=== PATIENT | male | born 1950 | race Caucasian/White ===

== ENCOUNTER 2020-04-17 14:35 | Inpatient (IN) | payer MEDICARE, BC, SELFPAY ==
--- NOTE | ~2020-04-17 | XR_ITS ---
EXAMINATION: XR CHEST CLINICAL INFORMATION: Elevated BNP. Hypoxia. COMPARISON: Chest radiograph dated 04/21/2020. TECHNIQUE: Frontal view of the chest was obtained. FINDINGS: Decreased lung volumes. No consolidation. Mild distention of the central vascular pedicle and increased interstitial lung markings. No pneumothorax or pleural effusion. Cardiomediastinal silhouette is mildly increased in size. No acute osseous abnormality. XR/XR chest 1V IMPRESSION: Hypoexpanded lungs. Mild central vascular congestion and interstitial edema.
--- NOTE | ~2020-04-17 | US_ITS ---
EXAMINATION: US EXTRACRANIAL CAROTID DUPLEX, BILATERAL CLINICAL INFORMATION: CVA COMPARISON: None TECHNIQUE: Real-time ultrasound and Doppler techniques (integrating B-mode 2-D vascular images, Doppler spectral analysis and color-flow Doppler imaging) were utilized to interrogate the extracranial carotid arteries, the vertebral arteries and proximal subclavian arteries bilaterally. The degree of stenosis is determined by criteria similar to NASCET. FINDINGS: Right Side: 1. There is echogenic atherosclerotic plaque seen in the bifurcation/proximal ICA region. 2. The common carotid artery PSV proximally is 87.8 cm/s and distally 61.9 cm/s. 3. The proximal internal carotid artery velocities are 63.2 cm/s systolic and 15.8 cm/s diastolic. 4. The proximal external carotid artery PSV is 61.9 cm/s. 5. The vertebral artery shows antegrade flow. Left Side: 1. There is echogenic atherosclerotic plaque seen in the bifurcation/proximal ICA region. 2. The common carotid artery PSV proximally is 69.3 cm/s and distally 63.4 cm/s. 3. The proximal internal carotid artery velocities are 69.0 cm/s systolic and 19.3 cm/s diastolic. 4. The proximal external carotid artery PSV is 75.7 cm/s. 5. The vertebral artery shows antegrade flow. US/US carotid duplex BI IMPRESSION: 1. RIGHT: Minimal, non-hemodynamically significant stenosis of the proximal right internal carotid artery corresponding to a 0-49% stenosis by velocity criteria. 2. LEFT: Minimal, non-hemodynamically significant stenosis of the proximal left internal carotid artery corresponding to a 0-49% stenosis by velocity criteria.
--- NOTE | ~2020-04-17 | XR_ITS ---
EXAMINATION: XR CHEST CLINICAL INFORMATION: Evaluate for CHF COMPARISON: None TECHNIQUE: Frontal view of the chest was obtained. FINDINGS: Normal cardiomediastinal silhouette. Median sternotomy wires and vascular clips are in place. There is hypoinflation of the lungs with mild prominence of the pulmonary vasculature and interstitium. Streaky atelectasis at the right lung base. No acute osseous abnormality. XR/XR chest 1V IMPRESSION: Low lung volumes. Mild prominence of the pulmonary vasculature and interstitium, which may represent mild edema versus atelectasis. Streaky atelectasis at the right lung base.
--- NOTE | ~2020-04-17 | US_ITS ---
EXAMINATION: US ABDOMEN COMPLETE ULTRASOUND DUPLEX ARTERIAL VENOUS COMPLETE CLINICAL INFORMATION: worsening liver failure/fever, rule out portal vein thrombosis. COMPARISON: CT dated 04/19/2020 TECHNIQUE: Real-time imaging of the abdominal viscera. Additional color and spectral Doppler assessment of the arterial, portal venous, and systemic venous systems in the mid abdomen was performed. Examination is somewhat limited due to irregular, labored breathing and significant bowel gas. Patient is unable to hold breath. Constant movement. FINDINGS: PANCREAS: Largely obscured by bowel gas, not well assessed. Imaged portion of the body is unremarkable. ABDOMINAL AORTA: The proximal, mid, and distal segments are normal in caliber. Foci of calcific plaque are suspected. INFERIOR VENA CAVA: Visualized portions are normal. LIVER: Subtle nodularity to the hepatic contour is better seen on prior CT. Echogenicity appears normal on these images. Liver is normal in size, measuring 13.6 cm craniocaudal. A 0.7 cm anechoic cyst is present within the left hepatic lobe. No biliary ductal dilatation is identified. Trace perihepatic ascites. GALLBLADDER: Multiple shadowing gallstones are evident within the gallbladder, measuring up to 2.2 cm in diameter . Gallbladder wall demonstrates normal thickness. No significant pericholecystic fluid. No sonographic Perdomo's sign. COMMON BILE DUCT: Normal in caliber measuring 0.5 cm in diameter. RIGHT KIDNEY: Normal. No hydronephrosis. No renal calculi or focal parenchymal lesions. The kidney measures 13.3 cm in maximum dimension. LEFT KIDNEY: Normal. No hydronephrosis. No renal calculi or focal parenchymal lesions. The kidney measures 13.1 cm in maximum dimension. SPLEEN: Enlarged, measuring up to 17.3 cm in diameter. FREE FLUID: Trace ascites is noted in perisplenic and perihepatic positions. Portal veins: Extra hepatic portal vein : Hepatopedal flow, patent Main portal vein: Hepatopedal flow, patent Right portal vein : Hepatopedal flow, patent Left portable vein: Not seen on this study Hepatic arteries: Mean hepatic artery: Patent with normal peak systolic velocity 125 cm/s. Left and right hepatic arteries: Not identified sonographically. IVC waveform: None obtained Splenic vein: Patent with hepatopedal flow. US/US duplex arterial venous comp IMPRESSION: 1. A subtle hepatic nodularity is better seen on the prior CT, suggestive of cirrhosis. Liver is normal in size and echogenicity on these images. 2. Marked splenomegaly. 3. Patent portal vasculature with hepatopedal flow. No evidence of thrombosis. 4. Trace ascites. 5. Cholelithiasis without evidence of acute cholecystitis.
--- NOTE | ~2020-04-17 | XR_ITS ---
EXAMINATION: XR CHEST CLINICAL INFORMATION: Shortness of breath COMPARISON: Chest radiograph 04/17/[address] abdomen pelvis 04/19/2020 TECHNIQUE: Frontal view of the chest was obtained. FINDINGS: Heart size is normal. No evidence of gross CHF. At the time of the prior CT scan 3 days ago, bilateral pleural effusions and lower lobe atelectasis was present. I suspect there are persistent small bilateral pleural effusions. There is new increased density at the left lung base consistent with worsening infiltrate/atelectasis. XR/XR chest 1V IMPRESSION: Persistent small effusions. Worsening infiltrate left lung base.
--- NOTE | ~2020-04-17 | MR_ITS ---
EXAMINATION: MR BRAIN WITHOUT CONTRAST CLINICAL INFORMATION: Left facial droop COMPARISON: CT head performed earlier same date TECHNIQUE: MRI of the brain was obtained using routine sequences without contrast. FINDINGS: No areas of abnormally restricted diffusion within the brain parenchyma to suggest acute or subacute ischemia. There are a few scattered foci of subcortical white matter T2 prolongation statistically related to microangiopathic gliosis. No transcortical infarcts. No pathological magnetic susceptibility artifact is demonstrated. There is no intracranial mass, mass effect, or shift of midline structures. No abnormal extra axial fluid collection. Ventricular system normal in size proportionate to the subarachnoid spaces, without evidence of hydrocephalus. Mild generalized brain parenchymal volume loss. Posterior fossa structures are normal. The craniocervical junction is normal. Midline structures including the posterior pituitary bright spot are normal. The intracranial vascular flow voids including the major dural venous sinuses are preserved. Mastoid air cells are clear. The visualized paranasal sinuses are well-aerated. Globes and orbits unremarkable. MR/MR head/brain wo con IMPRESSION: No acute or subacute intracranial pathology. Minimal chronic white matter small vessel ischemic changes.
--- NOTE | ~2020-04-17 | CT_ITS ---
EXAMINATION: CT CHEST WITHOUT CONTRAST CLINICAL INFORMATION: Pneumonia COMPARISON: Previous chest x-ray April 17 and 04/22/2020 TECHNIQUE: Multidetector volumetric CT imaging of the chest was done. Axial MIP volume rendering provided. Sagittal and coronal reformatted images were obtained. This CT examination was performed using dose optimization techniques as appropriate, variously including the following: *Automated exposure control *Adjustment of mA and/or kV according to patient size (this includes techniques or standardized protocols for targeted exams where dose is matched to indication/reason for exam; i.e. extremities or head) *Use of iterative reconstruction technique DLP: 258 mGy-cm FINDINGS: LUNGS: Exam is limited due to artifact from respiratory motion. There is pulmonary venous redistribution. There are increased interstitial markings seen and scattered areas of increased attenuation. This most likely represents mild pulmonary edema. There is bilateral lower lobe compressive atelectasis or small infiltrates at the lung bases, right greater than left. MEDIASTINUM: The heart is enlarged. There are post-CABG changes. There is a prosthetic aortic valve. There is a small mediastinal lymph nodes. No enlarged lymph nodes are seen. There is no pericardial effusion. PLEURA: There are small to moderate bilateral pleural effusions. AXILLA: No lymphadenopathy. UPPER ABDOMEN: Unremarkable. OSSEOUS STRUCTURES: There is a united median sternotomy. There are degenerative changes of the spine. CT/CT chest wo con IMPRESSION: Limited exam due to artifact from respiratory motion. Mild CHF with enlarged heart, pulmonary venous redistribution, interstitial and alveolar pulmonary disease probably representing pulmonary edema and moderate bilateral pleural effusions. There is compressive atelectasis or small infiltrates in both lower lobes adjacent to the pleural effusions..
--- NOTE | ~2020-04-17 | CT_ITS ---
EXAMINATION: CT HEAD WITHOUT CONTRAST (STROKE PROTOCOL) CLINICAL INFORMATION: Left facial droop. Stroke COMPARISON: None TECHNIQUE: Contiguous axial imaging was performed from the skull base to vertex without intravenous administration of contrast. This CT examination was performed using dose optimization techniques as appropriate, variously including the following: *Automated exposure control *Adjustment of mA and/or kV according to patient size (this includes techniques or standardized protocols for targeted exams where dose is matched to indication/reason for exam; i.e. extremities or head) *Use of iterative reconstruction technique DLP: 693 mGy-cm FINDINGS: There is no intracranial hemorrhage, hematoma, or extra-axial fluid collection. Ventricles, sulci, and cisterns are age-appropriate and prominent. The zavala-white matter differentiation appears symmetric. There is no acute infarct or mass lesion. There is some mild periventricular white matter low density present as well as some diminished density seen about the insula bilaterally likely related to The calvarium appears intact. There is no pneumocephalus or orbital emphysema. The visualized sinuses and middle ears and mastoid air cells show no significant mucosal thickening. There are no air-fluid levels. CT/CT head for stroke IMPRESSION: No acute intracranial abnormality appreciated. Signs of mild microangiopathy. This critical result was discussed with Dr. Lopez at 2:20 PM hours on April 24, 2020. It was ascertained that the content and urgency of the report was understood at the time of direct communication.
--- NOTE | ~2020-04-17 | US_ITS ---
EXAMINATION: US ABDOMEN COMPLETE, PORTABLE CLINICAL INFORMATION: Hypoalbuminemia, transaminitis.. COMPARISON: None TECHNIQUE: Real-time imaging of the abdominal viscera. FINDINGS: PANCREAS: Normal. ABDOMINAL AORTA: There is mild atherosclerosis with calcified abdominal aorta but normal caliber throughout. INFERIOR VENA CAVA: Visualized portions are normal. LIVER: The left lobe is mildly reduced 15.6 cm and right lobe measures 18.3 cm, enlarged. There is anechoic cyst in the left lobe measuring 0.6 x 0.5 x 0.6 cm. The liver contour is normal. Parenchymal echogenicity is normal. There is no intrahepatic ductal dilatation. There is mild prominence of middle portal vein measuring 1.6 cm in AP. There is hepatopedal flow seen in the main portal vein on Doppler exam. GALLBLADDER: The gallbladder is physiologically distended with echogenic stones. Gallbladder wall thickness is 0.18 cm. There is trace fluid surrounding gallbladder. COMMON BILE DUCT: Normal in caliber measuring 0.38 cm in diameter. RIGHT KIDNEY: There is trace pelvic caliectasis. No renal calculi or focal parenchymal lesions. The kidney measures 13.6 cm in maximum dimension. LEFT KIDNEY: The kidney is lobulated contour with trace free fluid around the lower pole. There are no echogenic calculi or hydronephrosis. There is a small anechoic cyst in lower pole measuring 2.2 x 1.8 x 2.0 cm. The kidney measures 13.4 cm in maximum dimension. SPLEEN: The spleen is enlarged. The spleen measures 17.9 cm in maximum dimension. FREE FLUID: None. US/US abdomen complete IMPRESSION: Enlarged gallbladder with cholelithiasis with trace pericholecystic fluid collection. Mild hepatomegaly with the left hepatic lobe cyst. Mildly dilated middle portal vein. Small cyst left kidney with a lobulated left kidney contour. Trace free fluid in lower pole left kidney.
--- NOTE | ~2020-04-17 | CT_ITS ---
EXAMINATION: CT ABDOMEN AND PELVIS WITH CONTRAST CLINICAL INFORMATION: Chronic liver disease. Gallbladder distention. COMPARISON: Ultrasound of abdomen 04/18/2020 TECHNIQUE: Multidetector volumetric images were obtained from the superior aspect of the liver through the pubic symphysis following administration 85 mL of Omnipaque 350 intravenous contrast. Sagittal and coronal reformatted images were obtained on the technologist's workstation. Oral contrast: No This CT examination was performed using dose optimization techniques as appropriate, variously including the following: *Automated exposure control *Adjustment of mA and/or kV according to patient size (this includes techniques or standardized protocols for targeted exams where dose is matched to indication/reason for exam; i.e. extremities or head) *Use of iterative reconstruction technique DLP: 506 mGy-cm FINDINGS: LUNG BASES: There are small dependent bilateral pleural effusions. Dependent atelectasis at both lung bases. The heart size enlarged. Status post aortic valve repair. Status post median sternotomy. Vascular calcification of coronary arteries. LIVER, GALLBLADDER, AND BILIARY TREE: There is slight nodularity of the liver surface raising question of underlying cirrhosis. Right lobe of liver measures 17.6 cm superior inferior. No focal liver lesion or intrahepatic bile duct dilatation. The gallbladder is mildly distended to a length of about 12 cm. There are multiple partially calcified gallstones within the gallbladder. There is a small volume of fluid around the fundus of the gallbladder and extending into the right paracolic gutter. No edema of the wall the gallbladder however. No dilatation of the extrahepatic ducts. CBD measures about 4 mm. PANCREAS: Unremarkable. SPLEEN: Spleen is enlarged. Spleen measures 18 cm AP. No focal splenic lesion. ADRENAL GLANDS: Unremarkable. KIDNEYS AND URETERS: There is a nonobstructive 2 mm stone in the midpole left kidney. No stone in the right kidney. There is no hydronephrosis or ureteral calculus. There is a cortical cyst in the lower pole of the left kidney measuring 1.8 cm. BLADDER: Unremarkable. GASTROINTESTINAL TRACT: No acute change of the colon. There is no bowel wall thickening /edema. There is a moderate to large volume of stool in the colon. The appendix is normal . There is mild gaseous distention of proximal small bowel loops. The distal small bowel loops are less distended. No sharp transition point however. No bowel wall thickening or edema of the small bowel. The stomach is underdistended. There is no hiatal hernia. MESENTERY: Small volume of free fluid in the cul-de-sac. Small volume of fluid tracks along the right and left paracolic gutters. There is no inflammation. No free air. ABDOMINAL WALL: No significant hernia is appreciated. LYMPH NODES: Normal. VASCULAR: There are extensive vascular calcifications through the abdomen and pelvis. There is no aneurysm of aorta. PELVIC VISCERA: Unremarkable. OSSEOUS STRUCTURES: Multilevel degenerative spondylosis of the spine. CT/CT abdomen pelvis w con IMPRESSION: 1. Splenomegaly and abdominal ascites. There is subtle micronodularity of the liver surface suggesting cirrhosis of liver. 2. Cholelithiasis. The gallbladder is mildly distended but no edema of the wall and no bile duct dilatation. 3. Bilateral pleural effusions. Bibasilar dependent atelectasis. 4. 2 mm nonobstructive stone left kidney.
--- NOTE | ~2020-04-17 | US_ITS ---
EXAMINATION: US PELVIS LIMITED (BLADDER) CLINICAL INFORMATION: Hematuria. COMPARISON: Previous CT of the abdomen and pelvis 04/19/2020 TECHNIQUE: Real-time imaging of the bladder. FINDINGS: BLADDER: Well distended and normal. No stone or mass is seen. Bilateral ureteral jets are demonstrated. Prevoid bladder volume is 197 mL. Postvoid bladder volume is 32 mL. The prostate gland is upper normal in size, volume 22 mL. There is a small amount of ascites. US/US bladder IMPRESSION: Small 32 mL post void bladder residual. Small amount of ascites. Upper normal-size prostate gland..
[2020-04-17 16:03] VITALS: BP 107/51; PULSE 92; RESP 16; TEMP 37.1; O2SAT 99
[2020-04-17 16:17] VITALS: BP 115/68; PULSE 74; RESP 18; TEMP 36.9; O2SAT 100; BMI 22.8
--- NOTE | 2020-04-17 16:38 | ECG_ITS ---
Test Reason : GENERAL MEDICAL Blood Pressure : / mmHG Vent. Rate : 071 BPM Atrial Rate : 071 BPM P-R Int : 156 ms QRS Dur : 098 ms QT Int : 422 ms P-R-T Axes : 051 -09 014 degrees QTc Int : 458 ms Sinus rhythm with Premature atrial complexes Minimal voltage criteria for LVH, may be normal variant T wave abnormality, consider anterior ischemia Abnormal ECG No previous ECGs available Referred By: Donald Charlton Electronically Signed By:Manuel Steinberg
--- NOTE | 2020-04-17 16:38 | ED_ITS ---
HPI - General Adult General Chief complaint: General Medical Stated complaint: Multiple complaints Time Seen by Provider: 04/17/20 16:25 Source: patient and family Mode of arrival: ambulatory Limitations: no limitations History of Present Illness HPI narrative: Patient's history of significant coronary artery disease status post 4 vessel CABG 7 years ago for abnormal EKG no chest pain at that time was doing okay until he got the COVID vaccine on 03/18patient had few days of cold symptoms but after that patient been complaining of increased leg swelling and shortness of breath which is getting worse patient feel weak no fever no chest pain no abdominal pain no back pain or leg pain patient had a 2nd shot of COVID vaccine on 04/08. Patient had similar cold symptoms been feeling very weak he fell last week with increased weakness and shortness of breath on exertion. PE patient was seen at [facility] on 04/09 they did chest x-ray which was negative Doppler of the legs negative for DVT patient's sodium was 135 creatinine was 0.9 and pro BNP was 2042 patient's hemoglobin was 9.7 with platelet counts of 111,000 Onset (ago): week(s) Related Data Home Medications Medication Instructions Recorded Confirmed aspirin 81 mg PO DAILY 04/17/20 04/17/20 atorvastatin 1 tab PO DAILY 04/17/20 04/17/20 metoprolol tartrate 1 tab PO BID 04/17/20 04/17/20 Allergies Allergy/AdvReac Type Severity Reaction Status Date / Time No Known Allergies Allergy Verified 04/17/20 16:51 Review of Systems Review of Systems: Constitutional : No Weight loss, No Fever, No Chills ENT/Mouth : No sore throat, No Rhinorrhea Eyes: No Eye Pain, No Swelling Cardiovascular : No Chest Pain, no palpitations Respiratory : No Cough, No Sputum, ++ shortness of breath Gastrointestinal : no Nausea, No Vomiting, No Diarrhea, No abdominal Pain, no black stools Genitourinary : No Dysuria, No Urinary Frequency Musculoskeletal : No joint pain, ++Myalgias, No Joint Swelling Skin : No Skin Lesions, No rash Neuro : No Weakness, No Numbness, No Dizziness, No Headache Psych : No Anxiety/Panic, No Depression Heme/Lymph: No Bruising, No Lymphadenopathy Endocrine : No Polyuria, No Polydipsia All other systems reviewed and are negative FOR[facility]LY [facility] Past Medical History Medical History (Updated 04/17/20 @ 20:43 by Donald Charlton MD) CAD (coronary artery disease) HTN (hypertension) Hyperlipemia Surgical History (Updated 04/17/20 @ 20:43 by Donald Charlton MD) Hx of CABG Social History Social History Alcohol intake: never Smoking Status: Never smoker Use of substances other than those prescribed or required for medical reasons: No Advance Directives: No Advance Directives Information Provided: No Physical Exam Vital Signs: Vital Signs: Last Vital Signs Temp 98.5 F 04/17/20 20:00 Pulse 100 04/17/20 20:00 Resp 22 H 04/17/20 20:00 BP 157/70 H 04/17/20 20:00 Pulse Ox 98 04/17/20 20:00 Body Mass Index 22.8 Appearance: Alert. Oriented X3. No acute distress. Looks pale Eyes: Pupils equal, round and reactive to light. ENT: Pharynx normal. Neck: Normal inspection. Neck supple. CVS: Normal heart rate and rhythm. Pulses normal. Respiratory: No respiratory distress. Breath sounds normal. Abdomen: Soft and nontender. Bowel sounds are present, no mass palpable, no CVA tenderness rectal: Empty rectum guaiac negative brown stool Skin: Skin warm and dry. Normal skin color. Normal skin turgor. Pallor+ Extremities: 2+ bilateral lower extremity edema. Neuro: Oriented X 3. No motor deficit. No sensory deficit. Medical Decision Making MDM Narrative Medical decision making narrative: Patient with significant coronary artery disease came with weakness exertional shortness of breath lab workup and chest x-ray showed congestive heart failure with significant anemia guaiac is negative old records reviewed from [facility] which also showed increased BNP at that time sodium was 135 today's 129 likely delusional also patient has slightly elevated LFTs with low albumin levels that could be contributing to the edema. Will admit patient for CHF and further cardiac evaluation Lab Data Lab results reviewed: Yes I reviewed the patient's lab results. Result diagrams: 04/17/20 16:49 04/17/20 16:49 Labs: Lab Results 04/17/20 04/17/20 04/17/20 Range/Units 16:49 16:49 16:49 WBC 11.3 H (4.8-10.8) X10*3/uL RBC 3.46 L (4.60-5.80) X10*6/uL Hgb 9.4 L (14.0-18.0) g/dl Hct 30.0 L (42-52) % MCV 86.7 (80-98) fL MCH 27.2 (27.0-33.0) pg MCHC 31.3 (31.0-36.0) g/dl RDW 15.0 (11.0-16.0) % Plt Count 125 L (160-400) X10*3/uL MPV 9.7 (9.4-12.4) fL Immature Gran % (Auto) 0.8 H (0.0-0.4) % Neut % (Auto) 83.5 H (45-73) % Lymph % (Auto) 9.0 L (20-40) % [place] % (Auto) 6.5 (2-11) % Eos % (Auto) 0.1 (0-4) % Baso % (Auto) 0.1 (0-2) % Lymph # (Auto) 1.0 L (1.2-4.9) X10*3/uL [place] # (Auto) 0.7 (0.1-1.2) X10*3/uL Eos # (Auto) 0.0 (0.0-0.4) X10*3/uL Baso # (Auto) 0.0 (0.0-0.2) X10*3/uL Abs Immat Gran (auto) 0.09 H (0.00-0.03) X10*3/uL Absolute Neuts (auto) 9.5 H (2.0-8.3) X10*3/uL Absolute Nucleated RBC 0.000 (0.0-0.012) X10*3/uL Nucleated RBC % (auto) 0.0 (0.0-0.2) /100WBC PT 16.8 H (10.8-13.0) SEC INR 1.4 H (0.9-1.1) Sodium 129 L (135-145) mmol/L Potassium 4.2 (3.3-5.1) mmol/L Chloride 98 (96-108) mmol/L Carbon Dioxide 22 (22-29) mmol/L Anion Gap 13 (12-20) BUN 26 H (9-16) mg/dL Creatinine 0.99 (0.5-1.4) mg/dL Estim Creat Clear Calc 69.0 Estimated GFR > 60 Random Glucose 171 H (60-115) mg/dL Calcium 7.4 L (8.4-10.2) mg/dL Total Bilirubin 1.1 H (0.0-1.0) mg/dL Direct Bilirubin 0.6 H (0.0-0.5) mg/dL AST 59 H (5-37) U/L ALT 79 H (0-40) U/L Alkaline Phosphatase 93 (39-117) U/L Troponin I High Sens (<3.5-35.0) ng/L B-Natriuretic Peptide (<100) pg/mL Total Protein 5.7 L (6.5-8.0) g/dL Albumin 2.6 L (3.5-5.0) g/dL Stool Occult Blood (NEG) COVID-19 ([facility]) (Negative) COVID-19 Clin Com 04/17/20 04/17/20 04/17/20 Range/Units 16:49 18:32 20:15 WBC (4.8-10.8) X10*3/uL RBC (4.60-5.80) X10*6/uL Hgb (14.0-18.0) g/dl Hct (42-52) % MCV (80-98) fL MCH (27.0-33.0) pg MCHC (31.0-36.0) g/dl RDW (11.0-16.0) % Plt Count (160-400) X10*3/uL MPV (9.4-12.4) fL Immature Gran % (Auto) (0.0-0.4) % Neut % (Auto) (45-73) % Lymph % (Auto) (20-40) % [place] % (Auto) (2-11) % Eos % (Auto) (0-4) % Baso % (Auto) (0-2) % Lymph # (Auto) (1.2-4.9) X10*3/uL [place] # (Auto) (0.1-1.2) X10*3/uL Eos # (Auto) (0.0-0.4) X10*3/uL Baso # (Auto) (0.0-0.2) X10*3/uL Abs Immat Gran (auto) (0.00-0.03) X10*3/uL Absolute Neuts (auto) (2.0-8.3) X10*3/uL Absolute Nucleated RBC (0.0-0.012) X10*3/uL Nucleated RBC % (auto) (0.0-0.2) /100WBC PT (10.8-13.0) SEC INR (0.9-1.1) Sodium (135-145) mmol/L Potassium (3.3-5.1) mmol/L Chloride (96-108) mmol/L Carbon Dioxide (22-29) mmol/L Anion Gap (12-20) BUN (9-16) mg/dL Creatinine (0.5-1.4) mg/dL Estim Creat Clear Calc Estimated GFR Random Glucose (60-115) mg/dL Calcium (8.4-10.2) mg/dL Total Bilirubin (0.0-1.0) mg/dL Direct Bilirubin (0.0-0.5) mg/dL AST (5-37) U/L ALT (0-40) U/L Alkaline Phosphatase (39-117) U/L Troponin I High Sens 227.8 H (<3.5-35.0) ng/L B-Natriuretic Peptide 457 H (<100) pg/mL Total Protein (6.5-8.0) g/dL Albumin (3.5-5.0) g/dL Stool Occult Blood NEG (NEG) COVID-19 ([facility]) Negative (Negative) COVID-19 Clin Com See Note 04/17/20 Range/Units 21:02 WBC (4.8-10.8) X10*3/uL RBC (4.60-5.80) X10*6/uL Hgb (14.0-18.0) g/dl Hct (42-52) % MCV (80-98) fL MCH (27.0-33.0) pg MCHC (31.0-36.0) g/dl RDW (11.0-16.0) % Plt Count (160-400) X10*3/uL MPV (9.4-12.4) fL Immature Gran % (Auto) (0.0-0.4) % Neut % (Auto) (45-73) % Lymph % (Auto) (20-40) % [place] % (Auto) (2-11) % Eos % (Auto) (0-4) % Baso % (Auto) (0-2) % Lymph # (Auto) (1.2-4.9) X10*3/uL [place] # (Auto) (0.1-1.2) X10*3/uL Eos # (Auto) (0.0-0.4) X10*3/uL Baso # (Auto) (0.0-0.2) X10*3/uL Abs Immat Gran (auto) (0.00-0.03) X10*3/uL Absolute Neuts (auto) (2.0-8.3) X10*3/uL Absolute Nucleated RBC (0.0-0.012) X10*3/uL Nucleated RBC % (auto) (0.0-0.2) /100WBC PT (10.8-13.0) SEC INR (0.9-1.1) Sodium (135-145) mmol/L Potassium (3.3-5.1) mmol/L Chloride (96-108) mmol/L Carbon Dioxide (22-29) mmol/L Anion Gap (12-20) BUN (9-16) mg/dL Creatinine (0.5-1.4) mg/dL Estim Creat Clear Calc Estimated GFR Random Glucose (60-115) mg/dL Calcium (8.4-10.2) mg/dL Total Bilirubin (0.0-1.0) mg/dL Direct Bilirubin (0.0-0.5) mg/dL AST (5-37) U/L ALT (0-40) U/L Alkaline Phosphatase (39-117) U/L Troponin I High Sens 220.7 H (<3.5-35.0) ng/L B-Natriuretic Peptide (<100) pg/mL Total Protein (6.5-8.0) g/dL Albumin (3.5-5.0) g/dL Stool Occult Blood (NEG) COVID-19 ([facility]) (Negative) COVID-19 Clin Com ECG Data Attestation: I personally reviewed and interpreted this ECG as follows: Interpretation: Normal sinus rhythm heart rate 71 beats per minute normal axis LVH nonspecific ST T wave changes no acute ischemia Discharge Plan Discharge Clinical Impression: Acute hyponatremia CHF (congestive heart failure) Qualifiers: Heart failure type: systolic Heart failure chronicity: acute Qualified Code(s): I50.21 - Acute systolic (congestive) heart failure Anemia Qualifiers: Anemia type: other cause Other causes of anemia: other cause, not classified Qualified Code(s): D64.89 - Other specified anemias Patient Disposition: Admitted As Inpatient
[2020-04-17 17:16] LABS: MANUAL DIFF FLAG NO
[2020-04-17 17:20] LABS: Basophils Percent Auto 0.1 % (0-2); Eosinophils Percent Auto 0.1 % (0-4); Hemoglobin 9.4 g/dl (14.0-18.0); Imm Gran Abs Auto 0.09 X10*3/uL (0.00-0.03); Imm Gran Pct Auto 0.8 % (0.0-0.4); Mean Corpuscular HGB Conc 31.3 g/dl (31.0-36.0); Mean Corpuscular Hemoglobin 27.2 pg (27.0-33.0); Mean Corpuscular Volume 86.7 fL (80-98); Mean Platelet Volume 9.7 fL (9.4-12.4); Monocytes Absolute Auto 0.7 X10*3/uL (0.1-1.2); Monocytes Percent Auto 6.5 % (2-11); Neutrophils Absolute Auto 9.5 X10*3/uL (2.0-8.3); Neutrophils Percent Auto 83.5 % (45-73); Platelet Count 125 X10*3/uL (160-400); Red Blood Count 3.46 X10*6/uL (4.60-5.80); White Blood Count 11.3 X10*3/uL (4.8-10.8)
[2020-04-17 17:35] LABS: INTERNATIONAL NORM RATIO 1.4 (0.9-1.1); Prothrombin Time 16.8 SEC (10.8-13.0)
[2020-04-17 17:39] LABS: Alanine Aminotransferase 79 U/L (0-40); Albumin Level 2.6 g/dL (3.5-5.0); Alkaline Phosphatase 93 U/L (39-117); Anion Gap 13 (12-20); Aspartate Amino Transferase 59 U/L (5-37); Bilirubin Direct 0.6 mg/dL (0.0-0.5); Bilirubin Total 1.1 mg/dL (0.0-1.0); Blood Urea Nitrogen 26 mg/dL (9-16); Calcium 7.4 mg/dL (8.4-10.2); Carbon Dioxide 22 mmol/L (22-29); Chloride 98 mmol/L (96-108); Estimated Glomerular Filt Rate > 60; Glucose Random 171 mg/dL (60-115); Potassium 4.2 mmol/L (3.3-5.1); Sodium 129 mmol/L (135-145); Total Protein 5.7 g/dL (6.5-8.0)
[2020-04-17 17:52] LABS: B Type Natriuretic Peptide 457 pg/mL (<100); Troponin-I High Sensitivity 227.8 ng/L (<3.5-35.0)
[2020-04-17 18:19] VITALS: BP 122/64; PULSE 89; RESP 18; O2SAT 98
--- NOTE | 2020-04-17 18:22 | PC.NURSE ---
Elevated troponin. Pt to be admitted to hospital. Pt and family made aware of the plan by the physician.
[2020-04-17 18:43] LABS: OBS Int Ctl Valid YES; OBS1 NEG (NEG)
[2020-04-17] MEDS: Aspirin Enteric Coated 81 MG TABLET.DR 162 MG PO (18:43)
[2020-04-17] MEDS: Furosemide 20 MG/2 ML VIAL IVPUSH (18:44)
[2020-04-17 20:00] VITALS: BP 157/70; PULSE 100; RESP 22; TEMP 36.9; O2SAT 98
[2020-04-17 20:33] LABS: COVID-19 Test Negative (Negative)
--- NOTE | 2020-04-17 20:55 | PC.NURSE ---
CHECKED ON PATIENT 2-3 TIMES, FOR COMFORT AND HYDRATION NEEDS. PT REQUESTED WATER, ABLE TO TOLERATE. PT HAS NO APPETITE.
--- NOTE | 2020-04-17 21:00 | PC.NURSE ---
PT DENIES VOMITING, ABDOMINAL OR CHEST DISCOMFORT. AWAKE AND ALERT, ANSWERING ALL QUESTION IMMEDIATELY AND APPROPRIATELY.
[2020-04-17 21:39] LABS: Troponin-I High Sensitivity 220.7 ng/L (<3.5-35.0)
--- NOTE | 2020-04-17 21:50 | PC.NURSE ---
PT SCHEDULED FOR ABDOMINAL ULTRASOUND, ORDERED BY HOSPITALIST. REIMBURSEMENT COORDINATOR CALLED TO LET ME KNOW THAT HIS ULTRASOUND WILL BE TOMORROW MORNING, PERMISSION OF HOSPITALIST. PT TO BE NPO AFTER MIDNIGHT. PT HAS TAKEN IN 16 OUNCES OF WATER SINCE 19:00. PT GIVEN AN ADDITIONAL 80Z WATER, TOLD THAT THIS WAS IT FOR FLUIDS FOR THE NIGHT. PT HAS URINAL, NO RECENT OUTPUT OR URGE TO VOID.
--- NOTE | 2020-04-17 23:52 | PC.NURSE ---
REPORT GIVEN TO RN ON FLOOR.
[2020-04-18] VITALS (9 sets, daily range): BP systolic 90–120; BP diastolic 43–63; PULSE 75–98; RESP 16–25; TEMP 36.3–38.1; O2SAT 94–100; BMI 24.3
[2020-04-18 01:39] LABS: MANUAL DIFF FLAG NO
[2020-04-18 01:43] LABS: Basophils Percent Auto 0.1 % (0-2); Hematocrit 24.1 % (42-52); Hemoglobin 7.9 g/dl (14.0-18.0); Imm Gran Abs Auto 0.08 X10*3/uL (0.00-0.03); Imm Gran Pct Auto 0.8 % (0.0-0.4); Lymphocytes Absolute Auto 0.9 X10*3/uL (1.2-4.9); Lymphocytes Percent Auto 8.8 % (20-40); Mean Corpuscular HGB Conc 32.8 g/dl (31.0-36.0); Mean Corpuscular Hemoglobin 27.6 pg (27.0-33.0); Mean Corpuscular Volume 84.3 fL (80-98); Mean Platelet Volume 9.2 fL (9.4-12.4); Monocytes Absolute Auto 0.7 X10*3/uL (0.1-1.2); Neutrophils Absolute Auto 8.6 X10*3/uL (2.0-8.3); Neutrophils Percent Auto 83.3 % (45-73); Red Blood Count 2.86 X10*6/uL (4.60-5.80); Red Cell Distribution Width 14.9 % (11.0-16.0); White Blood Count 10.3 X10*3/uL (4.8-10.8)
[2020-04-18 01:53] LABS: Platelet Count 97 X10*3/uL (160-400)
[2020-04-18 03:11] LABS: Anion Gap 10 (12-20); Blood Urea Nitrogen 26 mg/dL (9-16); Calcium 7.1 mg/dL (8.4-10.2); Carbon Dioxide 24 mmol/L (22-29); Chloride 100 mmol/L (96-108); Creatinine Clr Calc Pharmacy 74.2; Estimated Glomerular Filt Rate > 60; Glucose Random 162 mg/dL (60-115); Potassium 4.4 mmol/L (3.3-5.1); Sodium 130 mmol/L (135-145)
[2020-04-18] MEDS: 0.9 % Sodium Chloride Flush 3 ML SYRINGE IVFLUSH ×5 (03:28→23:16)
[2020-04-18 04:24] LABS: Ferritin 254 ng/mL (20-250)
--- NOTE | 2020-04-18 05:29 | PM.IMHP ---
History of Present Illness Date of Service: 04/17/20 Chief Complaint: Weakness, falls This is a 69-year-old male with past medical history of CAD status post CABG, HTN, HLD who presents to the hospital with multiple complaints including generalized weakness, episode of fall, low appetite, and cough. Patient reports that he started having a cough about 3 weeks ago and wound with dyspnea on exertion and lower extremity edema. He had 1 episode of fall last Sunday, he does not remember the events surrounding the fall, he just remembers being on the floor, does not remember if he had any dizziness, palpitations or chest pain at that time. Currently denies any chest pain, no headache, no change in vision, no abdominal pain nausea or vomiting, no diarrhea constipation, and no urinary symptoms. he reports low appetite for solids for the past 1 week but has been drinking about 4 to 5 cups of water and Gatorade daily. Patient had 1st dose of COVID vaccine in the beginning of April and did present herself to [facility] and he was told that these are side effects from the COVID vaccine and was sent home. Patient denies any melena, no bright red blood per rectum, no hematemesis, hematochezia, hemoptysis. On arrival to the ED patient is hemodynamically stable with blood pressure of 107/51 otherwise satting 99% on room air. Afebrile Labs are significant for WBC count of 10.3, hemoglobin of 9.4( 9.7 on 3/5 at [place]) , PT of 16.8, INR 1.4, sodium of 128 (135 3/5), BUN of 26, creatinine 0.9, total bili of 1.1, AST of 59, ALT of 79, high sensitivity troponin of 227, on repeat to 20, BNP of 457, albumin of 2.6. Stool occult blood negative. COVID-19 negative, EKG reviewed shows sinus rhythm with PACs, some nonspecific ST T wave changes Chest x-ray revealed mild prominence of the pulmonary vasculature and interstitium which may represent edema versus atelectasis Patient will be admitted for further management Past medical history as below and confirmed with patient Review of Systems Review of Systems: Yes all other systems are reviewed and are negative [facility] Medical History CAD (coronary artery disease) HTN (hypertension) Hyperlipemia Family history: reviewed and not pertinent Surgical History (Updated 04/17/20 @ 20:43 by Donald Charlton MD) Hx of CABG Social History Household Members: Other Household Members Other:: Mother Housing: House Do you presently have visiting nurse or other home services: No Alcohol intake: never Smoking Status: Never smoker Use of substances other than those prescribed or required for medical reasons: No Have you been hit, kicked, punched, or otherwise hurt by someone within the past year? If so, by whom?: No Do you feel safe in your current relationship?: No Current Relationship Is there a partner from a previous relationship who is making you feel unsafe now?: No Are you made to feel afraid or neglected: No Advance Directives: No Advance Directives Information Provided: No Do you have thoughts of harming others: None Do you have a plan to hurt others: No Plan Recently lost weight without trying: No Meds Allergies Allergy/AdvReac Type Severity Reaction Status Date / Time No Known Allergies Allergy Verified 04/17/20 16:51 Active Medications: Current Medications Generic Name Dose Route Start Last Admin Trade Name Freq PRN Reason Stop Dose Admin Acetaminophen 650 mg 04/18/20 01:17 Acetaminophen 325 Mg Tablet PO Q6H PRN Pain, Mild (Pain Scale 1-3) Aspirin 81 mg 04/18/20 09:00 Aspirin 81 Mg Tab.Chew PO DAILY [facility] Atorvastatin Calcium 40 mg 04/18/20 09:00 Atorvastatin Calcium 40 Mg Tablet PO DAILY [facility] Docusate Sodium 100 mg 04/18/20 01:17 Docusate Sodium 100 Mg Capsule PO DAILY PRN Constipation Furosemide 40 mg 04/18/20 06:00 Furosemide 40 Mg/4 Ml Vial IVPUSH Q12H [facility] Protocol Heparin Sodium (Porcine) 5,000 unit 04/18/20 03:00 04/18/20 03:06 Heparin Sodium,Porcine 5,000 Unit/Ml Vial SUBCUT Not Given Q12H [place] Metoprolol Tartrate 50 mg 04/18/20 01:17 04/18/20 01:51 Metoprolol Tartrate 50 Mg Tablet PO Not Given BID [facility] Protocol Ondansetron HCl 4 mg 04/18/20 01:17 Ondansetron Hcl 4 Mg/2 Ml Vial IVPUSH Q8H PRN Nausea and Vomiting Sodium Chloride 3 ml 04/18/20 01:17 04/18/20 03:28 0.9 % Sodium Chloride Flush 3 Ml Syringe IVFLUSH 3 ml QSHIFT [place] Administration Sodium Chloride 3 ml 04/18/20 01:17 04/18/20 03:28 0.9 % Sodium Chloride Flush 3 Ml Syringe IVFLUSH 3 ml QSHIFT [place] Administration Home Medications Medication Instructions Recorded Confirmed Last Taken Type aspirin 81 mg PO DAILY 04/17/20 04/17/20 04/17/20 History atorvastatin 1 tab PO DAILY 04/17/20 04/17/20 04/16/20 History metoprolol tartrate 1 tab PO BID 04/17/20 04/17/20 04/17/20 History Physical Exam Vital Signs and Narrative: Vital Signs: Last Vital Signs Temp 97.4 F 04/18/20 03:54 Pulse 78 04/18/20 03:54 Resp 18 04/18/20 03:54 BP 96/57 L 04/18/20 03:54 Pulse Ox 95 04/18/20 03:54 Body Mass Index 22.8 Const: General: cooperative, no acute distress, ill appearing, poor hygiene and tired appearing Orientation/consciousness: patient oriented x3 Eyes: General: appearance normal, both eyes and all related structures Pupils: Equal, round and reactive pupils present Resp: Effort & Inspection: normal respiratory effort and able to speak in complete sentences Auscultation: clear to auscultation bilaterally Cardio: Rate: regular rate Rhythm: regular rhythm GI: Palpation (GI): Soft to palpation Auscultation: normal bowel sounds Skin: General skin exam: no rashes or lesions noted Neuro: General: patient oriented x3 Cranial nerves: Yes Equal, round and reactive pupils present Cognition (Neuro): normal cognition Extrem: Other: 2+ pitting edema bilaterally General: Yes normal to inspection Results Labs CBC and Chem 7: 04/18/20 01:35 04/18/20 01:35 Labs: Laboratory Results - last 24 hr 04/17/20 04/17/20 04/17/20 16:49 16:49 16:49 MCV 86.7 MCH 27.2 MCHC 31.3 RDW 15.0 Plt Count 125 L MPV 9.7 Immature Gran % (Auto) 0.8 H Neut % (Auto) 83.5 H Lymph % (Auto) 9.0 L [place] % (Auto) 6.5 Eos % (Auto) 0.1 Baso % (Auto) 0.1 Lymph # (Auto) 1.0 L [place] # (Auto) 0.7 Eos # (Auto) 0.0 Baso # (Auto) 0.0 Abs Immat Gran (auto) 0.09 H Absolute Neuts (auto) 9.5 H Absolute Nucleated RBC 0.000 Nucleated RBC % (auto) 0.0 PT 16.8 H INR 1.4 H Anion Gap 13 Estim Creat Clear Calc 69.0 Estimated GFR > 60 Random Glucose 171 H Calcium 7.4 L Ferritin Total Bilirubin 1.1 H Direct Bilirubin 0.6 H AST 59 H ALT 79 H Alkaline Phosphatase 93 Troponin I High Sens B-Natriuretic Peptide Total Protein 5.7 L Albumin 2.6 L Stool Occult Blood COVID-19 ([facility]) COVID-[employer] 04/17/20 04/17/20 04/17/20 16:49 18:32 20:15 MCV MCH MCHC RDW Plt Count MPV Immature Gran % (Auto) Neut % (Auto) Lymph % (Auto) [place] % (Auto) Eos % (Auto) Baso % (Auto) Lymph # (Auto) [place] # (Auto) Eos # (Auto) Baso # (Auto) Abs Immat Gran (auto) Absolute Neuts (auto) Absolute Nucleated RBC Nucleated RBC % (auto) PT INR Anion Gap Estim Creat Clear Calc Estimated GFR Random Glucose Calcium Ferritin Total Bilirubin Direct Bilirubin AST ALT Alkaline Phosphatase Troponin I High Sens 227.8 H B-Natriuretic Peptide 457 H Total Protein Albumin Stool Occult Blood NEG COVID-19 ([facility]) Negative COVID-19 Clin Com See Note 04/17/20 04/18/20 04/18/20 21:02 01:35 01:35 MCV 84.3 MCH 27.6 MCHC 32.8 RDW 14.9 Plt Count 97 L MPV 9.2 L Immature Gran % (Auto) 0.8 H Neut % (Auto) 83.3 H Lymph % (Auto) 8.8 L [place] % (Auto) 7.0 Eos % (Auto) 0.0 Baso % (Auto) 0.1 Lymph # (Auto) 0.9 L [place] # (Auto) 0.7 Eos # (Auto) 0.0 Baso # (Auto) 0.0 Abs Immat Gran (auto) 0.08 H Absolute Neuts (auto) 8.6 H Absolute Nucleated RBC 0.000 Nucleated RBC % (auto) 0.0 PT INR Anion Gap Estim Creat Clear Calc Estimated GFR Random Glucose Calcium Ferritin 254 H Total Bilirubin Direct Bilirubin AST ALT Alkaline Phosphatase Troponin I High Sens 220.7 H B-Natriuretic Peptide Total Protein Albumin Stool Occult Blood COVID-19 ([facility]) COVID-19 [employer] Com 04/18/20 01:35 MCV MCH MCHC RDW Plt Count MPV Immature Gran % (Auto) Neut % (Auto) Lymph % (Auto) [place] % (Auto) Eos % (Auto) Baso % (Auto) Lymph # (Auto) [place] # (Auto) Eos # (Auto) Baso # (Auto) Abs Immat Gran (auto) Absolute Neuts (auto) Absolute Nucleated RBC Nucleated RBC % (auto) PT INR Anion Gap 10 L Estim Creat Clear Calc 74.2 Estimated GFR > 60 Random Glucose 162 H Calcium 7.1 L Ferritin Total Bilirubin Direct Bilirubin AST ALT Alkaline Phosphatase Troponin I High Sens B-Natriuretic Peptide Total Protein Albumin Stool Occult Blood COVID-19 ([facility]) COVID-19 Clin Com Imaging Radiologist's Impressions: Impressions Chest X-Ray 04/17/20 16:39 IMPRESSION: Low lung volumes. Mild prominence of the pulmonary vasculature and interstitium, which may represent mild edema versus atelectasis. Streaky atelectasis at the right lung base. Assessment and Plan (1) CHF exacerbation: Status: Acute (2) Normocytic anemia: Status: Acute (3) Generalized weakness: Status: Acute (4) Acute hyponatremia: Status: Acute (5) Transaminitis: Status: Acute (6) Hypoalbuminemia: Status: Acute (7) Elevated troponin: Status: Acute This is a 69-year-old young male with past medical history of CAD status post CABG who presents to the hospital with multitude of symptoms including generalized weakness, cough, lower extremity edema, and low oral intake. # CHF exacerbation - [place], lower extremity edema, cough is dry - elevated BNP, chest x-ray revealing pulmonary congestion - denies having any history of heart failure although has a extensive history of coronary artery disease status post CABG Plan: - will start him on Lasix 40 IV b.i.d. - low-sodium diet, strict I&O, daily weight - echocardiogram - cardiology consult # normocytic anemia - patient has a hemoglobin of 9.4 - denies any melena, no bright red blood per rectum, hematemesis, hematochezia or hemoptysis - occult stool negative for blood - will obtain ferritin, B12, folic acid - follow CBC, with transfusions stressed hold of hemoglobin less than 8 given his history of CAD # hyponatremia - patient's sodium on 04/[address] [facility] was 135, it is 129 today - patient reports poor oral solid intake but has been drinking more than 4-5 cups of liquid daily which may be contributing to his sodium as well as CHF exacerbation - denies any alcohol use, denies any history of liver disease Plan: - will obtain urine studies , urine osmolarity, serum osmolarity -will restrict fluid at this time and follow BMP Q 6 hours - nephrology consult # generalized weakness - most likely secondary to acute disease including CHF, anemia, hyponatremia - will treat the above reasons - PT OT # transaminitis/hypoalbuminemia - unclear etiology, patient denies history of alcohol use - possibly secondary to poor oral intake - given his elevated INR will obtain right upper quadrant abdominal ultrasound to rule out any liver disease - he denies any abdominal pain at this time - follow LFTs # elevated troponin - denies any chest pain, no acute EKG changes - will consult Cardiology given his history of CAD and CABG DVT prophylaxis: Heparin subQ
[2020-04-18] MEDS: Furosemide 40 MG/4 ML VIAL IVPUSH (06:23)
[2020-04-18 07:03] LABS: Osmolality, Serum 278 mosm/kg (281-305)
--- NOTE | 2020-04-18 09:37 | HO.PM.IMPN ---
Subjective Subjective Date of Service: 06/05/20 Interval History: Seen in f/u for chf, hyponatremia, and anemia. Has persitent leg edema, no sob, H/H has decreased Review of Systems Gen: no fever Resp: no sob, no cough CV: no chest, [place], no leg [place] GI: No n/v, no abd pain Neuro: No confusion Physical Exam Vital Signs: Vital Signs: Last Vital Signs Temp 97.5 F 04/18/20 07:35 Pulse 75 04/18/20 07:35 Resp 16 04/18/20 07:35 BP 109/56 L 04/18/20 07:35 Pulse Ox 97 04/18/20 07:35 Body Mass Index 24.3 Const: General: cooperative, no acute distress, ill appearing, poor hygiene and tired appearing Orientation/consciousness: patient oriented x3 Eyes: General: appearance normal, both eyes and all related structures Pupils: Equal, round and reactive pupils present Resp: Effort & Inspection: normal respiratory effort and able to speak in complete sentences Auscultation: clear to auscultation bilaterally Cardio: Rate: regular rate Rhythm: regular rhythm GI: Palpation (GI): Soft to palpation Auscultation: normal bowel sounds Skin: General skin exam: no rashes or lesions noted Neuro: General: patient oriented x3 Cranial nerves: Yes Equal, round and reactive pupils present Cognition (Neuro): normal cognition Extrem: Other: 2+ pitting edema bilaterally General: Yes normal to inspection Objective Data Current Medications Generic Name Dose Route Start Last Admin Trade Name Freq PRN Reason Stop Dose Admin Acetaminophen 650 mg 04/18/20 01:17 Acetaminophen 325 Mg Tablet PO Q6H PRN Pain, Mild (Pain Scale 1-3) Aspirin 81 mg 04/18/20 09:00 Aspirin 81 Mg Tab.Chew PO DAILY [facility] Atorvastatin Calcium 40 mg 04/18/20 09:00 Atorvastatin Calcium 40 Mg Tablet PO DAILY [facility] Docusate Sodium 100 mg 04/18/20 01:17 Docusate Sodium 100 Mg Capsule PO DAILY PRN Constipation Furosemide 40 mg 04/18/20 06:00 04/18/20 06:23 Furosemide 40 Mg/4 Ml Vial IVPUSH 40 mg Q12H [facility] Administration Protocol Heparin Sodium (Porcine) 5,000 unit 04/18/20 03:00 04/18/20 03:06 Heparin Sodium,Porcine 5,000 Unit/Ml Vial SUBCUT Not Given Q12H [facility] Metoprolol Tartrate 50 mg 04/18/20 01:17 04/18/20 01:51 Metoprolol Tartrate 50 Mg Tablet PO Not Given BID [facility] Protocol Ondansetron HCl 4 mg 04/18/20 01:17 Ondansetron Hcl 4 Mg/2 Ml Vial IVPUSH Q8H PRN Nausea and Vomiting Sodium Chloride 3 ml 04/18/20 01:17 04/18/20 03:28 0.9 % Sodium Chloride Flush 3 Ml Syringe IVFLUSH 3 ml QSHIFT [facility] Administration Labs CBC & Chem 7: 04/27/20 05:21 04/27/20 05:21 Assessment and Plan (1) CHF exacerbation: (2) Normocytic anemia: (3) Generalized weakness: Status: Acute (4) Acute hyponatremia: Status: Resolved (5) Transaminitis: Status: Resolved (6) Hypoalbuminemia: (7) Elevated troponin: Status: Resolved Assessment and Plan: 69-year-old young male with past medical history of CAD status post CABG who presents to the hospital with multitude of symptoms including generalized weakness, cough, lower extremity edema, and low oral intake. # CHF exacerbation, new onset - [place], lower extremity edema, cough is dry - elevated BNP, chest x-ray revealing pulmonary congestion Plan: - Lasix 40 IV b.i.d. Monitor electrolytes - low-sodium diet, strict I&O, daily weight - echocardiogram tomorrow - cardiology following # normocytic anemia--with drop in H/H today, denies blood in stool, has had remote colonoscopy that was unremarkable per is report -Occult blood is negative - ferritim high, B12, folic acid pending # hyponatremia--Etiology is unknown, i suspect this is chronic, assymptomatic, unchanged. -renal following, fluid restricion. # generalized weakness - most likely secondary to acute disease including CHF, anemia, hyponatremia - will treat the above reasons - PT OT tomorrow # transaminitis/hypoalbuminemia - unclear etiology, patient denies history of alcohol use - possibly secondary to poor oral intake - given his elevated INR will obtain right upper quadrant abdominal ultrasound to rule out any liver disease - he denies any abdominal pain at this time - follow LFTs # elevated troponin - denies any chest pain, no acute EKG changes - Cardiology given his history of CAD and CABG -cardiology recommend echo, no ischemic w/u at this time. DVT prophylaxis: Hold heparin, compression device
[2020-04-18] MEDS: Aspirin 81 MG TAB.CHEW PO (09:52)
[2020-04-18] MEDS: Atorvastatin Calcium 40 MG TABLET PO (09:52)
[2020-04-18] MEDS: Metoprolol Tartrate 50 MG TABLET PO (09:52)
--- NOTE | 2020-04-18 10:29 | P.CONNP_ITS ---
History of Present Illness Reason for Consult Consult date: 04/18/20 Reason for consult: hypona Chief Complaint Chief complaint: CHF History of Present Illness Narrative: Ask to see PT re Hiram. Adm c/o SOB,MSK aches,chills, shalonda of legs and feeling unwell. Says he is not on any diuretics routinely and denies taking NSAIDs. Denies any h/o of low Na in blood. Sees a PCP in [facility] routinely. past medical history of CAD status post CABG Review of Systems Review of Systems Constitutional : No Weight loss, No Fever, No Chills ENT/Mouth : No sore throat, No Rhinorrhea Eyes: No Eye Pain, No Swelling Cardiovascular : No Chest Pain, no palpitations Respiratory : No Cough, No Sputum, ++ shortness of breath Gastrointestinal : no Nausea, No Vomiting, No Diarrhea, No abdominal Pain, no black stools Genitourinary : No Dysuria, No Urinary Frequency Musculoskeletal : No joint pain, ++Myalgias, No Joint Swelling Skin : No Skin Lesions, No rash Neuro : No Weakness, No Numbness, No Dizziness, No Headache Psych : No Anxiety/Panic, No Depression Heme/Lymph: No Bruising, No Lymphadenopathy Endocrine : No Polyuria, No Polydipsia All other systems reviewed and are negative Yes all other systems are reviewed and are negative [facility] Past Medical History Medical History CAD (coronary artery disease) HTN (hypertension) Hyperlipemia Family History Family history: reviewed and not pertinent Surgical History Surgical History (Updated 04/17/20 @ 20:43 by Donald Charlton MD) Hx of CABG Social History Social History Household Members: Other Household Members Other:: Mother Housing: House Do you presently have visiting nurse or other home services: No Alcohol intake: never Smoking Status: Never smoker Use of substances other than those prescribed or required for medical reasons: No Have you been hit, kicked, punched, or otherwise hurt by someone within the past year? If so, by whom?: No Do you feel safe in your current relationship?: No Current Relationship Is there a partner from a previous relationship who is making you feel unsafe now?: No Are you made to feel afraid or neglected: No Advance Directives: No Advance Directives Information Provided: No Do you have thoughts of harming others: None Do you have a plan to hurt others: No Plan Recently lost weight without trying: No Meds Allergies Allergy/AdvReac Type Severity Reaction Status Date / Time No Known Allergies Allergy Verified 04/17/20 16:51 Active Medications: Current Medications Generic Name Dose Route Start Last Admin Trade Name Freq PRN Reason Stop Dose Admin Acetaminophen 650 mg 04/18/20 01:17 Acetaminophen 325 Mg Tablet PO Q6H PRN Pain, Mild (Pain Scale 1-3) Aspirin 81 mg 04/18/20 09:00 04/18/20 09:52 Aspirin 81 Mg Tab.Chew PO 81 mg DAILY [facility] Administration Atorvastatin Calcium 40 mg 04/18/20 09:00 04/18/20 09:52 Atorvastatin Calcium 40 Mg Tablet PO 40 mg DAILY [facility] Administration Docusate Sodium 100 mg 04/18/20 01:17 Docusate Sodium 100 Mg Capsule PO DAILY PRN Constipation Furosemide 40 mg 04/18/20 06:00 04/18/20 06:23 Furosemide 40 Mg/4 Ml Vial IVPUSH 40 mg Q12H [facility] Administration Protocol Heparin Sodium (Porcine) 5,000 unit 04/18/20 03:00 04/18/20 03:06 Heparin Sodium,Porcine 5,000 Unit/Ml Vial SUBCUT Not Given Q12H [facility] Metoprolol Tartrate 50 mg 04/18/20 01:17 04/18/20 09:52 Metoprolol Tartrate 50 Mg Tablet PO 50 mg BID [facility] Administration Protocol Ondansetron HCl 4 mg 04/18/20 01:17 Ondansetron Hcl 4 Mg/2 Ml Vial IVPUSH Q8H PRN Nausea and Vomiting Sodium Chloride 3 ml 04/18/20 01:17 04/18/20 09:53 0.9 % Sodium Chloride Flush 3 Ml Syringe IVFLUSH 3 ml QSHIFT [facility] Administration Home Medications Medication Instructions Recorded Confirmed Last Taken Type aspirin 81 mg PO DAILY 04/17/20 04/17/20 04/17/20 History atorvastatin 1 tab PO DAILY 04/17/20 04/17/20 04/16/20 History metoprolol tartrate 1 tab PO BID 04/17/20 04/17/20 04/17/20 History Physical Exam Vital Signs: Last Vital Signs Temp 97.5 F 04/18/20 07:35 Pulse 75 04/18/20 07:35 Resp 16 04/18/20 07:35 BP 109/56 L 04/18/20 07:35 Pulse Ox 97 04/18/20 07:35 Body Mass Index 24.3 Const General: cooperative, no acute distress, ill appearing, poor hygiene and tired appearing Orientation/consciousness: patient oriented x3 Eyes General: appearance normal, both eyes and all related structures Pupils: Equal, round and reactive pupils present Resp Effort & Inspection: normal respiratory effort and able to speak in complete sentences Auscultation: clear to auscultation bilaterally Cardio Rate: regular rate Rhythm: regular rhythm GI Palpation (GI): Soft to palpation Auscultation: normal bowel sounds Skin General skin exam: no rashes or lesions noted Neuro General: patient oriented x3 Cranial nerves: Yes Equal, round and reactive pupils present Cognition (Neuro): normal cognition Extrem Other: 2+ pitting edema bilaterally General: Yes normal to inspection Results Lab Results Result Diagrams: 04/18/20 01:35 04/18/20 01:35 Lab results: Chemistry 04/17/20 04/18/20 16:49 01:35 Sodium 129 L 130 L Potassium 4.2 4.4 Carbon Dioxide 22 24 BUN 26 H 26 H Creatinine 0.99 0.92 Calcium 7.4 L 7.1 L Hematology 04/17/20 04/18/20 16:49 01:35 WBC 11.3 H 10.3 Hgb 9.4 L 7.9 L Plt Count 125 L 97 L Assessment and Plan (1) CHF exacerbation: Status: Acute (2) Normocytic anemia: Status: Acute (3) Generalized weakness: Status: Acute (4) Acute hyponatremia: Status: Acute (5) Transaminitis: Status: Acute (6) Hypoalbuminemia: Status: Acute (7) Elevated troponin: Status: Acute 1. Hypervol HypoNa: ques related to dCHF vs other..need to r/o liver Dz as well; adrenal isuff and hypthy need to be r/o as well 2. Edema: w/u in progress; ques d/t low albumin 3. Anemia and low PLTs: all new per PT and warrants additional w/u 4. Abnl LFTs and low albumin also concerning and will need furhter eval of liver..denies ETOH REC: check urine studies; TSH and am cortisol level; PO fluid restirction 1500; ok to give lasix as it oftencan help incr SNa; will follow with team
[2020-04-18 12:08] LABS: TSH reflex Free T4 0.94 uIU/mL (0.32-4.0)
--- NOTE | 2020-04-18 13:07 | P.CONCA_ITS ---
History of Present Illness History of Present Illness Date of Service: 04/18/20 Requesting physician: Yordy Vaughan Consult reason: congestive heart failure Chief complaint: CHF Narrative: 69-year-old gentleman with background history of coronary bypass surgery 7 years ago while he was in [place]. He was being followed at [place] by Cardiology. He said he had 3 vessel bypass surgery as well as aortic valve replacement. He moved to [place] 4 years ago to take care of his mother and has been going to [place] for cardiovascular care. He is presenting because in March he had 1st short of COVID-19 vaccine and develop ed weakness and lower extremity edema which was progressive. He said in got the 2nd does and felt worse. He presented to [facility] with lower extremity edema, weakness, hyponatremia, anemia and transaminitis. He is denying any chest discomfort shortness of breath right now. He said before bypass surgery he had indigestion like feeling which she has not felt recently. His EKG showing anterior biphasic looking T-waves. There is no comparison available otherwise. He is denying any symptoms right now other than tiredness. Review of Systems Review of Systems: Fatigued Yes all other systems are reviewed and are negative [facility] Past Medical History Medical History (Updated 04/18/20 @ 13:12 by Manuel Steinberg MD) CAD (coronary artery disease) HTN (hypertension) Hyperlipemia Family History Family history: reviewed and not pertinent Surgical History Surgical History (Updated 04/17/20 @ 20:43 by Donald Charlton MD) Hx of CABG Social History Social History Household Members: Other Household Members Other:: Mother Housing: House Do you presently have visiting nurse or other home services: No Alcohol intake: never Smoking Status: Never smoker Use of substances other than those prescribed or required for medical reasons: No Currently Displaying Signs/Symptoms of Drug Intoxication Withdrawal: No Have you been hit, kicked, punched, or otherwise hurt by someone within the past year? If so, by whom?: No Do you feel safe in your current relationship?: No Current Relationship Is there a partner from a previous relationship who is making you feel unsafe now?: No Are you made to feel afraid or neglected: No Advance Directives: No Advance Directives Information Provided: No Do you have thoughts of harming others: None Do you have a plan to hurt others: No Plan Recently lost weight without trying: No Meds Allergies Allergy/AdvReac Type Severity Reaction Status Date / Time No Known Allergies Allergy Verified 04/17/20 16:51 Active Medications: Current Medications Generic Name Dose Route Start Last Admin Trade Name Freq PRN Reason Stop Dose Admin Acetaminophen 650 mg 04/18/20 01:17 Acetaminophen 325 Mg Tablet PO Q6H PRN Pain, Mild (Pain Scale 1-3) Aspirin 81 mg 04/18/20 09:00 04/18/20 09:52 Aspirin 81 Mg Tab.Chew PO 81 mg DAILY [facility] Administration Atorvastatin Calcium 40 mg 04/18/20 09:00 04/18/20 09:52 Atorvastatin Calcium 40 Mg Tablet PO 40 mg DAILY [facility] Administration Docusate Sodium 100 mg 04/18/20 01:17 Docusate Sodium 100 Mg Capsule PO DAILY PRN Constipation Furosemide 40 mg 04/18/20 06:00 04/18/20 06:23 Furosemide 40 Mg/4 Ml Vial IVPUSH 40 mg Q12H [facility] Administration Protocol Heparin Sodium (Porcine) 5,000 unit 04/18/20 03:00 04/18/20 03:06 Heparin Sodium,Porcine 5,000 Unit/Ml Vial SUBCUT Not Given Q12H [facility] Metoprolol Tartrate 50 mg 04/18/20 01:17 04/18/20 09:52 Metoprolol Tartrate 50 Mg Tablet PO 50 mg BID [facility] Administration Protocol Ondansetron HCl 4 mg 04/18/20 01:17 Ondansetron Hcl 4 Mg/2 Ml Vial IVPUSH Q8H PRN Nausea and Vomiting Sodium Chloride 3 ml 04/18/20 01:17 04/18/20 09:53 0.9 % Sodium Chloride Flush 3 Ml Syringe IVFLUSH 3 ml QSHIFT [facility] Administration Home Medications Medication Instructions Recorded Confirmed Last Taken Type aspirin 81 mg PO DAILY 04/17/20 04/17/20 04/17/20 History atorvastatin 1 tab PO DAILY 04/17/20 04/17/20 04/16/20 History metoprolol tartrate 1 tab PO BID 04/17/20 04/17/20 04/17/20 History Physical Exam Vital Signs: Vital Signs: Last Vital Signs Temp 98.1 F 04/18/20 11:55 Pulse 77 04/18/20 11:55 Resp 18 04/18/20 11:55 BP 97/52 L 04/18/20 11:55 Pulse Ox 97 04/18/20 11:55 Body Mass Index 24.3 GENERAL APPEARANCE: in no acute distress, well developed, well nourished. HEENT: unremarkable. HEAD: normocephalic, atraumatic. NECK/THYROID: no carotid bruit, + jugular venous distention. SKIN: no suspicious lesions, warm and dry. HEART: Mid systolic murmur in the aortic area. There is a holosystolic murmur at the cardiac apex, regular rate and rhytm. LUNGS: clear to auscultation bilaterally. ABDOMEN: normal, bowel sounds present, soft, nontender, nondistended. EXTREMITIES: no clubbing, cyanosis. 1+ edema. PERIPHERAL PULSES: equal. NEUROLOGIC: nonfocal, alert and oriented. PSYCH: mood/affect full range. Results Labs and Meds Result diagrams: 04/18/20 01:35 04/18/20 01:35 Lab results: Laboratory Results - last 24 hr 04/17/20 04/17/20 04/17/20 16:49 16:49 16:49 WBC 11.3 H RBC 3.46 L Hgb 9.4 L Hct 30.0 L MCV 86.7 MCH 27.2 MCHC 31.3 RDW 15.0 Plt Count 125 L MPV 9.7 Immature Gran % (Auto) 0.8 H Neut % (Auto) 83.5 H Lymph % (Auto) 9.0 L [place] % (Auto) 6.5 Eos % (Auto) 0.1 Baso % (Auto) 0.1 Lymph # (Auto) 1.0 L [place] # (Auto) 0.7 Eos # (Auto) 0.0 Baso # (Auto) 0.0 Abs Immat Gran (auto) 0.09 H Absolute Neuts (auto) 9.5 H Absolute Nucleated RBC 0.000 Nucleated RBC % (auto) 0.0 PT 16.8 H INR 1.4 H Sodium 129 L Potassium 4.2 Chloride 98 Carbon Dioxide 22 Anion Gap 13 BUN 26 H Creatinine 0.99 Estim Creat Clear Calc 69.0 Estimated GFR > 60 Random Glucose 171 H Osmolality Calcium 7.4 L Ferritin Total Bilirubin 1.1 H Direct Bilirubin 0.6 H AST 59 H ALT 79 H Alkaline Phosphatase 93 Troponin I High Sens B-Natriuretic Peptide Total Protein 5.7 L Albumin 2.6 L TSH Stool Occult Blood COVID-19 ([facility]) COVID-19 [facility] 04/17/20 04/17/20 04/17/20 16:49 18:32 20:15 WBC RBC Hgb Hct MCV MCH MCHC RDW Plt Count MPV Immature Gran % (Auto) Neut % (Auto) Lymph % (Auto) [place] % (Auto) Eos % (Auto) Baso % (Auto) Lymph # (Auto) [place] # (Auto) Eos # (Auto) Baso # (Auto) Abs Immat Gran (auto) Absolute Neuts (auto) Absolute Nucleated RBC Nucleated RBC % (auto) PT INR Sodium Potassium Chloride Carbon Dioxide Anion Gap BUN Creatinine Estim Creat Clear Calc Estimated GFR Random Glucose Osmolality Calcium Ferritin Total Bilirubin Direct Bilirubin AST ALT Alkaline Phosphatase Troponin I High Sens 227.8 H B-Natriuretic Peptide 457 H Total Protein Albumin TSH Stool Occult Blood NEG COVID-19 ([facility]) Negative COVID-19 [facility] See Note 04/17/20 04/18/20 04/18/20 21:02 01:35 01:35 WBC 10.3 RBC 2.86 L Hgb 7.9 L Hct 24.1 L MCV 84.3 MCH 27.6 MCHC 32.8 RDW 14.9 Plt Count 97 L MPV 9.2 L Immature Gran % (Auto) 0.8 H Neut % (Auto) 83.3 H Lymph % (Auto) 8.8 L [place] % (Auto) 7.0 Eos % (Auto) 0.0 Baso % (Auto) 0.1 Lymph # (Auto) 0.9 L [place] # (Auto) 0.7 Eos # (Auto) 0.0 Baso # (Auto) 0.0 Abs Immat Gran (auto) 0.08 H Absolute Neuts (auto) 8.6 H Absolute Nucleated RBC 0.000 Nucleated RBC % (auto) 0.0 PT INR Sodium Potassium Chloride Carbon Dioxide Anion Gap BUN Creatinine Estim Creat Clear Calc Estimated GFR Random Glucose Osmolality Calcium Ferritin 254 H Total Bilirubin Direct Bilirubin AST ALT Alkaline Phosphatase Troponin I High Sens 220.7 H B-Natriuretic Peptide Total Protein Albumin TSH Stool Occult Blood COVID-19 ([facility]) COVID-19 [facility] 04/18/20 04/18/20 04/18/20 01:35 05:52 11:09 WBC RBC Hgb Hct MCV MCH MCHC RDW Plt Count MPV Immature Gran % (Auto) Neut % (Auto) Lymph % (Auto) [place] % (Auto) Eos % (Auto) Baso % (Auto) Lymph # (Auto) [place] # (Auto) Eos # (Auto) Baso # (Auto) Abs Immat Gran (auto) Absolute Neuts (auto) Absolute Nucleated RBC Nucleated RBC % (auto) PT INR Sodium 130 L Potassium 4.4 Chloride 100 Carbon Dioxide 24 Anion Gap 10 L BUN 26 H Creatinine 0.92 Estim Creat Clear Calc 74.2 Estimated GFR > 60 Random Glucose 162 H Osmolality 278 L Calcium 7.1 L Ferritin Total Bilirubin Direct Bilirubin AST ALT Alkaline Phosphatase Troponin I High Sens B-Natriuretic Peptide Total Protein Albumin TSH 0.94 Stool Occult Blood COVID-19 ([facility]) COVID-19 [facility] Radiologist's impression: Impressions Chest X-Ray 04/17/20 16:39 IMPRESSION: Low lung volumes. Mild prominence of the pulmonary vasculature and interstitium, which may represent mild edema versus atelectasis. Streaky atelectasis at the right lung base. Abdomen Ultrasound 04/18/20 08:07 IMPRESSION: Enlarged gallbladder with cholelithiasis with trace pericholecystic fluid collection. Mild hepatomegaly with the left hepatic lobe cyst. Mildly dilated middle portal vein. Small cyst left kidney with a lobulated left kidney contour. Trace free fluid in lower pole left kidney. Assessment and Plan (1) CHF (congestive heart failure): Qualifiers: Heart failure chronicity: acute Heart failure type: systolic Qualified Code(s): I50.21 - Acute systolic (congestive) heart failure Status: Acute (2) Mitral regurgitation: Status: Acute (3) CAD (coronary artery disease): Status: Inactive Pleasant 69-year-old gentleman who is presenting with multiple complaints after getting COVID-19 vaccine. He has background of coronary artery bypass surgery x3 and aortic valve replacement 7 years ago while he was in [place]. We do not have any records right now. We need to get records to understand his coronary anatomy. He also has mitral regurgitation murmur on examination. He is saying that he has a leaky valve and was undergoing some workup for that. I think we need to ECHO him tomorrow to understand his LVEF as well as mitral valve regurgitation. Hyponatremia and other features can happen with congestive heart failure due to neurohormonal changes. I would decrease the Lasix to 40 mg once a day for now. Also cut the metoprolol to half the dose because he is hypotensive. He is undergoing further workup with Nephrology which will be helpful if he has any adrenal insufficiency or other possible causes for hyponatremia. He has biphasic T-waves anteriorly. Currently he is anemic and he does not have any ischemic symptoms so I would hold off on anticoagulation. Baby aspirin should be continued unless there is worsening of anemia. He will need workup for anemia to understand why he is anemic. AST and ALT are mildly abnormal and I think we can continue atorvastatin but if there is any changes this can be held too. Thank you for allowing me to participate in the care of your patient. Please feel free to contact me if you have any questions.
--- NOTE | 2020-04-18 14:26 | P.CNGI_ITS ---
History of Present Illness Data of Consult Service Date: 04/18/20 Requesting physician: Yordy [facility] Primary Care Provider: Nonstaff Physician in [place], [place]. Review of Systems Constitutional: Constitutional: Reports frequent falls (one fall recent.), Reports lethargy, Reports poor appetite and Reports weakness Cardiovascular: Cardiovascular: Denies chest pain, Reports pedal edema, Denies claudication, Denies palpitations and Reports dyspnea Comments: CAD with CABGx3 and Aortic Valve replacement @ same time-[facility]-7 years ago. Respiratory: Respiratory: Reports dyspnea Comments: Never a smoker Gastrointestinal: Gastrointestinal: Denies abdominal pain, Denies melena and Denies hematochezia Comments: Recalls colo years ago--remembers it as negative Neurologic: Reports frequent falls (one fall recent.) and Reports weakness Endocrine: Endocrine: Denies palpitations PMFSH Past Medical History Medical History (Updated 04/18/20 @ 13:12 by Manuel Steinberg MD) CAD (coronary artery disease) HTN (hypertension) Hyperlipemia Family History Family history: reviewed and not pertinent (No hx of GI malignancy that he knows of.) Surgical History Surgical History (Updated 04/18/20 @ 19:20 by Lizzie John MD) Hx of aortic valve repair Hx of CABG Social History Social History Household Members: Other Household Members Other:: Mother Housing: House Do you presently have visiting nurse or other home services: No Alcohol intake: never Smoking Status: Never smoker Use of substances other than those prescribed or required for medical reasons: No Currently Displaying Signs/Symptoms of Drug Intoxication Withdrawal: No Have you been hit, kicked, punched, or otherwise hurt by someone within the past year? If so, by whom?: No Do you feel safe in your current relationship?: No Current Relationship Is there a partner from a previous relationship who is making you feel unsafe now?: No Are you made to feel afraid or neglected: No Advance Directives: No Advance Directives Information Provided: No Do you have thoughts of harming others: None Do you have a plan to hurt others: No Plan Recently lost weight without trying: No service: No Current occupational status: previously employed and retired Meds Allergies Allergy/AdvReac Type Severity Reaction Status Date / Time No Known Allergies Allergy Verified 04/17/20 16:51 Active Medications: Current Medications Generic Name Dose Route Start Last Admin Trade Name Freq PRN Reason Stop Dose Admin Acetaminophen 650 mg 04/18/20 01:17 Acetaminophen 325 Mg Tablet PO Q6H PRN Pain, Mild (Pain Scale 1-3) Aspirin 81 mg 04/18/20 09:00 04/18/20 09:52 Aspirin 81 Mg Tab.Chew PO 81 mg DAILY [facility] Administration Atorvastatin Calcium 40 mg 04/18/20 09:00 04/18/20 09:52 Atorvastatin Calcium 40 Mg Tablet PO 40 mg DAILY [facility] Administration Docusate Sodium 100 mg 04/18/20 01:17 Docusate Sodium 100 Mg Capsule PO DAILY PRN Constipation Furosemide 40 mg 04/19/20 09:00 Furosemide 40 Mg/4 Ml Vial IVPUSH DAILY [facility] Protocol Heparin Sodium (Porcine) 5,000 unit 04/18/20 03:00 04/18/20 03:06 Heparin Sodium,Porcine 5,000 Unit/Ml Vial SUBCUT Not Given Q12H [facility] Metoprolol Tartrate 25 mg 04/18/20 21:00 Metoprolol Tartrate 25 Mg Tablet PO BID [facility] Protocol Ondansetron HCl 4 mg 04/18/20 01:17 Ondansetron Hcl 4 Mg/2 Ml Vial IVPUSH Q8H PRN Nausea and Vomiting Sodium Chloride 3 ml 04/18/20 01:17 04/18/20 09:53 0.9 % Sodium Chloride Flush 3 Ml Syringe IVFLUSH 3 ml QSHIFT [facility] Administration Home Medications Medication Instructions Recorded Confirmed Last Taken Type aspirin 81 mg PO DAILY 04/17/20 04/17/20 04/17/20 History atorvastatin 1 tab PO DAILY 04/17/20 04/17/20 04/16/20 History metoprolol tartrate 1 tab PO BID 04/17/20 04/17/20 04/17/20 History Physical Exam Vital Signs: Vital Signs: Last Vital Signs Temp 98.1 F 04/18/20 11:55 Pulse 77 04/18/20 11:55 Resp 18 04/18/20 11:55 BP 97/52 L 04/18/20 11:55 Pulse Ox 97 04/18/20 11:55 Body Mass Index 24.3 Const: General: cooperative, alert, ill appearing and tired appearing Nutritional Appearance: average body habitus Orientation/consciousness: patient oriented x3 Resp: Effort & Inspection: normal respiratory effort and able to speak in complete sentences Auscultation: diminished lung sounds Cardio: Rate: regular rate Rhythm: regular rhythm GI: Palpation (GI): Soft to palpation, nontender and no masses Skin: General skin exam: no rashes or lesions noted Neuro: General: patient oriented x3 Extrem: General: Yes edema (2-3+ bilat) Results Labs CBC & Chem 7: 04/18/20 18:52 04/18/20 01:35 Labs: Short CBC 04/17/20 04/18/20 Range/Units 16:49 01:35 WBC 11.3 H 10.3 (4.8-10.8) X10*3/uL Hgb 9.4 L 7.9 L (14.0-18.0) g/dl Hct 30.0 L 24.1 L (42-52) % Plt Count 125 L 97 L (160-400) X10*3/uL BMP 04/17/20 04/18/20 16:49 01:35 Sodium 129 L 130 L Potassium 4.2 4.4 Chloride 98 100 Carbon Dioxide 22 24 BUN 26 H 26 H Creatinine 0.99 0.92 Calcium 7.4 L 7.1 L Liver Function 04/17/20 Range/Units 16:49 Total Bilirubin 1.1 H (0.0-1.0) mg/dL Direct Bilirubin 0.6 H (0.0-0.5) mg/dL AST 59 H (5-37) U/L ALT 79 H (0-40) U/L Alkaline Phosphatase 93 (39-117) U/L Albumin 2.6 L (3.5-5.0) g/dL 04/17-Stool Heme neg UA pending Assessment and Plan (1) Hypoalbuminemia: Status: Acute Patient does admit that his appetite has been marginal. 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 He denies any hx of either UGI or lower GI problems. He has not noticed any bleeding. UA pending ? renal? (2) Transaminitis: Status: Acute Patient is not aware of any liver problems. His transaminases are only slightly elevated--troponins are elevated with this you can see this, or he could have a component of hepatic steatosis. With this level of his enzymes there is no problem continuing his statin therapy. Admission U/S: SPLEEN: The spleen is enlarged. The spleen measures 17.9 cm in maximum dimension. FREE FLUID: None. US/US abdomen complete IMPRESSION: Enlarged gallbladder with cholelithiasis with trace pericholecystic fluid collection. Mild hepatomegaly with the left hepatic lobe cyst. Mildly dilated middle portal vein. Small cyst left kidney with a lobulated left kidney contour. Trace free fluid in lower pole left kidney. With this picture will be anxious to see results of Echo to be done 04/19--? can see some changes in setting of CHF, especially if there is a component of Fatty liver. May need Abdominal pelvic CT later in admission. (3) Anemia: Qualifiers: Anemia type: other cause Other causes of anemia: other cause, not classified Qualified Code(s): D64.89 - Other specified anemias Status: Acute Patient is not aware of any anemia. Might be helpful to get copy of last testing done by his PCP in [place] to see how much of a change this is for him. Original Hemoccult was neg-04/17. Will follow. Case reviewed with Hospitalist.
--- NOTE | 2020-04-18 14:28 | MHC.CM.PN ---
CM MET WITH PTS SISTER/HCP WHO REPORTS THE PT LIVES WITH THEIR MOTHER WHO HAS ALZHEIMER. SHE REPORTS THE PT CARES FOR HIS MOTHER DURING THE WEEK AND SHE COMES DOWN FOR 3 DAYS A WEEK TO ASSIST. SHE REPORTS THE PT DOES NOT HAVE ANY SERVICES OR DME ALTHOUGH SHE FEELS HE MAY NEED AN ASSISTIVE DEVICE GOING FORWARD. SHE REPORTS THE PT WAS SEEING A PCP IN [facility], DR BARROW, BUT HE WOULD LIEK TO CHANGE TO [facility] [place]. THE NUMBER WAS PROVIDED. CM WILL ATTEMPT TO HAVE AN APPT MADE FOR THE PT HOWEVER HCP IS AWARE THEY MAY NEED TO LIST THE NEW MD WITH THE INSURANCE FIRST. CM WILL CONFIRM WITH HER ON SUNDAY. IMM WAS EXPLAINED AND HCP REPORTED UNDERSTANDING CURRENT DC PLAN IS HOME WITH NO SERVICES PTS SISTER WILL TRANSPORT
[2020-04-18 14:46] LABS: Osmolality Urine 465 mosm/kg (373-1093)
[2020-04-18 14:47] LABS: Creatinine Urine 68.42 mg/dL
[2020-04-18 14:51] LABS: Uric Acid Urine Random 31.5 mg/dL
[2020-04-18] MEDS: Heparin Sodium,Porcine 5,000 UNIT/ML VIAL 5000 UNIT SUBCUT (16:13)
[2020-04-18 18:58] LABS: Hematocrit 26.6 % (42-52); Hemoglobin 8.4 g/dl (14.0-18.0); Mean Corpuscular HGB Conc 31.6 g/dl (31.0-36.0); Mean Corpuscular Volume 85.5 fL (80-98); Platelet Count 100 X10*3/uL (160-400); Red Blood Count 3.11 X10*6/uL (4.60-5.80); Red Cell Distribution Width 14.9 % (11.0-16.0); White Blood Count 7.9 X10*3/uL (4.8-10.8)
[2020-04-18 19:47] LABS: Anion Gap 12 (12-20); Blood Urea Nitrogen 28 mg/dL (9-16); Calcium 7.2 mg/dL (8.4-10.2); Carbon Dioxide 24 mmol/L (22-29); Chloride 98 mmol/L (96-108); Creatinine Clr Calc Pharmacy 59.7; Estimated Glomerular Filt Rate > 60; Glucose Random 243 mg/dL (60-115); Potassium 4.9 mmol/L (3.3-5.1); Sodium 129 mmol/L (135-145)
[2020-04-18] MEDS: Metoprolol Tartrate 25 MG TABLET PO (19:53)
[2020-04-18 22:50] LABS: Anion Gap 12 (12-20); Carbon Dioxide 23 mmol/L (22-29); Chloride 97 mmol/L (96-108); Potassium 4.5 mmol/L (3.3-5.1); Sodium 127 mmol/L (135-145)
[2020-04-19] VITALS (8 sets, daily range): BP systolic 105–154; BP diastolic 52–79; PULSE 80–106; RESP 18–20; TEMP 36.8–37.7; O2SAT 95–98; BMI 24.5
--- NOTE | 2020-04-19 01:17 | CA_ITS ---
Transthoracic Echocardiogram Patient (Last, First, Middle): Chandrakant Morales Paul Gender: Male Date of : 1950 Age: 69 Procedure Date: 04/19/2020 Procedure Type: Transthoracic Echocardiogram Location: [facility] [place] Height: 175.26 cm Weight: 69.85 kg BSA: 1.85 m2 Heart Rate: bpm BP: 131 / 64 mmHg Bottom Hoop Driver: Referring MD: David Deal MD Pediatrician Active Practice: Mehdi Weston MD Symptoms: Heart failure Study Quality: Fair ECG Rhythm: Atrial Fibrillation Conclusions: - 1. Normal LV systolic function with pseudonormal filling pattern 2. Moderately dilated left atrium 3. Bioprosthetic aortic valve with mean gradient of 19 mm Hg which is slightly increased with the effective orifice area of 1.46 centimeter sq next 4. At least moderate eccentric mitral regurgitation, can be underestimated 5. Normal RV systolic pressure 6. No pericardial effusion Findings Left Ventricle Normal left ventricular size, thickness, and systolic function. The visually estimated ejection fraction is between 60-65%. There is paradoxical septal motion consistent with post-operative status. Spectral Doppler is indicative of a pseudonormal filling pattern. E/E prime ratio is between 8 and 15 consistent with indeterminate filling pressures. Right Ventricle Normal right ventricular cavity size and systolic function. Atria The left atrium is moderately dilated. The right atrium was not well visualized. Aortic Valve A bioprosthetic aortic valve is present. There is no aortic valve regurgitation. Stented bioprosthetic valve is noted in aortic position, valve is well seated without abnormal rocking motion. The leaflets are not well visualized. Mean gradient across the valve is 19 mm of mercury which is elevated for a bioprosthetic valve. Calculated effective orifice area of 1.46 centimeters sq which is slightly in the low range. Will need to obtain baseline echocardiogram for comparison. Mitral Valve There is mild anterior and posterior mitral leaflet thickening. There is mild mitral annular calcification. There is moderate mitral valve regurgitation. The regurgitation jet appears to be extremely eccentric and hugging the leaflets, could be easily underestimated. Quantitative analysis was not performed Pulmonic Valve The pulmonic valve was not well visualized. Tricuspid Valve There is mild tricuspid valve regurgitation. The right ventricular systolic pressure is normal. The right ventricular systolic pressure is 24 mmHg. There is no evidence of pulmonary hypertension. Great Vessels All visible segments of the aorta are normal in size. The pulmonary artery was not well visualized. Venous The inferior vena cava is normal in size and collapses greater than 50% with inspiration. Pericardium/Pleural There is no evidence of pericardial effusion. Prior Study Comparison No prior study available for comparison. Recommendations, Care & Conclusions Consider a WAGNER if clinically appropriate. Measurements 2D Linear Measurements IVSd: 1.13 0.6-0.9/0.6-1.0 cm LVIDd: 5.36 3.9-5.3/4.2-5.9 cm LVIDd Index: 2.90 2.4-3.2/2.2-3.1 cm/m2 LVIDs: 3.66 2.0-3.6 cm LVPWd: 1.15 0.7-1.1 cm Ao Root: 3.10 2.1-3.5 cm LA Diam: 4.50 2.7-3.8/3.0-4.0 cm LAIDs Index: 2.43 1.5-2.3 cm/m2 LV Mass: 303.63 67-162/88-224 g LV Mass Index: 164.12 43-95/49-115 g/m2 LVOT Diam: 2.20 3.0+(-)1.3 cm 2D Systolic Function EF 4C: 60.70 >55% EF 2C: 61.40 >55% EF BiP: 61.60 >55% Mitral Valve MV Pk E: 0.93 MV PK A: 0.74 MV Decel Time: 180.00 E/A: 1.20 E'Lateral: 11.30 E'Medial: 8.22 E/E' Med: 11.30 E/E' Lat: 8.20 PHT: 53.00 MVA PHT: 4.15 Decel [place]: 5.16 Aortic Valve AoV Pk [place]: 2.91 AoV Mn [place]: 2.02 AoV VTI: 0.63 AoV Pk Grad: 34.00 Aov Mn Grad: 19.00 DAMIÁN Cont.VTI: 1.46 LVOT LVOT Pk [place]: 1.03 LVOT Mn [place]: 0.73 LVOT VTI: 0.24 LVOT Pk Grad: 4.00 LVOT Mn Grad: 2.00 LVOT Diam: 2.20 LVOT Area: 3.80 Diastolic Function MV Pk E: 0.93 MV Pk A: 0.74 E/A: 1.20 E'Medial: 8.22 E/E' Med: 11.30 E' Laterial: 11.30 E/E' Lat: 8.20 Tricuspid Valve TR Pk [place]: 2.28 TR Pk Grad: 21.00 RA Press: 3.00 RVSP: 24.00 Great Vessels Aorta Ao Root-2D: 3.10 2.0-3.7 cm Pulmonary Valve PV Pk [place]: 1.02 Peak PV Grad: 4.00 Updated in Other Vendor System with Status of Final Mehdi Weston MD electronically signed on 04/19/2020 12:27:11 PM with status of Final
[2020-04-19 08:20] LABS: Folate 5.5 ng/mL (> or = 4.0); Vitamin B12 499 pg/mL (200-900)
[2020-04-19] MEDS: Furosemide 40 MG/4 ML VIAL IVPUSH (09:05)
[2020-04-19] MEDS: Metoprolol Tartrate 25 MG TABLET PO ×2 (09:08→21:56)
[2020-04-19] MEDS: Atorvastatin Calcium 40 MG TABLET PO (09:08)
[2020-04-19] MEDS: 0.9 % Sodium Chloride Flush 3 ML SYRINGE IVFLUSH ×2 (09:09→17:53)
[2020-04-19] MEDS: Aspirin 81 MG TAB.CHEW PO (09:09)
--- NOTE | 2020-04-19 09:38 | MHC.CM.PN ---
per recommendation of PT , pt was amendable to having ref. made to [facility] for nsg and home PT. pt will also need an rx for front wheeled walker. cm to cont. to follow.
[2020-04-19] MEDS: Heparin Sodium,Porcine 5,000 UNIT/ML VIAL 5000 UNIT SUBCUT (11:57)
--- NOTE | 2020-04-19 12:00 | PC.NURSE ---
Patient OOB today with PT and used walker well. Steady gait. Currently sitiign up in chair with no complaints
--- NOTE | 2020-04-19 12:01 | PC.NURSE ---
Pt oob and amb with walker in senior today with PT. steady gait. Now sitting in bedside chair with no complaints. ECHO done today at bedside at 0940. Patient aware and agrees with plan of care. Continue to monitor.
--- NOTE | 2020-04-19 12:30 | MHC.CM.PN ---
MIGUEL contacted pts sister/HCP Vicki ([phone]) to follow up on her request for a new PCP/appt for the pt. CM informed her that she or the pt would need to call Dr Pizano office directly to make the appointment per his insurance policy. Vicki also reported he would need to speak to CM when she arrives for her visit. She was informed a new CM had been assigned today and that a message would be informed pf her request to speak with them. CM covering unit today was informed and will follow up with HCP.
--- NOTE | 2020-04-19 12:49 | PM.PNCARD ---
Subjective Subjective Date of Service: 04/19/20 Principal diagnosis: Elevated BNP, CAD Interval history: Patient denies any chest discomfort or shortness of breath. Feels tired. Diuresed with a negative humid if balance of recorded 128 mL, not sure if this is accurately charted. His BNP is elevated in the upper for 100s. Troponins elevated but flat. Echocardiogram shows normal LV systolic function with moderate left atrial enlargement with possibly at least moderate eccentric mitral regurgitation could be worse. Bioprosthetic aortic valve appears to be functioning adequately. No significant pulmonary hypertension Review of Systems Constitutional: Reports fatigue and Reports malaise Cardiovascular: Reports no additional cardiovascular complaints Respiratory: Reports no additional respiratory complaints Gastrointestinal: Reports no additional gastrointestinal complaints Genitourinary: Reports no additional male genitourinary complaints Musculoskeletal: Reports no additional musculoskeletal complaints Reports system reviewed and no additional complaints, except as documented Psychiatric: Reports no additional psychiatric complaints Endocrine: Reports fatigue Hematologic/Lymphatic: Reports no additional hematologic/lymphatic complaints Physical Exam Vital Signs: Last Vital Signs Temp 98.8 F 04/19/20 12:00 Pulse 99 04/19/20 12:00 Resp 18 04/19/20 12:00 BP 105/52 L 04/19/20 12:00 Pulse Ox 95 04/19/20 12:00 Body Mass Index 24.5 Const General: cooperative, comfortable, no acute distress and tired appearing Nutritional Appearance: average body habitus Orientation/consciousness: patient oriented x3 Limitations: no limitations Neck Neck: Yes trachea midline, Yes supple and Yes no JVD Resp Effort & Inspection: normal respiratory effort Auscultation: clear to auscultation bilaterally Cardio Jugular venous distension: no JVD Palpation: normal PMI Rate: regular rate Rhythm: regular rhythm Heart sounds: S1 normal heart sound present, S2 normal heart sound present and Murmur heart sound present systolic holo and at the apex GI Auscultation: normal bowel sounds Skin General skin exam: no rashes or lesions noted Neuro General: patient oriented x3 and no focal motor deficits Extrem General: Yes no clubbing, cyanosis or edema Psych Appearance: grossly normal Affect: Depressed mood present Results Labs and Meds Result diagrams: 04/18/20 18:52 04/18/20 22:23 Lab results: Laboratory Results - last 24 hr 04/18/20 04/18/20 04/18/20 01:35 14:15 14:15 WBC RBC Hgb Hct MCV MCH MCHC RDW Plt Count MPV Absolute Nucleated RBC Nucleated RBC % (auto) Sodium Potassium Chloride Carbon Dioxide Anion Gap BUN Creatinine Estim Creat Clear Calc Estimated GFR Random Glucose Calcium Vitamin B12 499 Folate 5.5 Urine Osmolality Ur Random Sodium 84.0 Ur Random Uric Acid 31.5 Urine Creatinine 68.42 04/18/20 04/18/20 04/18/20 14:15 18:52 18:52 WBC 7.9 RBC 3.11 L Hgb 8.4 L Hct 26.6 L MCV 85.5 MCH 27.0 MCHC 31.6 RDW 14.9 Plt Count 100 L MPV 10.0 Absolute Nucleated RBC 0.000 Nucleated RBC % (auto) 0.0 Sodium 129 L Potassium 4.9 Chloride 98 Carbon Dioxide 24 Anion Gap 12 BUN 28 H Creatinine 1.15 Estim Creat Clear Calc 59.7 Estimated GFR > 60 Random Glucose 243 H D Calcium 7.2 L Vitamin B12 Folate Urine Osmolality 465 Ur Random Sodium Ur Random Uric Acid Urine Creatinine 04/18/20 22:23 WBC RBC Hgb Hct MCV MCH MCHC RDW Plt Count MPV Absolute Nucleated RBC Nucleated RBC % (auto) Sodium 127 L Potassium 4.5 Chloride 97 Carbon Dioxide 23 Anion Gap 12 BUN Creatinine Estim Creat Clear Calc Estimated GFR Random Glucose Calcium Vitamin B12 Folate Urine Osmolality Ur Random Sodium Ur Random Uric Acid Urine Creatinine Progress Note: A&P Assessment and plan (1) Mitral regurgitation: Status: Acute Assessment and Plan: Mitral regurgitation which appears to be a chronic issue rather than acute issue at this point time. Transthoracic echocardiogram appears to be eccentric mitral regurgitation of at least moderate severity. Will require transesophageal echocardiogram to further assess the mitral valve, can be done as an outpatient. Will pursue this if patient wants to follow locally as outpatient. Possibly also reason for his elevated BNP. See below. (2) Elevated troponin: Status: Acute Assessment and Plan: Elevated troponin which is flat, not suggestive of acute coronary syndrome. Most likely due to underlying cardiology conditions as well as systemic syndrome related to vaccination causing some myocardial injury. This is not suggestive of myocarditis, however cannot be ruled out completely. There is no clear rise and fall in his troponin. Could be related to subendocardial ischemia/injury due to systemic cause. (3) Elevated brain natriuretic peptide (BNP) level: Status: Acute Assessment and Plan: Elevated BNP without overt heart failure at this time. Switch to p.o. Lasix 20 mg daily. Not in florid congestive heart failure at this point time. Most likely related to diastolic dysfunction and mitral regurgitation. This will need to be pursued aggressively as outpatient. His bioprosthetic valve gradient is slightly elevated, will obtain old echocardiography report from is audible a mail processing associate to compare. Continue aggressive medical management of his CAD. Continue statin therapy and low-dose aspirin therapy. Will sign of the case. Fall Risk Details Current Medications: Current Medications Generic Name Dose Route Start Last Admin Trade Name Freq PRN Reason Stop Dose Admin Acetaminophen 650 mg 04/18/20 01:17 Acetaminophen 325 Mg Tablet PO Q6H PRN Pain, Mild (Pain Scale 1-3) Aspirin 81 mg 04/18/20 09:00 04/19/20 09:09 Aspirin 81 Mg Tab.Chew PO 81 mg DAILY TALON Administration Atorvastatin Calcium 40 mg 04/18/20 09:00 04/19/20 09:08 Atorvastatin Calcium 40 Mg Tablet PO 40 mg DAILY TALON Administration Docusate Sodium 100 mg 04/18/20 01:17 Docusate Sodium 100 Mg Capsule PO DAILY PRN Constipation Furosemide 40 mg 04/19/20 09:00 04/19/20 09:05 Furosemide 40 Mg/4 Ml Vial IVPUSH 40 mg DAILY TALON Administration Protocol Heparin Sodium (Porcine) 5,000 unit 04/19/20 10:00 04/19/20 11:57 Heparin Sodium,Porcine 5,000 Unit/Ml Vial SUBCUT 5,000 unit Q12H TALON Administration Metoprolol Tartrate 25 mg 04/18/20 21:00 04/19/20 09:08 Metoprolol Tartrate 25 Mg Tablet PO 25 mg BID TALON Administration Protocol Ondansetron HCl 4 mg 04/18/20 01:17 Ondansetron Hcl 4 Mg/2 Ml Vial IVPUSH Q8H PRN Nausea and Vomiting Sodium Chloride 3 ml 04/18/20 01:17 04/19/20 09:09 0.9 % Sodium Chloride Flush 3 Ml Syringe IVFLUSH 3 ml QSHIFT TALON Administration Time Spent With Patient Time: Total time spent is greater than 50% in coordination of care (as documented) at patient's floor/unit and/or counseling patient: Time with patient: 25 - 35 minutes
--- NOTE | 2020-04-19 14:47 | MHC.CM.PN ---
spoke c pt, pt's sister at bedside. the dc plan is for patient to return home. he will have to get and have appt. c new pcp before getting vna in the home. the pcp's office will have to initiate the vna svcs once he has been seen by them. pt's sister said that the brother's neighbors can check on him when he returns home. the sister is planning on taking her mother back to [facility] her while her brother convaleses at home. the sister will provide transport home for the brother. cm to cont. to follow.
--- NOTE | 2020-04-19 16:29 | P.PNNP_ITS ---
Subjective Subjective Date of Service: 04/19/20 Principal diagnosis: Elevated BNP, CAD Interval history: Seen and examined. Events noted Physical Exam Vital Signs: Vital Signs: Last Vital Signs Temp 100 F 04/19/20 15:52 Pulse 97 04/19/20 15:52 Resp 18 04/19/20 15:52 BP 148/79 H 04/19/20 15:52 Pulse Ox 97 04/19/20 15:52 Body Mass Index 24.5 Const: General: cooperative, no acute distress, ill appearing, poor hygiene and tired appearing Orientation/consciousness: patient oriented x3 Eyes: General: appearance normal, both eyes and all related structures Pupils: Equal, round and reactive pupils present Resp: Effort & Inspection: normal respiratory effort and able to speak in com plete sentences Auscultation: clear to auscultation bilaterally Cardio: Rate: regular rate Rhythm: regular rhythm GI: Palpation (GI): Soft to palpation Auscultation: normal bowel sounds Skin: General skin exam: no rashes or lesions noted Neuro: General: patient oriented x3 Cranial nerves: Yes Equal, round and reactive pupils present Cognition (Neuro): normal cognition Extrem: Other: 2+ pitting edema bilaterally General: Yes normal to inspection Objective Data Labs CBC & Chem 7: 04/18/20 18:52 04/18/20 22:23 Labs: Laboratory Results - last 24 hr 04/18/20 04/18/20 04/18/20 01:35 18:52 18:52 WBC 7.9 RBC 3.11 L Hgb 8.4 L Hct 26.6 L MCV 85.5 MCH 27.0 MCHC 31.6 RDW 14.9 Plt Count 100 L MPV 10.0 Absolute Nucleated RBC 0.000 Nucleated RBC % (auto) 0.0 Sodium 129 L Potassium 4.9 Chloride 98 Carbon Dioxide 24 Anion Gap 12 BUN 28 H Creatinine 1.15 Estim Creat Clear Calc 59.7 Estimated GFR > 60 Random Glucose 243 H D Calcium 7.2 L Vitamin B12 499 Folate 5.5 04/18/20 22:23 WBC RBC Hgb Hct MCV MCH MCHC RDW Plt Count MPV Absolute Nucleated RBC Nucleated RBC % (auto) Sodium 127 L Potassium 4.5 Chloride 97 Carbon Dioxide 23 Anion Gap 12 BUN Creatinine Estim Creat Clear Calc Estimated GFR Random Glucose Calcium Vitamin B12 Folate Assessment & Plan Assessment and plan (1) CHF exacerbation: Status: Acute (2) Normocytic anemia: Status: Acute (3) Generalized weakness: Status: Acute (4) Acute hyponatremia: Status: Acute (5) Transaminitis: Status: Acute (6) Hypoalbuminemia: Status: Acute (7) Elevated troponin: Status: Acute Assessment and Plan: 1. Hypervol HypoNa: SNa decr 127 despite on lasix; w/u still not clear gien edema makes SIADH less likely and focus on Caridac vs Liver as culprit Urine studies reveal Urine Na not low ( but on lasix) as usu Blas is low in c ardia and Liver assoc Hypovol HypoNa LFTs abnl and enlarged spleen and incr INR all raises some ques about liver dysfunc adrenal isuff and hypthyo being r/o 2. Edema: w/u in progress; ques d/t low albumin 3. Anemia and low PLTs: all new per PT and warrants additional w/u 4. Abnl LFTs and low albumin also concerning and will need furhter eval of liver..denies ETOH REC: cont PO fluid restriciton; recheck urine studies; TSH and am cortisol level; PO fluid restirction 1500; ok to give lasix as it often can help incr SNa; if SNA decr furhter can try Urea but if liver dysfunc then would avid Urea given risk of incr ammonia will follow with team Time Spent With Patient Time: Total time spent is greater than 50% in coordination of care (as documented) at patient's floor/unit and/or counseling patient:
--- NOTE | 2020-04-19 17:11 | HO.PM.IMPN ---
Subjective Subjective Date of Service: 04/19/20 Interval History: Dyspnea and leg swelling resolved Denies chest pain No abd pain, nausea, or vomiting Physical Exam Vital Signs: Vital Signs: Last Vital Signs Temp 100 F 04/19/20 15:52 Pulse 97 04/19/20 15:52 Resp 18 04/19/20 15:52 BP 148/79 H 04/19/20 15:52 Pulse Ox 97 04/19/20 15:52 Body Mass Index 24.5 Gen: in no acute distress HEENT: sclera anicteric, moist mucus membranes Neck: supple Lungs: clear to auscultation bilaterally Heart: regular rate and rhythm, 3/6 holosystolic apical murmur Abd: soft, non-tender, non-distended Ext: no edema Skin: warm/well-perfused Neuro: alert and oriented x3, no focal findings Psych: appropriate affect Objective Data Current Medications Generic Name Dose Route Start Last Admin Trade Name Freq PRN Reason Stop Dose Admin Acetaminophen 650 mg 04/18/20 01:17 Acetaminophen 325 Mg Tablet PO Q6H PRN Pain, Mild (Pain Scale 1-3) Aspirin 81 mg 04/18/20 09:00 04/19/20 09:09 Aspirin 81 Mg Tab.Chew PO 81 mg DAILY TALON Administration Atorvastatin Calcium 40 mg 04/18/20 09:00 04/19/20 09:08 Atorvastatin Calcium 40 Mg Tablet PO 40 mg DAILY TALON Administration Docusate Sodium 100 mg 04/18/20 01:17 Docusate Sodium 100 Mg Capsule PO DAILY PRN Constipation Furosemide 40 mg 04/19/20 09:00 04/19/20 09:05 Furosemide 40 Mg/4 Ml Vial IVPUSH 40 mg DAILY TALON Administration Protocol Heparin Sodium (Porcine) 5,000 unit 04/19/20 10:00 04/19/20 11:57 Heparin Sodium,Porcine 5,000 Unit/Ml Vial SUBCUT 5,000 unit Q12H TALON Administration Metoprolol Tartrate 25 mg 04/18/20 21:00 04/19/20 09:08 Metoprolol Tartrate 25 Mg Tablet PO 25 mg BID TALON Administration Protocol Ondansetron HCl 4 mg 04/18/20 01:17 Ondansetron Hcl 4 Mg/2 Ml Vial IVPUSH Q8H PRN Nausea and Vomiting Sodium Chloride 3 ml 04/18/20 01:17 04/19/20 09:09 0.9 % Sodium Chloride Flush 3 Ml Syringe IVFLUSH 3 ml QSHIFT TALON Administration Labs CBC & Chem 7: 04/18/20 18:52 04/18/20 22:23 Labs: Laboratory Results - last 24 hr 04/18/20 04/18/20 04/18/20 01:35 18:52 18:52 WBC 7.9 RBC 3.11 L Hgb 8.4 L Hct 26.6 L MCV 85.5 MCH 27.0 MCHC 31.6 RDW 14.9 Plt Count 100 L MPV 10.0 Absolute Nucleated RBC 0.000 Nucleated RBC % (auto) 0.0 Sodium 129 L Potassium 4.9 Chloride 98 Carbon Dioxide 24 Anion Gap 12 BUN 28 H Creatinine 1.15 Estim Creat Clear Calc 59.7 Estimated GFR > 60 Random Glucose 243 H D Calcium 7.2 L Vitamin B12 499 Folate 5.5 04/18/20 22:23 WBC RBC Hgb Hct MCV MCH MCHC RDW Plt Count MPV Absolute Nucleated RBC Nucleated RBC % (auto) Sodium 127 L Potassium 4.5 Chloride 97 Carbon Dioxide 23 Anion Gap 12 BUN Creatinine Estim Creat Clear Calc Estimated GFR Random Glucose Calcium Vitamin B12 Folate TTE 04/19/20 1. Normal LV systolic function with pseudonormal filling pattern 2. Moderately dilated left atrium 3. Bioprosthetic aortic valve with mean gradient of 19 mm Hg which is slightly increased with the effective orifice area of 1.46 centimeter sq next 4. At least moderate eccentric mitral regurgitation, can be underestimated 5. Normal RV systolic pressure 6. No pericardial effusion Assessment and Plan (1) CHF exacerbation: Status: Acute (2) Normocytic anemia: Status: Acute (3) Generalized weakness: Status: Acute (4) Acute hyponatremia: Status: Acute (5) Transaminitis: Status: Acute (6) Hypoalbuminemia: Status: Acute (7) Elevated troponin: Status: Acute Assessment and Plan: hospital d#3 69yo M with CAD s/p CABG + AoV replacement admitted with concern of CHF exacerbation with edema and dyspnea in setting of recent malaise and weakness after COVID-19 vaccination # HFpEF - appears euvolemic, change to PO furosemide # chronic MR, eccentric, moderate - TTE done. appreciate Cardiology recommendation- to consider outpt WAGNER. pt to decide whether to continue to f/u with cardiology in [place] vs. transferring care here # troponin elevation - flat, per Cardiology not ACS, likely related to underlying HF/MR # CAD - continue ASA, metoprolol, statin # normocytic anemia - FOBT negative - SIEP + iron studies pending - unknown baseline Hb # thrombocytopenia - avoid heparin. due to liver disease? - SIEP pending. will consult Heme/Onc # hyponatremia - ?chronic. unknown baseline - TSH normal. cortisol pending. # liver disease - hypoalbuminemia, transaminasemia, coagulopathy, anemia, thrombocytopenia, splenomegaly - GI consult, hepatitis serologies - CT A/P- see US GB findings # dispo - PT eval: home with VNA
[2020-04-19 17:41] LABS: IgA 290 mg/dL (70-320); IgG 1239 mg/dL (600-1540); IgM 167 mg/dL (50-300)
[2020-04-19 17:44] LABS: Uric Acid 6.3 mg/dL (3.4-7.0)
[2020-04-19 18:27] LABS: Kappa Light Chain, Free Serum 87.5 mg/L (3.3-19.4); Kappa/Lambda Lt Ch Free Ratio 1.13 (0.26-1.65); Lambda Light Chain, Free Serum 77.6 mg/L (5.7-26.3)
--- NOTE | 2020-04-19 20:31 | PM.EVENT ---
Event Note Date of Service: 04/19/20 Event Note: Gross hematuria: Around 8:30 p.m., RN notified me that patient started to develop gross hematuria with clots. Will repeat CBC Notified Urology consult Dr. adler Started CBI Monitor for any signs of fluid overload Vitals stable
[2020-04-19 20:58] LABS: Hematocrit 25.1 % (42-52); Imm Gran Abs Auto 0.07 X10*3/uL (0.00-0.03); Imm Gran Pct Auto 0.7 % (0.0-0.4); Lymphocytes Absolute Auto 0.6 X10*3/uL (1.2-4.9); Lymphocytes Percent Auto 5.8 % (20-40); MANUAL DIFF FLAG SCAN; Mean Corpuscular HGB Conc 31.9 g/dl (31.0-36.0); Mean Corpuscular Hemoglobin 26.9 pg (27.0-33.0); Mean Corpuscular Volume 84.5 fL (80-98); Mean Platelet Volume 9.7 fL (9.4-12.4); Monocytes Absolute Auto 0.7 X10*3/uL (0.1-1.2); Monocytes Percent Auto 6.6 % (2-11); Neutrophils Absolute Auto 8.7 X10*3/uL (2.0-8.3); Neutrophils Percent Auto 86.9 % (45-73); Platelet Count 113 X10*3/uL (160-400); Red Blood Count 2.97 X10*6/uL (4.60-5.80); Red Cell Distribution Width 15.1 % (11.0-16.0); SCAN SMEAR FLAG 1
[2020-04-19 21:07] LABS: INTERNATIONAL NORM RATIO 1.5 (0.9-1.1); Prothrombin Time 17.7 SEC (10.8-13.0)
[2020-04-19 21:18] LABS: SLIDE REVIEW VERIFIED
--- NOTE | 2020-04-19 23:09 | PC.NURSE ---
Went to pt room pt had used urinal- long clot ~4in was in urinal - pt states this was new. blood stain noted at end of penis with small clot at tip - washed up. Pt was also incont large amount of urine ~2000. notified as pt had no blood in urine previous. Hospitalist ordered labs, imaging, urology conslt, CBO. Talked to urology - Dr Sorto stated as long as pt voiding, hold CBI at this time. Bladder scanned pt - 377ml - pt stated had no pain and couldnt try to pee as nothing would happen, doesnt have urge to pee now Dr Sorto notified - instructed to check next post void residual. Instructed pt to let us know if he voids, and will check pt for any incont episodes. Will report onto oncoming RN.
[2020-04-20] VITALS (10 sets, daily range): BP systolic 92–114; BP diastolic 49–60; PULSE 72–106; RESP 18–20; TEMP 36.2–37.3; O2SAT 91–97; BMI 23.6
[2020-04-20] MEDS: 0.9 % Sodium Chloride Flush 3 ML SYRINGE IVFLUSH ×3 (02:00→16:33)
--- NOTE | 2020-04-20 06:43 | PC.NURSE ---
Update from 0300: Pt previously had difficulty with a large clot on evenings, pt then incontinent and no urine output 11p-6a. Pt stood at the edge of the bed to void, 400ml tea colored urine, very small thin strand/ clot noted ~0.5in long. Pt complains of no pain. No CBI started, will address with Urology this am. Post void residual 178ml.
[2020-04-20 07:06] LABS: MANUAL DIFF FLAG NO
[2020-04-20 07:10] LABS: Eosinophils Percent Auto 0.1 % (0-4); Hematocrit 23.4 % (42-52); Hemoglobin 7.5 g/dl (14.0-18.0); Imm Gran Abs Auto 0.05 X10*3/uL (0.00-0.03); Imm Gran Pct Auto 0.7 % (0.0-0.4); Lymphocytes Absolute Auto 0.8 X10*3/uL (1.2-4.9); Lymphocytes Percent Auto 11.7 % (20-40); Mean Corpuscular HGB Conc 32.1 g/dl (31.0-36.0); Mean Corpuscular Hemoglobin 27.2 pg (27.0-33.0); Mean Corpuscular Volume 84.8 fL (80-98); Monocytes Absolute Auto 0.8 X10*3/uL (0.1-1.2); Monocytes Percent Auto 11.9 % (2-11); Neutrophils Absolute Auto 5.2 X10*3/uL (2.0-8.3); Neutrophils Percent Auto 75.6 % (45-73); Red Blood Count 2.76 X10*6/uL (4.60-5.80); White Blood Count 6.8 X10*3/uL (4.8-10.8)
[2020-04-20 07:25] LABS: Ammonia 22 umol/L (13-55)
[2020-04-20 07:36] LABS: Anion Gap 11 (12-20); Blood Urea Nitrogen 31 mg/dL (9-16); Calcium 7.3 mg/dL (8.4-10.2); Carbon Dioxide 27 mmol/L (22-29); Chloride 100 mmol/L (96-108); Creatinine Clr Calc Pharmacy 56.8; Estimated Glomerular Filt Rate 59; Glucose Random 189 mg/dL (60-115); Iron 11 mcg/dL (45-160); Magnesium 2.2 mg/dL (1.6-2.6); Percent Iron Saturation 7 % (15-50); Potassium 4.5 mmol/L (3.3-5.1); Sodium 133 mmol/L (135-145); Total Iron Binding Capacity 166 mcg/dL (228-428); Unsaturated Iron Binding 155 ug/dL
[2020-04-20 07:39] LABS: B Type Natriuretic Peptide 457 pg/mL (<100)
[2020-04-20 08:01] LABS: Mean Platelet Volume 9.7 fL (9.4-12.4); Platelet Count 82 X10*3/uL (160-400)
[2020-04-20 08:03] LABS: Estimated Average Glucose 157 mg/dL; Hemoglobin A1c % 7.1 %
[2020-04-20] MEDS: Metoprolol Tartrate 25 MG TABLET PO ×2 (09:08→22:13)
[2020-04-20] MEDS: Atorvastatin Calcium 40 MG TABLET PO (09:09)
[2020-04-20 09:49] LABS: Immature Retic Fraction 8.6 % (2.3-13.4); Retic HGB Equivalent 25.2 pg (30.0-35.0); Reticulocyte Percent 0.5 % (0.5-1.8); Reticulocytes Absolute 0.015 X10*6/uL (0.026-0.095)
--- NOTE | 2020-04-20 10:14 | PM.HEMONCCN ---
Subjective - Subjective Chief complaint: Consult for Anemia. Patient: new to practice Consult date: 04/20/20 Requesting Physician: Jessica Primary Care Provider: Nonstaff Physician Medical Summary: DIAGNOSIS: ANEMIA. HPI - Consult Narrative Reason for consult: Consult for Anemia. Narrative: Chandrakant Morales is a pleasant 69 year old gentleman with past medical history of CAD status post CABG, HTN, HLD. He presented to the hospital with multiple complaints, including generalized weakness, episode of fall, low appetite, and cough. He reported that he started having a cough about 3 weeks ago and wound with dyspnea on exertion and lower extremity edema. He had 1 episode of fall last Sunday, he does not remember the events surrounding the fall, he just remembers being on the floor. He does not remember if he had any dizziness, palpitations or chest pain at that time. Currently denies any chest pain, no headache, no change in vision, no abdominal pain nausea or vomiting, no diarrhea constipation, and no urinary symptoms. He reports low appetite for solids for the past 1 week but has been drinking about 4 to 5 cups of water and Gatorade daily. Patient had 1st dose of COVID vaccine in the beginning of April and did present to [facility] and he was told that these are side effects from the COVID vaccine and was sent home. Patient denies any melena, no bright red blood per rectum, no hematemesis, hematochezia, hemoptysis. Here patient was hemodynamically stable with blood pressure of 107/51, O2 sat 99% on room air. Afebrile Labs: Significant for WBC count of 10.3, hemoglobin of 9.4( 9.7 on 3/5 at [place]) , platelets of 80,000. PT of 16.8, INR 1.4. Sodium of 128 (135 3/5), BUN of 26, creatinine 0.9, total bili of 1.1, AST of 59, ALT of 79. High sensitivity troponin of 227, on repeat to 20, BNP of 457, albumin of 2.6. Stool occult blood negative. COVID-19 negative, EKG reviewed shows sinus rhythm with PACs, some nonspecific ST T wave changes Chest x-ray revealed mild prominence of the pulmonary vasculature and interstitium which may represent edema versus atelectasis. Review of Systems - Constitutional Reports system reviewed and no additional complaints, except as documented, Reports lack of energy, Reports weakness, Reports weight loss - Eyes Reports system reviewed and no additional complaints, except as documented, Denies blurry vision - ENT Reports system reviewed and no additional complaints, except as documented - Cardiovascular Reports system reviewed and no additional complaints, except as documented, Denies chest pain at rest - Respiratory Reports no additional respiratory complaints, Denies chest congestion - Gastrointestinal Reports system reviewed and no additional complaints, except as documented, Denies abdominal pain, Denies black, tarry stools - Genitourinary Genitourinary: Reports no additional male genitourinary complaints, Denies blood in urine - Musculoskeletal Reports system reviewed and no additional complaints, except as documented - Integumentary/Breasts Skin/Breast: Reports no additional skin complaints, Denies bleeding lesions - Neurologic Reports system reviewed and no additional complaints, except as documented, Reports frequent falls (one fall recent.), Reports weakness - Psychiatric Reports system reviewed and no additional complaints, except as documented, Reports anxiety - Endocrine Reports no additional endocrine complaints, Denies excessive sweating - Hematologic/Lymphatic Reports system reviewed and no additional complaints, except as documented, Denies easy bruising - Allergic/Immunologic Reports system reviewed and no additional complaints, except as documented, Denies GI upset with certain foods PMFSH Medical History: Medical History (Last Updated 04/26/20 @ 10:39 by Arturo Moreira MD) Anemia Atherosclerotic cardiovascular disease Atrial fibrillation CAD (coronary artery disease) CHF (congestive heart failure) CHF exacerbation Cirrhosis Heme + stool HTN (hypertension) Hyperlipemia Hypoalbuminemia Mitral regurgitation Normocytic anemia PAF (paroxysmal atrial fibrillation) Pneumonia Functional capacity: independent ambulation Patient : No Family history: reviewed and not pertinent (No hx of GI malignancy that he knows of.) Surgical History: Surgical History (Last Updated 04/26/20 @ 10:39 by Arturo Moreira MD) Hx of aortic valve repair Hx of CABG Status post aortic valve replacement with bioprosthetic valve Status post coronary artery bypass graft Social History: Social History (Last Reviewed 04/23/20 @ 16:27 by Karol Izaguirre MD) Living Situation History: Household Members: Other Housing: House Alcohol History: Alcohol intake: never Occupation Assessmet: service: No Current occupational status: previously employed Current occupational status: retired Smoking status: Never smoker Home Medications and Allergies Current Medications: Current Medications Generic Name Dose Route Start Last Admin Trade Name Freq PRN Reason Stop Dose Admin Acetaminophen 650 mg 04/18/20 01:17 Acetaminophen 325 Mg Tablet PO Q6H PRN Pain, Mild (Pain Scale 1-3) Aspirin 81 mg 04/18/20 09:00 04/19/20 09:09 Aspirin 81 Mg Tab.Chew PO 81 mg DAILY [facility] Administration Atorvastatin Calcium 40 mg 04/18/20 09:00 04/20/20 09:09 Atorvastatin Calcium 40 Mg Tablet PO 40 mg DAILY [facility] Administration Docusate Sodium 100 mg 04/18/20 01:17 Docusate Sodium 100 Mg Capsule PO DAILY PRN Constipation Furosemide 20 mg 04/20/20 09:00 Furosemide 20 Mg Tablet PO DAILY [facility] Protocol Insulin Human Lispro 0 unit 04/20/20 11:30 Insulin Lispro 100 Unit/Ml 3 Ml Vial SUBCUT QIDACHS [facility] Protocol Metoprolol Tartrate 25 mg 04/18/20 21:00 04/20/20 09:08 Metoprolol Tartrate 25 Mg Tablet PO 25 mg BID [facility] Administration Protocol Ondansetron HCl 4 mg 04/18/20 01:17 Ondansetron Hcl 4 Mg/2 Ml Vial IVPUSH Q8H PRN Nausea and Vomiting Sodium Chloride 3 ml 04/18/20 01:17 04/20/20 09:09 0.9 % Sodium Chloride Flush 3 Ml Syringe IVFLUSH 3 ml QSHIFT [facility] Administration Home Medications Medication Instructions Recorded Confirmed Type aspirin 81 mg PO DAILY 04/17/20 04/17/20 History atorvastatin 1 tab PO DAILY 04/17/20 04/17/20 History metoprolol tartrate 1 tab PO BID 04/17/20 04/17/20 History Allergies Allergy/AdvReac Type Severity Reaction Status Date / Time No Known Allergies Allergy Verified 04/17/20 16:51 Physical Exam Vital signs: Vital Signs Temp 97.2 F 04/20/20 08:00 Pulse 76 04/20/20 09:08 Resp 18 04/20/20 08:00 BP 101/52 L 04/20/20 09:08 Pulse Ox 97 04/20/20 08:00 Intake & Output 04/19/20 04/20/20 04/20/20 18:59 06:59 18:59 Intake Total 360 / 600 240 / 600 Output Total 878 / 878 Balance 360 / -278 -638 / -278 Urine Output (Average ml/kg/hr) 0.81 Intake: Intake, Oral Amount 360 / 600 240 / 600 Output: Output, Urine Amount 700 / 700 Output, Post Void Residual 178 / 178 Amount Other: Meal Refused No NPO No Breakfast % Eaten 100% Lunch % Eaten 100% Dinner % Eaten 50% Number of Incontinent Voids 1 1 Number of Unmeasured Voids 1 Urine Urinal Urine Color Yellow Bloody Last Bowel Movement 04/19/20 Weight 72.4 kg Weight in Grams [id number] Weight 72.4 kg - Constitutional Present: mild distress - Routine HEENT Exam Head: Present: normal inspection ENT: Present: mucous membranes moist - Routine Neck Exam Present: supple - Routine Respiratory Exam Present: CTAB - Routine Cardiovascular Exam Cardiovascular: Present: RRR, S1, S2 - Routine Abdominal Exam Present: diminished bowel sounds, nontender - Routine Skin Exam Present: intact - Routine Neurological Exam Present: alert, oriented X3 - Detailed Neurological Exam: Coma Scale Eye Opening: Spontaneous (4) - Routine Psychiatric Exam Present: anxious Hem/Onc Consult Result - Labs CBC & Chem 7: 04/27/20 05:21 04/27/20 05:21 Labs: Short CBC 04/19/20 04/20/20 Range/Units 20:50 06:57 WBC 10.0 6.8 (4.8-10.8) X10*3/uL Hgb 8.0 L 7.5 L (14.0-18.0) g/dl Hct 25.1 L 23.4 L (42-52) % Plt Count 113 L 82 L D (160-400) X10*3/uL BMP 04/20/20 06:57 Sodium 133 L Potassium 4.5 Chloride 100 Carbon Dioxide 27 BUN 31 H Creatinine 1.21 Calcium 7.3 L Assessment and Plan (1) Anemia Status: Resolved Qualifiers: Anemia type: other cause Other causes of anemia: other cause, not classified Qualified Code(s): D64.89 - Other specified anemias (2) Anemia Status: Inactive This is a pleasant 69-year-old gentleman with history of generalized weakness status post fall. He has been noted to be anemic. Patient also has thrombocytopenia. It is not clear if these are new developments. His PMD is from [place]. DIFFERENTIAL DIAGNOSIS: 1. IRON DEFICIENCY ANEMIA: 2. B12 FOLATE DEFICIENCY: Is a possibilty. 3. HEMOLYTIC ANEMIA: Can accompany liver disease, due to membrane abnormalities. 4. HYPERSPLENISM in association with liver disease: Is most likely, he does have underlying Hep C. It appears his counts have been chronically low. 5. UNDERLYING MYELO INFILTRATIVE DISORDER: 6. RELATED TO INFECTION: PLAN: I will proceed with further workup. Will check iron studies and ferritin. Check B12 and folate levels. Check a hemolytic screen: retic 0,5, Hapto 167, LDH 215. Ultrasound of the abdomen: 1. A subtle hepatic nodularity is better seen on the prior CT, suggestive of cirrhosis. Liver is normal in size and echogenicity on these images. 2. Marked splenomegaly. 3. Patent portal vasculature with hepatopedal flow. No evidence of thrombosis. 4. Trace ascites. 5. Cholelithiasis without evidence of acute cholecystitis.. LDH:215 and SIEP: No monoclonal spike. 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 This does appear to be chronic in nature, as indicated by previous labs from his PMD from [place]. Meanwhile hemoglobin is rather low, can transfuse a couple of units to help improve oxygen carrying capacity. Thank you, CC: Dr. Lopez.
[2020-04-20 11:07] LABS: Alanine Aminotransferase 106 U/L (0-40); Albumin Level 2.1 g/dL (3.5-5.0); Alkaline Phosphatase 89 U/L (39-117); Aspartate Amino Transferase 77 U/L (5-37); Bilirubin Direct 0.6 mg/dL (0.0-0.5); Bilirubin Total 1.2 mg/dL (0.0-1.0); Lactate Dehydrogenase 189 U/L (118-273); Total Protein 4.9 g/dL (6.5-8.0)
[2020-04-20 11:25] LABS: Ferritin 322 ng/mL (20-250)
[2020-04-20 12:14] LABS: Folate 5.5 ng/mL (> or = 4.0); Vitamin B12 625 pg/mL (200-900)
--- NOTE | 2020-04-20 14:04 | P.PNIM_ITS ---
Subjective Subjective Date of Service: 04/20/20 Interval History: no dyspnea no chest pain feels tired denies EtOH intake Physical Exam Vital Signs: Vital Signs: Last Vital Signs Temp 97.2 F 04/20/20 10:46 Pulse 72 04/20/20 10:46 Resp 20 04/20/20 10:46 BP 108/59 L 04/20/20 10:46 Pulse Ox 97 04/20/20 08:00 Body Mass Index 23.6 Gen: in no acute distress HEENT: sclera anicteric, moist mucus membranes Neck: supple Lungs: clear to auscultation bilaterally Heart: regular rate and rhythm, 3/6 holosystolic apical murmur Abd: soft, non-tender, non-distended Ext: no edema Skin: warm/well-perfused Neuro: alert and oriented x3, no focal findings Psych: appropriate affect Objective Data Current Medications Generic Name Dose Route Start Last Admin Trade Name Freq PRN Reason Stop Dose Admin Acetaminophen 650 mg 04/18/20 01:17 Acetaminophen 325 Mg Tablet PO Q6H PRN Pain, Mild (Pain Scale 1-3) Aspirin 81 mg 04/18/20 09:00 04/19/20 09:09 Aspirin 81 Mg Tab.Chew PO 81 mg DAILY [facility] Administration Atorvastatin Calcium 40 mg 04/18/20 09:00 04/20/20 09:09 Atorvastatin Calcium 40 Mg Tablet PO 40 mg DAILY [facility] Administration Docusate Sodium 100 mg 04/18/20 01:17 Docusate Sodium 100 Mg Capsule PO DAILY PRN Constipation Furosemide 20 mg 04/20/20 09:00 04/20/20 12:45 Furosemide 20 Mg Tablet PO Not Given DAILY [facility] Protocol Insulin Human Lispro 0 unit 04/20/20 11:30 04/20/20 12:45 Insulin Lispro 100 Unit/Ml 3 Ml Vial SUBCUT Not Given QIDACHS [facility] Protocol Metoprolol Tartrate 25 mg 04/18/20 21:00 04/20/20 09:08 Metoprolol Tartrate 25 Mg Tablet PO 25 mg BID [facility] Administration Protocol Ondansetron HCl 4 mg 04/18/20 01:17 Ondansetron Hcl 4 Mg/2 Ml Vial IVPUSH Q8H PRN Nausea and Vomiting Sodium Chloride 3 ml 04/18/20 01:17 04/20/20 09:09 0.9 % Sodium Chloride Flush 3 Ml Syringe IVFLUSH 3 ml QSHIFT [facility] Administration Labs CBC & Chem 7: 04/20/20 06:57 04/20/20 06:57 Labs: Laboratory Results - last 24 hr 04/18/20 04/18/20 04/18/20 11:09 11:09 11:09 WBC RBC Hgb Hct MCV MCH MCHC RDW Plt Count MPV Immature Gran % (Auto) Neut % (Auto) Lymph % (Auto) [place] % (Auto) Eos % (Auto) Baso % (Auto) Lymph # (Auto) [place] # (Auto) Eos # (Auto) Baso # (Auto) Abs Immat Gran (auto) Absolute Neuts (auto) Absolute Nucleated RBC Nucleated RBC % (auto) Smear Tech's Comments Absolute Retic Percent Retic Immature Retic Fraction Retic Hgb Equivalent PT INR Sodium Potassium Chloride Carbon Dioxide Anion Gap BUN Creatinine Estim Creat Clear Calc Estimated GFR Random Glucose Estimat Average Glucose Hemoglobin A1c % Uric Acid 6.3 Calcium Magnesium Iron TIBC % Saturation Unsat Iron Binding Ferritin Total Bilirubin Direct Bilirubin AST ALT Alkaline Phosphatase Ammonia Lactate Dehydrogenase B-Natriuretic Peptide Total Protein Albumin Vitamin B12 Folate Cortisol IgG Total 1239 IgA Total 290 IgM 167 SIRIA Interpretation SEE NOTE Free [place] LC, Quant 87.5 H Free Lambda LC, Quant 77.6 H Free [place]/Lambda Ratio 1.13 Blood Type Antibody Screen 04/19/20 04/19/20 04/19/20 08:41 20:50 20:50 WBC 10.0 RBC 2.97 L Hgb 8.0 L Hct 25.1 L MCV 84.5 MCH 26.9 L MCHC 31.9 RDW 15.1 Plt Count 113 L MPV 9.7 Immature Gran % (Auto) 0.7 H Neut % (Auto) 86.9 H Lymph % (Auto) 5.8 L [place] % (Auto) 6.6 Eos % (Auto) 0.0 Baso % (Auto) 0.0 Lymph # (Auto) 0.6 L [place] # (Auto) 0.7 Eos # (Auto) 0.0 Baso # (Auto) 0.0 Abs Immat Gran (auto) 0.07 H Absolute Neuts (auto) 8.7 H Absolute Nucleated RBC 0.000 Nucleated RBC % (auto) 0.0 Smear Tech's Comments VERIFIED Absolute Retic Percent Retic Immature Retic Fraction Retic Hgb Equivalent PT 17.7 H INR 1.5 H Sodium Potassium Chloride Carbon Dioxide Anion Gap BUN Creatinine Estim Creat Clear Calc Estimated GFR Random Glucose Estimat Average Glucose Hemoglobin A1c % Uric Acid Calcium Magnesium Iron TIBC % Saturation Unsat Iron Binding Ferritin Total Bilirubin Direct Bilirubin AST ALT Alkaline Phosphatase Ammonia Lactate Dehydrogenase B-Natriuretic Peptide Total Protein Albumin Vitamin B12 Folate Cortisol 24.3 H IgG Total IgA Total IgM SIRIA Interpretation Free [place] LC, Quant Free Lambda LC, Quant Free [place]/Lambda Ratio Blood Type Antibody Screen 04/20/20 04/20/20 04/20/20 06:57 06:57 06:57 WBC 6.8 RBC 2.76 L Hgb 7.5 L Hct 23.4 L MCV 84.8 MCH 27.2 MCHC 32.1 RDW 15.0 Plt Count 82 L D MPV 9.7 Immature Gran % (Auto) 0.7 H Neut % (Auto) 75.6 H Lymph % (Auto) 11.7 L [place] % (Auto) 11.9 H Eos % (Auto) 0.1 Baso % (Auto) 0.0 Lymph # (Auto) 0.8 L [place] # (Auto) 0.8 Eos # (Auto) 0.0 Baso # (Auto) 0.0 Abs Immat Gran (auto) 0.05 H Absolute Neuts (auto) 5.2 Absolute Nucleated RBC 0.000 Nucleated RBC % (auto) 0.0 Smear Tech's Comments Absolute Retic Percent Retic Immature Retic Fraction Retic Hgb Equivalent PT INR Sodium 133 L Potassium 4.5 Chloride 100 Carbon Dioxide 27 Anion Gap 11 L BUN 31 H Creatinine 1.21 Estim Creat Clear Calc 56.8 Estimated GFR 59 Random Glucose 189 H Estimat Average Glucose Hemoglobin A1c % Uric Acid Calcium 7.3 L Magnesium 2.2 Iron 11 L TIBC 166 L % Saturation 7 L Unsat Iron Binding 155 Ferritin 322 H Total Bilirubin 1.2 H Direct Bilirubin 0.6 H AST 77 H ALT 106 H Alkaline Phosphatase 89 Ammonia Lactate Dehydrogenase 189 B-Natriuretic Peptide 457 H Total Protein 4.9 L Albumin 2.1 L Vitamin B12 Folate Cortisol IgG Total IgA Total IgM SIRIA Interpretation Free [place] LC, Quant Free Lambda LC, Quant Free [place]/Lambda Ratio Blood Type Antibody Screen 04/20/20 04/20/20 04/20/20 06:57 06:57 06:57 WBC RBC Hgb Hct MCV MCH MCHC RDW Plt Count MPV Immature Gran % (Auto) Neut % (Auto) Lymph % (Auto) [place] % (Auto) Eos % (Auto) Baso % (Auto) Lymph # (Auto) [place] # (Auto) Eos # (Auto) Baso # (Auto) Abs Immat Gran (auto) Absolute Neuts (auto) Absolute Nucleated RBC Nucleated RBC % (auto) Smear Tech's Comments Absolute Retic Percent Retic Immature Retic Fraction Retic Hgb Equivalent PT INR Sodium Potassium Chloride Carbon Dioxide Anion Gap BUN Creatinine Estim Creat Clear Calc Estimated GFR Random Glucose Estimat Average Glucose 157 Hemoglobin A1c % 7.1 Uric Acid Calcium Magnesium Iron TIBC % Saturation Unsat Iron Binding Ferritin Total Bilirubin Direct Bilirubin AST ALT Alkaline Phosphatase Ammonia 22 Lactate Dehydrogenase B-Natriuretic Peptide Total Protein Albumin Vitamin B12 625 Folate 5.5 Cortisol IgG Total IgA Total IgM SIRIA Interpretation Free [place] LC, Quant Free Lambda LC, Quant Free [place]/Lambda Ratio Blood Type Antibody Screen 04/20/20 04/20/20 08:07 08:07 WBC RBC Hgb Hct MCV MCH MCHC RDW Plt Count MPV Immature Gran % (Auto) Neut % (Auto) Lymph % (Auto) [place] % (Auto) Eos % (Auto) Baso % (Auto) Lymph # (Auto) [place] # (Auto) Eos # (Auto) Baso # (Auto) Abs Immat Gran (auto) Absolute Neuts (auto) Absolute Nucleated RBC Nucleated RBC % (auto) Smear Tech's Comments Absolute Retic 0.015 L Percent Retic 0.5 Immature Retic Fraction 8.6 Retic Hgb Equivalent 25.2 L PT INR Sodium Potassium Chloride Carbon Dioxide Anion Gap BUN Creatinine Estim Creat Clear Calc Estimated GFR Random Glucose Estimat Average Glucose Hemoglobin A1c % Uric Acid Calcium Magnesium Iron TIBC % Saturation Unsat Iron Binding Ferritin Total Bilirubin Direct Bilirubin AST ALT Alkaline Phosphatase Ammonia Lactate Dehydrogenase B-Natriuretic Peptide Total Protein Albumin Vitamin B12 Folate Cortisol IgG Total IgA Total IgM SIRIA Interpretation Free [place] LC, Quant Free Lambda LC, Quant Free [place]/Lambda Ratio Blood Type B Positive Antibody Screen NEGATIVE Bladder Ultrasound 04/20/20 10:25 IMPRESSION: Small 32 mL post void bladder residual. Small amount of ascites. Upper normal-size prostate gland.. Assessment and Plan (1) CHF exacerbation: Status: Acute (2) Normocytic anemia: Status: Acute (3) Generalized weakness: Status: Acute (4) Acute hyponatremia: Status: Acute (5) Transaminitis: Status: Acute (6) Hypoalbuminemia: Status: Acute (7) Elevated troponin: Status: Acute Assessment and Plan: hospital d#4 69yo M with CAD s/p CABG + AoV replacement admitted with concern of CHF exacerbation with edema and dyspnea in setting of recent malaise and weakness after COVID-19 vaccination new diagnoses of cirrhosis + DM2 # cirrhosis, new diagnosis, with hypoalbuminemia, transaminasemia, coagulopathy, anemia, thrombocytopenia, splenomegaly - GI consult, hepatitis viral + autoimmune workup pending # normocytic hypoproliferative anemia - FOBT negative - SIEP pending - unknown baseline Hb- records requested. ultimately likely due to cirrhosis. appreciate Heme/Onc consult # thrombocytopenia - avoid heparin. due to liver disease? # hyponatremia - ?chronic. improved. unknown baseline- records reuqested. likely due to cirrhosis. - TSH normal. cortisol pending. # HFpEF - appears euvolemic, continue maintenance furosemide # chronic MR, eccentric, moderate - TTE done. appreciate Cardiology recommendation- to consider outpt [facility]; pt will transfer care from [place], [place] to [place] # troponin elevation - flat, per Cardiology not ACS, likely related to underlying HF/MR # CAD - continue ASA, metoprolol, statin # DM2, A1c 7.1 - correction dose lispro, home on MTF # dispo - PT eval: home with [facility]
--- NOTE | 2020-04-20 15:14 | PC.NURSE ---
PAtient with no difficulty voiding [id number]. Pt stood at the edge of the bed x 2 to void. Concentrated/Tea colored urine noted. Awaiting urology consult, no need for CBI at this time per hospitalist, who is aware of overnight events. No further clots noted, no hematuria noted. PT offers no complaints, last PVR 32ml abdomen soft, non-tender.
--- NOTE | 2020-04-20 15:27 | P.EN_ITS ---
Event Note Date of Service: 04/20/20 Event Note: Patient's initial presentation with mild elevation of transaminases, thrombocytopenia and U/S documenting splenomegaly did suggest possible underlying significant liver disease. As you know most of his records are out of state. CT confirms likelihood of cirrhosis. Etiology in this age range can be hard to define. Agree with labs ordered. He does have HGBA1C of 7.1--these patients can have Hepatic steatosis. (intermission coordinator diabetics have a 20% chance of TORRES and a percentage of those will go on to cirrhosis.) Do not know what his triglyceride level is. Treatment @ this time is generally the same due to cirrhosis and a degree of Portal Hypertension. We can follow here or he can chose to continue to be seen in [place]. He definitely needs to be monitored. (I can not explain the degree of hypoalbminemia, unless he is really not eating well or bleeding.) I had reordered stool hemoccults--they have not been collected yet.
[2020-04-20 16:17] LABS: Glucose, Whole Blood 222 mg/dL (60-115)
[2020-04-20] MEDS: Insulin Lispro 100 UNIT/ML 3 ML VIAL SUBCUT ×2 (16:32→22:13)
--- NOTE | 2020-04-20 18:57 | MHC.CARE ---
CARE team consulted requested by hospitalist for concerns of depression and alcohol use. This web content writer met briefly with pt, who denied feeling depressed or symptoms of depression. Pt also denied any alcohol use. This web content writer offered to leave resources for pt to look over, which he declined. [facility] nurse updated re: consultation.
[2020-04-20 21:05] LABS: Glucose, Whole Blood 183 mg/dL (60-115)
[2020-04-21] VITALS (13 sets, daily range): BP systolic 81–147; BP diastolic 46–69; PULSE 72–112; RESP 18–20; TEMP 36.3–38.8; O2SAT 93–100; BMI 23.4
[2020-04-21] MEDS: 0.9 % Sodium Chloride Flush 3 ML SYRINGE IVFLUSH ×3 (01:44→18:21)
[2020-04-21 06:51] LABS: MANUAL DIFF FLAG NO
[2020-04-21 06:57] LABS: Basophils Percent Auto 0.1 % (0-2); Eosinophils Percent Auto 0.1 % (0-4); Hematocrit 22.2 % (42-52); Imm Gran Abs Auto 0.05 X10*3/uL (0.00-0.03); Imm Gran Pct Auto 0.7 % (0.0-0.4); Lymphocytes Absolute Auto 0.8 X10*3/uL (1.2-4.9); Lymphocytes Percent Auto 10.7 % (20-40); Mean Corpuscular HGB Conc 31.5 g/dl (31.0-36.0); Mean Corpuscular Hemoglobin 26.7 pg (27.0-33.0); Mean Corpuscular Volume 84.7 fL (80-98); Monocytes Absolute Auto 0.7 X10*3/uL (0.1-1.2); Monocytes Percent Auto 8.9 % (2-11); Neutrophils Percent Auto 79.5 % (45-73); Red Blood Count 2.62 X10*6/uL (4.60-5.80); Red Cell Distribution Width 15.3 % (11.0-16.0); White Blood Count 7.5 X10*3/uL (4.8-10.8)
[2020-04-21 07:17] LABS: INTERNATIONAL NORM RATIO 1.5 (0.9-1.1); Prothrombin Time 17.5 SEC (10.8-13.0)
[2020-04-21 07:38] LABS: Alanine Aminotransferase 122 U/L (0-40); Alkaline Phosphatase 95 U/L (39-117); Anion Gap 10 (12-20); Aspartate Amino Transferase 92 U/L (5-37); Bilirubin Total 1.2 mg/dL (0.0-1.0); Blood Urea Nitrogen 38 mg/dL (9-16); Calcium 7.1 mg/dL (8.4-10.2); Carbon Dioxide 27 mmol/L (22-29); Chloride 100 mmol/L (96-108); Creatinine Clr Calc Pharmacy 46.4; Estimated Glomerular Filt Rate 47; Glucose Random 188 mg/dL (60-115); Potassium 4.4 mmol/L (3.3-5.1); Sodium 133 mmol/L (135-145); Total Protein 4.6 g/dL (6.5-8.0)
[2020-04-21 07:44] LABS: Platelet Count 80 X10*3/uL (160-400)
[2020-04-21 08:20] LABS: HBS Num1 2.79 mIU/mL (0-7.99); HBc Num1 0.19 S/CO (0.00-0.79); HIV AB/AG Nonreactive (Nonreactive); HIV Num 1 0.06 S/CO (0.00-0.99); Hepatitis B Core Antibody Nonreactive (Nonreactive); ~Hepatitis B Surface Antibody NONREACTIVE (Nonreactive)
[2020-04-21 08:37] LABS: HBsAGNum1 0.16 S/CO (0.00-0.99); Hepatitis B Surface Antigen Negative (Negative); ~HepC Num1 1.35 S/CO (0.00-0.79); ~Hepatitis C Antibody Reactive (Nonreactive)
[2020-04-21] MEDS: Metoprolol Tartrate 25 MG TABLET PO ×2 (10:02→20:13)
[2020-04-21] MEDS: Atorvastatin Calcium 40 MG TABLET PO (10:02)
[2020-04-21] MEDS: Furosemide 20 MG TABLET PO (10:02)
--- NOTE | 2020-04-21 11:07 | MHC.CM.PN ---
CM gave patient contact info for Dr Gibson in [place] and instructed patient to call and make an appointment for next week. Instructed he cannot have home care until he see's his new PCP. Patient verbalized understanding and will call today. CM will continue to follow patient for discharge needs.
[2020-04-21] MEDS: Insulin Lispro 100 UNIT/ML 3 ML VIAL SUBCUT ×3 (11:37→20:19)
[2020-04-21 11:38] LABS: Glucose, Whole Blood 282 mg/dL (60-115)
[2020-04-21 14:12] LABS: Haptoglobin 167 mg/dL (43-212)
--- NOTE | 2020-04-21 14:25 | P.PNIM_ITS ---
Subjective Subjective Date of Service: 04/21/20 Interval History: tired but no complaints no GI bleeding no abd pain Hb drifted down to 7, consents for transfusion Physical Exam Vital Signs: Vital Signs: Last Vital Signs Temp 99.1 F 04/21/20 11:18 Pulse 72 04/21/20 11:18 Resp 18 04/21/20 11:18 BP 96/50 L 04/21/20 11:18 Pulse Ox 98 04/21/20 08:00 Body Mass Index 23.4 Gen: in no acute distress HEENT: sclera anicteric, pale mucus membranes Neck: supple Lungs: clear to auscultation bilaterally Heart: regular rate and rhythm, 3/6 holosystolic apical murmur Abd: soft, non-tender, non-distended Ext: no edema Skin: warm/well-perfused Neuro: alert and oriented x3, no focal findings Psych: restricted affect Objective Data Current Medications Generic Name Dose Route Start Last Admin Trade Name Freq PRN Reason Stop Dose Admin Acetaminophen 650 mg 04/18/20 01:17 Acetaminophen 325 Mg Tablet PO Q6H PRN Pain, Mild (Pain Scale 1-3) Aspirin 81 mg 04/18/20 09:00 04/19/20 09:09 Aspirin 81 Mg Tab.Chew PO 81 mg DAILY [facility] Administration Atorvastatin Calcium 40 mg 04/18/20 09:00 04/21/20 10:02 Atorvastatin Calcium 40 Mg Tablet PO 40 mg DAILY [facility]ALON Administration Docusate Sodium 100 mg 04/18/20 01:17 Docusate Sodium 100 Mg Capsule PO DAILY PRN Constipation Furosemide 20 mg 04/20/20 09:00 04/21/20 10:02 Furosemide 20 Mg Tablet PO 20 mg DAILY [facility] Administration Protocol Insulin Human Lispro 0 unit 04/20/20 11:30 04/21/20 11:37 Insulin Lispro 100 Unit/Ml 3 Ml Vial SUBCUT 6 unit QIDACHS [facility] Administration Protocol Metoprolol Tartrate 25 mg 04/18/20 21:00 04/21/20 10:02 Metoprolol Tartrate 25 Mg Tablet PO 25 mg BID [facility]ALON Administration Protocol Ondansetron HCl 4 mg 04/18/20 01:17 Ondansetron Hcl 4 Mg/2 Ml Vial IVPUSH Q8H PRN Nausea and Vomiting Sodium Chloride 3 ml 04/18/20 01:17 04/21/20 11:05 0.9 % Sodium Chloride Flush 3 Ml Syringe IVFLUSH 3 ml QSHIFT [facility]ALON Administration Labs CBC & Chem 7: 04/21/20 06:03 04/21/20 06:03 Labs: Laboratory Results - last 24 hr 04/20/20 04/20/20 04/20/20 06:57 06:57 08:07 WBC RBC Hgb Hct MCV MCH MCHC RDW Plt Count MPV Immature Gran % (Auto) Neut % (Auto) Lymph % (Auto) [place] % (Auto) Eos % (Auto) Baso % (Auto) Lymph # (Auto) [place] # (Auto) Eos # (Auto) Baso # (Auto) Abs Immat Gran (auto) Absolute Neuts (auto) Absolute Nucleated RBC Nucleated RBC % (auto) Smear Path Review Haptoglobin 167 PT INR Sodium Potassium Chloride Carbon Dioxide Anion Gap BUN Creatinine Estim Creat Clear Calc Estimated GFR POC Glucose Random Glucose Calcium Total Bilirubin AST ALT Alkaline Phosphatase Total Protein Albumin Hep Bs Antigen Negative Hep Bs Antibody NONREACTIVE Hep B Core Total Ab Nonreactive Hepatitis C Ab (EIA) Reactive H HIV 1&2 Ab/P24 Ag 4thGn Nonreactive Blood Type B Positive Antibody Screen NEGATIVE Crossmatch See Detail 04/20/20 04/20/20 04/21/20 16:13 21:01 06:03 WBC 7.5 RBC 2.62 L Hgb 7.0 L* Hct 22.2 L MCV 84.7 MCH 26.7 L MCHC 31.5 RDW 15.3 Plt Count 80 L MPV 10.0 Immature Gran % (Auto) 0.7 H Neut % (Auto) 79.5 H Lymph % (Auto) 10.7 L [place] % (Auto) 8.9 Eos % (Auto) 0.1 Baso % (Auto) 0.1 Lymph # (Auto) 0.8 L [place] # (Auto) 0.7 Eos # (Auto) 0.0 Baso # (Auto) 0.0 Abs Immat Gran (auto) 0.05 H Absolute Neuts (auto) 6.0 Absolute Nucleated RBC 0.000 Nucleated RBC % (auto) 0.0 Smear Path Review SEE NOTE Haptoglobin PT INR Sodium Potassium Chloride Carbon Dioxide Anion Gap BUN Creatinine Estim Creat Clear Calc Estimated GFR POC Glucose 222 H 183 H Random Glucose Calcium Total Bilirubin AST ALT Alkaline Phosphatase Total Protein Albumin Hep Bs Antigen Hep Bs Antibody Hep B Core Total Ab Hepatitis C Ab (EIA) HIV 1&2 Ab/P24 Ag 4thGn Blood Type Antibody Screen Crossmatch 04/21/20 04/21/20 04/21/20 06:03 06:03 11:33 WBC RBC Hgb Hct MCV MCH MCHC RDW Plt Count MPV Immature Gran % (Auto) Neut % (Auto) Lymph % (Auto) [place] % (Auto) Eos % (Auto) Baso % (Auto) Lymph # (Auto) [place] # (Auto) Eos # (Auto) Baso # (Auto) Abs Immat Gran (auto) Absolute Neuts (auto) Absolute Nucleated RBC Nucleated RBC % (auto) Smear Path Review Haptoglobin PT 17.5 H INR 1.5 H Sodium 133 L Potassium 4.4 Chloride 100 Carbon Dioxide 27 Anion Gap 10 L BUN 38 H Creatinine 1.48 H Estim Creat Clear Calc 46.4 Estimated GFR 47 POC Glucose 282 H Random Glucose 188 H Calcium 7.1 L Total Bilirubin 1.2 H AST 92 H ALT 122 H Alkaline Phosphatase 95 Total Protein 4.6 L Albumin 2.0 L Hep Bs Antigen Hep Bs Antibody Hep B Core Total Ab Hepatitis C Ab (EIA) HIV 1&2 Ab/P24 Ag 4thGn Blood Type Antibody Screen Crossmatch Assessment and Plan (1) CHF exacerbation: Status: Acute (2) Normocytic anemia: Status: Acute (3) Generalized weakness: Status: Acute (4) Acute hyponatremia: Status: Acute (5) Transaminitis: Status: Acute (6) Hypoalbuminemia: Status: Acute (7) Elevated troponin: Status: Acute Assessment and Plan: hospital d#5 69yo M with CAD s/p CABG + AoV replacement admitted with concern of CHF exacerbation with edema and dyspnea in setting of recent malaise and weakness after COVID-19 vaccination new diagnoses of cirrhosis + DM2 # cirrhosis, new diagnosis, with hypoalbuminemia, transaminasemia, coagulopathy, anemia, thrombocytopenia, splenomegaly - updated Dr John [GI], autoimmune workup pending but 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 ultimately likely due to cirrhosis. appreciate Heme/Onc consult # thrombocytopenia - avoid heparin. 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 improved. unknown baseline- records requested. likely due to cirrhosis. - TSH normal, TSH normal. # HFpEF - appears euvolemic, continue maintenance furosemide # chronic MR, eccentric, moderate - TTE done. appreciate Cardiology recommendation- to consider outpt [facility]; pt will transfer care from [place], [place] to [place] # troponin elevation - flat, per Cardiology not ACS, likely related to underlying HF/MR # CAD - continue ASA, metoprolol, statin # DM2, A1c 7.1 - correction dose lispro, home on MTF # dispo - PT eval: home with [facility]
[2020-04-21 18:06] LABS: Glucose, Whole Blood 173 mg/dL (60-115)
--- NOTE | 2020-04-21 18:39 | PC.NURSE ---
P-Fever patient needs 2-nd unitof blood ,temp 101.8 I-Dr. Lopez notified E-awaiting new orders
--- NOTE | 2020-04-21 19:04 | PC.NURSE ---
no need for fluid restriction per Dr. Gonsales
[2020-04-21] MEDS: Acetaminophen 325 MG TABLET 650 MG PO (19:08)
[2020-04-21 19:43] LABS: Glucose, Whole Blood 200 mg/dL (60-115)
--- NOTE | 2020-04-21 19:45 | PM.PNNEP ---
Subjective Subjective Date of Service: 04/21/20 Principal diagnosis: Elevated BNP, CAD Interval history: Seen and examiend. Events noted Physical Exam Vital Signs: Vital Signs: Last Vital Signs Temp 99.8 F 04/21/20 19:27 Pulse 110 H 04/21/20 19:27 Resp 19 04/21/20 19:27 BP 116/55 L 04/21/20 19:27 Pulse Ox 96 04/21/20 19:27 Body Mass Index 23.4 Const: General: cooperative, no acute distress, ill appearing, poor hygiene and tired appearing Orientation/consciousness: patient oriented x3 Eyes: General: appearance normal, both eyes and all related structures Pupils: Equal, round and reactive pupils present Resp: Effort & Inspection: normal respiratory effort and able to speak in complete sentences Auscultation: clear to auscultation bilaterally Cardio: Rate: regular rate Rhythm: regular rhythm GI: Palpation (GI): Soft to palpation Auscultation: normal bowel sounds Skin: General skin exam: no rashes or lesions noted Neuro: General: patient oriented x3 Cranial nerves: Yes Equal, round and reactive pupils present Cognition (Neuro): normal cognition Extrem: Other: 2+ pitting edema bilaterally General: Yes normal to inspection Objective Data Labs CBC & Chem 7: 04/21/20 06:03 04/21/20 06:03 Labs: Laboratory Results - last 24 hr 04/20/20 04/20/20 04/20/20 06:57 06:57 08:07 WBC RBC Hgb Hct MCV MCH MCHC RDW Plt Count MPV Immature Gran % (Auto) Neut % (Auto) Lymph % (Auto) [place] % (Auto) Eos % (Auto) Baso % (Auto) Lymph # (Auto) [place] # (Auto) Eos # (Auto) Baso # (Auto) Abs Immat Gran (auto) Absolute Neuts (auto) Absolute Nucleated RBC Nucleated RBC % (auto) Smear Path Review Haptoglobin 167 PT INR Sodium Potassium Chloride Carbon Dioxide Anion Gap BUN Creatinine Estim Creat Clear Calc Estimated GFR POC Glucose Random Glucose Calcium Total Bilirubin AST ALT Alkaline Phosphatase Total Protein Albumin Hep Bs Antigen Negative Hep Bs Antibody NONREACTIVE Hep B Core Total Ab Nonreactive Hepatitis C Ab (EIA) Reactive H HIV 1&2 Ab/P24 Ag 4thGn Nonreactive Blood Type B Positive Antibody Screen NEGATIVE Crossmatch See Detail 04/20/20 04/21/2021 21:01 06:03 06:03 WBC 7.5 RBC 2.62 L Hgb 7.0 L* Hct 22.2 L MCV 84.7 MCH 26.7 L MCHC 31.5 RDW 15.3 Plt Count 80 L MPV 10.0 Immature Gran % (Auto) 0.7 H Neut % (Auto) 79.5 H Lymph % (Auto) 10.7 L [place] % (Auto) 8.9 Eos % (Auto) 0.1 Baso % (Auto) 0.1 Lymph # (Auto) 0.8 L [place] # (Auto) 0.7 Eos # (Auto) 0.0 Baso # (Auto) 0.0 Abs Immat Gran (auto) 0.05 H Absolute Neuts (auto) 6.0 Absolute Nucleated RBC 0.000 Nucleated RBC % (auto) 0.0 Smear Path Review SEE NOTE Haptoglobin PT INR Sodium 133 L Potassium 4.4 Chloride 100 Carbon Dioxide 27 Anion Gap 10 L BUN 38 H Creatinine 1.48 H Estim Creat Clear Calc 46.4 Estimated GFR 47 POC Glucose 183 H Random Glucose 188 H Calcium 7.1 L Total Bilirubin 1.2 H AST 92 H ALT 122 H Alkaline Phosphatase 95 Total Protein 4.6 L Albumin 2.0 L Hep Bs Antigen Hep Bs Antibody Hep B Core Total Ab Hepatitis C Ab (EIA) HIV 1&2 Ab/P24 Ag 4thGn Blood Type Antibody Screen Crossmatch 04/21/20 04/21/20 04/21/20 06:03 11:33 18:02 WBC RBC Hgb Hct MCV MCH MCHC RDW Plt Count MPV Immature Gran % (Auto) Neut % (Auto) Lymph % (Auto) [place] % (Auto) Eos % (Auto) Baso % (Auto) Lymph # (Auto) [place] # (Auto) Eos # (Auto) Baso # (Auto) Abs Immat Gran (auto) Absolute Neuts (auto) Absolute Nucleated RBC Nucleated RBC % (auto) Smear Path Review Haptoglobin PT 17.5 H INR 1.5 H Sodium Potassium Chloride Carbon Dioxide Anion Gap BUN Creatinine Estim Creat Clear Calc Estimated GFR POC Glucose 282 H 173 H Random Glucose Calcium Total Bilirubin AST ALT Alkaline Phosphatase Total Protein Albumin Hep Bs Antigen Hep Bs Antibody Hep B Core Total Ab Hepatitis C Ab (EIA) HIV 1&2 Ab/P24 Ag 4thGn Blood Type Antibody Screen Crossmatch 04/21/20 19:39 WBC RBC Hgb Hct MCV MCH MCHC RDW Plt Count MPV Immature Gran % (Auto) Neut % (Auto) Lymph % (Auto) [place] % (Auto) Eos % (Auto) Baso % (Auto) Lymph # (Auto) [place] # (Auto) Eos # (Auto) Baso # (Auto) Abs Immat Gran (auto) Absolute Neuts (auto) Absolute Nucleated RBC Nucleated RBC % (auto) Smear Path Review Haptoglobin PT INR Sodium Potassium Chloride Carbon Dioxide Anion Gap BUN Creatinine Estim Creat Clear Calc Estimated GFR POC Glucose 200 H Random Glucose Calcium Total Bilirubin AST ALT Alkaline Phosphatase Total Protein Albumin Hep Bs Antigen Hep Bs Antibody Hep B Core Total Ab Hepatitis C Ab (EIA) HIV 1&2 Ab/P24 Ag 4thGn Blood Type Antibody Screen Crossmatch Assessment & Plan Assessment and plan (1) CHF exacerbation: Status: Acute (2) Normocytic anemia: Status: Acute (3) Generalized weakness: Status: Acute (4) Acute hyponatremia: Status: Acute (5) Transaminitis: Status: Acute (6) Hypoalbuminemia: Status: Acute (7) Elevated troponin: Status: Acute Assessment and Plan: 1. Hypervol HypoNa: SNa now 133 LFTs abnl and enlarged spleen and incr INR all raises some ques about liver dysfunc adrenal isuff and hypthyo being r/o 2. Edema: decreased; w/u in progress; ques d/t low albumin 3. Anemia and low PLTs: all new per PT and warrants additional w/u 4. Abnl LFTs and low albumin also concerning and will need furhter eval of liver..denies ETOH 5. incr Scr is concerning REC: d/c PO fluid restriciton; hold lasix; track uop/renal func will follow with team Time Spent With Patient Time: Total time spent is greater than 50% in coordination of care (as documented) at patient's floor/unit and/or counseling patient:
[2020-04-21 20:19] LABS: Glucose, Whole Blood 208 mg/dL (60-115)
--- NOTE | 2020-04-21 21:14 | PC.NURSE ---
P- RN notified by [facility] from [facility] that blood transfusion reaction labs are negative,patient temp at present is 100.1 I-Dr. Packer notified of the above E-CBC ordered ,pending
[2020-04-21 21:21] LABS: MANUAL DIFF FLAG NO
[2020-04-21 21:22] LABS: Basophils Percent Auto 0.1 % (0-2); Hematocrit 23.8 % (42-52); Hemoglobin 7.8 g/dl (14.0-18.0); Imm Gran Abs Auto 0.16 X10*3/uL (0.00-0.03); Imm Gran Pct Auto 1.1 % (0.0-0.4); Lymphocytes Absolute Auto 0.8 X10*3/uL (1.2-4.9); Lymphocytes Percent Auto 5.1 % (20-40); Mean Corpuscular HGB Conc 32.8 g/dl (31.0-36.0); Mean Corpuscular Hemoglobin 27.1 pg (27.0-33.0); Mean Corpuscular Volume 82.6 fL (80-98); Mean Platelet Volume 9.7 fL (9.4-12.4); Monocytes Absolute Auto 1.3 X10*3/uL (0.1-1.2); Monocytes Percent Auto 8.4 % (2-11); Neutrophils Absolute Auto 12.7 X10*3/uL (2.0-8.3); Neutrophils Percent Auto 85.3 % (45-73); Red Blood Count 2.88 X10*6/uL (4.60-5.80); Red Cell Distribution Width 14.9 % (11.0-16.0); White Blood Count 14.9 X10*3/uL (4.8-10.8)
[2020-04-21 21:23] LABS: Platelet Count 84 X10*3/uL (160-400)
--- NOTE | 2020-04-21 22:01 | PC.NURSE ---
P-HH 7.8 23.8 I- notified E-ok to transfuse second unit
[2020-04-21] MEDS: 0.9 % Sodium Chloride 500 ML 250 ML IV (22:47)
--- NOTE | 2020-04-21 22:51 | PC.NURSE ---
P-Bp Low 81/46 pulse 72 I-Dr. Packer notified E-Blood returned to blood bank,labs pending,cxr ordered,IV fluid infusing as ordered,patient has no complaints
[2020-04-21 22:55] LABS: MANUAL DIFF FLAG NO
[2020-04-21 22:57] LABS: Basophils Percent Auto 0.1 % (0-2); Hematocrit 23.9 % (42-52); Hemoglobin 7.7 g/dl (14.0-18.0); Imm Gran Abs Auto 0.12 X10*3/uL (0.00-0.03); Imm Gran Pct Auto 0.8 % (0.0-0.4); Lymphocytes Absolute Auto 1.2 X10*3/uL (1.2-4.9); Mean Corpuscular HGB Conc 32.2 g/dl (31.0-36.0); Mean Corpuscular Hemoglobin 26.6 pg (27.0-33.0); Mean Corpuscular Volume 82.7 fL (80-98); Mean Platelet Volume 9.3 fL (9.4-12.4); Monocytes Absolute Auto 1.2 X10*3/uL (0.1-1.2); Monocytes Percent Auto 8.5 % (2-11); Neutrophils Percent Auto 82.6 % (45-73); Red Blood Count 2.89 X10*6/uL (4.60-5.80); Red Cell Distribution Width 14.9 % (11.0-16.0); White Blood Count 14.5 X10*3/uL (4.8-10.8)
[2020-04-21 22:58] LABS: Platelet Count 79 X10*3/uL (160-400)
[2020-04-22] VITALS (15 sets, daily range): BP systolic 82–148; BP diastolic 50–72; PULSE 66–121; RESP 17–22; TEMP 36–37.9; O2SAT 94–97; BMI 23.7
[2020-04-22] MEDS: 0.9 % Sodium Chloride Flush 3 ML SYRINGE IVFLUSH ×3 (01:13→17:50)
--- NOTE | 2020-04-22 05:13 | PC.NURSE ---
PATIENT IS A 69 YEAR OLD MALE WITH DX CHF, PREVIOUS SHIFT PATIENT NOTED WITH LOW BLOOD PRESSURE (81/46 RANGE) AND SECOND UNIT OF BLOOD THAT WAS PREVIOUSLY ORDERED WAS ON HOLD HEARD IN RN REPORT. PT RECEIVING AN IVF BOLUS OF 500ML OVER 2 HOURS, HOWEVER, IV SITE POSITIONAL AND NOT INFUSING WELL. NEW IV SITE ESTABLISHED, IVF COMPLETED, PT WITH NO S/SX ACUTE RESP DISTRESS, SIN WARM AND DRY, REPOSITIONING SELF, NO CP OR PRESSURE, NO HEADACHE OR DIZZINESS.HOSPITALIST ON DUTY UPDATED OF BP REMAINING LOW 82/58-68-20-97.7 AND 95-96% ROOMAIR. NO NEW ORDERS AND MD ASKED TO MONITOR CLOSELY, NO FURTHER IVF AT THIS TIME D/T CHF AND POSSIBLE BLOOD TRANSFUSION REACTION FROM PREVIOUS SHIFT(SEE DOCUMENTATION FROM -). BP MANUALLY REPEAT 89/50, 88/58, AND PATIENT REMAINED WITH NO OTHER SYMPTOMS. NURSING POSTMASTER RELIEF UPDATED AND SHE WOULD PREFER MD TO GIVE SOME PARAMETERS FOR BP DUE TO <90 POLICY. MD ALERTED AND AGAIN FULL REPORT GIVEN, TELE MONITOR IN USE AND BEING WATCHED BY [facility] STAFF(SR). CONTINUE TO HOLD OFF ON SECOND UNIT OF BLOOD, AND CALL MD IF BP BELOW 85/55, HOSPITALIST DID COME TO FLOOR AND EVAL PATIENT 0245, AND NO NEW ORDERS, PATIENT STILL RESTING AND WELL. VITALS AT 0345 92/60-68-20-96.8, 97% ROOM AIR AND AGAIN PATIENT OFFERED NO COMPLAINTS. WILL CONTINUE TO MONITOR CLOSELY. CHEST XRAY PREVIOUSLY ORDERED ALSO WAS ALERTED TO MD THAT REPORT WAS POSTED. LUNG FIELD CLEAR TO UPPER LOBES AND DIM TO BASES, FLUID RESTRICTION MAINTAINED, AGAIN WILL CONT TO MONITOR CLOSELY.
[2020-04-22 06:17] LABS: MANUAL DIFF FLAG NO
--- NOTE | 2020-04-22 06:29 | PC.NURSE ---
0625 PATIENT WITH A BLOOD PRESSURE OF 98/56-66 AT THIS TIME, NO PAIN, HEADACHE, DIZZINESS, CP/DC. NO CHANGES TO PREVIOUS, REPOSITIONED SELF, TELE-MONITOR BEING WATCHED BY [facility] STAFF, WILL REPORT AND CONTINUE TO MONITOR. NOTE SENT TO UPDATE HOSPITALIST.
[2020-04-22 06:38] LABS: INTERNATIONAL NORM RATIO 1.4 (0.9-1.1); Prothrombin Time 17.2 SEC (10.8-13.0)
[2020-04-22 06:48] LABS: Eosinophils Percent Auto 0.1 % (0-4); Hematocrit 24.7 % (42-52); Hemoglobin 7.8 g/dl (14.0-18.0); Imm Gran Abs Auto 0.03 X10*3/uL (0.00-0.03); Imm Gran Pct Auto 0.4 % (0.0-0.4); Lymphocytes Absolute Auto 1.1 X10*3/uL (1.2-4.9); Lymphocytes Percent Auto 14.1 % (20-40); Mean Corpuscular HGB Conc 31.6 g/dl (31.0-36.0); Mean Corpuscular Hemoglobin 26.6 pg (27.0-33.0); Mean Corpuscular Volume 84.3 fL (80-98); Mean Platelet Volume 10.2 fL (9.4-12.4); Monocytes Absolute Auto 0.7 X10*3/uL (0.1-1.2); Neutrophils Absolute Auto 6.1 X10*3/uL (2.0-8.3); Neutrophils Percent Auto 76.4 % (45-73); Red Blood Count 2.93 X10*6/uL (4.60-5.80); Red Cell Distribution Width 15.1 % (11.0-16.0)
[2020-04-22 06:55] LABS: Platelet Count 83 X10*3/uL (160-400)
[2020-04-22 07:05] LABS: Alanine Aminotransferase 134 U/L (0-40); Albumin Level 1.9 g/dL (3.5-5.0); Alkaline Phosphatase 104 U/L (39-117); Anion Gap 12 (12-20); Aspartate Amino Transferase 95 U/L (5-37); Bilirubin Total 1.2 mg/dL (0.0-1.0); Blood Urea Nitrogen 49 mg/dL (9-16); Calcium 6.9 mg/dL (8.4-10.2); Carbon Dioxide 25 mmol/L (22-29); Chloride 101 mmol/L (96-108); Creatinine Clr Calc Pharmacy 41.6; Estimated Glomerular Filt Rate 41; Glucose Random 167 mg/dL (60-115); Magnesium 2.5 mg/dL (1.6-2.6); Potassium 4.3 mmol/L (3.3-5.1); Sodium 134 mmol/L (135-145); Total Protein 4.7 g/dL (6.5-8.0)
[2020-04-22 08:00] LABS: Glucose, Whole Blood 143 mg/dL (60-115)
[2020-04-22] MEDS: Albumin Human 25 % 50 ML 100 ML IV (08:56)
[2020-04-22 09:33] LABS: Lactate Dehydrogenase 215 U/L (118-273)
[2020-04-22 09:52] LABS: Procalcitonin 2.93 ng/mL
[2020-04-22] MEDS: Atorvastatin Calcium 40 MG TABLET PO (11:25)
[2020-04-22 12:19] LABS: Glucose, Whole Blood 217 mg/dL (60-115)
[2020-04-22] MEDS: Insulin Lispro 100 UNIT/ML 3 ML VIAL SUBCUT ×3 (12:33→21:24)
[2020-04-22] MEDS: Albumin Human 25 % 100 ML IV ×2 (12:34→17:44)
[2020-04-22] MEDS: cefTRIAXone sodium 1 GM in 0.9 % Sodium Chloride 50 ML IV (12:34)
[2020-04-22] MEDS: Midodrine HCl 5 MG TABLET PO (14:18)
[2020-04-22 14:52] LABS: Glucose Urine UA NEG (NEG); Leukocyte Esterase Urine TRACE (NEG); Nitrite Urine NEG (NEG); Specific Gravity - Urine 1.025 (1.005-1.025); Urine Blood 3+ (NEG); Urine Ketones NEG (NEG); Urine Protein 1+ MG/DL (NEG-TRACE)
[2020-04-22 14:53] LABS: Appearance Urine CLOUDY; Color Urine YELLOW
--- NOTE | 2020-04-22 15:02 | P.PNIM_ITS ---
Subjective Subjective Date of Service: 04/22/20 Interval History: had fever of 100.8 approx 6 hr after transfusion of 1st unit of pRBCs yesterday no rigors/chills hypotensive overnight now endorses cough Physical Exam Vital Signs: Vital Signs: Last Vital Signs Temp 97.2 F 04/22/20 07:13 Pulse 72 04/22/20 07:13 Resp 17 04/22/20 07:13 BP 90/50 L 04/22/20 11:27 Pulse Ox 95 04/22/20 07:13 Body Mass Index 23.7 Gen: in no acute distress HEENT: sclera anicteric, pale mucus membranes Neck: supple Lungs: clear to auscultation bilaterally Heart: regular rate and rhythm, 3/6 holosystolic apical murmur Abd: soft, non-tender, non-distended Ext: no edema Skin: warm/well-perfused Neuro: alert and oriented x3, no focal findings Psych: restricted affect Objective Data Current Medications Generic Name Dose Route Start Last Admin Trade Name Freq PRN Reason Stop Dose Admin Acetaminophen 650 mg 04/18/20 01:17 04/21/20 19:08 Acetaminophen 325 Mg Tablet PO 650 mg Q6H PRN Administration Pain, Mild (Pain Scale 1-3) Aspirin 81 mg 04/18/20 09:00 04/19/20 09:09 Aspirin 81 Mg Tab.Chew PO 81 mg DAILY TALON Administration Atorvastatin Calcium 40 mg 04/18/20 09:00 04/22/20 11:25 Atorvastatin Calcium 40 Mg Tablet PO 40 mg DAILY TALON Administration Docusate Sodium 100 mg 04/18/20 01:17 Docusate Sodium 100 Mg Capsule PO DAILY PRN Constipation Doxycycline Hyclate 100 mg 04/22/20 12:00 04/22/20 12:36 Doxycycline Hyclate 100 Mg Tablet PO 100 mg Q12H TALON Administration Furosemide 20 mg 04/20/20 09:00 04/22/20 10:47 Furosemide 20 Mg Tablet PO Not Given DAILY TALON Protocol Guaifenesin/Dextromethorphan 5 ml 04/22/20 14:51 Guaifenesin Dm 100/10/5 Ml 5 Ml Syrup PO Q4H PRN cough Ceftriaxone Sodium 1 gm/ 50 mls @ 100 mls/hr 04/22/20 12:00 04/22/20 13:56 Sodium Chloride IV Infused Q24H TALON Infusion Albumin Human 100 mls @ 100 mls/hr 04/22/20 12:00 04/22/20 13:55 Kedbumin 25 % IV 04/22/20 18:59 Infused Q6H [facility] Infusion Insulin Human Lispro 0 unit 04/20/20 11:30 04/22/20 12:33 Insulin Lispro 100 Unit/Ml 3 Ml Vial SUBCUT 4 unit QIDACHS [facility] Administration Protocol Metoprolol Tartrate 25 mg 04/18/20 21:00 04/22/20 10:47 Metoprolol Tartrate 25 Mg Tablet PO Not Given BID [facility] Protocol Midodrine 5 mg 04/22/20 15:00 04/22/20 14:18 Midodrine Hcl 5 Mg Tablet PO 5 mg TID [facility] Administration Ondansetron HCl 4 mg 04/18/20 01:17 Ondansetron Hcl 4 Mg/2 Ml Vial IVPUSH Q8H PRN Nausea and Vomiting Sodium Chloride 3 ml 04/18/20 01:17 04/22/20 09:08 0.9 % Sodium Chloride Flush 3 Ml Syringe IVFLUSH 3 ml QSHIFT [facility] Administration Labs CBC & Chem 7: 04/22/20 05:27 04/22/20 05:27 Labs: Laboratory Results - last 24 hr 04/20/20 04/21/20 04/21/20 08:07 18:02 19:39 WBC RBC Hgb Hct MCV MCH MCHC RDW Plt Count MPV Immature Gran % (Auto) Neut % (Auto) Lymph % (Auto) [place] % (Auto) Eos % (Auto) Baso % (Auto) Lymph # (Auto) [place] # (Auto) Eos # (Auto) Baso # (Auto) Abs Immat Gran (auto) Absolute Neuts (auto) Absolute Nucleated RBC Nucleated RBC % (auto) PT INR Sodium Potassium Chloride Carbon Dioxide Anion Gap BUN Creatinine Estim Creat Clear Calc Estimated GFR POC Glucose 173 H 200 H Random Glucose Calcium Magnesium Total Bilirubin AST ALT Alkaline Phosphatase Lactate Dehydrogenase Total Protein Albumin Procalcitonin Urine Color Urine Appearance Urine pH Ur Specific [place] Urine Protein Urine Glucose (UA) Urine Ketones Urine Blood Urine Nitrite Ur Leukocyte Esterase Blood Type B Positive Antibody Screen NEGATIVE Crossmatch See Detail Clerical Work Check Hemolysis Bld Bag Check Icterus Blood Bag Check Post-Trans Blood Type Post-Trans MARY IgG Post-Trans MARY Poly 04/21/20 04/21/20 04/21/20 19:41 20:12 21:18 WBC 14.9 H RBC 2.88 L Hgb 7.8 L Hct 23.8 L MCV 82.6 MCH 27.1 MCHC 32.8 RDW 14.9 Plt Count 84 L MPV 9.7 Immature Gran % (Auto) 1.1 H Neut % (Auto) 85.3 H Lymph % (Auto) 5.1 L [place] % (Auto) 8.4 Eos % (Auto) 0.0 Baso % (Auto) 0.1 Lymph # (Auto) 0.8 L [place] # (Auto) 1.3 H Eos # (Auto) 0.0 Baso # (Auto) 0.0 Abs Immat Gran (auto) 0.16 H Absolute Neuts (auto) 12.7 H Absolute Nucleated RBC 0.000 Nucleated RBC % (auto) 0.0 PT INR Sodium Potassium Chloride Carbon Dioxide Anion Gap BUN Creatinine Estim Creat Clear Calc Estimated GFR POC Glucose 208 H Random Glucose Calcium Magnesium Total Bilirubin AST ALT Alkaline Phosphatase Lactate Dehydrogenase Total Protein Albumin Procalcitonin Urine Color Urine Appearance Urine pH Ur Specific [place] Urine Protein Urine Glucose (UA) Urine Ketones Urine Blood Urine Nitrite Ur Leukocyte Esterase Blood Type Antibody Screen Crossmatch Clerical Work Check No Error Found Hemolysis Bld Bag Check None in Pre and Post Icterus Blood Bag Check None in Pre and Post Post-Trans Blood Type B Positive Post-Trans MARY IgG TNP Post-Trans MARY Poly NEGATIVE 04/21/20 04/22/20 04/22/20 22:49 05:27 05:27 WBC 14.5 H 8.0 RBC 2.89 L 2.93 L Hgb 7.7 L 7.8 L Hct 23.9 L 24.7 L MCV 82.7 84.3 MCH 26.6 L 26.6 L MCHC 32.2 31.6 RDW 14.9 15.1 Plt Count 79 L 83 L MPV 9.3 L 10.2 Immature Gran % (Auto) 0.8 H 0.4 Neut % (Auto) 82.6 H 76.4 H Lymph % (Auto) 8.0 L 14.1 L [place] % (Auto) 8.5 9.0 Eos % (Auto) 0.0 0.1 Baso % (Auto) 0.1 0.0 Lymph # (Auto) 1.2 1.1 L [place] # (Auto) 1.2 0.7 Eos # (Auto) 0.0 0.0 Baso # (Auto) 0.0 0.0 Abs Immat Gran (auto) 0.12 H 0.03 Absolute Neuts (auto) 12.0 H 6.1 Absolute Nucleated RBC 0.000 0.000 Nucleated RBC % (auto) 0.0 0.0 PT 17.2 H INR 1.4 H Sodium Potassium Chloride Carbon Dioxide Anion Gap BUN Creatinine Estim Creat Clear Calc Estimated GFR POC Glucose Random Glucose Calcium Magnesium Total Bilirubin AST ALT Alkaline Phosphatase Lactate Dehydrogenase Total Protein Albumin Procalcitonin Urine Color Urine Appearance Urine pH Ur Specific [place] Urine Protein Urine Glucose (UA) Urine Ketones Urine Blood Urine Nitrite Ur Leukocyte Esterase Blood Type Antibody Screen Crossmatch Clerical Work Check Hemolysis Bld Bag Check Icterus Blood Bag Check Post-Trans Blood Type Post-Trans MARY IgG Post-Trans MARY Poly 04/22/20 04/22/20 04/22/20 05:27 05:27 07:57 WBC RBC Hgb Hct MCV MCH MCHC RDW Plt Count MPV Immature Gran % (Auto) Neut % (Auto) Lymph % (Auto) [place] % (Auto) Eos % (Auto) Baso % (Auto) Lymph # (Auto) [place] # (Auto) Eos # (Auto) Baso # (Auto) Abs Immat Gran (auto) Absolute Neuts (auto) Absolute Nucleated RBC Nucleated RBC % (auto) PT INR Sodium 134 L Potassium 4.3 Chloride 101 Carbon Dioxide 25 Anion Gap 12 BUN 49 H Creatinine 1.65 H Estim Creat Clear Calc 41.6 Estimated GFR 41 POC Glucose 143 H Random Glucose 167 H Calcium 6.9 L Magnesium 2.5 Total Bilirubin 1.2 H AST 95 H ALT 134 H Alkaline Phosphatase 104 Lactate Dehydrogenase 215 Total Protein 4.7 L Albumin 1.9 L Procalcitonin 2.93 Urine Color Urine Appearance Urine pH Ur Specific [place] Urine Protein Urine Glucose (UA) Urine Ketones Urine Blood Urine Nitrite Ur Leukocyte Esterase Blood Type Antibody Screen Crossmatch Clerical Work Check Hemolysis Bld Bag Check Icterus Blood Bag Check Post-Trans Blood Type Post-Trans MARY IgG Post-Trans MAYR Poly 04/22/20 04/22/20 12:14 14:17 WBC RBC Hgb Hct MCV MCH MCHC RDW Plt Count MPV Immature Gran % (Auto) Neut % (Auto) Lymph % (Auto) [place] % (Auto) Eos % (Auto) Baso % (Auto) Lymph # (Auto) [place] # (Auto) Eos # (Auto) Baso # (Auto) Abs Immat Gran (auto) Absolute Neuts (auto) Absolute Nucleated RBC Nucleated RBC % (auto) PT INR Sodium Potassium Chloride Carbon Dioxide Anion Gap BUN Creatinine Estim Creat Clear Calc Estimated GFR POC Glucose 217 H Random Glucose Calcium Magnesium Total Bilirubin AST ALT Alkaline Phosphatase Lactate Dehydrogenase Total Protein Albumin Procalcitonin Urine Color YELLOW Urine Appearance CLOUDY Urine pH 5.0 Ur Specific [place] 1.025 Urine Protein 1+ H Urine Glucose (UA) NEG Urine Ketones NEG Urine Blood 3+ H Urine Nitrite NEG Ur Leukocyte Esterase TRACE H Blood Type Antibody Screen Crossmatch Clerical Work Check Hemolysis Bld Bag Check Icterus Blood Bag Check Post-Trans Blood Type Post-Trans MARY IgG Post-Trans MARY Poly Chest X-Ray 04/21/20 00:15 IMPRESSION: Persistent small effusions. Worsening infiltrate left lung base. Assessment and Plan (1) CHF exacerbation: Status: Acute (2) Normocytic anemia: Status: Acute (3) Generalized weakness: Status: Acute (4) Acute hyponatremia: Status: Acute (5) Transaminitis: Status: Acute (6) Hypoalbuminemia: Status: Acute (7) Elevated troponin: Status: Acute Assessment and Plan: hospital d#6 69yo M with CAD s/p CABG + AoV replacement admitted with concern of CHF exacerbation with edema and dyspnea in setting of recent malaise and weakness after COVID-19 vaccination new diagnoses of cirrhosis + DM2 # pneumonia - start ceftriaxone + doxycycline. BCx sent, also send urinary antigens. trend PCT # SCOTT - prerenal? hepatorenal? send urine studies, give albumin + midodrine # cirrhosis, new diagnosis, with hypoalbuminemia, transaminasemia, coagulopathy, anemia, thrombocytopenia, splenomegaly - updated Dr John [GI], autoimmune workup pending but noted to be HCV Ab positive; will send viral load; pt denies any potential exposure other than bl ood transfusion during CABG 7yr ago # normocytic hypoproliferative anemia - improved after 1u pRBCs. pt appears to have had a febrile nonhemolytic transfusion reaction - FOBT negative but will repeat - SIEP pending - unknown baseline Hb- records requested. ultimately likely due to cirrhosis. appreciate Heme/Onc consult # thrombocytopenia - avoid heparin. 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 improved. unknown baseline- records requested. likely due to ci rrhosis. - TSH normal, TSH normal. # HFpEF - appears euvolemic, continue maintenance furosemide # chronic MR, eccentric, moderate - TTE done. appreciate Cardiology recommendation- to consider outpt [facility]; pt will transfer care from [place], [place] to [place] # troponin elevation - flat, per Cardiology not ACS, likely related to underlying HF/MR # CAD - continue ASA, metoprolol, statin # DM2, A1c 7.1 - correction dose lispro, home on MTF # dispo - PT eval: home with VNA
[2020-04-22 15:06] LABS: Bacteria Urine 2+ /LPF; RBC Urine TNTC /HPF (0); Renal Epithelial Cells Urine TRACE /LPF; Squamous Epithelial Cell Urine TRACE /LPF
--- NOTE | 2020-04-22 15:26 | PM.PNNEP ---
Subjective Subjective Date of Service: 04/22/20 Principal diagnosis: Elevated BNP, CAD Interval history: Seen and examined. Events noted. gen weak fever spike and xray infiltrate c/w pneumiia now incr scr noted on am labs Physical Exam Vital Signs: Vital Signs: Last Vital Signs Temp 97.2 F 04/22/20 07:13 Pulse 72 04/22/20 07:13 Resp 17 04/22/20 07:13 BP 90/50 L 04/22/20 11:27 Pulse Ox 95 04/22/20 07:13 Body Mass Index 23.7 Const: General: cooperative, no acute distress, ill appearing, poor hygiene and tired appearing Orientation/consciousness: patient oriented x3 Eyes: General: appearance normal, both eyes and all related structures Pupils: Equal, round and reactive pupils present Resp: Effort & Inspection: normal respiratory effort and able to speak in complete sentences Auscultation: clear to auscultation bilaterally Cardio: Rate: regular rate Rhythm: regular rhythm GI: Palpation (GI): Soft to palpation Auscultation: normal bowel sounds Skin: General skin exam: no rashes or lesions noted Neuro: General: patient oriented x3 Cranial nerves: Yes Equal, round and reactive pupils present Cognition (Neuro): normal cognition Extrem: Other: 2+ pitting edema bilaterally General: Yes normal to inspection Objective Data Labs CBC & Chem 7: 04/22/20 05:27 04/22/20 05:27 Labs: Laboratory Results - last 24 hr 04/20/20 04/21/20 04/21/20 08:07 18:02 19:39 WBC RBC Hgb Hct MCV MCH MCHC RDW Plt Count MPV Immature Gran % (Auto) Neut % (Auto) Lymph % (Auto) [place] % (Auto) Eos % (Auto) Baso % (Auto) Lymph # (Auto) [place] # (Auto) Eos # (Auto) Baso # (Auto) Abs Immat Gran (auto) Absolute Neuts (auto) Absolute Nucleated RBC Nucleated RBC % (auto) PT INR Sodium Potassium Chloride Carbon Dioxide Anion Gap BUN Creatinine Estim Creat Clear Calc Estimated GFR POC Glucose 173 H 200 H Random Glucose Calcium Magnesium Total Bilirubin AST ALT Alkaline Phosphatase Lactate Dehydrogenase Total Protein Albumin Procalcitonin Urine Color Urine Appearance Urine pH Ur Specific [place] Urine Protein Urine Glucose (UA) Urine Ketones Urine Blood Urine Nitrite Ur Leukocyte Esterase Urine RBC Urine WBC Ur Squamous Epith Cells Ur Renal Epithelial Cell Urine Bacteria Granular Casts Other Casts Blood Type B Positive Antibody Screen NEGATIVE Crossmatch See Detail Clerical Work Check Hemolysis Bld Bag Check Icterus Blood Bag Check Post-Trans Blood Type Post-Trans MARY IgG Post-Trans MARY Poly 04/21/20 04/21/20 04/21/20 19:41 20:12 21:18 WBC 14.9 H RBC 2.88 L Hgb 7.8 L Hct 23.8 L MCV 82.6 MCH 27.1 MCHC 32.8 RDW 14.9 Plt Count 84 L MPV 9.7 Immature Gran % (Auto) 1.1 H Neut % (Auto) 85.3 H Lymph % (Auto) 5.1 L [place] % (Auto) 8.4 Eos % (Auto) 0.0 Baso % (Auto) 0.1 Lymph # (Auto) 0.8 L [place] # (Auto) 1.3 H Eos # (Auto) 0.0 Baso # (Auto) 0.0 Abs Immat Gran (auto) 0.16 H Absolute Neuts (auto) 12.7 H Absolute Nucleated RBC 0.000 Nucleated RBC % (auto) 0.0 PT INR Sodium Potassium Chloride Carbon Dioxide Anion Gap BUN Creatinine Estim Creat Clear Calc Estimated GFR POC Glucose 208 H Random Glucose Calcium Magnesium Total Bilirubin AST ALT Alkaline Phosphatase Lactate Dehydrogenase Total Protein Albumin Procalcitonin Urine Color Urine Appearance Urine pH Ur Specific [place] Urine Protein Urine Glucose (UA) Urine Ketones Urine Blood Urine Nitrite Ur Leukocyte Esterase Urine RBC Urine WBC Ur Squamous Epith Cells Ur Renal Epithelial Cell Urine Bacteria Granular Casts Other Casts Blood Type Antibody Screen Crossmatch Clerical Work Check No Error Found Hemolysis Bld Bag Check None in Pre and Post Icterus Blood Bag Check None in Pre and Post Post-Trans Blood Type B Positive Post-Trans MARY IgG TNP Post-Trans MARY Poly NEGATIVE 04/21/20 04/22/20 04/22/20 22:49 05:27 05:27 WBC 14.5 H 8.0 RBC 2.89 L 2.93 L Hgb 7.7 L 7.8 L Hct 23.9 L 24.7 L MCV 82.7 84.3 MCH 26.6 L 26.6 L MCHC 32.2 31.6 RDW 14.9 15.1 Plt Count 79 L 83 L MPV 9.3 L 10.2 Immature Gran % (Auto) 0.8 H 0.4 Neut % (Auto) 82.6 H 76.4 H Lymph % (Auto) 8.0 L 14.1 L [place] % (Auto) 8.5 9.0 Eos % (Auto) 0.0 0.1 Baso % (Auto) 0.1 0.0 Lymph # (Auto) 1.2 1.1 L [place] # (Auto) 1.2 0.7 Eos # (Auto) 0.0 0.0 Baso # (Auto) 0.0 0.0 Abs Immat Gran (auto) 0.12 H 0.03 Absolute Neuts (auto) 12.0 H 6.1 Absolute Nucleated RBC 0.000 0.000 Nucleated RBC % (auto) 0.0 0.0 PT 17.2 H INR 1.4 H Sodium Potassium Chloride Carbon Dioxide Anion Gap BUN Creatinine Estim Creat Clear Calc Estimated GFR POC Glucose Random Glucose Calcium Magnesium Total Bilirubin AST ALT Alkaline Phosphatase Lactate Dehydrogenase Total Protein Albumin Procalcitonin Urine Color Urine Appearance Urine pH Ur Specific [place] Urine Protein Urine Glucose (UA) Urine Ketones Urine Blood Urine Nitrite Ur Leukocyte Esterase Urine RBC Urine WBC Ur Squamous Epith Cells Ur Renal Epithelial Cell Urine Bacteria Granular Casts Other Casts Blood Type Antibody Screen Crossmatch Clerical Work Check Hemolysis Bld Bag Check Icterus Blood Bag Check Post-Trans Blood Type Post-Trans MARY IgG Post-Trans MARY Poly 04/22/20 04/22/20 04/22/20 05:27 05:27 07:57 WBC RBC Hgb Hct MCV MCH MCHC RDW Plt Count MPV Immature Gran % (Auto) Neut % (Auto) Lymph % (Auto) [place] % (Auto) Eos % (Auto) Baso % (Auto) Lymph # (Auto) [place] # (Auto) Eos # (Auto) Baso # (Auto) Abs Immat Gran (auto) Absolute Neuts (auto) Absolute Nucleated RBC Nucleated RBC % (auto) PT INR Sodium 134 L Potassium 4.3 Chloride 101 Carbon Dioxide 25 Anion Gap 12 BUN 49 H Creatinine 1.65 H Estim Creat Clear Calc 41.6 Estimated GFR 41 POC Glucose 143 H Random Glucose 167 H Calcium 6.9 L Magnesium 2.5 Total Bilirubin 1.2 H AST 95 H ALT 134 H Alkaline Phosphatase 104 Lactate Dehydrogenase 215 Total Protein 4.7 L Albumin 1.9 L Procalcitonin 2.93 Urine Color Urine Appearance Urine pH Ur Specific [place] Urine Protein Urine Glucose (UA) Urine Ketones Urine Blood Urine Nitrite Ur Leukocyte Esterase Urine RBC Urine WBC Ur Squamous Epith Cells Ur Renal Epithelial Cell Urine Bacteria Granular Casts Other Casts Blood Type Antibody Screen Crossmatch Clerical Work Check Hemolysis Bld Bag Check Icterus Blood Bag Check Post-Trans Blood Type Post-Trans MARY IgG Post-Trans MARY Poly 04/22/20 04/22/20 12:14 14:17 WBC RBC Hgb Hct MCV MCH MCHC RDW Plt Count MPV Immature Gran % (Auto) Neut % (Auto) Lymph % (Auto) [place] % (Auto) Eos % (Auto) Baso % (Auto) Lymph # (Auto) [place] # (Auto) Eos # (Auto) Baso # (Auto) Abs Immat Gran (auto) Absolute Neuts (auto) Absolute Nucleated RBC Nucleated RBC % (auto) PT INR Sodium Potassium Chloride Carbon Dioxide Anion Gap BUN Creatinine Estim Creat Clear Calc Estimated GFR POC Glucose 217 H Random Glucose Calcium Magnesium Total Bilirubin AST ALT Alkaline Phosphatase Lactate Dehydrogenase Total Protein Albumin Procalcitonin Urine Color YELLOW Urine Appearance CLOUDY Urine pH 5.0 Ur Specific [place] 1.025 Urine Protein 1+ H Urine Glucose (UA) NEG Urine Ketones NEG Urine Blood 3+ H Urine Nitrite NEG Ur Leukocyte Esterase TRACE H Urine RBC TNTC H Urine WBC 5-9 H Ur Squamous Epith Cells TRACE Ur Renal Epithelial Cell TRACE Urine Bacteria 2+ Granular Casts 1-4 Other Casts 1-4 Blood Type Antibody Screen Crossmatch Clerical Work Check Hemolysis Bld Bag Check Icterus Blood Bag Check Post-Trans Blood Type Post-Trans MARY IgG Post-Trans MARY Poly Assessment & Plan Assessment and plan (1) CHF exacerbation: Status: Acute (2) Normocytic anemia: Status: Acute (3) Generalized weakness: Status: Acute (4) Acute hyponatremia: Status: Acute (5) Transaminitis: Status: Acute (6) Hypoalbuminemia: Status: Acute (7) Elevated troponin: Status: Acute Assessment and Plan: 1. Hypervol HypoNa: SNa now 134...resolving 2. SCOTT: very cocnerning and suspect renal hypoperfsuion given low BPs, low alb and may be at risk for HRS 3. Anemia and low PLTs: all new per PT and warrants additional w/u 4. Abnl LFTs and low albumin also concerning and will need furhter eval of liver..denies ETOH REC: iv albumin and po midrdine and if scr incr further will need to consider adding octreotide for full tx of possible hRS; d/c PO fluid restriciton; hold lasix; track uop/renal func will follow with team Time Spent With Patient Time: Total time spent is greater than 50% in coordination of care (as documented) at patient's floor/unit and/or counseling patient:
[2020-04-22 15:32] LABS: Creatinine Urine 130.51 mg/dL; Sodium Urine Random < 20.0 mmol/L
--- NOTE | 2020-04-22 15:53 | PC.NURSE ---
P-HR elevated 125 I-Dr. Lopez notified and came to assess patient E-will monitor
[2020-04-22] MEDS: Acetaminophen 325 MG TABLET 650 MG PO (16:14)
[2020-04-22] MEDS: guaiFENesin DM 100/10/5 ML 5 ML SYRUP PO (16:19)
--- NOTE | 2020-04-22 16:25 | PM.EVENT ---
Event Note Date of Service: 04/22/20 Event Note: Asked to review patient due to ongoing slow deterioration. He is behaving as a patient with cirrhosis (previously undiagnosed.) He now has pneumonia, worsening renal function and severe hypoalbuminemia. Clinically with asterixis. Any patient with underlying liver disease, when they get critically ill, the liver disease can decompensate. This is especially, true if their protein calorie nutrition tanks. Focus is to treat the other more acute illnesses. Liver Profile INR is 1.4-stable. Creatinine 04/18-was 0.92 and now is 1.65. Bili stable--1.2, AST/ALT: 95/134, Albumin: 04/17 2.6 now 1.9. There is always a concern with these patients to transfer to a Tertiary Center. (If he wants to go to [place] it should be [facility]--it has a great Transplant service, but so does [place]. There is not much to work up for the liver disease. Regardless of cause it is present. Check: Ammonia, CPK, LDh, prealbumin. Good that you ordered the Hep C viral load.
[2020-04-22 17:46] LABS: Glucose, Whole Blood 253 mg/dL (60-115)
[2020-04-22] MEDS: 0.9 % Sodium Chloride 1,000 ML 75 ML IVCONT (19:00)
[2020-04-22] MEDS: Octreotide Acetate 500 MCG in 0.9 % Sodium Chloride 500 ML 50.1 MCG IVCONT (19:08)
[2020-04-22 20:38] LABS: Glucose, Whole Blood 184 mg/dL (60-115)
[2020-04-22] MEDS: Lactulose 20 GM/30 ML SOLUTION 30 GM PO (21:25)
[2020-04-22] MEDS: Midodrine HCl 5 MG TABLET 10 MG PO (21:25)
[2020-04-22] MEDS: rifAXIMin 550 MG TABLET PO (21:26)
--- NOTE | 2020-04-22 23:42 | PC.NURSE ---
p-patient was unable to urinate,bladder scanned for 378 ml,sat 87% on RA I-repositioned patient,oxygen placed on,Dr. Packer notified E-Co[place]ola placed in,draining freely,sat 95% on RA
[2020-04-23] VITALS (10 sets, daily range): BP systolic 100–113; BP diastolic 58–66; PULSE 65–87; RESP 18–20; TEMP 36.1–36.9; O2SAT 90–98; BMI 23.6
[2020-04-23] MEDS: Albumin Human 25 % 100 ML IV ×4 (00:02→18:31)
[2020-04-23] MEDS: 0.9 % Sodium Chloride Flush 3 ML SYRINGE IVFLUSH (00:02)
[2020-04-23 05:14] LABS: Adenovirus PCR Not Detected (Not Detect.); Bordetella parapertussis PCR Not Detected (Not Detect.); Bordetella pertussis PCR Not Detected (Not Detect.); Chlamydia pneumoniae PCR Not Detected (Not Detect.); Coronavirus 229E PCR Not Detected (Not Detect.); Coronavirus HKU1 PCR Not Detected (Not Detect.); Coronavirus NL63 PCR Not Detected (Not Detect.); Coronavirus OC43 PCR Not Detected (Not Detect.); Human metapneumovirus PCR Not Detected (Not Detect.); Influenza A PCR Not Detected (Not Detect.); Influenza B PCR Not Detected (Not Detect.); Mycoplasma pneumoniae PCR Not Detected (Not Detect.); Parainfluenza 1 PCR Not Detected (Not Detect.); Parainfluenza 2 PCR Not Detected (Not Detect.); Parainfluenza 3 PCR Not Detected (Not Detect.); Parainfluenza 4 PCR Not Detected (Not Detect.); RSV PCR Not Detected (Not Detect.); Rhino/Enterovirus PCR Not Detected (Not Detect.); SARS-CoV-2 PCR Not Detected (Not Detect.)
[2020-04-23] MEDS: Octreotide Acetate 500 MCG in 0.9 % Sodium Chloride 500 ML 50.1 MCG IVCONT ×2 (05:20→16:49)
[2020-04-23 06:08] LABS: MANUAL DIFF FLAG NO
[2020-04-23 06:20] LABS: Basophils Percent Auto 0.2 % (0-2); Hematocrit 24.5 % (42-52); Hemoglobin 7.7 g/dl (14.0-18.0); Imm Gran Abs Auto 0.09 X10*3/uL (0.00-0.03); Imm Gran Pct Auto 0.8 % (0.0-0.4); Lymphocytes Absolute Auto 1.2 X10*3/uL (1.2-4.9); Lymphocytes Percent Auto 10.2 % (20-40); Mean Corpuscular HGB Conc 31.4 g/dl (31.0-36.0); Mean Corpuscular Hemoglobin 26.3 pg (27.0-33.0); Mean Corpuscular Volume 83.6 fL (80-98); Mean Platelet Volume 11.1 fL (9.4-12.4); Monocytes Percent Auto 8.5 % (2-11); Neutrophils Absolute Auto 9.3 X10*3/uL (2.0-8.3); Neutrophils Percent Auto 80.3 % (45-73); Red Blood Count 2.93 X10*6/uL (4.60-5.80); Red Cell Distribution Width 15.3 % (11.0-16.0); White Blood Count 11.6 X10*3/uL (4.8-10.8)
[2020-04-23 06:21] LABS: Fibrinogen 398 MG/DL (259-690); INTERNATIONAL NORM RATIO 1.5 (0.9-1.1); Prothrombin Time 17.5 SEC (10.8-13.0)
[2020-04-23 06:24] LABS: Partial Thromboplastin Time 36.4 SEC (24.1-38.0)
[2020-04-23 06:32] LABS: Ammonia 40 umol/L (13-55)
[2020-04-23 06:33] LABS: Platelet Count 70 X10*3/uL (160-400)
[2020-04-23 06:59] LABS: Gamma Glutamyl Transpeptidase 31 U/L (11-51)
[2020-04-23 07:08] LABS: Alanine Aminotransferase 88 U/L (0-40); Alkaline Phosphatase 89 U/L (39-117); Aspartate Amino Transferase 77 U/L (5-37); Bilirubin Total 1.3 mg/dL (0.0-1.0); Blood Urea Nitrogen 58 mg/dL (9-16); Creatinine Clr Calc Pharmacy 35.8; Estimated Glomerular Filt Rate 35; Glucose Random 249 mg/dL (60-115); Magnesium 2.2 mg/dL (1.6-2.6)
[2020-04-23 07:14] LABS: Lactate Dehydrogenase 291 U/L (118-273)
[2020-04-23 07:32] LABS: IgA 296 mg/dL (70-320); IgG 1269 mg/dL (600-1540); IgM 187 mg/dL (50-300)
[2020-04-23 07:46] LABS: Glucose, Whole Blood 247 mg/dL (60-115)
[2020-04-23 07:46] LABS: Albumin Level 2.6 g/dL (3.5-5.0); Anion Gap 15 (12-20); Calcium 7.1 mg/dL (8.4-10.2); Carbon Dioxide 21 mmol/L (22-29); Chloride 99 mmol/L (96-108); Potassium 4.9 mmol/L (3.3-5.1); Sodium 130 mmol/L (135-145)
[2020-04-23] MEDS: Insulin Lispro 100 UNIT/ML 3 ML VIAL SUBCUT ×4 (07:53→20:37)
[2020-04-23 08:17] LABS: Hepatitis A Antibody IgG REACTIVE (Nonreactive); ~Hepatitis A Antibody IgG 1.15 S/CO (0.00-0.99)
[2020-04-23] MEDS: Lactulose 20 GM/30 ML SOLUTION 30 GM PO (09:47)
[2020-04-23] MEDS: rifAXIMin 550 MG TABLET PO ×2 (09:47→20:37)
[2020-04-23] MEDS: Midodrine HCl 5 MG TABLET 10 MG PO ×3 (09:47→20:37)
[2020-04-23] MEDS: 0.9 % Sodium Chloride 1,000 ML 100 ML IVCONT (10:11)
[2020-04-23 11:29] LABS: Glucose, Whole Blood 246 mg/dL (60-115)
[2020-04-23] MEDS: cefTRIAXone sodium 1 GM in 0.9 % Sodium Chloride 50 ML IV (11:31)
--- NOTE | 2020-04-23 13:08 | P.PNIM_ITS ---
Subjective Subjective Date of Service: 04/23/20 Interval History: Cough improved Was on O2 overnight but now SaO2 96 on RA Confusion improved, no longer has asterixis Denies SOB Denies abd pain BP improved Physical Exam Vital Signs: Vital Signs: Last Vital Signs Temp 97.0 F 04/23/20 12:00 Pulse 71 04/23/20 12:00 Resp 20 04/23/20 12:00 BP 107/66 04/23/20 12:00 Pulse Ox 96 04/23/20 12:00 Body Mass Index 23.6 Gen: in no acute distress HEENT: sclera anicteric, pale mucus membranes Neck: supple Lungs: clear to auscultation bilaterally Heart: regular rate and rhythm, 3/6 holosystolic apical murmur Abd: soft, non-tender, non-distended Ext: no edema Skin: warm/well-perfused Neuro: alert and oriented x3, no focal findings Psych: restricted affect Objective Data Current Medications Generic Name Dose Route Start Last Admin Trade Name Freq PRN Reason Stop Dose Admin Acetaminophen 650 mg 04/22/20 17:29 Acetaminophen 325 Mg Tablet PO Q6H PRN fever Docusate Sodium 100 mg 04/18/20 01:17 Docusate Sodium 100 Mg Capsule PO DAILY PRN Constipation Doxycycline Hyclate 100 mg 04/22/20 12:00 04/23/20 12:50 Doxycycline Hyclate 100 Mg Tablet PO 100 mg Q12H [facility] Administration Guaifenesin/Dextromethorphan 5 ml 04/22/20 14:51 04/22/20 16:19 Guaifenesin Dm 100/10/5 Ml 5 Ml Syrup PO 5 ml Q4H PRN Administration cough Ceftriaxone Sodium 1 gm/ 50 mls @ 100 mls/hr 04/22/20 12:00 04/23/20 12:32 Sodium Chloride IV Infused Q24H [facility] Infusion Albumin Human 100 mls @ 100 mls/hr 04/22/20 12:00 04/23/20 12:41 Kedbumin 25 % IV 04/23/20 18:59 100 mls/hr Q6H [facility] Administration Sodium Chloride 1,000 mls @ 100 mls/hr 04/22/20 17:45 04/23/20 10:11 Ns IVCONT 100 mls/hr .Q10H [facility] Administration Octreotide Acetate 500 mcg/ 501 mls @ 50.1 mls/hr 04/22/20 17:45 04/23/20 05:20 Sodium Chloride IVCONT 50 mcg/hr .Q10H [facility] 50.1 mls/hr Administration 50 MCG/HR Insulin Human Lispro 0 unit 04/20/20 11:30 04/23/20 11:45 Insulin Lispro 100 Unit/Ml 3 Ml Vial SUBCUT 4 unit QIDACHS [facility] Administration Protocol Lactulose 30 gm 04/22/20 21:00 04/23/20 09:47 Lactulose 20 Gm/30 Ml Solution PO 30 gm TID [facility] Administration Midodrine 10 mg 04/22/20 21:00 04/23/20 09:47 Midodrine Hcl 5 Mg Tablet PO 10 mg TID [facility] Administration Ondansetron HCl 4 mg 04/18/20 01:17 Ondansetron Hcl 4 Mg/2 Ml Vial IVPUSH Q8H PRN Nausea and Vomiting Rifaximin 550 mg 04/22/20 21:00 04/23/20 09:47 Rifaximin 550 Mg Tablet PO 550 mg BID [facility] Administration Sodium Chloride 3 ml 04/18/20 01:17 04/23/20 09:46 0.9 % Sodium Chloride Flush 3 Ml Syringe IVFLUSH Not Given QSHIFT [facility] Labs CBC & Chem 7: 04/23/20 05:43 04/23/20 05:43 Labs: Laboratory Results - last 24 hr 04/20/20 04/20/20 04/22/20 06:57 08:07 05:45 WBC RBC Hgb Hct MCV MCH MCHC RDW Plt Count MPV Immature Gran % (Auto) Neut % (Auto) Lymph % (Auto) [place] % (Auto) Eos % (Auto) Baso % (Auto) Lymph # (Auto) [place] # (Auto) Eos # (Auto) Baso # (Auto) Abs Immat Gran (auto) Absolute Neuts (auto) Absolute Nucleated RBC Nucleated RBC % (auto) PT INR APTT Fibrinogen Sodium Potassium Chloride Carbon Dioxide Anion Gap BUN Creatinine Estim Creat Clear Calc Estimated GFR POC Glucose Random Glucose Calcium Magnesium Total Bilirubin GGT AST ALT Alkaline Phosphatase Ammonia Lactate Dehydrogenase Total Creatine Kinase Total Protein Albumin Prealbumin Urine Color Urine Appearance Urine pH Ur Specific [place] Urine Protein Urine Glucose (UA) Urine Ketones Urine Blood Urine Nitrite Ur Leukocyte Esterase Urine RBC Urine WBC Ur Squamous Epith Cells Ur Renal Epithelial Cell Urine Bacteria Granular Casts Other Casts Ur Random Sodium Urine Creatinine IgG Total 1269 IgA Total 296 IgM 187 SIRIA Interpretation SEE NOTE Respiratory Panel [place] Adenovirus (Rapid PCR) B.pert (TEM-PCR) B.parapertussis DNA PCR C. pneumoniae DNA (PCR) Coronavirus OC43 (PCR) Coronavirus HKU1 (PCR) Coronavirus 229E (PCR) Coronavirus NL63 (PCR) Hepatitis A IgG Ab REACTIVE Human Metapneumovir PCR Influenza A (RT-PCR) Influenza B (RT-PCR) M. pneumoniae (PCR) Parainfluenza 1 (PCR) Parainfluenza 2 (PCR) Parainfluenza 3 (PCR) Parainfluenza 4 (PCR) RSV (PCR) Entero/Rhino (PCR) SARS-CoV-2 RNA (RT-PCR) Crossmatch See Detail 04/22/20 04/22/20 04/22/20 14:17 14:17 17:01 WBC RBC Hgb Hct MCV MCH MCHC RDW Plt Count MPV Immature Gran % (Auto) Neut % (Auto) Lymph % (Auto) [place] % (Auto) Eos % (Auto) Baso % (Auto) Lymph # (Auto) [place] # (Auto) Eos # (Auto) Baso # (Auto) Abs Immat Gran (auto) Absolute Neuts (auto) Absolute Nucleated RBC Nucleated RBC % (auto) PT INR APTT Fibrinogen Sodium Potassium Chloride Carbon Dioxide Anion Gap BUN Creatinine Estim Creat Clear Calc Estimated GFR POC Glucose 253 H Random Glucose Calcium Magnesium Total Bilirubin GGT AST ALT Alkaline Phosphatase Ammonia Lactate Dehydrogenase Total Creatine Kinase Total Protein Albumin Prealbumin Urine Color YELLOW Urine Appearance CLOUDY Urine pH 5.0 Ur Specific [place] 1.025 Urine Protein 1+ H Urine Glucose (UA) NEG Urine Ketones NEG Urine Blood 3+ H Urine Nitrite NEG Ur Leukocyte Esterase TRACE H Urine RBC TNTC H Urine WBC 5-9 H Ur Squamous Epith Cells TRACE Ur Renal Epithelial Cell TRACE Urine Bacteria 2+ Granular Casts 1-4 Other Casts 1-4 Ur Random Sodium < 20.0 Urine Creatinine 130.51 IgG Total IgA Total IgM SIRIA Interpretation Respiratory Panel [place] Adenovirus (Rapid PCR) B.pert (TEM-PCR) B.parapertussis DNA PCR C. pneumoniae DNA (PCR) Coronavirus OC43 (PCR) Coronavirus HKU1 (PCR) Coronavirus 229E (PCR) Coronavirus NL63 (PCR) Hepatitis A IgG Ab Human Metapneumovir PCR Influenza A (RT-PCR) Influenza B (RT-PCR) M. pneumoniae (PCR) Parainfluenza 1 (PCR) Parainfluenza 2 (PCR) Parainfluenza 3 (PCR) Parainfluenza 4 (PCR) RSV (PCR) Entero/Rhino (PCR) SARS-CoV-2 RNA (RT-PCR) Crossmatch 04/22/20 04/23/20 04/23/20 20:28 05:10 05:43 WBC 11.6 H RBC 2.93 L Hgb 7.7 L Hct 24.5 L MCV 83.6 MCH 26.3 L MCHC 31.4 RDW 15.3 Plt Count 70 L MPV 11.1 Immature Gran % (Auto) 0.8 H Neut % (Auto) 80.3 H Lymph % (Auto) 10.2 L [place] % (Auto) 8.5 Eos % (Auto) 0.0 Baso % (Auto) 0.2 Lymph # (Auto) 1.2 [place] # (Auto) 1.0 Eos # (Auto) 0.0 Baso # (Auto) 0.0 Abs Immat Gran (auto) 0.09 H Absolute Neuts (auto) 9.3 H Absolute Nucleated RBC 0.000 Nucleated RBC % (auto) 0.0 PT INR APTT Fibrinogen Sodium Potassium Chloride Carbon Dioxide Anion Gap BUN Creatinine Estim Creat Clear Calc Estimated GFR POC Glucose 184 H Random Glucose Calcium Magnesium Total Bilirubin GGT AST ALT Alkaline Phosphatase Ammonia Lactate Dehydrogenase Total Creatine Kinase Total Protein Albumin Prealbumin Urine Color Urine Appearance Urine pH Ur Specific [place] Urine Protein Urine Glucose (UA) Urine Ketones Urine Blood Urine Nitrite Ur Leukocyte Esterase Urine RBC Urine WBC Ur Squamous Epith Cells Ur Renal Epithelial Cell Urine Bacteria Granular Casts Other Casts Ur Random Sodium Urine Creatinine IgG Total IgA Total IgM SIRIA Interpretation Respiratory Panel [place] See Note Adenovirus (Rapid PCR) Not Detected B.pert (TEM-PCR) Not Detected B.parapertussis DNA PCR Not Detected C. pneumoniae DNA (PCR) Not Detected Coronavirus OC43 (PCR) Not Detected Coronavirus HKU1 (PCR) Not Detected Coronavirus 229E (PCR) Not Detected Coronavirus NL63 (PCR) Not Detected Hepatitis A IgG Ab Human Metapneumovir PCR Not Detected Influenza A (RT-PCR) Not Detected Influenza B (RT-PCR) Not Detected M. pneumoniae (PCR) Not Detected Parainfluenza 1 (PCR) Not Detected Parainfluenza 2 (PCR) Not Detected Parainfluenza 3 (PCR) Not Detected Parainfluenza 4 (PCR) Not Detected RSV (PCR) Not Detected Entero/Rhino (PCR) Not Detected SARS-CoV-2 RNA (RT-PCR) Not Detected Crossmatch 04/23/20 04/23/20 04/23/20 05:43 05:43 05:43 WBC RBC Hgb Hct MCV MCH MCHC RDW Plt Count MPV Immature Gran % (Auto) Neut % (Auto) Lymph % (Auto) [place] % (Auto) Eos % (Auto) Baso % (Auto) Lymph # (Auto) [place] # (Auto) Eos # (Auto) Baso # (Auto) Abs Immat Gran (auto) Absolute Neuts (auto) Absolute Nucleated RBC Nucleated RBC % (auto) PT 17.5 H INR 1.5 H APTT 36.4 Fibrinogen 398 Sodium 130 L Potassium 4.9 Chloride 99 Carbon Dioxide 21 L Anion Gap 15 BUN 58 H Creatinine 1.92 H Estim Creat Clear Calc 35.8 Estimated GFR 35 POC Glucose Random Glucose 249 H D Calcium 7.1 L Magnesium 2.2 Total Bilirubin 1.3 H GGT AST 77 H ALT 88 H Alkaline Phosphatase 89 Ammonia 40 Lactate Dehydrogenase Total Creatine Kinase Total Protein 5.0 L Albumin 2.6 L D Prealbumin Urine Color Urine Appearance Urine pH Ur Specific [place] Urine Protein Urine Glucose (UA) Urine Ketones Urine Blood Urine Nitrite Ur Leukocyte Esterase Urine RBC Urine WBC Ur Squamous Epith Cells Ur Renal Epithelial Cell Urine Bacteria Granular Casts Other Casts Ur Random Sodium Urine Creatinine IgG Total IgA Total IgM SIRIA Interpretation Respiratory Panel [place] Adenovirus (Rapid PCR) B.pert (TEM-PCR) B.parapertussis DNA PCR C. pneumoniae DNA (PCR) Coronavirus OC43 (PCR) Coronavirus HKU1 (PCR) Coronavirus 229E (PCR) Coronavirus NL63 (PCR) Hepatitis A IgG Ab Human Metapneumovir PCR Influenza A (RT-PCR) Influenza B (RT-PCR) M. pneumoniae (PCR) Parainfluenza 1 (PCR) Parainfluenza 2 (PCR) Parainfluenza 3 (PCR) Parainfluenza 4 (PCR) RSV (PCR) Entero/Rhino (PCR) SARS-CoV-2 RNA (RT-PCR) Crossmatch 04/23/20 04/23/20 04/23/20 05:43 05:43 05:43 WBC RBC Hgb Hct MCV MCH MCHC RDW Plt Count MPV Immature Gran % (Auto) Neut % (Auto) Lymph % (Auto) [place] % (Auto) Eos % (Auto) Baso % (Auto) Lymph # (Auto) [place] # (Auto) Eos # (Auto) Baso # (Auto) Abs Immat Gran (auto) Absolute Neuts (auto) Absolute Nucleated RBC Nucleated RBC % (auto) PT INR APTT Fibrinogen Sodium Potassium Chloride Carbon Dioxide Anion Gap BUN Creatinine Estim Creat Clear Calc Estimated GFR POC Glucose Random Glucose Calcium Magnesium Total Bilirubin GGT 31 AST ALT Alkaline Phosphatase Ammonia Lactate Dehydrogenase 291 H Total Creatine Kinase 385 H Total Protein Albumin Prealbumin 4.0 L Urine Color Urine Appearance Urine pH Ur Specific [place] Urine Protein Urine Glucose (UA) Urine Ketones Urine Blood Urine Nitrite Ur Leukocyte Esterase Urine RBC Urine WBC Ur Squamous Epith Cells Ur Renal Epithelial Cell Urine Bacteria Granular Casts Other Casts Ur Random Sodium Urine Creatinine IgG Total IgA Total IgM SIRIA Interpretation Respiratory Panel [place] Adenovirus (Rapid PCR) B.pert (TEM-PCR) B.parapertussis DNA PCR C. pneumoniae DNA (PCR) Coronavirus OC43 (PCR) Coronavirus HKU1 (PCR) Coronavirus 229E (PCR) Coronavirus NL63 (PCR) Hepatitis A IgG Ab Human Metapneumovir PCR Influenza A (RT-PCR) Influenza B (RT-PCR) M. pneumoniae (PCR) Parainfluenza 1 (PCR) Parainfluenza 2 (PCR) Parainfluenza 3 (PCR) Parainfluenza 4 (PCR) RSV (PCR) Entero/Rhino (PCR) SARS-CoV-2 RNA (RT-PCR) Crossmatch 04/23/20 04/23/20 07:38 11:25 WBC RBC Hgb Hct MCV MCH MCHC RDW Plt Count MPV Immature Gran % (Auto) Neut % (Auto) Lymph % (Auto) [place] % (Auto) Eos % (Auto) Baso % (Auto) Lymph # (Auto) [place] # (Auto) Eos # (Auto) Baso # (Auto) Abs Immat Gran (auto) Absolute Neuts (auto) Absolute Nucleated RBC Nucleated RBC % (auto) PT INR APTT Fibrinogen Sodium Potassium Chloride Carbon Dioxide Anion Gap BUN Creatinine Estim Creat Clear Calc Estimated GFR POC Glucose 247 H 246 H Random Glucose Calcium Magnesium Total Bilirubin GGT AST ALT Alkaline Phosphatase Ammonia Lactate Dehydrogenase Total Creatine Kinase Total Protein Albumin Prealbumin Urine Color Urine Appearance Urine pH Ur Specific [place] Urine Protein Urine Glucose (UA) Urine Ketones Urine Blood Urine Nitrite Ur Leukocyte Esterase Urine RBC Urine WBC Ur Squamous Epith Cells Ur Renal Epithelial Cell Urine Bacteria Granular Casts Other Casts Ur Random Sodium Urine Creatinine IgG Total IgA Total IgM SIRIA Interpretation Respiratory Panel [place] Adenovirus (Rapid PCR) B.pert (TEM-PCR) B.parapertussis DNA PCR C. pneumoniae DNA (PCR) Coronavirus OC43 (PCR) Coronavirus HKU1 (PCR) Coronavirus 229E (PCR) Coronavirus NL63 (PCR) Hepatitis A IgG Ab Human Metapneumovir PCR Influenza A (RT-PCR) Influenza B (RT-PCR) M. pneumoniae (PCR) Parainfluenza 1 (PCR) Parainfluenza 2 (PCR) Parainfluenza 3 (PCR) Parainfluenza 4 (PCR) RSV (PCR) Entero/Rhino (PCR) SARS-CoV-2 RNA (RT-PCR) Crossmatch Impressions Abdomen Ultrasound 04/22/20 20:00 IMPRESSION: 1. A subtle hepatic nodularity is better seen on the prior CT, suggestive of cirrhosis. Liver is normal in size and echogenicity on these images. 2. Marked splenomegaly. 3. Patent portal vasculature with hepatopedal flow. No evidence of thrombosis. 4. Trace ascites. 5. Cholelithiasis without evidence of acute cholecystitis. Doppler Study Ultrasound 04/22/20 20:00 IMPRESSION: 1. A subtle hepatic nodularity is better seen on the prior CT, suggestive of cirrhosis. Liver is normal in size and echogenicity on these images. 2. Marked splenomegaly. 3. Patent portal vasculature with hepatopedal flow. No evidence of thrombosis. 4. Trace ascites. 5. Cholelithiasis without evidence of acute cholecystitis. Chest CT 04/23/20 09:10 IMPRESSION: Limited exam due to artifact from respiratory motion. Mild CHF with enlarged heart, pulmonary venous redistribution, interstitial and alveolar pulmonary disease probably representing pulmonary edema and moderate bilateral pleural effusions. There is compressive atelectasis or small infiltrates in both lower lobes adjacent to the pleural effusions.. Assessment and Plan (1) CHF exacerbation: Status: Acute (2) Normocytic anemia: Status: Acute (3) Generalized weakness: Status: Acute (4) Acute hyponatremia: Status: Acute (5) Transaminitis: Status: Acute (6) Hypoalbuminemia: Status: Acute (7) Elevated troponin: Status: Acute Assessment and Plan: hospital d#6 69yo M with CAD s/p CABG + AoV replacement admitted with concern of CHF exacerbation with edema and dyspnea in setting of recent malaise and weakness after COVID-19 vaccination new diagnoses of cirrhosis + DM2 # pneumonia - ceftriaxone + doxycycline d#2. BCx sent, also sent urinary antigens. 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 possible febrile nonhemolytic transfusion reaction - FOBT negative but will repeat - SIEP pending - unknown baseline Hb- records requested. ultimately likely due to cirrhosis. appreciate Heme/Onc consult # thrombocytopenia - avoid heparin. likely due to hypersplenism from cirrhosis # hyponatremia - improved. unknown baseline- records requested. likely due to cirrhosis. - TSH normal, cortisol normal. # HFpEF - watch for fluid overload # chronic MR, eccentric, moderate - TTE done. appreciate Cardiology recommendation- to consider outpt [facility]; pt will transfer care from [place], [place] to [place] # troponin elevation - flat, per Cardiology not ACS, likely related to underlying HF/MR # CAD - continue ASA; metoprolol held due to low BP # DM2, A1c 7.1 - correction dose lispro, home on MTF # dispo - PT eval: home with [facility]
--- NOTE | 2020-04-23 13:33 | MHC.CM.PN ---
Patient's discharge plan is home with new PCP appt with Dr Gibson on 05/03/2020 at 2pm. New PCP will need to refer patient for home PT. Discharge plan is home, sister will provide transportation. CM will continue to follow for discharge needs.
[2020-04-23 13:57] LABS: Anti Nuclear Antibody Screen NEGATIVE (NEGATIVE)
[2020-04-23 14:47] LABS: Alpha 1 Anti-trypsin 249 mg/dL (83-199); Ceruloplasmin 32 mg/dL (18-36)
[2020-04-23 16:17] LABS: Glucose, Whole Blood 193 mg/dL (60-115)
--- NOTE | 2020-04-23 16:24 | P.CNID_ITS ---
History of Present Illness Data of Consult Service Date: 04/23/20 Requesting physician: Kemi Lopez Primary Care Provider: Nonstaff Physician [facility] Reason for consult: possible infection He presents with shortness of breath for a week as well as fatigue He has no nausea or vomiting He has no productive sputum He has no COVID and no one else is ill He has basilar atelectasis/infiltrate Review of Systems Review of Systems: Yes all other systems are reviewed and are negative [facility] Past Medical History Medical History (Updated 04/23/20 @ 16:31 by Karol Izaguirre MD) CAD (coronary artery disease) HTN (hypertension) Hyperlipemia Pneumonia Functional capacity: independent ambulation Family History Family history: reviewed and not pertinent (No hx of GI malignancy that he knows of.) Surgical History Surgical History Hx of aortic valve repair Hx of CABG Social History Social History Household Members: Other Housing: House Alcohol intake: never Smoking Status: Never smoker service: No Current occupational status: previously employed and retired Meds Allergies Allergy/AdvReac Type Severity Reaction Status Date / Time No Known Allergies Allergy Verified 04/17/20 16:51 Active Medications: Current Medications Generic Name Dose Route Start Last Admin Trade Name Freq PRN Reason Stop Dose Admin Acetaminophen 650 mg 04/22/20 17:29 Acetaminophen 325 Mg Tablet PO Q6H PRN fever Docusate Sodium 100 mg 04/18/20 01:17 Docusate Sodium 100 Mg Capsule PO DAILY PRN Constipation Doxycycline Hyclate 100 mg 04/22/20 12:00 04/23/20 12:50 Doxycycline Hyclate 100 Mg Tablet PO 100 mg Q12H [facility] Administration Guaifenesin/Dextromethorphan 5 ml 04/22/20 14:51 04/22/20 16:19 Guaifenesin Dm 100/10/5 Ml 5 Ml Syrup PO 5 ml Q4H PRN Administration cough Ceftriaxone Sodium 1 gm/ 50 mls @ 100 mls/hr 04/22/20 12:00 04/23/20 12:32 Sodium Chloride IV Infused Q24H [facility] Infusion Albumin Human 100 mls @ 100 mls/hr 04/22/20 12:00 04/23/20 15:03 Kedbumin 25 % IV 04/23/20 18:59 Infused Q6H [facility] Infusion Sodium Chloride 1,000 mls @ 100 mls/hr 04/22/20 17:45 04/23/20 10:11 Ns IVCONT 100 mls/hr .Q10H [facility] Administration Octreotide Acetate 500 mcg/ 501 mls @ 50.1 mls/hr 04/22/20 17:45 04/23/20 05:20 Sodium Chloride IVCONT 50 mcg/hr .Q10H [facility] 50.1 mls/hr Administration 50 MCG/HR Insulin Human Lispro 0 unit 04/20/20 11:30 04/23/20 11:45 Insulin Lispro 100 Unit/Ml 3 Ml Vial SUBCUT 4 unit QIDACHS [facility] Administration Protocol Lactulose 30 gm 04/22/20 21:00 04/23/20 15:44 Lactulose 20 Gm/30 Ml Solution PO Not Given TID [facility] Midodrine 10 mg 04/22/20 21:00 04/23/20 15:36 Midodrine Hcl 5 Mg Tablet PO 10 mg TID [facility] Administration Ondansetron HCl 4 mg 04/18/20 01:17 Ondansetron Hcl 4 Mg/2 Ml Vial IVPUSH Q8H PRN Nausea and Vomiting Rifaximin 550 mg 04/22/20 21:00 04/23/20 09:47 Rifaximin 550 Mg Tablet PO 550 mg BID [facility] Administration Sodium Chloride 3 ml 04/18/20 01:17 04/23/20 09:46 0.9 % Sodium Chloride Flush 3 Ml Syringe [facility]USH [id number] Medications Medication Instructions Recorded Confirmed Last Taken Type aspirin 81 mg PO DAILY 04/17/20 04/17/20 04/17/20 History atorvastatin 1 tab PO DAILY 04/17/20 04/17/20 04/16/20 History metoprolol tartrate 1 tab PO BID 04/17/20 04/17/20 04/17/20 History Physical Exam Vital Signs: Vital Signs: Last Vital Signs Temp 97.6 F 04/23/20 15:41 Pulse 87 04/23/20 15:41 Resp 19 04/23/20 15:41 BP 113/63 04/23/20 15:41 Pulse Ox 90 L 04/23/20 15:41 Body Mass Index 23.6 Const: General: cooperative HENMT: Head: Yes normal to inspection Mouth: Normal oral and palatal mucosa present Resp: Effort & Inspection: normal respiratory effort Cardio: Rate: regular rate Rhythm: regular rhythm GI: Palpation (GI): Soft to palpation and nontender : General: No CVA tenderness Back/Spine/Pelvis: Back: No CVA tenderness Extrem: General: Yes normal to inspection Results Labs CBC & Chem 7: 04/23/20 05:43 04/23/20 05:43 Labs: Short CBC 04/23/20 Range/Units 05:43 WBC 11.6 H (4.8-10.8) X10*3/uL Hgb 7.7 L (14.0-18.0) g/dl Hct 24.5 L (42-52) % Plt Count 70 L (160-400) X10*3/uL BMP 04/23/20 05:43 Sodium 130 L Potassium 4.9 Chloride 99 Carbon Dioxide 21 L BUN 58 H Creatinine 1.92 H Calcium 7.1 L Cardiac Enzymes 04/23/20 Range/Units 05:43 Total Creatine Kinase 385 H (38-174) U/L Liver Function 04/23/20 04/23/20 Range/Units 05:43 05:43 Total Bilirubin 1.3 H (0.0-1.0) mg/dL GGT 31 (11-51) U/L AST 77 H (5-37) U/L ALT 88 H (0-40) U/L Alkaline Phosphatase 89 (39-117) U/L Albumin 2.6 L D (3.5-5.0) g/dL Assessment and Plan (1) Pneumonia: Problem details: Weakness with basilar infiltrates and no fever He has right basilar more than left basilar infiltrate Spneumonia,Hflu possibilities No COVID Status: Acute Would continue Ceftriaxone and Doxycycline for 3-5 days Would check hepatitis C viral load
[2020-04-23 19:49] LABS: Glucose, Whole Blood 239 mg/dL (60-115)
--- NOTE | 2020-04-23 20:08 | P.PNNP_ITS ---
Subjective Subjective Date of Service: 04/23/20 Principal diagnosis: Elevated BNP, CAD Interval history: Seen and examined.Events noted Sister at bedside Physical Exam Vital Signs: Vital Signs: Last Vital Signs Temp 98.2 F 04/23/20 19:27 Pulse 84 04/23/20 19:27 Resp 19 04/23/20 19:27 BP 106/65 04/23/20 19:27 Pulse Ox 92 04/23/20 19:27 Body Mass Index 23.6 Const: General: cooperative, no acute distress, ill appearing, poor hygiene and tired appearing Orientation/consciousness: patient oriented x3 Eyes: General: appearance normal, both eyes and all related structures Pupils: Equal, round and reactive pupils present Resp: Effort & Inspection: normal respiratory effort and able to speak in complete sentences Auscultation: clear to auscultation bilaterally Cardio: Rate: regular rate Rhythm: regular rhythm GI: Palpation (GI): Soft to palpation Auscultation: normal bowel sounds Skin: General skin exam: no rashes or lesions noted Neuro: General: patient oriented x3 Cranial nerves: Yes Equal, round and reactive pupils present Cognition (Neuro): normal cognition Extrem: Other: 2+ pitting edema bilaterally General: Yes normal to inspection Objective Data Labs CBC & Chem 7: 04/23/20 05:43 04/23/20 05:43 Labs: Laboratory Results - last 24 hr 04/20/20 04/20/20 04/21/20 06:57 08:07 06:03 WBC RBC Hgb Hct MCV MCH MCHC RDW Plt Count MPV Immature Gran % (Auto) Neut % (Auto) Lymph % (Auto) [place] % (Auto) Eos % (Auto) Baso % (Auto) Lymph # (Auto) [place] # (Auto) Eos # (Auto) Baso # (Auto) Abs Immat Gran (auto) Absolute Neuts (auto) Absolute Nucleated RBC Nucleated RBC % (auto) PT INR APTT Fibrinogen Sodium Potassium Chloride Carbon Dioxide Anion Gap BUN Creatinine Estim Creat Clear Calc Estimated GFR POC Glucose Random Glucose Calcium Magnesium Total Bilirubin GGT AST ALT Alkaline Phosphatase Ammonia Lactate Dehydrogenase Total Creatine Kinase Total Protein Albumin Prealbumin Oslgf-8-Mdouvkvapsy 249 H Ceruloplasmin 32 IgG Total 1269 IgA Total 296 IgM 187 SIRIA Interpretation SEE NOTE GABBY Screen GABBY Titer GABBY Titer 2 GABBY Titer 3 GABBY Pattern GABBY Pattern 2 GABBY Pattern 3 Respiratory Panel [place] Adenovirus (Rapid PCR) B.pert (TEM-PCR) B.parapertussis DNA PCR C. pneumoniae DNA (PCR) Coronavirus OC43 (PCR) Coronavirus HKU1 (PCR) Coronavirus 229E (PCR) Coronavirus NL63 (PCR) Hepatitis A IgG Ab Human Metapneumovir PCR Influenza A (RT-PCR) Influenza B (RT-PCR) M. pneumoniae (PCR) Parainfluenza 1 (PCR) Parainfluenza 2 (PCR) Parainfluenza 3 (PCR) Parainfluenza 4 (PCR) RSV (PCR) Entero/Rhino (PCR) SARS-CoV-2 RNA (RT-PCR) Crossmatch See Detail 04/21/20 04/22/20 04/22/20 06:03 05:45 20:28 WBC RBC Hgb Hct MCV MCH MCHC RDW Plt Count MPV Immature Gran % (Auto) Neut % (Auto) Lymph % (Auto) [place] % (Auto) Eos % (Auto) Baso % (Auto) Lymph # (Auto) [place] # (Auto) Eos # (Auto) Baso # (Auto) Abs Immat Gran (auto) Absolute Neuts (auto) Absolute Nucleated RBC Nucleated RBC % (auto) PT INR APTT Fibrinogen Sodium Potassium Chloride Carbon Dioxide Anion Gap BUN Creatinine Estim Creat Clear Calc Estimated GFR POC Glucose 184 H Random Glucose Calcium Magnesium Total Bilirubin GGT AST ALT Alkaline Phosphatase Ammonia Lactate Dehydrogenase Total Creatine Kinase Total Protein Albumin Prealbumin Gyxzz-6-Fqjbnhmmsef Ceruloplasmin IgG Total IgA Total IgM SIRIA Interpretation GABBY Screen NEGATIVE GABBY Titer TNP GABBY Titer 2 TNP GABBY Titer 3 TNP GABBY Pattern TNP GABBY Pattern 2 TNP GABBY Pattern 3 TNP Respiratory Panel [place] Adenovirus (Rapid PCR) B.pert (TEM-PCR) B.parapertussis DNA PCR C. pneumoniae DNA (PCR) Coronavirus OC43 (PCR) Coronavirus HKU1 (PCR) Coronavirus 229E (PCR) Coronavirus NL63 (PCR) Hepatitis A IgG Ab REACTIVE Human Metapneumovir PCR Influenza A (RT-PCR) Influenza B (RT-PCR) M. pneumoniae (PCR) Parainfluenza 1 (PCR) Parainfluenza 2 (PCR) Parainfluenza 3 (PCR) Parainfluenza 4 (PCR) RSV (PCR) Entero/Rhino (PCR) SARS-CoV-2 RNA (RT-PCR) Crossmatch 04/23/20 04/23/20 04/23/20 05:10 05:43 05:43 WBC 11.6 H RBC 2.93 L Hgb 7.7 L Hct 24.5 L MCV 83.6 MCH 26.3 L MCHC 31.4 RDW 15.3 Plt Count 70 L MPV 11.1 Immature Gran % (Auto) 0.8 H Neut % (Auto) 80.3 H Lymph % (Auto) 10.2 L [place] % (Auto) 8.5 Eos % (Auto) 0.0 Baso % (Auto) 0.2 Lymph # (Auto) 1.2 [place] # (Auto) 1.0 Eos # (Auto) 0.0 Baso # (Auto) 0.0 Abs Immat Gran (auto) 0.09 H Absolute Neuts (auto) 9.3 H Absolute Nucleated RBC 0.000 Nucleated RBC % (auto) 0.0 PT INR APTT Fibrinogen Sodium 130 L Potassium 4.9 Chloride 99 Carbon Dioxide 21 L Anion Gap 15 BUN 58 H Creatinine 1.92 H Estim Creat Clear Calc 35.8 Estimated GFR 35 POC Glucose Random Glucose 249 H D Calcium 7.1 L Magnesium 2.2 Total Bilirubin 1.3 H GGT AST 77 H ALT 88 H Alkaline Phosphatase 89 Ammonia Lactate Dehydrogenase Total Creatine Kinase Total Protein 5.0 L Albumin 2.6 L D Prealbumin Hpeli-1-Ygjvvlbqwbg Ceruloplasmin IgG Total IgA Total IgM SIRIA Interpretation GABBY Screen GABBY Titer GABBY Titer 2 GABBY Titer 3 GABBY Pattern GABBY Pattern 2 GABBY Pattern 3 Respiratory Panel [place] See Note Adenovirus (Rapid PCR) Not Detected B.pert (TEM-PCR) Not Detected B.parapertussis DNA PCR Not Detected C. pneumoniae DNA (PCR) Not Detected Coronavirus OC43 (PCR) Not Detected Coronavirus HKU1 (PCR) Not Detected Coronavirus 229E (PCR) Not Detected Coronavirus NL63 (PCR) Not Detected Hepatitis A IgG Ab Human Metapneumovir PCR Not Detected Influenza A (RT-PCR) Not Detected Influenza B (RT-PCR) Not Detected M. pneumoniae (PCR) Not Detected Parainfluenza 1 (PCR) Not Detected Parainfluenza 2 (PCR) Not Detected Parainfluenza 3 (PCR) Not Detected Parainfluenza 4 (PCR) Not Detected RSV (PCR) Not Detected Entero/Rhino (PCR) Not Detected SARS-CoV-2 RNA (RT-PCR) Not Detected Crossmatch 04/23/20 04/23/20 04/23/20 05:43 05:43 05:43 WBC RBC Hgb Hct MCV MCH MCHC RDW Plt Count MPV Immature Gran % (Auto) Neut % (Auto) Lymph % (Auto) [place] % (Auto) Eos % (Auto) Baso % (Auto) Lymph # (Auto) [place] # (Auto) Eos # (Auto) Baso # (Auto) Abs Immat Gran (auto) Absolute Neuts (auto) Absolute Nucleated RBC Nucleated RBC % (auto) PT 17.5 H INR 1.5 H APTT 36.4 Fibrinogen 398 Sodium Potassium Chloride Carbon Dioxide Anion Gap BUN Creatinine Estim Creat Clear Calc Estimated GFR POC Glucose Random Glucose Calcium Magnesium Total Bilirubin GGT 31 AST ALT Alkaline Phosphatase Ammonia 40 Lactate Dehydrogenase Total Creatine Kinase Total Protein Albumin Prealbumin Thqfp-8-Rpvnqarhfhi Ceruloplasmin IgG Total IgA Total IgM SIRIA Interpretation GABBY Screen GABBY Titer GABBY Titer 2 GABBY Titer 3 GABBY Pattern GABBY Pattern 2 GABBY Pattern 3 Respiratory Panel [place] Adenovirus (Rapid PCR) B.pert (TEM-PCR) B.parapertussis DNA PCR C. pneumoniae DNA (PCR) Coronavirus OC43 (PCR) Coronavirus HKU1 (PCR) Coronavirus 229E (PCR) Coronavirus NL63 (PCR) Hepatitis A IgG Ab Human Metapneumovir PCR Influenza A (RT-PCR) Influenza B (RT-PCR) M. pneumoniae (PCR) Parainfluenza 1 (PCR) Parainfluenza 2 (PCR) Parainfluenza 3 (PCR) Parainfluenza 4 (PCR) RSV (PCR) Entero/Rhino (PCR) SARS-CoV-2 RNA (RT-PCR) Crossmatch 04/23/20 04/23/20 04/23/20 05:43 05:43 07:38 WBC RBC Hgb Hct MCV MCH MCHC RDW Plt Count MPV Immature Gran % (Auto) Neut % (Auto) Lymph % (Auto) [place] % (Auto) Eos % (Auto) Baso % (Auto) Lymph # (Auto) [place] # (Auto) Eos # (Auto) Baso # (Auto) Abs Immat Gran (auto) Absolute Neuts (auto) Absolute Nucleated RBC Nucleated RBC % (auto) PT INR APTT Fibrinogen Sodium Potassium Chloride Carbon Dioxide Anion Gap BUN Creatinine Estim Creat Clear Calc Estimated GFR POC Glucose 247 H Random Glucose Calcium Magnesium Total Bilirubin GGT AST ALT Alkaline Phosphatase Ammonia Lactate Dehydrogenase 291 H Total Creatine Kinase 385 H Total Protein Albumin Prealbumin 4.0 L Zakbc-8-Xohekpmpovb Ceruloplasmin IgG Total IgA Total IgM SIRIA Interpretation GABBY Screen GABBY Titer GABBY Titer 2 GABBY Titer 3 GABBY Pattern GABBY Pattern 2 GABBY Pattern 3 Respiratory Panel [place] Adenovirus (Rapid PCR) B.pert (TEM-PCR) B.parapertussis DNA PCR C. pneumoniae DNA (PCR) Coronavirus OC43 (PCR) Coronavirus HKU1 (PCR) Coronavirus 229E (PCR) Coronavirus NL63 (PCR) Hepatitis A IgG Ab Human Metapneumovir PCR Influenza A (RT-PCR) Influenza B (RT-PCR) M. pneumoniae (PCR) Parainfluenza 1 (PCR) Parainfluenza 2 (PCR) Parainfluenza 3 (PCR) Parainfluenza 4 (PCR) RSV (PCR) Entero/Rhino (PCR) SARS-CoV-2 RNA (RT-PCR) Crossmatch 04/23/20 04/23/20 04/23/20 11:25 16:14 19:42 WBC RBC Hgb Hct MCV MCH MCHC RDW Plt Count MPV Immature Gran % (Auto) Neut % (Auto) Lymph % (Auto) [place] % (Auto) Eos % (Auto) Baso % (Auto) Lymph # (Auto) [place] # (Auto) Eos # (Auto) Baso # (Auto) Abs Immat Gran (auto) Absolute Neuts (auto) Absolute Nucleated RBC Nucleated RBC % (auto) PT INR APTT Fibrinogen Sodium Potassium Chloride Carbon Dioxide Anion Gap BUN Creatinine Estim Creat Clear Calc Estimated GFR POC Glucose 246 H 193 H 239 H Random Glucose Calcium Magnesium Total Bilirubin GGT AST ALT Alkaline Phosphatase Ammonia Lactate Dehydrogenase Total Creatine Kinase Total Protein Albumin Prealbumin Okgxy-6-Iejgnaarlyu Ceruloplasmin IgG Total IgA Total IgM SIRIA Interpretation GABBY Screen GABBY Titer GABBY Titer 2 GABBY Titer 3 GABBY Pattern GABBY Pattern 2 GABBY Pattern 3 Respiratory Panel [place] Adenovirus (Rapid PCR) B.pert (TEM-PCR) B.parapertussis DNA PCR C. pneumoniae DNA (PCR) Coronavirus OC43 (PCR) Coronavirus HKU1 (PCR) Coronavirus 229E (PCR) Coronavirus NL63 (PCR) Hepatitis A IgG Ab Human Metapneumovir PCR Influenza A (RT-PCR) Influenza B (RT-PCR) M. pneumoniae (PCR) Parainfluenza 1 (PCR) Parainfluenza 2 (PCR) Parainfluenza 3 (PCR) Parainfluenza 4 (PCR) RSV (PCR) Entero/Rhino (PCR) SARS-CoV-2 RNA (RT-PCR) Crossmatch Assessment & Plan Assessment and plan (1) CHF exacerbation: Status: Acute (2) Normocytic anemia: Status: Acute (3) Generalized weakness: Status: Acute (4) Acute hyponatremia: Status: Acute (5) Transaminitis: Status: Acute (6) Hypoalbuminemia: Status: Acute (7) Elevated troponin: Status: Acute Assessment and Plan: 1. Hypervol HypoNa: SNa 134 to130; c/w cirrhosis and non-osm ADH 2. SCOTT: very cocnerning and suspect renal hypoperfsuion given low BPs, low alb and now appears c/w HRS physiology gievn hep c need to r/o poss of MPGN/cryo assoc with hep C surprising that he has overall steadliy deteriorate overall since adm perhaps the orig treatment with lasix and/diureeisis precip HRS 3. Anemia and low PLTs: all new per PT and warrants additional w/u; doubt TMA given no shistocyes on periph smear and LDH elev d/t liver dz 4. Abnl LFTs and low albumin c/w liver cirrhosis and ques etiol given no etoh; hep c noted REC: cont iv albumin, octreotide and po midrdine; check cryo titer and RHfactor; check haptoglobin; hold lasix; track uop/renal func; GI eval of liver dz; if cont WRf may need to consider xfer to liver xplant program will follow with team Time Spent With Patient Time: Total time spent is greater than 50% in coordination of care (as documented) at patient's floor/unit and/or counseling patient:
[2020-04-24] VITALS (15 sets, daily range): BP systolic 101–135; BP diastolic 62–80; PULSE 81–126; RESP 18–20; TEMP 36.1–37.2; O2SAT 88–97
--- NOTE | 2020-04-24 | ECG_ITS ---
Test Reason : RTHYUM CHANGE Blood Pressure : / mmHG Vent. Rate : 127 BPM Atrial Rate : 115 BPM P-R Int : 000 ms QRS Dur : 102 ms QT Int : 354 ms P-R-T Axes : 000 -31 163 degrees QTc Int : 514 ms [place] variation Atrial fibrillation with rapid ventricular response Left axis deviation Anteroseptal infarct , possibly acute ACUTE NV / STEMI Abnormal ECG When compared with ECG of 17-APR-2020 17:00, Please repeat the EKG Referred By: Kemi Lopez Electronically Signed By:SALMA QUINONES MD
[2020-04-24] MEDS: 0.9 % Sodium Chloride Flush 3 ML SYRINGE IVFLUSH ×4 (00:59→23:18)
[2020-04-24] MEDS: Octreotide Acetate 500 MCG in 0.9 % Sodium Chloride 500 ML 50.1 MCG IVCONT ×2 (02:41→13:02)
[2020-04-24] MEDS: 0.9 % Sodium Chloride 1,000 ML 100 ML IVCONT (03:18)
[2020-04-24] MEDS: guaiFENesin DM 100/10/5 ML 5 ML SYRUP PO (03:18)
[2020-04-24 06:43] LABS: MANUAL DIFF FLAG NO
[2020-04-24 06:56] LABS: Basophils Percent Auto 0.1 % (0-2); Eosinophils Percent Auto 0.1 % (0-4); Hematocrit 27.1 % (42-52); Hemoglobin 8.6 g/dl (14.0-18.0); Imm Gran Pct Auto 0.7 % (0.0-0.4); Lymphocytes Absolute Auto 1.5 X10*3/uL (1.2-4.9); Mean Corpuscular HGB Conc 31.7 g/dl (31.0-36.0); Mean Corpuscular Hemoglobin 26.7 pg (27.0-33.0); Mean Corpuscular Volume 84.2 fL (80-98); Mean Platelet Volume 10.7 fL (9.4-12.4); Monocytes Absolute Auto 1.1 X10*3/uL (0.1-1.2); Monocytes Percent Auto 6.9 % (2-11); Neutrophils Absolute Auto 12.7 X10*3/uL (2.0-8.3); Neutrophils Percent Auto 82.2 % (45-73); Platelet Count 117 X10*3/uL (160-400); Red Blood Count 3.22 X10*6/uL (4.60-5.80); Red Cell Distribution Width 15.2 % (11.0-16.0); White Blood Count 15.4 X10*3/uL (4.8-10.8)
[2020-04-24 06:58] LABS: INTERNATIONAL NORM RATIO 1.4 (0.9-1.1); Prothrombin Time 16.4 SEC (10.8-13.0)
[2020-04-24 07:03] LABS: Ammonia 31 umol/L (13-55)
[2020-04-24 07:19] LABS: Rheumatoid Factor 18.4 IU/mL (<15.0)
[2020-04-24 07:28] LABS: B Type Natriuretic Peptide 2905 pg/mL (<100)
[2020-04-24 07:32] LABS: Alanine Aminotransferase 59 U/L (0-40); Alkaline Phosphatase 83 U/L (39-117); Anion Gap 13 (12-20); Aspartate Amino Transferase 32 U/L (5-37); Bilirubin Total 1.2 mg/dL (0.0-1.0); Blood Urea Nitrogen 56 mg/dL (9-16); Calcium 7.6 mg/dL (8.4-10.2); Carbon Dioxide 22 mmol/L (22-29); Chloride 102 mmol/L (96-108); Creatinine Clr Calc Pharmacy 35.8; Estimated Glomerular Filt Rate 35; Glucose Random 215 mg/dL (60-115); Magnesium 2.4 mg/dL (1.6-2.6); Potassium 4.9 mmol/L (3.3-5.1); Sodium 132 mmol/L (135-145); Total Protein 5.4 g/dL (6.5-8.0)
[2020-04-24 07:33] LABS: Glucose, Whole Blood 204 mg/dL (60-115)
[2020-04-24 07:43] LABS: Procalcitonin 11.14 ng/mL
[2020-04-24] MEDS: Insulin Lispro 100 UNIT/ML 3 ML VIAL SUBCUT ×3 (07:56→21:35)
[2020-04-24] MEDS: Midodrine HCl 5 MG TABLET 10 MG PO ×3 (07:57→21:32)
[2020-04-24] MEDS: Lactulose 20 GM/30 ML SOLUTION 30 GM PO ×3 (07:57→21:32)
[2020-04-24] MEDS: rifAXIMin 550 MG TABLET PO ×2 (07:57→21:32)
[2020-04-24] MEDS: Furosemide 40 MG/4 ML VIAL IVPUSH ×2 (08:43→18:46)
[2020-04-24] MEDS: dilTIAZem HCL 50 MG/10 ML VIAL 15 MG IVPUSH (09:02)
[2020-04-24] MEDS: dilTIAZem HCL 125 MG in 0.9 % Sodium Chloride 100 ML IVCONT (09:04)
[2020-04-24 11:42] LABS: Glucose, Whole Blood 210 mg/dL (60-115)
[2020-04-24] MEDS: cefTRIAXone sodium 1 GM in 0.9 % Sodium Chloride 50 ML IV (12:18)
--- NOTE | 2020-04-24 14:11 | PM.PNCARD ---
Subjective Subjective Date of Service: 04/24/20 Principal diagnosis: Atrial fibrillation Interval history: We are asked to see Chandrakant again today because he developed atrial fibrillation this morning around 08:30. Patient does complain of palpitations. Denies any significant shortness of breath, however chest x-ray finding consistent with interstitial edema with significantly elevated BNP noted. Patient over the last few days has had multiple medical issues including worsening renal function, question hepatorenal syndrome, noted to have cirrhosis of liver with positive hepatitis-C antibody. He is also noted to be thrombocytopenic. No overt bleeding but is remaining anemic. He denies any chest pain. His currently on IV Cardizem drip as well as octreotide drip. He has received bunch of albumin for volume expansion due to suspected hepatorenal syndrome. Currently not getting any diuretics. Review of Systems Cardiovascular: Denies chest pain, Reports lightheadedness, Reports palpitations and Denies dyspnea Respiratory: Denies cough and Denies dyspnea Gastrointestinal: Reports no additional gastrointestinal complaints Reports system reviewed and no additional complaints, except as documented and Reports other (Sister notices garbled speech) Psychiatric: Reports no additional psychiatric complaints Endocrine: Reports palpitations Physical Exam Vital Signs: Last Vital Signs Temp 98.1 F 04/24/20 12:00 Pulse 126 H 04/24/20 12:00 Resp 20 04/24/20 12:00 BP 101/62 04/24/20 12:00 Pulse Ox 91 L 04/24/20 12:00 Body Mass Index 23.6 Const General: cooperative, alert, awake and ill appearing Nutritional Appearance: average body habitus Neck Neck: Yes trachea midline, Yes supple and Yes JVD Resp Effort & Inspection: normal respiratory effort Auscultation: no rales and diminished lung sounds Cardio Rate: tachycardic Rhythm: abnormal rhythm irregularly irregular Heart sounds: S1 normal heart sound present, S2 normal heart sound present and Murmur heart sound present systolic Skin General skin exam: no rashes or lesions noted Neuro General: no focal motor deficits Results Labs and Meds Result diagrams: 04/24/20 06:31 04/24/20 06:31 Lab results: Laboratory Results - last 24 hr 04/21/20 04/21/20 04/23/20 06:03 06:03 16:14 WBC RBC Hgb Hct MCV MCH MCHC RDW Plt Count MPV Immature Gran % (Auto) Neut % (Auto) Lymph % (Auto) [place] % (Auto) Eos % (Auto) Baso % (Auto) Lymph # (Auto) [place] # (Auto) Eos # (Auto) Baso # (Auto) Abs Immat Gran (auto) Absolute Neuts (auto) Absolute Nucleated RBC Nucleated RBC % (auto) PT INR Sodium Potassium Chloride Carbon Dioxide Anion Gap BUN Creatinine Estim Creat Clear Calc Estimated GFR POC Glucose 193 H Random Glucose Calcium Magnesium Total Bilirubin AST ALT Alkaline Phosphatase Ammonia B-Natriuretic Peptide Total Protein Albumin Rnjjm-8-Vtecdwtrckn 249 H Ceruloplasmin 32 Procalcitonin Cryoglobulin Cryoglobulin Cryocrit Rheumatoid Factor GABBY Titer TNP GABBY Titer 2 TNP GABBY Titer 3 TNP GABBY Pattern TNP GABBY Pattern 2 TNP GABBY Pattern 3 TNP 04/23/20 04/24/20 04/24/20 19:42 06:31 06:31 WBC RBC Hgb Hct MCV MCH MCHC RDW Plt Count MPV Immature Gran % (Auto) Neut % (Auto) Lymph % (Auto) [place] % (Auto) Eos % (Auto) Baso % (Auto) Lymph # (Auto) [place] # (Auto) Eos # (Auto) Baso # (Auto) Abs Immat Gran (auto) Absolute Neuts (auto) Absolute Nucleated RBC Nucleated RBC % (auto) PT INR Sodium Potassium Chloride Carbon Dioxide Anion Gap BUN Creatinine Estim Creat Clear Calc Estimated GFR POC Glucose 239 H Random Glucose Calcium Magnesium Total Bilirubin AST ALT Alkaline Phosphatase Ammonia B-Natriuretic Peptide Total Protein Albumin Vexpq-7-Japgkwwafuf Ceruloplasmin Procalcitonin Cryoglobulin Cancelled Cryoglobulin Cryocrit Cancelled Rheumatoid Factor 18.4 H GABBY Titer GABBY Titer 2 GABBY Titer 3 GABBY Pattern GABBY Pattern 2 GABBY Pattern 3 04/24/20 04/24/20 04/24/20 06:31 06:31 06:31 WBC 15.4 H RBC 3.22 L Hgb 8.6 L Hct 27.1 L MCV 84.2 MCH 26.7 L MCHC 31.7 RDW 15.2 Plt Count 117 L D MPV 10.7 Immature Gran % (Auto) 0.7 H Neut % (Auto) 82.2 H Lymph % (Auto) 10.0 L [place] % (Auto) 6.9 Eos % (Auto) 0.1 Baso % (Auto) 0.1 Lymph # (Auto) 1.5 [place] # (Auto) 1.1 Eos # (Auto) 0.0 Baso # (Auto) 0.0 Abs Immat Gran (auto) 0.10 H Absolute Neuts (auto) 12.7 H Absolute Nucleated RBC 0.000 Nucleated RBC % (auto) 0.0 PT INR Sodium 132 L Potassium 4.9 Chloride 102 Carbon Dioxide 22 Anion Gap 13 BUN 56 H Creatinine 1.92 H Estim Creat Clear Calc 35.8 Estimated GFR 35 POC Glucose Random Glucose 215 H Calcium 7.6 L D Magnesium 2.4 Total Bilirubin 1.2 H AST 32 D ALT 59 H Alkaline Phosphatase 83 Ammonia 31 B-Natriuretic Peptide Total Protein 5.4 L Albumin 3.0 L Vhhsi-3-Vzubomximzm Ceruloplasmin Procalcitonin Cryoglobulin Cryoglobulin Cryocrit Rheumatoid Factor GABBY Titer GABBY Titer 2 GABBY Titer 3 GABBY Pattern GABBY Pattern 2 GABBY Pattern 3 04/24/20 04/24/20 04/24/20 06:31 06:31 06:31 WBC RBC Hgb Hct MCV MCH MCHC RDW Plt Count MPV Immature Gran % (Auto) Neut % (Auto) Lymph % (Auto) [place] % (Auto) Eos % (Auto) Baso % (Auto) Lymph # (Auto) [place] # (Auto) Eos # (Auto) Baso # (Auto) Abs Immat Gran (auto) Absolute Neuts (auto) Absolute Nucleated RBC Nucleated RBC % (auto) PT 16.4 H INR 1.4 H Sodium Potassium Chloride Carbon Dioxide Anion Gap BUN Creatinine Estim Creat Clear Calc Estimated GFR POC Glucose Random Glucose Calcium Magnesium Total Bilirubin AST ALT Alkaline Phosphatase Ammonia B-Natriuretic Peptide 2905 H Total Protein Albumin Wlhhh-8-Mtvkjhnmfnk Ceruloplasmin Procalcitonin 11.14 Cryoglobulin Cryoglobulin Cryocrit Rheumatoid Factor GABBY Titer GABBY Titer 2 GABBY Titer 3 GABBY Pattern GABBY Pattern 2 GABBY Pattern 3 04/24/20 04/24/20 07:11 11:12 WBC RBC Hgb Hct MCV MCH MCHC RDW Plt Count MPV Immature Gran % (Auto) Neut % (Auto) Lymph % (Auto) [place] % (Auto) Eos % (Auto) Baso % (Auto) Lymph # (Auto) [place] # (Auto) Eos # (Auto) Baso # (Auto) Abs Immat Gran (auto) Absolute Neuts (auto) Absolute Nucleated RBC Nucleated RBC % (auto) PT INR Sodium Potassium Chloride Carbon Dioxide Anion Gap BUN Creatinine Estim Creat Clear Calc Estimated GFR POC Glucose 204 H 210 H Random Glucose Calcium Magnesium Total Bilirubin AST ALT Alkaline Phosphatase Ammonia B-Natriuretic Peptide Total Protein Albumin Ppuys-7-Uyseejptjwo Ceruloplasmin Procalcitonin Cryoglobulin Cryoglobulin Cryocrit Rheumatoid Factor GABBY Titer GABBY Titer 2 GABBY Titer 3 GABBY Pattern GABBY Pattern 2 GABBY Pattern 3 EKG shows atrial fibrillation with rapid ventricular response Imaging Radiologist's impression: Impressions Chest X-Ray 04/24/20 08:50 IMPRESSION: Hypoexpanded lungs. Mild central vascular congestion and interstitial edema. Progress Note: A&P Assessment and plan (1) Atrial fibrillation: Status: Acute Assessment and Plan: New onset atrial fibrillation in this man with multiple underlying cardiovascular issues with moderately dilated left atrium, most likely precipitated by his acute medical illness. However this is causing cardiac decompensation with significant elevated BNP and interstitial edema noted. Would gently diurese him. Rate adequately controlled with Cardizem but would like to perform rhythm control with IV amiodarone. Start on IV amiodarone drip with amiodarone bolus followed by 1 milligram/minute for 6 hours. Hopefully with resumption of AV synchrony, his cardiac function will improve and lead to better perfusion as well as reduction congestive heart failure syndrome. He should also if possible be anticoagulated with IV heparin, however given that he has cirrhosis and thrombocytopenia this may be an issue. If he fails to convert with IV amiodarone and require synchronized cardioversion would definitely need anticoagulation. The risks and benefits will need to be addressed at that point in time with the hospitalist team as well as with the patient and his sister. (2) CHF exacerbation: Status: Acute Assessment and Plan: CHF exacerbation most likely related to atrial fibrillation. Try to pursue rhythm control approach. Gentle diuresis with Lasix.. Significantly increased BNP could be due to volume expansion and atrial fibrillation. Slowly decongest with Lasix therapy and closely follow intake and output chart as well as renal function. Nephrology is on board. Prognosis is guarded. Will follow the patient Fall Risk Details Current Medications: Current Medications Generic Name Dose Route Start Last Admin Trade Name Freq PRN Reason Stop Dose Admin Acetaminophen 650 mg 04/22/20 17:29 Acetaminophen 325 Mg Tablet PO Q6H PRN fever Atorvastatin Calcium 40 mg 04/24/20 13:45 Atorvastatin Calcium 40 Mg Tablet PO DAILY TALON Docusate Sodium 100 mg 04/18/20 01:17 Docusate Sodium 100 Mg Capsule PO DAILY PRN Constipation Doxycycline Hyclate 100 mg 04/22/20 12:00 04/24/20 12:14 Doxycycline Hyclate 100 Mg Tablet PO 100 mg Q12H TALON Administration Furosemide 40 mg 04/24/20 09:00 04/24/20 08:43 Furosemide 40 Mg/4 Ml Vial IVPUSH 40 mg BID@0900,1800 TALON Administration Protocol Guaifenesin/Dextromethorphan 5 ml 04/22/20 14:51 04/24/20 03:18 Guaifenesin Dm 100/10/5 Ml 5 Ml Syrup PO 5 ml Q4H PRN Administration cough Ceftriaxone Sodium 1 gm/ 50 mls @ 100 mls/hr 04/22/20 12:00 04/24/20 13:03 Sodium Chloride IV Infused Q24H TALON Infusion Octreotide Acetate 500 mcg/ 501 mls @ 50.1 mls/hr 04/22/20 17:45 04/24/20 13:02 Sodium Chloride IVCONT 50 mcg/hr .Q10H TALON 50.1 mls/hr Administration 50 MCG/HR Diltiazem HCl 125 mg/ Sodium 125 mls @ 0 mls/hr 04/24/20 09:00 04/24/20 13:16 Chloride IVCONT 10 mg/hr .Q0M TALON 10 mls/hr Titration Protocol Per Protocol Insulin Human Lispro 0 unit 04/20/20 11:30 04/24/20 12:17 Insulin Lispro 100 Unit/Ml 3 Ml Vial SUBCUT 4 unit QIDACHS TALON Administration Protocol Lactulose 30 gm 04/22/20 21:00 04/24/20 07:57 Lactulose 20 Gm/30 Ml Solution PO 30 gm TID TALON Administration Midodrine 10 mg 04/22/20 21:00 04/24/20 07:57 Midodrine Hcl 5 Mg Tablet PO 10 mg TID TALON Administration Ondansetron HCl 4 mg 04/18/20 01:17 Ondansetron Hcl 4 Mg/2 Ml Vial IVPUSH Q8H PRN Nausea and Vomiting Rifaximin 550 mg 04/22/20 21:00 04/24/20 07:57 Rifaximin 550 Mg Tablet PO 550 mg BID TALON Administration Sodium Chloride 3 ml 04/18/20 01:17 04/24/20 07:56 0.9 % Sodium Chloride Flush 3 Ml Syringe IVFLUSH 3 ml QSHIFT TALON Administration Time Spent With Patient Time: Total time spent is greater than 50% in coordination of care (as documented) at patient's floor/unit and/or counseling patient: Time with patient: 25 - 35 minutes
[2020-04-24 14:34] LABS: Glucose, Whole Blood 197 mg/dL (60-115)
--- NOTE | 2020-04-24 15:07 | P.PNIM_ITS ---
Subjective Subjective Date of Service: 04/24/20 Interval History: This AM around 8:10 pt c/o feeling not right . Not really short of breath. Noted on monitor, confirmed by EKG to have acute onset AF, new for him. Then at 11:30 noted by sister Nilsa via phone to be slurring his speech. I note the patient to have dysarthria and a lower left facial droop which is new since I saw him at 8:15 this morning. Physical Exam Vital Signs: Vital Signs: Last Vital Signs Temp 98.1 F 04/24/20 12:00 Pulse 126 H 04/24/20 12:00 Resp 20 04/24/20 12:00 BP 101/62 04/24/20 12:00 Pulse Ox 91 L 04/24/20 12:00 Body Mass Index 23.6 Gen: in no acute distress HEENT: sclera anicteric, pale mucus membranes Neck: supple Lungs: clear to auscultation bilaterally Heart: rapid and irregularly irregular, 3/6 holosystolic apical murmur Abd: soft, non-tender, non-distended Ext: no edema Skin: warm/well-perfused Neuro: alert and oriented x3, left lower facial droop with mild dysarthria, EOM intact, visual damon normal, sensation normal to light touch, no pronator drift, strength in all 4 extremities normal, normal [id number] Psych: restricted affect Objective Data Current Medications Generic Name Dose Route Start Last Admin Trade Name Freq PRN Reason Stop Dose Admin Acetaminophen 650 mg 04/22/20 17:29 Acetaminophen 325 Mg Tablet PO Q6H PRN fever Atorvastatin Calcium 40 mg 04/24/20 13:45 Atorvastatin Calcium 40 Mg Tablet PO DAILY TALON Docusate Sodium 100 mg 04/18/20 01:17 Docusate Sodium 100 Mg Capsule PO DAILY PRN Constipation Doxycycline Hyclate 100 mg 04/22/20 12:00 04/24/20 12:14 Doxycycline Hyclate 100 Mg Tablet PO 100 mg Q12H TALON Administration Furosemide 40 mg 04/24/20 09:00 04/24/20 08:43 Furosemide 40 Mg/4 Ml Vial IVPUSH 40 mg BID@0900,1800 TALON Administration Protocol Guaifenesin/Dextromethorphan 5 ml 04/22/20 14:51 04/24/20 03:18 Guaifenesin Dm 100/10/5 Ml 5 Ml Syrup PO 5 ml Q4H PRN Administration cough Ceftriaxone Sodium 1 gm/ 50 mls @ 100 mls/hr 04/22/20 12:00 04/24/20 13:03 Sodium Chloride IV Infused Q24H TALON Infusion Amiodarone HCl 150 mg in 100 mls @ 600 mls/hr 04/24/20 15:00 Nexterone IV 04/24/20 15:09 ONCE ONE Amiodarone HCl 900 mg/ Sodium 518 mls @ 34.533 mls/hr 04/24/20 15:00 Chloride IVCONT .Q15H1M [facility] Protocol 1 MG/MIN Insulin Human Lispro 0 unit 04/20/20 11:30 04/24/20 12:17 Insulin Lispro 100 Unit/Ml 3 Ml Vial SUBCUT 4 unit QIDACHS [facility] Administration Protocol Lactulose 30 gm 04/22/20 21:00 04/24/20 07:57 Lactulose 20 Gm/30 Ml Solution PO 30 gm TID [facility] Administration Midodrine 10 mg 04/22/20 21:00 04/24/20 07:57 Midodrine Hcl 5 Mg Tablet PO 10 mg TID [facility] Administration Octreotide Acetate 200 mcg 04/24/20 16:00 Octreotide Acetate 100 Mcg/Ml Ampul SUBCUT Q8H TALON Ondansetron HCl 4 mg 04/18/20 01:17 Ondansetron Hcl 4 Mg/2 Ml Vial IVPUSH Q8H PRN Nausea and Vomiting Rifaximin 550 mg 04/22/20 21:00 04/24/20 07:57 Rifaximin 550 Mg Tablet PO 550 mg BID [facility] Administration Sodium Chloride 3 ml 04/18/20 01:17 04/24/20 07:56 0.9 % Sodium Chloride Flush 3 Ml Syringe IVFLUSH 3 ml QSHIFT [facility] Administration Labs CBC & Chem 7: 04/24/20 06:31 04/24/20 06:31 Labs: Laboratory Results - last 24 hr 04/21/20 04/23/20 04/23/20 06:03 16:14 19:42 WBC RBC Hgb Hct MCV MCH MCHC RDW Plt Count MPV Immature Gran % (Auto) Neut % (Auto) Lymph % (Auto) [place] % (Auto) Eos % (Auto) Baso % (Auto) Lymph # (Auto) [place] # (Auto) Eos # (Auto) Baso # (Auto) Abs Immat Gran (auto) Absolute Neuts (auto) Absolute Nucleated RBC Nucleated RBC % (auto) PT INR Sodium Potassium Chloride Carbon Dioxide Anion Gap BUN Creatinine Estim Creat Clear Calc Estimated GFR POC Glucose 193 H 239 H Random Glucose Calcium Magnesium Total Bilirubin AST ALT Alkaline Phosphatase Ammonia B-Natriuretic Peptide Total Protein Albumin Procalcitonin Cryoglobulin Cryoglobulin Cryocrit Rheumatoid Factor GABBY Titer TNP GABBY Titer 2 TNP GABBY Titer 3 TNP GABBY Pattern TNP GABBY Pattern 2 TNP GABBY Pattern 3 TNP 04/24/20 04/24/20 04/24/20 06:31 06:31 06:31 WBC 15.4 H RBC 3.22 L Hgb 8.6 L Hct 27.1 L MCV 84.2 MCH 26.7 L MCHC 31.7 RDW 15.2 Plt Count 117 L D MPV 10.7 Immature Gran % (Auto) 0.7 H Neut % (Auto) 82.2 H Lymph % (Auto) 10.0 L [place] % (Auto) 6.9 Eos % (Auto) 0.1 Baso % (Auto) 0.1 Lymph # (Auto) 1.5 [place] # (Auto) 1.1 Eos # (Auto) 0.0 Baso # (Auto) 0.0 Abs Immat Gran (auto) 0.10 H Absolute Neuts (auto) 12.7 H Absolute Nucleated RBC 0.000 Nucleated RBC % (auto) 0.0 PT INR Sodium Potassium Chloride Carbon Dioxide Anion Gap BUN Creatinine Estim Creat Clear Calc Estimated GFR POC Glucose Random Glucose Calcium Magnesium Total Bilirubin AST ALT Alkaline Phosphatase Ammonia B-Natriuretic Peptide Total Protein Albumin Procalcitonin Cryoglobulin Cancelled Cryoglobulin Cryocrit Cancelled Rheumatoid Factor 18.4 H GABBY Titer GABBY Titer 2 GABBY Titer 3 GABBY Pattern GABBY Pattern 2 GABBY Pattern 3 04/24/20 04/24/20 04/24/20 06:31 06:31 06:31 WBC RBC Hgb Hct MCV MCH MCHC RDW Plt Count MPV Immature Gran % (Auto) Neut % (Auto) Lymph % (Auto) [place] % (Auto) Eos % (Auto) Baso % (Auto) Lymph # (Auto) [place] # (Auto) Eos # (Auto) Baso # (Auto) Abs Immat Gran (auto) Absolute Neuts (auto) Absolute Nucleated RBC Nucleated RBC % (auto) PT INR Sodium 132 L Potassium 4.9 Chloride 102 Carbon Dioxide 22 Anion Gap 13 BUN 56 H Creatinine 1.92 H Estim Creat Clear Calc 35.8 Estimated GFR 35 POC Glucose Random Glucose 215 H Calcium 7.6 L D Magnesium 2.4 Total Bilirubin 1.2 H AST 32 D ALT 59 H Alkaline Phosphatase 83 Ammonia 31 B-Natriuretic Peptide 2905 H Total Protein 5.4 L Albumin 3.0 L Procalcitonin Cryoglobulin Cryoglobulin Cryocrit Rheumatoid Factor GABBY Titer GABBY Titer 2 GABBY Titer 3 GABBY Pattern GABBY Pattern 2 GABBY Pattern 3 04/24/20 04/24/20 04/24/20 06:31 06:31 07:11 WBC RBC Hgb Hct MCV MCH MCHC RDW Plt Count MPV Immature Gran % (Auto) Neut % (Auto) Lymph % (Auto) [place] % (Auto) Eos % (Auto) Baso % (Auto) Lymph # (Auto) [place] # (Auto) Eos # (Auto) Baso # (Auto) Abs Immat Gran (auto) Absolute Neuts (auto) Absolute Nucleated RBC Nucleated RBC % (auto) PT 16.4 H INR 1.4 H Sodium Potassium Chloride Carbon Dioxide Anion Gap BUN Creatinine Estim Creat Clear Calc Estimated GFR POC Glucose 204 H Random Glucose Calcium Magnesium Total Bilirubin AST ALT Alkaline Phosphatase Ammonia B-Natriuretic Peptide Total Protein Albumin Procalcitonin 11.14 Cryoglobulin Cryoglobulin Cryocrit Rheumatoid Factor GABBY Titer GABBY Titer 2 GABBY Titer 3 GABBY Pattern GABBY Pattern 2 GABBY Pattern 3 04/24/20 04/24/20 11:12 14:29 WBC RBC Hgb Hct MCV MCH MCHC RDW Plt Count MPV Immature Gran % (Auto) Neut % (Auto) Lymph % (Auto) [place] % (Auto) Eos % (Auto) Baso % (Auto) Lymph # (Auto) [place] # (Auto) Eos # (Auto) Baso # (Auto) Abs Immat Gran (auto) Absolute Neuts (auto) Absolute Nucleated RBC Nucleated RBC % (auto) PT INR Sodium Potassium Chloride Carbon Dioxide Anion Gap BUN Creatinine Estim Creat Clear Calc Estimated GFR POC Glucose 210 H 197 H Random Glucose Calcium Magnesium Total Bilirubin AST ALT Alkaline Phosphatase Ammonia B-Natriuretic Peptide Total Protein Albumin Procalcitonin Cryoglobulin Cryoglobulin Cryocrit Rheumatoid Factor GABBY Titer GABBY Titer 2 GABBY Titer 3 GABBY Pattern GABBY Pattern 2 GABBY Pattern 3 Impressions Chest X-Ray 04/24/20 08:50 IMPRESSION: Hypoexpanded lungs. Mild central vascular congestion and interstitial edema. Head CT 04/24/20 14:06 IMPRESSION: No acute intracranial abnormality appreciated. Signs of mild microangiopathy. This critical result was discussed with Dr. Lopez at 2:20 PM hours on April 24, 2020. It was ascertained that the content and urgency of the report was understood at the time of direct communication. Carotid Doppler Study 04/24/20 14:37 IMPRESSION: 1. RIGHT: Minimal, non-hemodynamically significant stenosis of the proximal right internal carotid artery corresponding to a 0-49% stenosis by velocity criteria. 2. LEFT: Minimal, non-hemodynamically significant stenosis of the proximal left internal carotid artery corresponding to a 0-49% stenosis by velocity criteria. Microbiology Microbiology Results: Microbiology 04/22/20 18:22 Blood - Venous Blood Culture - Preliminary No growth after 24 hours. 04/22/20 18:22 Blood - Venous Blood Culture - Preliminary No growth after 24 hours. Assessment and Plan (1) Atrial fibrillation: Status: Acute (2) Pneumonia: Status: Acute Assessment and Plan: hospital d#8 69yo M with CAD s/p CABG + AoV replacement admitted with concern of CHF exacerbation with edema and dyspnea in setting of recent malaise and weakness after COVID-19 vaccination new diagnoses of cirrhosis + DM2 went into new-onset AF 04/24/20 then had mild ischemic CVA # ischemic CVA - NIHSS 2. disucssed with Dr Jackson (Neuro) by phone. given mild CVA and underlying medical comorbidities, not a good candidate for peripheral or intra- arterial tPA. will obtain MRI. anticoagulate for AF with caution as below. PT/OT evaluations. # new-onset AF - discussed with Dr Weston (Cardiology)- will pursue rhythm control strategy with amiodarone bolus/infusion - [id number], very high stroke risk (10%/yr)- will anticoagulate with great caution given anemia/thrombocytopenia (which have improved)- start with low-dose heparin gtt without bolus and monitor CBC/PT/FOBT # acute/chronic HFpEF - interstitial edema noted and BNP siddharth precipitously. d/c colloid + crystalloid replacement. will diurese with furosemide with close monitoring of SCr # pneumonia - ceftriaxone + doxycycline d#3. BCx + urinary antigens pending. trend PCT. 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 possible febrile nonhemolytic transfusion reaction - FOBT negative but will repeat - likely due to cirrhosis. appreciate Heme/Onc consult # thrombocytopenia - avoid heparin. 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 improving. # hyponatremia - improved. likely due to cirrhosis. TSH normal, cortisol normal. # chronic MR, eccentric, moderate - TTE done. appreciate Cardiology recommendation- to consider outpt [facility]; pt will transfer care from [place], [place] to [place] # troponin elevation - flat, per Cardiology not ACS, likely related to underlying HF/MR # CAD - metoprolol held due to low BP # DM2, A1c 7.1 - correction dose lispro, home on MTF
[2020-04-24 15:46] LABS: PTT Heparin Drip 34.7 SEC (53-77.9)
[2020-04-24 16:31] LABS: Glucose, Whole Blood 199 mg/dL (60-115)
[2020-04-24] MEDS: Atorvastatin Calcium 40 MG TABLET PO (16:43)
[2020-04-24] MEDS: Heparin Sodium,Porcine/1/2NS 25,000 UNIT/250 ML IV.SOLN 8.71 UNIT IVCONT (16:44)
[2020-04-24] MEDS: Octreotide Acetate 100 MCG/ML AMPUL 200 MCG SUBCUT ×2 (16:51→23:16)
[2020-04-24] MEDS: Amiodarone/Dextrose 150 MG/100 ML PLAST..BAG 600 MG IV (16:54)
[2020-04-24] MEDS: Amiodarone HCL 900 MG in 0.9 % Sodium Chloride 500 ML 34.53 MG IVCONT (16:59)
--- NOTE | 2020-04-24 17:29 | P.PNNP_ITS ---
Subjective Subjective Date of Service: 04/25/20 Principal diagnosis: Atrial fibrillation Interval history: Events noted Niece at bedside Now with slurred speach Physical Exam Vital Signs: Vital Signs: Last Vital Signs Temp 98.1 F 04/24/20 12:00 Pulse 99 04/24/20 16:43 Resp 20 04/24/20 12:00 BP 112/74 04/24/20 16:43 Pulse Ox 91 L 04/24/20 12:00 Body Mass Index 23.6 Const: General: ill appearing Neck: Neck: Yes no JVD Resp: Auscultation: no rhonchi Cardio: Jugular venous distension: no JVD Heart sounds: no gallops and no rubs GI: Palpation (GI): Soft to palpation Objective Data Labs CBC & Chem 7: 04/25/20 05:09 04/25/20 05:09 Labs: Laboratory Results - last 24 hr 04/23/20 04/24/20 04/24/20 19:42 06:31 06:31 WBC RBC Hgb Hct MCV MCH MCHC RDW Plt Count MPV Immature Gran % (Auto) Neut % (Auto) Lymph % (Auto) [place] % (Auto) Eos % (Auto) Baso % (Auto) Lymph # (Auto) [place] # (Auto) Eos # (Auto) Baso # (Auto) Abs Immat Gran (auto) Absolute Neuts (auto) Absolute Nucleated RBC Nucleated RBC % (auto) PT INR PTT (Heparin Protocol) Sodium Potassium Chloride Carbon Dioxide Anion Gap BUN Creatinine Estim Creat Clear Calc Estimated GFR POC Glucose 239 H Random Glucose Calcium Magnesium Total Bilirubin AST ALT Alkaline Phosphatase Ammonia B-Natriuretic Peptide Total Protein Albumin Procalcitonin Cryoglobulin Cancelled Cryoglobulin Cryocrit Cancelled Rheumatoid Factor 18.4 H 04/24/20 04/24/20 04/24/20 06:31 06:31 06:31 WBC 15.4 H RBC 3.22 L Hgb 8.6 L Hct 27.1 L MCV 84.2 MCH 26.7 L MCHC 31.7 RDW 15.2 Plt Count 117 L D MPV 10.7 Immature Gran % (Auto) 0.7 H Neut % (Auto) 82.2 H Lymph % (Auto) 10.0 L [place] % (Auto) 6.9 Eos % (Auto) 0.1 Baso % (Auto) 0.1 Lymph # (Auto) 1.5 [place] # (Auto) 1.1 Eos # (Auto) 0.0 Baso # (Auto) 0.0 Abs Immat Gran (auto) 0.10 H Absolute Neuts (auto) 12.7 H Absolute Nucleated RBC 0.000 Nucleated RBC % (auto) 0.0 PT INR PTT (Heparin Protocol) Sodium 132 L Potassium 4.9 Chloride 102 Carbon Dioxide 22 Anion Gap 13 BUN 56 H Creatinine 1.92 H Estim Creat Clear Calc 35.8 Estimated GFR 35 POC Glucose Random Glucose 215 H Calcium 7.6 L D Magnesium 2.4 Total Bilirubin 1.2 H AST 32 D ALT 59 H Alkaline Phosphatase 83 Ammonia 31 B-Natriuretic Peptide Total Protein 5.4 L Albumin 3.0 L Procalcitonin Cryoglobulin Cryoglobulin Cryocrit Rheumatoid Factor 04/24/20 04/24/20 04/24/20 06:31 06:31 06:31 WBC RBC Hgb Hct MCV MCH MCHC RDW Plt Count MPV Immature Gran % (Auto) Neut % (Auto) Lymph % (Auto) [place] % (Auto) Eos % (Auto) Baso % (Auto) Lymph # (Auto) [place] # (Auto) Eos # (Auto) Baso # (Auto) Abs Immat Gran (auto) Absolute Neuts (auto) Absolute Nucleated RBC Nucleated RBC % (auto) PT 16.4 H INR 1.4 H PTT (Heparin Protocol) Sodium Potassium Chloride Carbon Dioxide Anion Gap BUN Creatinine Estim Creat Clear Calc Estimated GFR POC Glucose Random Glucose Calcium Magnesium Total Bilirubin AST ALT Alkaline Phosphatase Ammonia B-Natriuretic Peptide 2905 H Total Protein Albumin Procalcitonin 11.14 Cryoglobulin Cryoglobulin Cryocrit Rheumatoid Factor 04/24/20 04/24/20 04/24/20 07:11 11:12 14:29 WBC RBC Hgb Hct MCV MCH MCHC RDW Plt Count MPV Immature Gran % (Auto) Neut % (Auto) Lymph % (Auto) [place] % (Auto) Eos % (Auto) Baso % (Auto) Lymph # (Auto) [place] # (Auto) Eos # (Auto) Baso # (Auto) Abs Immat Gran (auto) Absolute Neuts (auto) Absolute Nucleated RBC Nucleated RBC % (auto) PT INR PTT (Heparin Protocol) Sodium Potassium Chloride Carbon Dioxide Anion Gap BUN Creatinine Estim Creat Clear Calc Estimated GFR POC Glucose 204 H 210 H 197 H Random Glucose Calcium Magnesium Total Bilirubin AST ALT Alkaline Phosphatase Ammonia B-Natriuretic Peptide Total Protein Albumin Procalcitonin Cryoglobulin Cryoglobulin Cryocrit Rheumatoid Factor 04/24/20 04/24/20 15:25 16:28 WBC RBC Hgb Hct MCV MCH MCHC RDW Plt Count MPV Immature Gran % (Auto) Neut % (Auto) Lymph % (Auto) [place] % (Auto) Eos % (Auto) Baso % (Auto) Lymph # (Auto) [place] # (Auto) Eos # (Auto) Baso # (Auto) Abs Immat Gran (auto) Absolute Neuts (auto) Absolute Nucleated RBC Nucleated RBC % (auto) PT INR PTT (Heparin Protocol) 34.7 L Sodium Potassium Chloride Carbon Dioxide Anion Gap BUN Creatinine Estim Creat Clear Calc Estimated GFR POC Glucose 199 H Random Glucose Calcium Magnesium Total Bilirubin AST ALT Alkaline Phosphatase Ammonia B-Natriuretic Peptide Total Protein Albumin Procalcitonin Cryoglobulin Cryoglobulin Cryocrit Rheumatoid Factor Microbiology Microbiology Results: Microbiology 04/22/20 18:22 Blood - Venous Blood Culture - Preliminary No growth after 24 hours. 04/22/20 18:22 Blood - Venous Blood Culture - Preliminary No growth after 24 hours. 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 SCOTT: very conerning and suspect renal hypoperfusion given low BPs, low alb and now appears c/w HRS physiology given hep c need to r/o poss of MPGN/cryo assoc with hep C Cr unchanged today (perhaps the orig treatment with lasix and/diureeisis precip HRS) 3. Anemia and low PLTs: all new per PT and warrants additional w/u; doubt TMA given no schistocyes on periph smear and LDH elev d/t liver dz 4. Abnl LFTs and low albumin c/w liver cirrhosis and ques etiol given no etoh; hep c noted 5. A.fib REC: DC iv albumin, octreotide and po midodrine; check cryo titer and RHfactor; check haptoglobin; hold lasix; track uop/renal func; GI eval of liver dz; if cont WRf may need to consider xfer to liver xplant program Discussed with Cardiology/team Status: Acute Time Spent With Patient Time: Total time spent is greater than 50% in coordination of care (as documented) at patient's floor/unit and/or counseling patient:
[2020-04-24 20:12] LABS: Strep Pneumo Ag urine Not Detected (Not Detected)
[2020-04-24 20:42] LABS: Glucose, Whole Blood 267 mg/dL (60-115)
[2020-04-24] MEDS: diphenhydrAMINE HCL 25 MG TABLET PO (21:32)
[2020-04-24 22:56] LABS: HCV Log PCR <1.18 NOT DETECTED Log IU/mL (NOT DETECTED); HepC Viral Load <15 NOT DETECTED IU/mL (NOT DETECTED)
[2020-04-24 23:30] LABS: PTT Heparin Drip 42.2 SEC (53-77.9)
[2020-04-24] MEDS: Heparin Sodium,Porcine 5,000 UNIT/ML VIAL 2900 UNIT IVPUSH (23:38)
[2020-04-25] VITALS (10 sets, daily range): BP systolic 123–154; BP diastolic 61–85; PULSE 81–92; RESP 16–20; TEMP 36.1–37.3; O2SAT 92–97
--- NOTE | 2020-04-25 | ECG_ITS ---
Test Reason : RHYTHM CHANGE Blood Pressure : / mmHG Vent. Rate : 085 BPM Atrial Rate : 085 BPM P-R Int : 208 ms QRS Dur : 106 ms QT Int : 432 ms P-R-T Axes : 026 -10 -12 degrees QTc Int : 514 ms Normal sinus rhythm Septal infarct , age undetermined Prolonged QT Abnormal ECG When compared to the previous EKG of 24 april 2020, rhythm change Referred By: Kemi Lopez Electronically Signed By:RICHIE CANELA
[2020-04-25 02:32] LABS: OBS Int Ctl Valid YES; OBS1 POSITIVE (NEGATIVE)
--- NOTE | 2020-04-25 03:08 | PC.NURSE ---
Addendum entered by Eric Dunaway RN 04/25/20 03:33: Hold order placed for Heparin drip due to drop in platelets. Heparin drip disconnected from patient. Original Note: Stool collected came back positive for blood. Patient is on a Heparin drip. Last H+H was 8.6 and 27.1. Last platelets were 117. Vitals signs stable. Patient alert and oriented. Dr Packer notified, stat CBC ordered and GI consult placed.
[2020-04-25 03:12] LABS: Basophils Percent Auto 0.1 % (0-2); Eosinophils Percent Auto 0.1 % (0-4); Hemoglobin 8.7 g/dl (14.0-18.0); Lymphocytes Percent Auto 9.8 % (20-40); MANUAL DIFF FLAG SCAN; Mean Corpuscular Hemoglobin 26.9 pg (27.0-33.0); PLT CLUMP 1; Red Cell Distribution Width 15.3 % (11.0-16.0); SCAN SMEAR FLAG 1
[2020-04-25 03:14] LABS: Imm Gran Abs Auto 0.13 X10*3/uL (0.00-0.03); Imm Gran Pct Auto 0.8 % (0.0-0.4); Lymphocytes Absolute Auto 1.7 X10*3/uL (1.2-4.9); Mean Corpuscular HGB Conc 32.2 g/dl (31.0-36.0); Mean Corpuscular Volume 83.3 fL (80-98); Mean Platelet Volume 9.9 fL (9.4-12.4); Monocytes Absolute Auto 1.3 X10*3/uL (0.1-1.2); Monocytes Percent Auto 7.7 % (2-11); Neutrophils Absolute Auto 13.7 X10*3/uL (2.0-8.3); Neutrophils Percent Auto 81.5 % (45-73); Red Blood Count 3.24 X10*6/uL (4.60-5.80); White Blood Count 16.8 X10*3/uL (4.8-10.8)
[2020-04-25 03:15] LABS: Platelet Count 90 X10*3/uL (160-400)
[2020-04-25 03:17] LABS: SLIDE REVIEW VERIFIED
--- NOTE | 2020-04-25 03:23 | PM.EVENT ---
Event Note Date of Service: 04/25/20 Event Note: Guaiac-positive stool: Consult GI. IV ppi. Patient was on low-dose heparin drip for AFib; Patient has known anemia and thrombocytopenia-primary team continued heparin drip given very high Javan score. The repeat CBC showed stable hemoglobin and platelets dropped to 90 from 117. Given concerns for drop in platelets; will hold the heparin drip. Will sign out to the a.m. team.
[2020-04-25 05:52] LABS: MANUAL DIFF FLAG NO
[2020-04-25 05:59] LABS: Basophils Percent Auto 0.1 % (0-2); Eosinophils Percent Auto 0.1 % (0-4); Hematocrit 24.6 % (42-52); Imm Gran Pct Auto 0.6 % (0.0-0.4); Lymphocytes Absolute Auto 1.4 X10*3/uL (1.2-4.9); Lymphocytes Percent Auto 8.5 % (20-40); Mean Corpuscular HGB Conc 32.5 g/dl (31.0-36.0); Mean Corpuscular Hemoglobin 26.8 pg (27.0-33.0); Mean Corpuscular Volume 82.3 fL (80-98); Mean Platelet Volume 10.8 fL (9.4-12.4); Monocytes Absolute Auto 1.2 X10*3/uL (0.1-1.2); Neutrophils Percent Auto 83.7 % (45-73); Platelet Count 116 X10*3/uL (160-400); Red Blood Count 2.99 X10*6/uL (4.60-5.80); Red Cell Distribution Width 15.3 % (11.0-16.0); White Blood Count 16.7 X10*3/uL (4.8-10.8)
[2020-04-25 06:27] LABS: Alanine Aminotransferase 41 U/L (0-40); Albumin Level 2.7 g/dL (3.5-5.0); Alkaline Phosphatase 79 U/L (39-117); Anion Gap 16 (12-20); Aspartate Amino Transferase 20 U/L (5-37); Bilirubin Total 1.2 mg/dL (0.0-1.0); Blood Urea Nitrogen 61 mg/dL (9-16); Calcium 7.4 mg/dL (8.4-10.2); Carbon Dioxide 19 mmol/L (22-29); Chloride 104 mmol/L (96-108); Cholesterol 65 mg/dL; Creatinine Clr Calc Pharmacy 33.6; Estimated Glomerular Filt Rate 32; Glucose Random 217 mg/dL (60-115); HDL Cholesterol 5 mg/dL; LDL Cholesterol Calculated 32 mg/dl; Magnesium 2.4 mg/dL (1.6-2.6); Potassium 4.8 mmol/L (3.3-5.1); Sodium 134 mmol/L (135-145); Total Protein 5.2 g/dL (6.5-8.0); Triglycerides 144 mg/dL
[2020-04-25 06:32] LABS: INTERNATIONAL NORM RATIO 1.3 (0.9-1.1); Prothrombin Time 15.6 SEC (10.8-13.0)
[2020-04-25 06:37] LABS: B Type Natriuretic Peptide 2782 pg/mL (<100)
[2020-04-25 06:44] LABS: Procalcitonin 7.83 ng/mL
[2020-04-25 07:47] LABS: Glucose, Whole Blood 214 mg/dL (60-115)
[2020-04-25] MEDS: Insulin Lispro 100 UNIT/ML 3 ML VIAL SUBCUT ×4 (09:00→20:42)
[2020-04-25] MEDS: 0.9 % Sodium Chloride Flush 3 ML SYRINGE IVFLUSH ×3 (09:01→20:50)
[2020-04-25] MEDS: Octreotide Acetate 100 MCG/ML AMPUL 200 MCG SUBCUT ×2 (09:01→14:58)
[2020-04-25] MEDS: Midodrine HCl 5 MG TABLET 10 MG PO ×3 (09:03→20:43)
[2020-04-25] MEDS: Atorvastatin Calcium 40 MG TABLET PO (09:03)
[2020-04-25] MEDS: rifAXIMin 550 MG TABLET PO ×2 (09:03→20:43)
[2020-04-25] MEDS: Lactulose 20 GM/30 ML SOLUTION 30 GM PO ×2 (09:03→14:58)
--- NOTE | 2020-04-25 10:34 | P.CNNE_ITS ---
History of Present Illness Data of Consult Service Date: 04/25/20 Primary Care Provider: Nonstaff Physician 69 years old man who was admitted hospital with history of coronary artery disease and pneumonia was noted to have new onset of atrial fibrillation and also dysarthria and left-sided facial flatness. I had a discussion with the hospitalist and onset of the symptoms was not clear and symptoms were minor and it was decided to not treat him with intravenous tPA because of his overall comorbidities and the lack of clear timing. Now he has significantly improved. Review of Systems Review of Systems: No headache dizziness eye symptoms or seizure-like activity. [facility] Past Medical History Medical History (Updated 04/25/20 @ 10:37 by Gladys Jackson MD) CAD (coronary artery disease) HTN (hypertension) Hyperlipemia Pneumonia Functional capacity: independent ambulation Family History Family history: reviewed and not pertinent (No hx of GI malignancy that he knows of.) Surgical History Surgical History Hx of aortic valve repair Hx of CABG Social History Social History Household Members: Other Housing: House Alcohol intake: never Smoking Status: Never smoker service: No Current occupational status: previously employed and retired Meds Allergies Allergy/AdvReac Type Severity Reaction Status Date / Time No Known Allergies Allergy Verified 04/17/20 16:51 Active Medications: Current Medications Generic Name Dose Route Start Last Admin Trade Name Freq PRN Reason Stop Dose Admin Acetaminophen 650 mg 04/22/20 17:29 Acetaminophen 325 Mg Tablet PO Q6H PRN fever Atorvastatin Calcium 40 mg 04/24/20 13:45 04/25/20 09:03 Atorvastatin Calcium 40 Mg Tablet PO 40 mg DAILY TALON Administration Docusate Sodium 100 mg 04/18/20 01:17 Docusate Sodium 100 Mg Capsule PO DAILY PRN Constipation Doxycycline Hyclate 100 mg 04/22/20 12:00 04/24/20 23:16 Doxycycline Hyclate 100 Mg Tablet PO 100 mg Q12H TALON Administration Guaifenesin/Dextromethorphan 5 ml 04/22/20 14:51 04/24/20 03:18 Guaifenesin Dm 100/10/5 Ml 5 Ml Syrup PO 5 ml Q4H PRN Administration cough Heparin Sodium (Porcine) 2,900 unit 04/24/20 15:15 04/24/20 23:38 Heparin Sodium,Porcine 5,000 Unit/Ml Vial 40 unit/kg (2900 unit) 2,900 unit IVPUSH Administration BOLUS PRN 40 unit/kg - Heparin Protocol Protocol Heparin Sodium (Porcine) 5,800 unit 04/24/20 15:15 Heparin Sodium,Porcine 5,000 Unit/Ml Vial 80 unit/kg (5800 unit) IVPUSH BOLUS PRN 80 unit/kg - Heparin Protocol Protocol Ceftriaxone Sodium 1 gm/ 50 mls @ 100 mls/hr 04/22/20 12:00 04/24/20 13:03 Sodium Chloride IV Infused Q24H TALON Infusion Amiodarone HCl 900 mg/ Sodium 518 mls @ 34.533 mls/hr 04/24/20 15:00 04/25/20 06:14 Chloride IVCONT Not Given .Q15H1M TALON Protocol 1 MG/MIN Heparin Sodium/Sodium Chloride 25,000 unit in 250 mls @ 0 mls/hr 04/24/20 15:15 04/24/20 23:38 IVCONT 14 units/kg/hr .Q0M TALON 10.16 mls/hr Titration Protocol Per Protocol Insulin Human Lispro 0 unit 04/20/20 11:30 04/25/20 09:00 Insulin Lispro 100 Unit/Ml 3 Ml Vial SUBCUT 4 unit QIDACHS TALON Administration Protocol Lactulose 30 gm 04/22/20 21:00 04/25/20 09:03 Lactulose 20 Gm/30 Ml Solution PO 30 gm TID TALON Administration Midodrine 10 mg 04/22/20 21:00 04/25/20 09:03 Midodrine Hcl 5 Mg Tablet PO 10 mg TID TALON Administration Octreotide Acetate 200 mcg 04/24/20 16:00 04/25/20 09:01 Octreotide Acetate 100 Mcg/Ml Ampul SUBCUT 200 mcg Q8H TALON Administration Ondansetron HCl 4 mg 04/18/20 01:17 Ondansetron Hcl 4 Mg/2 Ml Vial IVPUSH Q8H PRN Nausea and Vomiting Rifaximin 550 mg 04/22/20 21:00 04/25/20 09:03 Rifaximin 550 Mg Tablet PO 550 mg BID TALON Administration Sodium Chloride 3 ml 04/18/20 01:17 04/25/20 09:01 0.9 % Sodium Chloride Flush 3 Ml Syringe IVFLUSH 3 ml QSHIFT [facility] Administration Home Medications Medication Instructions Recorded Confirmed Last Taken Type aspirin 81 mg PO DAILY 04/17/20 04/17/20 04/17/20 History atorvastatin 1 tab PO DAILY 04/17/20 04/17/20 04/16/20 History metoprolol tartrate 1 tab PO BID 04/17/20 04/17/20 04/17/20 History Physical Exam Vital Signs: Vital Signs: Last Vital Signs Temp 96.9 F 04/25/20 07:56 Pulse 84 04/25/20 09:03 Resp 20 04/25/20 07:56 BP 123/71 04/25/20 09:03 Pulse Ox 96 04/25/20 07:56 Body Mass Index 23.6 Results Labs CBC & Chem 7: 04/25/20 05:09 04/25/20 05:09 Labs: Short CBC 04/25/20 04/25/20 Range/Units 02:50 05:09 WBC 16.8 H 16.7 H (4.8-10.8) X10*3/uL Hgb 8.7 L 8.0 L (14.0-18.0) g/dl Hct 27.0 L 24.6 L (42-52) % Plt Count 90 L 116 L D (160-400) X10*3/uL BMP 04/25/20 05:09 Sodium 134 L Potassium 4.8 Chloride 104 Carbon Dioxide 19 L BUN 61 H Creatinine 2.04 H Calcium 7.4 L Liver Function 04/25/20 Range/Units 05:09 Total Bilirubin 1.2 H (0.0-1.0) mg/dL AST 20 (5-37) U/L ALT 41 H (0-40) U/L Alkaline Phosphatase 79 (39-117) U/L Albumin 2.7 L (3.5-5.0) g/dL He was alert and awake with normal spontaneity of speech fluency comprehension and affect. Pupils were equal and reactive to light and extraocular muscles were intact. Visual damon were full to confrontation. Face was symmetrical. Tongue was midline. Speech was normal. There was no pronator drift. [id number] testing was normal. There was no obvious focal arm or leg weakness. Plantars were flexors. His MRI brain was reviewed. There was no obvious acute lesion or significant chronic lesion other than atrophy. Carotid ultrasound did not reveal any significant abnormality. Microbiology Microbiology Results: Microbiology 04/22/20 18:22 Blood - Venous Blood Culture - Preliminary No growth after 48 hours. 04/22/20 18:22 Blood - Venous Blood Culture - Preliminary No growth after 48 hours. Assessment and Plan (1) Transient ischemic attack: Status: Acute 69 years old man with new onset of atrial fibrillation was noted to have slurred speech and facial weakness. At this time his examination was nonfocal. Imaging did not reveal any acute lesion. Carotid ultrasound was okay. Mainstay of management is treatment of underlying conditions in atrial fibrillation. There was no neurological contraindication to anticoagulation.
[2020-04-25 11:39] LABS: Glucose, Whole Blood 234 mg/dL (60-115)
[2020-04-25] MEDS: cefTRIAXone sodium 1 GM in 0.9 % Sodium Chloride 50 ML IV (12:03)
[2020-04-25] MEDS: Furosemide 20 MG/2 ML VIAL IVPUSH ×2 (12:03→18:12)
--- NOTE | 2020-04-25 12:59 | P.PNCA_ITS ---
Subjective Subjective Date of Service: 04/25/20 Principal diagnosis: Atrial fibrillation Interval history: Patient converted to sinus rhythm on IV amiodarone drip last evening. However continues to remain significantly short of breath. Did receive Lasix yesterday with only modest urine output. Creatinine is further increased. Patient denies any chest discomfort. Review of Systems Constitutional: Reports no additional constitutional complaints Cardiovascular: Denies chest pain, Denies palpitations, Reports dyspnea and Reports dyspnea on exertion Respiratory: Reports dyspnea and Reports dyspnea on exertion Gastrointestinal: Reports no additional gastrointestinal complaints Reports system reviewed and no additional complaints, except as documented Psychiatric: Reports no additional psychiatric complaints Endocrine: Denies palpitations Physical Exam Vital Signs: Last Vital Signs Temp 97.6 F 04/25/20 11:49 Pulse 92 04/25/20 11:49 Resp 20 04/25/20 11:49 BP 135/79 04/25/20 11:49 Pulse Ox 92 04/25/20 11:49 Body Mass Index 23.6 Const General: alert, awake, acute distress moderate and respiratory and ill appearing Orientation/consciousness: patient oriented x3 Neck Neck: Yes trachea midline, Yes supple and Yes JVD Resp Effort & Inspection: decreased respiratory effort Auscultation: no rales and diminished lung sounds Cardio Jugular venous distension: JVD Palpation: normal PMI Rate: regular rate Rhythm: regular rhythm Heart sounds: S1 normal heart sound present and S2 normal heart sound present Neuro General: patient oriented x3 and no focal motor deficits Extrem General: Yes no clubbing, cyanosis or edema Results Labs and Meds Result diagrams: 04/25/20 05:09 04/25/20 05:09 Lab results: Laboratory Results - last 24 hr 04/22/20 04/22/20 04/24/20 05:45 14:17 14:29 WBC RBC Hgb Hct MCV MCH MCHC RDW Plt Count MPV Immature Gran % (Auto) Neut % (Auto) Lymph % (Auto) [place] % (Auto) Eos % (Auto) Baso % (Auto) Lymph # (Auto) [place] # (Auto) Eos # (Auto) Baso # (Auto) Abs Immat Gran (auto) Absolute Neuts (auto) Absolute Nucleated RBC Nucleated RBC % (auto) Smear Tech's Comments PT INR PTT (Heparin Protocol) Sodium Potassium Chloride Carbon Dioxide Anion Gap BUN Creatinine Estim Creat Clear Calc Estimated GFR POC Glucose 197 H Random Glucose Calcium Magnesium Total Bilirubin AST ALT Alkaline Phosphatase B-Natriuretic Peptide Total Protein Albumin Triglycerides Cholesterol LDL Cholesterol, Calc HDL Cholesterol Procalcitonin Stool Collect Date Stool Occult Blood Stool 2 Collect Date Stool Occult Blood #2 Stool 3 Collect Date Stool Occult Blood #3 Hep C Viral Load <15 NOT DETECTED Hep C Viral Load Log <1.18 NOT DETECTED Ur Strep pneumoniae Ag Not Detected 04/24/20 04/24/20 04/24/20 15:25 16:28 20:37 WBC RBC Hgb Hct MCV MCH MCHC RDW Plt Count MPV Immature Gran % (Auto) Neut % (Auto) Lymph % (Auto) [place] % (Auto) Eos % (Auto) Baso % (Auto) Lymph # (Auto) [place] # (Auto) Eos # (Auto) Baso # (Auto) Abs Immat Gran (auto) Absolute Neuts (auto) Absolute Nucleated RBC Nucleated RBC % (auto) Smear Tech's Comments PT INR PTT (Heparin Protocol) 34.7 L Sodium Potassium Chloride Carbon Dioxide Anion Gap BUN Creatinine Estim Creat Clear Calc Estimated GFR POC Glucose 199 H 267 H Random Glucose Calcium Magnesium Total Bilirubin AST ALT Alkaline Phosphatase B-Natriuretic Peptide Total Protein Albumin Triglycerides Cholesterol LDL Cholesterol, Calc HDL Cholesterol Procalcitonin Stool Collect Date Stool Occult Blood Stool 2 Collect Date Stool Occult Blood #2 Stool 3 Collect Date Stool Occult Blood #3 Hep C Viral Load Hep C Viral Load Log Ur Strep pneumoniae Ag 04/24/20 04/25/20 04/25/20 23:11 02:16 02:16 WBC RBC Hgb Hct MCV MCH MCHC RDW Plt Count MPV Immature Gran % (Auto) Neut % (Auto) Lymph % (Auto) [place] % (Auto) Eos % (Auto) Baso % (Auto) Lymph # (Auto) [place] # (Auto) Eos # (Auto) Baso # (Auto) Abs Immat Gran (auto) Absolute Neuts (auto) Absolute Nucleated RBC Nucleated RBC % (auto) Smear Tech's Comments PT INR PTT (Heparin Protocol) 42.2 L D Sodium Potassium Chloride Carbon Dioxide Anion Gap BUN Creatinine Estim Creat Clear Calc Estimated GFR POC Glucose Random Glucose Calcium Magnesium Total Bilirubin AST ALT Alkaline Phosphatase B-Natriuretic Peptide Total Protein Albumin Triglycerides Cholesterol LDL Cholesterol, Calc HDL Cholesterol Procalcitonin Stool Collect Date Cancelled Stool Occult Blood Cancelled POSITIVE Stool 2 Collect Date Cancelled Stool Occult Blood #2 Cancelled Stool 3 Collect Date Cancelled Stool Occult Blood #3 Cancelled Hep C Viral Load Hep C Viral Load Log Ur Strep pneumoniae Ag 04/25/20 04/25/20 04/25/20 02:50 05:09 05:09 WBC 16.8 H 16.7 H RBC 3.24 L 2.99 L Hgb 8.7 L 8.0 L Hct 27.0 L 24.6 L MCV 83.3 82.3 MCH 26.9 L 26.8 L MCHC 32.2 32.5 RDW 15.3 15.3 Plt Count 90 L 116 L D MPV 9.9 10.8 Immature Gran % (Auto) 0.8 H 0.6 H Neut % (Auto) 81.5 H 83.7 H Lymph % (Auto) 9.8 L 8.5 L Montgomery % (Auto) 7.7 7.0 Eos % (Auto) 0.1 0.1 Baso % (Auto) 0.1 0.1 Lymph # (Auto) 1.7 1.4 Montgomery # (Auto) 1.3 H 1.2 Eos # (Auto) 0.0 0.0 Baso # (Auto) 0.0 0.0 Abs Immat Gran (auto) 0.13 H 0.10 H Absolute Neuts (auto) 13.7 H 14.0 H Absolute Nucleated RBC 0.000 0.000 Nucleated RBC % (auto) 0.0 0.0 Smear Tech's Comments VERIFIED PT 15.6 H INR 1.3 H PTT (Heparin Protocol) Sodium Potassium Chloride Carbon Dioxide Anion Gap BUN Creatinine Estim Creat Clear Calc Estimated GFR POC Glucose Random Glucose Calcium Magnesium Total Bilirubin AST ALT Alkaline Phosphatase B-Natriuretic Peptide Total Protein Albumin Triglycerides Cholesterol LDL Cholesterol, Calc HDL Cholesterol Procalcitonin Stool Collect Date Stool Occult Blood Stool 2 Collect Date Stool Occult Blood #2 Stool 3 Collect Date Stool Occult Blood #3 Hep C Viral Load Hep C Viral Load Log Ur Strep pneumoniae Ag 04/25/20 04/25/20 04/25/20 05:09 05:09 05:09 WBC RBC Hgb Hct MCV MCH MCHC RDW Plt Count MPV Immature Gran % (Auto) Neut % (Auto) Lymph % (Auto) [place] % (Auto) Eos % (Auto) Baso % (Auto) Lymph # (Auto) [place] # (Auto) Eos # (Auto) Baso # (Auto) Abs Immat Gran (auto) Absolute Neuts (auto) Absolute Nucleated RBC Nucleated RBC % (auto) Smear Tech's Comments PT INR PTT (Heparin Protocol) Sodium 134 L Potassium 4.8 Chloride 104 Carbon Dioxide 19 L Anion Gap 16 BUN 61 H Creatinine 2.04 H Estim Creat Clear Calc 33.6 Estimated GFR 32 POC Glucose Random Glucose 217 H Calcium 7.4 L Magnesium 2.4 Total Bilirubin 1.2 H AST 20 ALT 41 H Alkaline Phosphatase 79 B-Natriuretic Peptide 2782 H Total Protein 5.2 L Albumin 2.7 L Triglycerides 144 Cholesterol 65 LDL Cholesterol, Calc 32 HDL Cholesterol 5 Procalcitonin 7.83 Stool Collect Date Stool Occult Blood Stool 2 Collect Date Stool Occult Blood #2 Stool 3 Collect Date Stool Occult Blood #3 Hep C Viral Load Hep C Viral Load Log Ur Strep pneumoniae Ag 04/25/20 04/25/20 07:26 11:29 WBC RBC Hgb Hct MCV MCH MCHC RDW Plt Count MPV Immature Gran % (Auto) Neut % (Auto) Lymph % (Auto) [place] % (Auto) Eos % (Auto) Baso % (Auto) Lymph # (Auto) [place] # (Auto) Eos # (Auto) Baso # (Auto) Abs Immat Gran (auto) Absolute Neuts (auto) Absolute Nucleated RBC Nucleated RBC % (auto) Smear Tech's Comments PT INR PTT (Heparin Protocol) Sodium Potassium Chloride Carbon Dioxide Anion Gap BUN Creatinine Estim Creat Clear Calc Estimated GFR POC Glucose 214 H 234 H Random Glucose Calcium Magnesium Total Bilirubin AST ALT Alkaline Phosphatase B-Natriuretic Peptide Total Protein Albumin Triglycerides Cholesterol LDL Cholesterol, Calc HDL Cholesterol Procalcitonin Stool Collect Date Stool Occult Blood Stool 2 Collect Date Stool Occult Blood #2 Stool 3 Collect Date Stool Occult Blood #3 Hep C Viral Load Hep C Viral Load Log Ur Strep pneumoniae Ag Imaging Radiologist's impression: Impressions Head CT 04/24/20 14:06 IMPRESSION: No acute intracranial abnormality appreciated. Signs of mild microangiopathy. This critical result was discussed with Dr. Lopez at 2:20 PM hours on April 24, 2020. It was ascertained that the content and urgency of the report was understood at the time of direct communication. Brain MRI 04/24/20 14:14 IMPRESSION: No acute or subacute intracranial pathology. Minimal chronic white matter small vessel ischemic changes. Carotid Doppler Study 04/24/20 14:37 IMPRESSION: 1. RIGHT: Minimal, non-hemodynamically significant stenosis of the proximal right internal carotid artery corresponding to a 0-49% stenosis by velocity criteria. 2. LEFT: Minimal, non-hemodynamically significant stenosis of the proximal left internal carotid artery corresponding to a 0-49% stenosis by velocity criteria. Progress Note: A&P Assessment and plan (1) Atrial fibrillation: Status: Acute Assessment and Plan: Atrial fibrillation converted to sinus rhythm with amiodarone. This should overall help his clinical and cardiac situation. Would maintain rhythm control. Switch to p.o. amiodarone 400 mg b.i.d. for now. However found to be anemic as well as stool occult blood positive with no neurologic event on imaging study. IV heparin is been appropriately discontinued at this point time. He remains at high risk for stroke. Will continue to pursue rhythm control approach (2) Elevated brain natriuretic peptide (BNP) level: Status: Acute Assessment and Plan: Elevated BNP with chest x-ray findings of congestive heart failure as well as significant shortness of breath appears to be in congestive heart failure, however his overall clinical scenario is very complex. He has worsening renal function as well as decreased urine output of unclear etiology, suspected to be he patter renal with decreased perfusion. I think patient would benefit with diuresis gently. Strict intake and output chart needs to be pursued. If this remains difficult to assess may consider right heart catheterization. Will follow with the patient. Fall Risk Details Current Medications: Current Medications Generic Name Dose Route Start Last Admin Trade Name Freq PRN Reason Stop Dose Admin Acetaminophen 650 mg 04/22/20 17:29 Acetaminophen 325 Mg Tablet PO Q6H PRN fever Atorvastatin Calcium 40 mg 04/24/20 13:45 04/25/20 09:03 Atorvastatin Calcium 40 Mg Tablet PO 40 mg DAILY TALON Administration Docusate Sodium 100 mg 04/18/20 01:17 Docusate Sodium 100 Mg Capsule PO DAILY PRN Constipation Doxycycline Hyclate 100 mg 04/22/20 12:00 04/25/20 12:04 Doxycycline Hyclate 100 Mg Tablet PO 100 mg Q12H TALON Administration Furosemide 20 mg 04/25/20 11:45 04/25/20 12:03 Furosemide 20 Mg/2 Ml Vial IVPUSH 20 mg BID@0900,1800 TALON Administration Protocol Guaifenesin/Dextromethorphan 5 ml 04/22/20 14:51 04/24/20 03:18 Guaifenesin Dm 100/10/5 Ml 5 Ml Syrup PO 5 ml Q4H PRN Administration cough Heparin Sodium (Porcine) 2,900 unit 04/24/20 15:15 04/24/20 23:38 Heparin Sodium,Porcine 5,000 Unit/Ml Vial 40 unit/kg (2900 unit) 2,900 unit IVPUSH Administration BOLUS PRN 40 unit/kg - Heparin Protocol Protocol Heparin Sodium (Porcine) 5,800 unit 04/24/20 15:15 Heparin Sodium,Porcine 5,000 Unit/Ml Vial 80 unit/kg (5800 unit) IVPUSH BOLUS PRN 80 unit/kg - Heparin Protocol Protocol Ceftriaxone Sodium 1 gm/ 50 mls @ 100 mls/hr 04/22/20 12:00 04/25/20 12:03 Sodium Chloride IV 100 mls/hr Q24H TALON Administration Amiodarone HCl 900 mg/ Sodium 518 mls @ 34.533 mls/hr 04/24/20 15:00 04/25/20 06:14 Chloride IVCONT Not Given .Q15H1M TALON Protocol 1 MG/MIN Heparin Sodium/Sodium Chloride 25,000 unit in 250 mls @ 0 mls/hr 04/24/20 15:15 04/24/20 23:38 IVCONT 14 units/kg/hr .Q0M TALON 10.16 mls/hr Titration Protocol Per Protocol Insulin Human Lispro 0 unit 04/20/20 11:30 04/25/20 12:02 Insulin Lispro 100 Unit/Ml 3 Ml Vial SUBCUT 4 unit QIDACHS TALON Administration Protocol Lactulose 30 gm 04/22/20 21:00 04/25/20 09:03 Lactulose 20 Gm/30 Ml Solution PO 30 gm TID TALON Administration Midodrine 10 mg 04/22/20 21:00 04/25/20 09:03 Midodrine Hcl 5 Mg Tablet PO 10 mg TID TALON Administration Octreotide Acetate 200 mcg 04/24/20 16:00 04/25/20 09:01 Octreotide Acetate 100 Mcg/Ml Ampul SUBCUT 200 mcg Q8H TALON Administration Omeprazole 20 mg 04/25/20 16:30 Omeprazole 20 Mg Capsule. PO BID@0630,9070 TALON Ondansetron HCl 4 mg 04/18/20 01:17 Ondansetron Hcl 4 Mg/2 Ml Vial IVPUSH Q8H PRN Nausea and Vomiting Rifaximin 550 mg 04/22/20 21:00 04/25/20 09:03 Rifaximin 550 Mg Tablet PO 550 mg BID TALON Administration Sodium Chloride 3 ml 04/18/20 01:17 04/25/20 09:01 0.9 % Sodium Chloride Flush 3 Ml Syringe IVFLUSH 3 ml QSHIFT TALON Administration Time Spent With Patient Time: Total time spent is greater than 50% in coordination of care (as documented) at patient's floor/unit and/or counseling patient: Time with patient: 25 - 35 minutes
--- NOTE | 2020-04-25 13:04 | HO.PM.IMPN ---
Subjective Subjective Date of Service: 04/25/20 Interval History: Converted to NSR around 17:30 yesterday Overnight heparin gtt stopped due to drop in platelets and FOBT+ stool No further fever and BP improved; however SCr rising Feels dyspneic and requiring 2L NC HCV RNA negative Physical Exam Vital Signs: Vital Signs: Last Vital Signs Temp 97.6 F 04/25/20 11:49 Pulse 92 04/25/20 11:49 Resp 20 04/25/20 11:49 BP 135/79 04/25/20 11:49 Pulse Ox 92 04/25/20 11:49 Body Mass Index 23.6 Gen: in no acute distress HEENT: sclera anicteric, pale mucus membranes Neck: supple Lungs: diminished bilaterally Heart: regular rate and rhythm, 3/6 holosystolic apical murmur Abd: soft, non-tender, non-distended Ext: no edema Skin: warm/well-perfused Neuro: alert and oriented x3, mild left lower facial droop with mild dysarthria improving Psych: restricted affect Objective Data Current Medications Generic Name Dose Route Start Last Admin Trade Name Joseq PRN Reason Stop Dose Admin Acetaminophen 650 mg 04/22/20 17:29 Acetaminophen 325 Mg Tablet PO Q6H PRN fever Atorvastatin Calcium 40 mg 04/24/20 13:45 04/25/20 09:03 Atorvastatin Calcium 40 Mg Tablet PO 40 mg DAILY TALON Administration Docusate Sodium 100 mg 04/18/20 01:17 Docusate Sodium 100 Mg Capsule PO DAILY PRN Constipation Doxycycline Hyclate 100 mg 04/22/20 12:00 04/25/20 12:04 Doxycycline Hyclate 100 Mg Tablet PO 100 mg Q12H TALON Administration Furosemide 20 mg 04/25/20 11:45 04/25/20 12:03 Furosemide 20 Mg/2 Ml Vial IVPUSH 20 mg BID@0900,1800 TALON Administration Protocol Guaifenesin/Dextromethorphan 5 ml 04/22/20 14:51 04/24/20 03:18 Guaifenesin Dm 100/10/5 Ml 5 Ml Syrup PO 5 ml Q4H PRN Administration cough Heparin Sodium (Porcine) 2,900 unit 04/24/20 15:15 04/24/20 23:38 Heparin Sodium,Porcine 5,000 Unit/Ml Vial 40 unit/kg (2900 unit) 2,900 unit IVPUSH Administration BOLUS PRN 40 unit/kg - Heparin Protocol Protocol Heparin Sodium (Porcine) 5,800 unit 04/24/20 15:15 Heparin Sodium,Porcine 5,000 Unit/Ml Vial 80 unit/kg (5800 unit) IVPUSH BOLUS PRN 80 unit/kg - Heparin Protocol Protocol Ceftriaxone Sodium 1 gm/ 50 mls @ 100 mls/hr 04/22/20 12:00 04/25/20 13:00 Sodium Chloride IV Infused Q24H TALON Infusion Amiodarone HCl 900 mg/ Sodium 518 mls @ 34.533 mls/hr 04/24/20 15:00 04/25/20 06:14 Chloride IVCONT Not Given .Q15H1M TALON Protocol 1 MG/MIN Heparin Sodium/Sodium Chloride 25,000 unit in 250 mls @ 0 mls/hr 04/24/20 15:15 04/24/20 23:38 IVCONT 14 units/kg/hr .Q0M TALON 10.16 mls/hr Titration Protocol Per Protocol Insulin Human Lispro 0 unit 04/20/20 11:30 04/25/20 12:02 Insulin Lispro 100 Unit/Ml 3 Ml Vial SUBCUT 4 unit QIDACHS TALON Administration Protocol Lactulose 30 gm 04/22/20 21:00 04/25/20 09:03 Lactulose 20 Gm/30 Ml Solution PO 30 gm TID TALON Administration Midodrine 10 mg 04/22/20 21:00 04/25/20 09:03 Midodrine Hcl 5 Mg Tablet PO 10 mg TID TALON Administration Octreotide Acetate 200 mcg 04/24/20 16:00 04/25/20 09:01 Octreotide Acetate 100 Mcg/Ml Ampul SUBCUT 200 mcg Q8H TALON Administration Omeprazole 20 mg 04/25/20 16:30 Omeprazole 20 Mg Capsule. PO BID@0630,1630 [facility] Ondansetron HCl 4 mg 04/18/20 01:17 Ondansetron Hcl 4 Mg/2 Ml Vial IVPUSH Q8H PRN Nausea and Vomiting Rifaximin 550 mg 04/22/20 21:00 04/25/20 09:03 Rifaximin 550 Mg Tablet PO 550 mg BID TALON Administration Sodium Chloride 3 ml 04/18/20 01:17 04/25/20 09:01 0.9 % Sodium Chloride Flush 3 Ml Syringe IVFLUSH 3 ml QSHIFT TALON Administration Labs CBC & Chem 7: 04/25/20 05:09 04/25/20 05:09 Microbiology Microbiology Results: Microbiology 04/22/20 18:22 Blood - Venous Blood Culture - Preliminary No growth after 48 hours. 04/22/20 18:22 Blood - Venous Blood Culture - Preliminary No growth after 48 hours. Assessment and Plan (1) Atrial fibrillation: Status: Acute (2) Pneumonia: Status: Acute Assessment and Plan: hospital d#9 69yo M with CAD s/p CABG + AoV replacement admitted with concern of CHF exacerbation with edema and dyspnea in setting of recent malaise and weakness after COVID-19 vaccination new diagnoses of cirrhosis + DM2 went into new-onset AF 04/24/20 then had mild ischemic TIA converted after amiodarone load worsening renal failure # SCOTT - prerenal vs hepatorenal vs cardiorenal. very low Blas favors hepatorenal - continue midodrine + octreotide. Nephrology following. likely overloaded at this point and thus diuresing. Nephrology following # normocytic hypoproliferative anemia # FOBT+ stool - improved after 1u pRBCs. possible febrile nonhemolytic transfusion reaction vs. fever from pneumonia - discuss with GI- needs EGD to assess for varices + portal gastropathy to see if it is safe to anticoagulate # TIA - NIHSS 2. was not a good candidate for peripheral or intra-arterial tPA and symptoms were mild. PT/OT/[employer] # new-onset AF - rhythm control with amiodarone, change IV to PO - [id number] 6, very high stroke risk (10%/yr) but cannot anticoagulate at this time given anemia/thrombocytopenia/FOBT+ stool # acute/chronic HFpEF - interstitial edema noted and BNP siddharth precipitously after colloid + crystalloid replacement given for renal dysfunction. careful diuresis with furosemide 20mg IV bid # pneumonia - ceftriaxone + doxycycline d#4. BCx negative, pneumococcal UAg negative, Legionella UAg pending. trend PCT. appreciate ID consult # cirrhosis, new diagnosis, with hypoalbuminemia, transaminasemia, coagulopathy, anemia, thrombocytopenia, splenomegaly - HCV Ab positive but RNA negative; HBV negative; GABBY negative;rest of serological workup pending but suspect TORRES cirrhosis # hepatic encephalopathy - improved after lactulose + rifaximin # thrombocytopenia - avoid heparin. 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 improving. # hyponatremia - improved. likely due to cirrhosis. TSH normal, cortisol normal. # chronic MR, eccentric, moderate - TTE done. appreciate Cardiology recommendation- to consider outpt [facility]; pt will transfer care from [place], [place] to [place] # troponin elevation - flat, per Cardiology not ACS, likely related to underlying HF/MR # CAD - metoprolol held due to low BP # DM2, A1c 7.1 - correction dose lispro, home on MTF
[2020-04-25] MEDS: Amiodarone HCL 200 MG TABLET 400 MG PO (14:57)
[2020-04-25 16:41] LABS: Glucose, Whole Blood 236 mg/dL (60-115)
--- NOTE | 2020-04-25 17:50 | PM.PNNEP ---
Subjective Subjective Date of Service: 04/25/20 Principal diagnosis: Atrial fibrillation Interval history: Events noted Physical Exam Vital Signs: Vital Signs: Last Vital Signs Temp 98.2 F 04/25/20 15:38 Pulse 89 04/25/20 15:38 Resp 16 04/25/20 15:38 BP 134/75 04/25/20 15:38 Pulse Ox 94 04/25/20 15:38 Body Mass Index 23.6 Const: General: ill appearing Neck: Neck: Yes no JVD Resp: Auscultation: no rhonchi Cardio: Jugular venous distension: no JVD Heart sounds: no gallops and no rubs GI: Palpation (GI): Soft to palpation Objective Data Labs CBC & Chem 7: 04/25/20 05:09 04/25/20 05:09 Labs: Laboratory Results - last 24 hr 04/22/20 04/22/20 04/24/20 05:45 14:17 20:37 WBC RBC Hgb Hct MCV MCH MCHC RDW Plt Count MPV Immature Gran % (Auto) Neut % (Auto) Lymph % (Auto) [place] % (Auto) Eos % (Auto) Baso % (Auto) Lymph # (Auto) [place] # (Auto) Eos # (Auto) Baso # (Auto) Abs Immat Gran (auto) Absolute Neuts (auto) Absolute Nucleated RBC Nucleated RBC % (auto) Smear Tech's Comments PT INR PTT (Heparin Protocol) Sodium Potassium Chloride Carbon Dioxide Anion Gap BUN Creatinine Estim Creat Clear Calc Estimated GFR POC Glucose 267 H Random Glucose Calcium Magnesium Total Bilirubin AST ALT Alkaline Phosphatase B-Natriuretic Peptide Total Protein Albumin Triglycerides Cholesterol LDL Cholesterol, Calc HDL Cholesterol Procalcitonin Stool Collect Date Stool Occult Blood Stool 2 Collect Date Stool Occult Blood #2 Stool 3 Collect Date Stool Occult Blood #3 Hep C Viral Load <15 NOT DETECTED Hep C Viral Load Log <1.18 NOT DETECTED Ur Strep pneumoniae Ag Not Detected 04/24/20 04/25/20 04/25/20 23:11 02:16 02:16 WBC RBC Hgb Hct MCV MCH MCHC RDW Plt Count MPV Immature Gran % (Auto) Neut % (Auto) Lymph % (Auto) [place] % (Auto) Eos % (Auto) Baso % (Auto) Lymph # (Auto) [place] # (Auto) Eos # (Auto) Baso # (Auto) Abs Immat Gran (auto) Absolute Neuts (auto) Absolute Nucleated RBC Nucleated RBC % (auto) Smear Tech's Comments PT INR PTT (Heparin Protocol) 42.2 L D Sodium Potassium Chloride Carbon Dioxide Anion Gap BUN Creatinine Estim Creat Clear Calc Estimated GFR POC Glucose Random Glucose Calcium Magnesium Total Bilirubin AST ALT Alkaline Phosphatase B-Natriuretic Peptide Total Protein Albumin Triglycerides Cholesterol LDL Cholesterol, Calc HDL Cholesterol Procalcitonin Stool Collect Date Cancelled Stool Occult Blood Cancelled POSITIVE Stool 2 Collect Date Cancelled Stool Occult Blood #2 Cancelled Stool 3 Collect Date Cancelled Stool Occult Blood #3 Cancelled Hep C Viral Load Hep C Viral Load Log Ur Strep pneumoniae Ag 04/25/20 04/25/20 04/25/20 02:50 05:09 05:09 WBC 16.8 H 16.7 H RBC 3.24 L 2.99 L Hgb 8.7 L 8.0 L Hct 27.0 L 24.6 L MCV 83.3 82.3 MCH 26.9 L 26.8 L MCHC 32.2 32.5 RDW 15.3 15.3 Plt Count 90 L 116 L D MPV 9.9 10.8 Immature Gran % (Auto) 0.8 H 0.6 H Neut % (Auto) 81.5 H 83.7 H Lymph % (Auto) 9.8 L 8.5 L [place] % (Auto) 7.7 7.0 Eos % (Auto) 0.1 0.1 Baso % (Auto) 0.1 0.1 Lymph # (Auto) 1.7 1.4 [place] # (Auto) 1.3 H 1.2 Eos # (Auto) 0.0 0.0 Baso # (Auto) 0.0 0.0 Abs Immat Gran (auto) 0.13 H 0.10 H Absolute Neuts (auto) 13.7 H 14.0 H Absolute Nucleated RBC 0.000 0.000 Nucleated RBC % (auto) 0.0 0.0 Smear Tech's Comments VERIFIED PT 15.6 H INR 1.3 H PTT (Heparin Protocol) Sodium Potassium Chloride Carbon Dioxide Anion Gap BUN Creatinine Estim Creat Clear Calc Estimated GFR POC Glucose Random Glucose Calcium Magnesium Total Bilirubin AST ALT Alkaline Phosphatase B-Natriuretic Peptide Total Protein Albumin Triglycerides Cholesterol LDL Cholesterol, Calc HDL Cholesterol Procalcitonin Stool Collect Date Stool Occult Blood Stool 2 Collect Date Stool Occult Blood #2 Stool 3 Collect Date Stool Occult Blood #3 Hep C Viral Load Hep C Viral Load Log Ur Strep pneumoniae Ag 04/25/20 04/25/20 04/25/20 05:09 05:09 05:09 WBC RBC Hgb Hct MCV MCH MCHC RDW Plt Count MPV Immature Gran % (Auto) Neut % (Auto) Lymph % (Auto) [place] % (Auto) Eos % (Auto) Baso % (Auto) Lymph # (Auto) [place] # (Auto) Eos # (Auto) Baso # (Auto) Abs Immat Gran (auto) Absolute Neuts (auto) Absolute Nucleated RBC Nucleated RBC % (auto) Smear Tech's Comments PT INR PTT (Heparin Protocol) Sodium 134 L Potassium 4.8 Chloride 104 Carbon Dioxide 19 L Anion Gap 16 BUN 61 H Creatinine 2.04 H Estim Creat Clear Calc 33.6 Estimated GFR 32 POC Glucose Random Glucose 217 H Calcium 7.4 L Magnesium 2.4 Total Bilirubin 1.2 H AST 20 ALT 41 H Alkaline Phosphatase 79 B-Natriuretic Peptide 2782 H Total Protein 5.2 L Albumin 2.7 L Triglycerides 144 Cholesterol 65 LDL Cholesterol, Calc 32 HDL Cholesterol 5 Procalcitonin 7.83 Stool Collect Date Stool Occult Blood Stool 2 Collect Date Stool Occult Blood #2 Stool 3 Collect Date Stool Occult Blood #3 Hep C Viral Load Hep C Viral Load Log Ur Strep pneumoniae Ag 04/25/20 04/25/20 04/25/20 07:26 11:29 16:27 WBC RBC Hgb Hct MCV MCH MCHC RDW Plt Count MPV Immature Gran % (Auto) Neut % (Auto) Lymph % (Auto) [place] % (Auto) Eos % (Auto) Baso % (Auto) Lymph # (Auto) [place] # (Auto) Eos # (Auto) Baso # (Auto) Abs Immat Gran (auto) Absolute Neuts (auto) Absolute Nucleated RBC Nucleated RBC % (auto) Smear Tech's Comments PT INR PTT (Heparin Protocol) Sodium Potassium Chloride Carbon Dioxide Anion Gap BUN Creatinine Estim Creat Clear Calc Estimated GFR POC Glucose 214 H 234 H 236 H Random Glucose Calcium Magnesium Total Bilirubin AST ALT Alkaline Phosphatase B-Natriuretic Peptide Total Protein Albumin Triglycerides Cholesterol LDL Cholesterol, Calc HDL Cholesterol Procalcitonin Stool Collect Date Stool Occult Blood Stool 2 Collect Date Stool Occult Blood #2 Stool 3 Collect Date Stool Occult Blood #3 Hep C Viral Load Hep C Viral Load Log Ur Strep pneumoniae Ag Microbiology Microbiology Results: Microbiology 04/22/20 18:22 Blood - Venous Blood Culture - Preliminary No growth after 48 hours. 04/22/20 18:22 Blood - Venous Blood Culture - Preliminary No growth after 48 hours. 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 SCOTT: suspect renal hypoperfusion given low BPs, low alb and now appears c/w HRS physiology given hep c need to r/o poss of MPGN/cryo assoc with hep C Cr trending up (perhaps the orig treatment with lasix and/diureisis precip HRS) 3. Anemia and low PLTs: all new per PT and warrants additional w/u; doubt TMA given no schistocyes on periph smear and LDH elev d/t liver dz 4. Abnl LFTs and low albumin c/w liver cirrhosis and ques etiol given no etoh; hep c noted 5. A.fib REC: DC iv albumin, OK to continue with octreotide and po midodrine; check cryo titer and RHfactor; Restart LAsix; track uop/renal func; GI eval of liver dz; if cont WRf may need to consider xfer to liver xplant program Discussed with Cardiology/team Status: Acute Time Spent With Patient Time: Total time spent is greater than 50% in coordination of care (as documented) at patient's floor/unit and/or counseling patient:
--- NOTE | 2020-04-25 18:09 | P.PNGI_ITS ---
Subjective Subjective Date of Service: 04/25/20 Interval History: GI Coverage--Hx via patient, his RN, and the EMR. Asked by Dr. Lopez to see regarding Heme + stool and need for anticoagulation in the setting of cirrhosis and anemia. The patient denies any GI sx at the present time. He is having some loose stools but without melena nor BRBPR. He denies N/V or abdominal pain. He denies previous hx of GI bleeding, PUD, nor having had a previous upper endoscopy. He reports a colonoscopy many years ago . Physical Exam Vital Signs: Vital Signs: Last Vital Signs Temp 98.2 F 04/25/20 15:38 Pulse 89 04/25/20 15:38 Resp 16 04/25/20 15:38 BP 134/75 04/25/20 15:38 Pulse Ox 94 04/25/20 15:38 Body Mass Index 23.6 Const: Other: Answers questions appropriately General: cooperative and alert GI: Other: Soft, NT, Nondistended, + BS Neuro: Other: No asterixis Objective Data Labs CBC & Chem 7: 04/25/20 05:09 04/25/20 05:09 Labs: Laboratory Results - last 24 hr 04/22/20 04/22/20 04/24/20 05:45 14:17 20:37 WBC RBC Hgb Hct MCV MCH MCHC RDW Plt Count MPV Immature Gran % (Auto) Neut % (Auto) Lymph % (Auto) [place] % (Auto) Eos % (Auto) Baso % (Auto) Lymph # (Auto) [place] # (Auto) Eos # (Auto) Baso # (Auto) Abs Immat Gran (auto) Absolute Neuts (auto) Absolute Nucleated RBC Nucleated RBC % (auto) Smear Tech's Comments PT INR PTT (Heparin Protocol) Sodium Potassium Chloride Carbon Dioxide Anion Gap BUN Creatinine Estim Creat Clear Calc Estimated GFR POC Glucose 267 H Random Glucose Calcium Magnesium Total Bilirubin AST ALT Alkaline Phosphatase B-Natriuretic Peptide Total Protein Albumin Triglycerides Cholesterol LDL Cholesterol, Calc HDL Cholesterol Procalcitonin Stool Collect Date Stool Occult Blood Stool 2 Collect Date Stool Occult Blood #2 Stool 3 Collect Date Stool Occult Blood #3 Hep C Viral Load <15 NOT DETECTED Hep C Viral Load Log <1.18 NOT DETECTED Ur Strep pneumoniae Ag Not Detected 04/24/20 04/25/20 04/25/20 23:11 02:16 02:16 WBC RBC Hgb Hct MCV MCH MCHC RDW Plt Count MPV Immature Gran % (Auto) Neut % (Auto) Lymph % (Auto) [place] % (Auto) Eos % (Auto) Baso % (Auto) Lymph # (Auto) [place] # (Auto) Eos # (Auto) Baso # (Auto) Abs Immat Gran (auto) Absolute Neuts (auto) Absolute Nucleated RBC Nucleated RBC % (auto) Smear Tech's Comments PT INR PTT (Heparin Protocol) 42.2 L D Sodium Potassium Chloride Carbon Dioxide Anion Gap BUN Creatinine Estim Creat Clear Calc Estimated GFR POC Glucose Random Glucose Calcium Magnesium Total Bilirubin AST ALT Alkaline Phosphatase B-Natriuretic Peptide Total Protein Albumin Triglycerides Cholesterol LDL Cholesterol, Calc HDL Cholesterol Procalcitonin Stool Collect Date Cancelled Stool Occult Blood Cancelled POSITIVE Stool 2 Collect Date Cancelled Stool Occult Blood #2 Cancelled Stool 3 Collect Date Cancelled Stool Occult Blood #3 Cancelled Hep C Viral Load Hep C Viral Load Log Ur Strep pneumoniae Ag 04/25/20 04/25/20 04/25/20 02:50 05:09 05:09 WBC 16.8 H 16.7 H RBC 3.24 L 2.99 L Hgb 8.7 L 8.0 L Hct 27.0 L 24.6 L MCV 83.3 82.3 MCH 26.9 L 26.8 L MCHC 32.2 32.5 RDW 15.3 15.3 Plt Count 90 L 116 L D MPV 9.9 10.8 Immature Gran % (Auto) 0.8 H 0.6 H Neut % (Auto) 81.5 H 83.7 H Lymph % (Auto) 9.8 L 8.5 L [place] % (Auto) 7.7 7.0 Eos % (Auto) 0.1 0.1 Baso % (Auto) 0.1 0.1 Lymph # (Auto) 1.7 1.4 [place] # (Auto) 1.3 H 1.2 Eos # (Auto) 0.0 0.0 Baso # (Auto) 0.0 0.0 Abs Immat Gran (auto) 0.13 H 0.10 H Absolute Neuts (auto) 13.7 H 14.0 H Absolute Nucleated RBC 0.000 0.000 Nucleated RBC % (auto) 0.0 0.0 Smear Tech's Comments VERIFIED PT 15.6 H INR 1.3 H PTT (Heparin Protocol) Sodium Potassium Chloride Carbon Dioxide Anion Gap BUN Creatinine Estim Creat Clear Calc Estimated GFR POC Glucose Random Glucose Calcium Magnesium Total Bilirubin AST ALT Alkaline Phosphatase B-Natriuretic Peptide Total Protein Albumin Triglycerides Cholesterol LDL Cholesterol, Calc HDL Cholesterol Procalcitonin Stool Collect Date Stool Occult Blood Stool 2 Collect Date Stool Occult Blood #2 Stool 3 Collect Date Stool Occult Blood #3 Hep C Viral Load Hep C Viral Load Log Ur Strep pneumoniae Ag 04/25/20 04/25/20 04/25/20 05:09 05:09 05:09 WBC RBC Hgb Hct MCV MCH MCHC RDW Plt Count MPV Immature Gran % (Auto) Neut % (Auto) Lymph % (Auto) [place] % (Auto) Eos % (Auto) Baso % (Auto) Lymph # (Auto) [place] # (Auto) Eos # (Auto) Baso # (Auto) Abs Immat Gran (auto) Absolute Neuts (auto) Absolute Nucleated RBC Nucleated RBC % (auto) Smear Tech's Comments PT INR PTT (Heparin Protocol) Sodium 134 L Potassium 4.8 Chloride 104 Carbon Dioxide 19 L Anion Gap 16 BUN 61 H Creatinine 2.04 H Estim Creat Clear Calc 33.6 Estimated GFR 32 POC Glucose Random Glucose 217 H Calcium 7.4 L Magnesium 2.4 Total Bilirubin 1.2 H AST 20 ALT 41 H Alkaline Phosphatase 79 B-Natriuretic Peptide 2782 H Total Protein 5.2 L Albumin 2.7 L Triglycerides 144 Cholesterol 65 LDL Cholesterol, Calc 32 HDL Cholesterol 5 Procalcitonin 7.83 Stool Collect Date Stool Occult Blood Stool 2 Collect Date Stool Occult Blood #2 Stool 3 Collect Date Stool Occult Blood #3 Hep C Viral Load Hep C Viral Load Log Ur Strep pneumoniae Ag 04/25/20 04/25/20 04/25/20 07:26 11:29 16:27 WBC RBC Hgb Hct MCV MCH MCHC RDW Plt Count MPV Immature Gran % (Auto) Neut % (Auto) Lymph % (Auto) [place] % (Auto) Eos % (Auto) Baso % (Auto) Lymph # (Auto) [place] # (Auto) Eos # (Auto) Baso # (Auto) Abs Immat Gran (auto) Absolute Neuts (auto) Absolute Nucleated RBC Nucleated RBC % (auto) Smear Tech's Comments PT INR PTT (Heparin Protocol) Sodium Potassium Chloride Carbon Dioxide Anion Gap BUN Creatinine Estim Creat Clear Calc Estimated GFR POC Glucose 214 H 234 H 236 H Random Glucose Calcium Magnesium Total Bilirubin AST ALT Alkaline Phosphatase B-Natriuretic Peptide Total Protein Albumin Triglycerides Cholesterol LDL Cholesterol, Calc HDL Cholesterol Procalcitonin Stool Collect Date Stool Occult Blood Stool 2 Collect Date Stool Occult Blood #2 Stool 3 Collect Date Stool Occult Blood #3 Hep C Viral Load Hep C Viral Load Log Ur Strep pneumoniae Ag Microbiology Microbiology Results: Microbiology 04/22/20 18:22 Blood - Venous Blood Culture - Preliminary No growth after 48 hours. 04/22/20 18:22 Blood - Venous Blood Culture - Preliminary No growth after 48 hours. Progress Note: A&P Assessment and plan (1) Heme + stool: Problem details: He is not having any active bleeding and his chronic anemia seems stable. I suspect he would have at least a component of portal gastropathy, if not varices. Therefore, it would be reasonable to proceed with an EGD tomorrow prior to resuming anticoagulation. Full consent has been obtained from him for an EGD, including risks of bleeding and perforation. I did advise him that this would be done by Dr. John, or possibly another GI MD. He was comfortable with that. It doesn't look like he is in the best of shape to consider a colonoscopy due to his renal insufficiency and overall condition. Status: Acute (2) Cirrhosis: Problem details: This seems to be stable. Probably from TORRES, His encephalopathy appears stable. Would be cautious with Statins, Acetaminophen, and Amiodarone. Status: Acute Fall Risk Details Current Medications: Current Medications Generic Name Dose Route Start Last Admin Trade Name Freq PRN Reason Stop Dose Admin Acetaminophen 650 mg 04/22/20 17:29 Acetaminophen 325 Mg Tablet PO Q6H PRN fever Amiodarone HCl 400 mg 04/25/20 13:30 04/25/20 14:57 Amiodarone Hcl 200 Mg Tablet PO 400 mg DAILY TALON Administration Atorvastatin Calcium 40 mg 04/24/20 13:45 04/25/20 09:03 Atorvastatin Calcium 40 Mg Tablet PO 40 mg DAILY TALON Administration Docusate Sodium 100 mg 04/18/20 01:17 Docusate Sodium 100 Mg Capsule PO DAILY PRN Constipation Doxycycline Hyclate 100 mg 04/22/20 12:00 04/25/20 12:04 Doxycycline Hyclate 100 Mg Tablet PO 100 mg Q12H TALON Administration Furosemide 20 mg 04/25/20 11:45 04/25/20 12:03 Furosemide 20 Mg/2 Ml Vial IVPUSH 20 mg BID@0900,1800 [facility] Administration Protocol Guaifenesin/Dextromethorphan 5 ml 04/22/20 14:51 04/24/20 03:18 Guaifenesin Dm 100/10/5 Ml 5 Ml Syrup PO 5 ml Q4H PRN Administration cough Ceftriaxone Sodium 1 gm/ 50 mls @ 100 mls/hr 04/22/20 12:00 04/25/20 13:00 Sodium Chloride IV Infused Q24H [facility] Infusion Insulin Human Lispro 0 unit 04/20/20 11:30 04/25/20 12:02 Insulin Lispro 100 Unit/Ml 3 Ml Vial SUBCUT 4 unit QIDACHS [facility] Administration Protocol Lactulose 30 gm 04/22/20 21:00 04/25/20 14:58 Lactulose 20 Gm/30 Ml Solution PO 30 gm TID [facility] Administration Midodrine 10 mg 04/22/20 21:00 04/25/20 14:58 Midodrine Hcl 5 Mg Tablet PO 10 mg TID [facility]ON Administration Octreotide Acetate 200 mcg 04/24/20 16:00 04/25/20 14:58 Octreotide Acetate 100 Mcg/Ml Ampul SUBCUT 200 mcg Q8H [facility] Administration Omeprazole 20 mg 04/25/20 16:30 Omeprazole 20 Mg Capsule. PO BID@0630,1630 [facility] Ondansetron HCl 4 mg 04/18/20 01:17 Ondansetron Hcl 4 Mg/2 Ml Vial IVPUSH Q8H PRN Nausea and Vomiting Rifaximin 550 mg 04/22/20 21:00 04/25/20 09:03 Rifaximin 550 Mg Tablet PO 550 mg BID [facility] Administration Sodium Chloride 3 ml 04/18/20 01:17 04/25/20 14:58 0.9 % Sodium Chloride Flush 3 Ml Syringe IVFLUSH 3 ml QSHIFT [facility] Administration Time Spent With Patient Time: Total time spent is greater than 50% in coordination of care (as documented) at patient's floor/unit and/or counseling patient: Time with patient: 15 - 24 minutes
[2020-04-25] MEDS: Omeprazole 20 MG CAPSULE.DR PO (18:12)
[2020-04-25 20:20] LABS: Glucose, Whole Blood 205 mg/dL (60-115)
[2020-04-25 21:11] LABS: Transglutaminase Ab IgG 1 U/mL; Transglutaminase IgA 1 U/mL
[2020-04-25 21:33] LABS: OBS Int Ctl Valid YES; OBS1 POSITIVE (NEGATIVE)
[2020-04-26] VITALS (14 sets, daily range): BP systolic 100–134; BP diastolic 53–77; PULSE 61–89; RESP 15–20; TEMP 36.1–37; O2SAT 92–100; BMI 25.4
[2020-04-26] MEDS: Octreotide Acetate 100 MCG/ML AMPUL 200 MCG SUBCUT ×4 (01:30→22:54)
[2020-04-26 05:53] LABS: MANUAL DIFF FLAG NO
[2020-04-26 05:59] LABS: Basophils Percent Auto 0.1 % (0-2); Eosinophils Percent Auto 0.1 % (0-4); Hematocrit 26.2 % (42-52); Hemoglobin 8.2 g/dl (14.0-18.0); Imm Gran Abs Auto 0.14 X10*3/uL (0.00-0.03); Imm Gran Pct Auto 0.9 % (0.0-0.4); Lymphocytes Absolute Auto 1.3 X10*3/uL (1.2-4.9); Lymphocytes Percent Auto 8.3 % (20-40); Mean Corpuscular HGB Conc 31.3 g/dl (31.0-36.0); Mean Corpuscular Hemoglobin 26.2 pg (27.0-33.0); Mean Corpuscular Volume 83.7 fL (80-98); Mean Platelet Volume 10.5 fL (9.4-12.4); Monocytes Absolute Auto 1.1 X10*3/uL (0.1-1.2); Monocytes Percent Auto 6.7 % (2-11); Neutrophils Absolute Auto 13.2 X10*3/uL (2.0-8.3); Neutrophils Percent Auto 83.9 % (45-73); Platelet Count 123 X10*3/uL (160-400); Red Blood Count 3.13 X10*6/uL (4.60-5.80); Red Cell Distribution Width 15.4 % (11.0-16.0); White Blood Count 15.7 X10*3/uL (4.8-10.8)
[2020-04-26 06:10] LABS: Ammonia 27 umol/L (13-55)
[2020-04-26 06:13] LABS: INTERNATIONAL NORM RATIO 1.3 (0.9-1.1); Prothrombin Time 15.4 SEC (10.8-13.0)
[2020-04-26 06:20] LABS: Alanine Aminotransferase 35 U/L (0-40); Albumin Level 2.9 g/dL (3.5-5.0); Alkaline Phosphatase 83 U/L (39-117); Anion Gap 14 (12-20); Aspartate Amino Transferase 22 U/L (5-37); Bilirubin Direct 0.7 mg/dL (0.0-0.5); Bilirubin Total 1.3 mg/dL (0.0-1.0); Blood Urea Nitrogen 63 mg/dL (9-16); Calcium 7.8 mg/dL (8.4-10.2); Carbon Dioxide 21 mmol/L (22-29); Chloride 104 mmol/L (96-108); Creatinine Clr Calc Pharmacy 30.5; Estimated Glomerular Filt Rate 29; Glucose Random 180 mg/dL (60-115); Magnesium 2.6 mg/dL (1.6-2.6); Potassium 5.3 mmol/L (3.3-5.1); Sodium 134 mmol/L (135-145); Total Protein 5.6 g/dL (6.5-8.0)
[2020-04-26 06:24] LABS: B Type Natriuretic Peptide 4167 pg/mL (<100)
[2020-04-26 07:31] LABS: Glucose, Whole Blood 171 mg/dL (60-115)
[2020-04-26] MEDS: Insulin Lispro 100 UNIT/ML 3 ML VIAL SUBCUT ×4 (07:49→21:45)
[2020-04-26] MEDS: 0.9 % Sodium Chloride Flush 3 ML SYRINGE IVFLUSH ×3 (07:50→21:42)
[2020-04-26] MEDS: rifAXIMin 550 MG TABLET PO ×2 (08:32→21:26)
[2020-04-26] MEDS: Midodrine HCl 5 MG TABLET 10 MG PO ×3 (08:32→21:27)
[2020-04-26] MEDS: Furosemide 20 MG/2 ML VIAL IVPUSH (08:32)
[2020-04-26] MEDS: Amiodarone HCL 200 MG TABLET 400 MG PO (08:33)
--- NOTE | 2020-04-26 09:37 | MHC.SLORD ---
Per RN, pt NPO for EGD scheduled later today. 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 Per RN, pt is tolerating pills crushed in puree and thin liquids without difficulty. Name: Chandrakant Morales Date of : 1950 Age: 69 Date of Registration: 04/17/20 Speech Language Pathology Order Status:
--- NOTE | 2020-04-26 10:36 | P.PNCA_ITS ---
Subjective Subjective Date of Service: 04/26/20 Principal diagnosis: Atrial fibrillation Interval history: He states that he feels okay. No specific cardiac symptoms. Review of Systems Review of Systems Yes all other systems are reviewed and are negative Cardiovascular: Reports as per HPI, Reports no additional cardiovascular complaints, Denies acrocyanosis, Denies cool extremities, Denies painful fingertips, Denies chest pain, Denies chest pain at rest, Denies diaphoresis, Denies syncope, Denies irregular heart rhythm, Denies claudication, Denies leg edema, Denies lightheadedness, Denies palpitations and Denies dyspnea Respiratory: Denies dyspnea Denies syncope Endocrine: Denies palpitations Physical Exam Vital Signs: Last Vital Signs Temp 97.0 F 04/26/20 08:00 Pulse 85 04/26/20 08:33 Resp 20 04/26/20 08:00 BP 133/77 04/26/20 08:33 Pulse Ox 97 04/26/20 08:00 Body Mass Index 25.4 Const General: cooperative, comfortable and no acute distress Orientation/consciousness: patient oriented x3 HENMT Other: Unremarkable Neck Neck: Yes normal visual inspection Chest Chest palpation & inspection: normal inspection of the chest Resp Auscultation: clear to auscultation bilaterally, no crackles and no wheezes Cardio Jugular venous distension: no JVD Palpation: normal PMI Heart sounds: S1 normal heart sound present, S2 normal heart sound present, no gallops, Murmur heart sound present systolic holo, at the apex and at the right sternal border and no rubs GI Inspection: Yes distended Palpation (GI): Soft to palpation Back/Spine/Pelvis Other: unremarkable Skin General skin exam: no rashes or lesions noted Neuro General: patient oriented x3 Extrem General: Yes no clubbing, cyanosis or edema Psych Mental Status: mental status grossly normal Results Labs and Meds Result diagrams: 04/26/20 05:28 04/26/20 05:28 Lab results: Laboratory Results - last 24 hr 04/21/20 04/25/20 04/25/20 06:02 11:29 16:27 WBC RBC Hgb Hct MCV MCH MCHC RDW Plt Count MPV Immature Gran % (Auto) Neut % (Auto) Lymph % (Auto) Hickman % (Auto) Eos % (Auto) Baso % (Auto) Lymph # (Auto) Hickman # (Auto) Eos # (Auto) Baso # (Auto) Abs Immat Gran (auto) Absolute Neuts (auto) Absolute Nucleated RBC Nucleated RBC % (auto) PT INR Sodium Potassium Chloride Carbon Dioxide Anion Gap BUN Creatinine Estim Creat Clear Calc Estimated GFR POC Glucose 234 H 236 H Random Glucose Calcium Magnesium Total Bilirubin Direct Bilirubin AST ALT Alkaline Phosphatase Ammonia B-Natriuretic Peptide Total Protein Albumin Stool Occult Blood Tiss Transglutamin IgG 1 Tiss Transglutamin IgA 1 04/25/20 04/25/20 04/26/20 20:13 20:30 05:28 WBC 15.7 H RBC 3.13 L Hgb 8.2 L Hct 26.2 L MCV 83.7 MCH 26.2 L MCHC 31.3 RDW 15.4 Plt Count 123 L MPV 10.5 Immature Gran % (Auto) 0.9 H Neut % (Auto) 83.9 H Lymph % (Auto) 8.3 L Hickman % (Auto) 6.7 Eos % (Auto) 0.1 Baso % (Auto) 0.1 Lymph # (Auto) 1.3 Hickman # (Auto) 1.1 Eos # (Auto) 0.0 Baso # (Auto) 0.0 Abs Immat Gran (auto) 0.14 H Absolute Neuts (auto) 13.2 H Absolute Nucleated RBC 0.000 Nucleated RBC % (auto) 0.0 PT INR Sodium Potassium Chloride Carbon Dioxide Anion Gap BUN Creatinine Estim Creat Clear Calc Estimated GFR POC Glucose 205 H Random Glucose Calcium Magnesium Total Bilirubin Direct Bilirubin AST ALT Alkaline Phosphatase Ammonia B-Natriuretic Peptide Total Protein Albumin Stool Occult Blood POSITIVE Tiss Transglutamin IgG Tiss Transglutamin IgA 04/26/20 04/26/20 04/26/20 05:28 05:28 05:28 WBC RBC Hgb Hct MCV MCH MCHC RDW Plt Count MPV Immature Gran % (Auto) Neut % (Auto) Lymph % (Auto) Hickman % (Auto) Eos % (Auto) Baso % (Auto) Lymph # (Auto) Hickman # (Auto) Eos # (Auto) Baso # (Auto) Abs Immat Gran (auto) Absolute Neuts (auto) Absolute Nucleated RBC Nucleated RBC % (auto) PT 15.4 H INR 1.3 H Sodium 134 L Potassium 5.3 H Chloride 104 Carbon Dioxide 21 L Anion Gap 14 BUN 63 H Creatinine 2.25 H Estim Creat Clear Calc 30.5 Estimated GFR 29 POC Glucose Random Glucose 180 H Calcium 7.8 L Magnesium 2.6 Total Bilirubin 1.3 H Direct Bilirubin 0.7 H AST 22 ALT 35 Alkaline Phosphatase 83 Ammonia B-Natriuretic Peptide 4167 H Total Protein 5.6 L Albumin 2.9 L Stool Occult Blood Tiss Transglutamin IgG Tiss Transglutamin IgA 04/26/20 04/26/20 05:28 07:28 WBC RBC Hgb Hct MCV MCH MCHC RDW Plt Count MPV Immature Gran % (Auto) Neut % (Auto) Lymph % (Auto) Hickman % (Auto) Eos % (Auto) Baso % (Auto) Lymph # (Auto) Hickman # (Auto) Eos # (Auto) Baso # (Auto) Abs Immat Gran (auto) Absolute Neuts (auto) Absolute Nucleated RBC Nucleated RBC % (auto) PT INR Sodium Potassium Chloride Carbon Dioxide Anion Gap BUN Creatinine Estim Creat Clear Calc Estimated GFR POC Glucose 171 H Random Glucose Calcium Magnesium Total Bilirubin Direct Bilirubin AST ALT Alkaline Phosphatase Ammonia 27 B-Natriuretic Peptide Total Protein Albumin Stool Occult Blood Tiss Transglutamin IgG Tiss Transglutamin IgA Imaging Comment: Transthoracic Echocardiogram- 04/19/2020 Conclusions: - 1. Normal LV systolic function with pseudonormal filling pattern 2. Moderately dilated left atrium 3. Bioprosthetic aortic valve with mean gradient of 19 mm Hg which is slightly increased with the effective orifice area of 1.46 centimeter sq next 4. At least moderate eccentric mitral regurgitation, can be underestimated 5. Normal RV systolic pressure 6. No pericardial effusion Progress Note: A&P Assessment and plan (1) Elevated brain natriuretic peptide (BNP) level: Status: Acute (2) PAF (paroxysmal atrial fibrillation): Status: Acute (3) Atherosclerotic cardiovascular disease: Status: Acute (4) Status post aortic valve replacement with bioprosthetic valve: Status: Acute (5) Status post coronary artery bypass graft: Status: Acute (6) SCOTT (acute kidney injury): Status: Acute (7) Cirrhosis: Status: Acute Assessment and Plan: He remains in sinus rhythm. Overall, complex picture but doubt if cardiac status plays a major role in his volume overload. Could be predominantly from cirrhosis rather. Elevated cardiac BNP could be related to worsening renal function. Can hold off on amiodarone and use rather beta-blockers for concern of any hepatic injury. Fall Risk Details Current Medications: Current Medications Generic Name Dose Route Start Last Admin Trade Name Freq PRN Reason Stop Dose Admin Acetaminophen 650 mg 04/22/20 17:29 Acetaminophen 325 Mg Tablet PO Q6H PRN fever Amiodarone HCl 400 mg 04/25/20 13:30 04/26/20 08:33 Amiodarone Hcl 200 Mg Tablet PO 400 mg DAILY [facility] Administration Atorvastatin Calcium 40 mg 04/24/20 13:45 04/26/20 10:16 Atorvastatin Calcium 40 Mg Tablet PO Not Given DAILY [facility] Docusate Sodium 100 mg 04/18/20 01:17 Docusate Sodium 100 Mg Capsule PO DAILY PRN Constipation Doxycycline Hyclate 100 mg 04/22/20 12:00 04/26/20 01:26 Doxycycline Hyclate 100 Mg Tablet PO 100 mg Q12H [facility] Administration Furosemide 20 mg 04/25/20 11:45 04/26/20 08:32 Furosemide 20 Mg/2 Ml Vial IVPUSH 20 mg BID@0900,1800 [facility] Administration Protocol Guaifenesin/Dextromethorphan 5 ml 04/22/20 14:51 04/24/20 03:18 Guaifenesin Dm 100/10/5 Ml 5 Ml Syrup PO 5 ml Q4H PRN Administration cough Ceftriaxone Sodium 1 gm/ 50 mls @ 100 mls/hr 04/22/20 12:00 04/25/20 13:00 Sodium Chloride IV Infused Q24H [facility] Infusion Insulin Human Lispro 0 unit 04/20/20 11:30 04/26/20 07:49 Insulin Lispro 100 Unit/Ml 3 Ml Vial SUBCUT 2 unit QIDACHS [facility] Administration Protocol Lactulose 30 gm 04/22/20 21:00 04/26/20 10:16 Lactulose 20 Gm/30 Ml Solution PO Not Given TID [facility] Midodrine 10 mg 04/22/20 21:00 04/26/20 08:32 Midodrine Hcl 5 Mg Tablet PO 10 mg TID [facility] Administration Octreotide Acetate 200 mcg 04/24/20 16:00 04/26/20 07:50 Octreotide Acetate 100 Mcg/Ml Ampul SUBCUT 200 mcg Q8H [facility] Administration Omeprazole 20 mg 04/25/20 16:30 04/26/20 06:13 Omeprazole 20 Mg Capsule.Dr PO Not Given BID@0630,1630 [facility] Ondansetron HCl 4 mg 04/18/20 01:17 Ondansetron Hcl 4 Mg/2 Ml Vial IVPUSH Q8H PRN Nausea and Vomiting Rifaximin 550 mg 04/22/20 21:00 04/26/20 08:32 Rifaximin 550 Mg Tablet PO 550 mg BID [facility] Administration Sodium Chloride 3 ml 04/18/20 01:17 04/26/20 07:50 0.9 % Sodium Chloride Flush 3 Ml Syringe IVFLUSH 3 ml QSHIFT [facility] Administration Time Spent With Patient Time: Total time spent is greater than 50% in coordination of care (as documented) at patient's floor/unit and/or counseling patient: Time with patient: less than 15 minutes
[2020-04-26 11:10] LABS: Glucose, Whole Blood 160 mg/dL (60-115)
[2020-04-26] MEDS: Albumin Human 25 % 100 ML IV ×3 (11:45→21:28)
[2020-04-26] MEDS: cefTRIAXone sodium 1 GM in 0.9 % Sodium Chloride 50 ML IV (11:46)
--- NOTE | 2020-04-26 12:17 | MHC.CM.PN ---
Patient is on 2 liters O2 via NC, on IV Ceftriaxone for UTI and IV Lasix for CHF. Patient is NPO for endoscopy today r/t occult blood +. Patient's discharge plan is pending PT chantal. CM will continue to follow patient for discharge needs.
[2020-04-26 12:27] LABS: Glucose, Whole Blood 151 mg/dL (60-115)
--- NOTE | 2020-04-26 12:28 | P.CONAN_ITS ---
HPI - Anesthesia Eval Consult details Narrative: 69 M pf egd. K 5.3, kayexelate held this morning due to npo requi rement. anticoagulation for avr being held so will proceed with procedure today to minimize risk of aspiration, valve thrombosis. will monitor EKG closely [facility] Active Problems Active Problems: All Active Problems (Updated 04/26/20 @ 10:41 by Arturo Moreira MD) Status post coronary artery bypass graft (Acute) Status post aortic valve replacement with bioprosthetic valve (Acute) Atherosclerotic cardiovascular disease (Acute) PAF (paroxysmal atrial fibrillation) (Acute) Cirrhosis (Acute) Heme + stool (Acute) Transient ischemic attack (Acute) SCOTT (acute kidney injury) (Acute) Atrial fibrillation (Acute) Pneumonia (Acute) Anemia (Acute) Elevated brain natriuretic peptide (BNP) level (Acute) Mitral regurgitation (Acute) Elevated troponin (Acute) Hypoalbuminemia (Acute) Transaminitis (Acute) Generalized weakness (Acute) Normocytic anemia (Acute) CHF exacerbation (Acute) CHF (congestive heart failure) (Acute) Anemia (Acute) Acute hyponatremia (Acute) Past Medical History Medical History (Updated 04/26/20 @ 10:41 by Arturo Moreira MD) Atherosclerotic cardiovascular disease CAD (coronary artery disease) Cirrhosis Heme + stool HTN (hypertension) Hyperlipemia Pneumonia Functional capacity: independent ambulation Surgical History Surgical History (Updated 04/26/20 @ 10:39 by Arturo Moreira MD) Hx of aortic valve repair Hx of CABG Status post aortic valve replacement with bioprosthetic valve Social History Social History Household Members: Other Housing: House Alcohol intake: never Smoking Status: Never smoker service: No Current occupational status: previously employed and retired Meds Allergies Allergy/AdvReac Type Severity Reaction Status Date / Time No Known Allergies Allergy Verified 04/17/20 16:51 Active Medications: Current Medications Generic Name Dose Route Start Last Admin Trade Name Freq PRN Reason Stop Dose Admin Acetaminophen 650 mg 04/22/20 17:29 Acetaminophen 325 Mg Tablet PO Q6H PRN fever Docusate Sodium 100 mg 04/18/20 01:17 Docusate Sodium 100 Mg Capsule PO DAILY PRN Constipation Furosemide 20 mg 04/25/20 11:45 04/26/20 08:32 Furosemide 20 Mg/2 Ml Vial IVPUSH 20 mg BID@0900,1800 [facility] Administration Protocol Guaifenesin/Dextromethorphan 5 ml 04/22/20 14:51 04/24/20 03:18 Guaifenesin Dm 100/10/5 Ml 5 Ml Syrup PO 5 ml Q4H PRN Administration cough Ceftriaxone Sodium 1 gm/ 50 mls @ 100 mls/hr 04/22/20 12:00 04/26/20 12:19 Sodium Chloride IV Infused Q24H [facility] Infusion Albumin Human 100 mls @ 100 mls/hr 04/26/20 11:00 04/26/20 11:45 Kedbumin 25 % IV 04/29/20 05:59 100 mls/hr Q6H [facility] Administration Insulin Human Lispro 0 unit 04/20/20 11:30 04/26/20 11:44 Insulin Lispro 100 Unit/Ml 3 Ml Vial SUBCUT 2 unit QIDACHS [facility] Administration Protocol Lactulose 30 gm 04/22/20 21:00 04/26/20 10:16 Lactulose 20 Gm/30 Ml Solution PO Not Given TID [facility] Metoprolol Tartrate 25 mg 04/26/20 15:00 Metoprolol Tartrate 25 Mg Tablet PO TID [facility] Protocol Midodrine 10 mg 04/22/20 21:00 04/26/20 08:32 Midodrine Hcl 5 Mg Tablet PO 10 mg TID [facility] Administration Octreotide Acetate 200 mcg 04/24/20 16:00 04/26/20 07:50 Octreotide Acetate 100 Mcg/Ml Ampul SUBCUT 200 mcg Q8H [facility] Administration Omeprazole 20 mg 04/25/20 16:30 04/26/20 06:13 Omeprazole 20 Mg Capsule.Dr PO Not Given BID@0630,1630 [facility] Ondansetron HCl 4 mg 04/18/20 01:17 Ondansetron Hcl 4 Mg/2 Ml Vial IVPUSH Q8H PRN Nausea and Vomiting Rifaximin 550 mg 04/22/20 21:00 04/26/20 08:32 Rifaximin 550 Mg Tablet PO 550 mg BID [facility] Administration Sodium Chloride 3 ml 04/18/20 01:17 04/26/20 07:50 0.9 % Sodium Chloride Flush 3 Ml Syringe IVFLUSH 3 ml QSHIFT [facility] Administration Home Medications Medication Instructions Recorded Confirmed Last Taken Type aspirin 81 mg PO DAILY 04/17/20 04/17/20 04/17/20 History atorvastatin 1 tab PO DAILY 04/17/20 04/17/20 04/16/20 History metoprolol tartrate 1 tab PO BID 04/17/20 04/17/20 04/17/20 History Exam Exam Date and Time: April 26, 2020 1228 Height,Weight and Vital Signs: Height 5 ft 9 in Weight 78 kg Last Vital Signs Temp 97.4 F 04/26/20 11:23 Pulse 79 04/26/20 11:23 Resp 20 04/26/20 11:23 BP 119/69 04/26/20 11:23 Pulse Ox 100 04/26/20 11:23 Pertinent Lab Results Pertinent Lab Results: Laboratory Tests 04/17/20 04/17/20 04/17/20 16:49 16:49 16:49 WBC 11.3 H RBC 3.46 L Hgb 9.4 L Hct 30.0 L MCV 86.7 MCH 27.2 MCHC 31.3 RDW 15.0 Plt Count 125 L MPV 9.7 Immature Gran % (Auto) 0.8 H Neut % (Auto) 83.5 H Lymph % (Auto) 9.0 L [place] % (Auto) 6.5 Eos % (Auto) 0.1 Baso % (Auto) 0.1 Lymph # (Auto) 1.0 L [place] # (Auto) 0.7 Eos # (Auto) 0.0 Baso # (Auto) 0.0 Abs Immat Gran (auto) 0.09 H Absolute Neuts (auto) 9.5 H Absolute Nucleated RBC 0.000 Nucleated RBC % (auto) 0.0 Smear Tech's Comments Smear Path Review Absolute Retic Percent Retic Immature Retic Fraction Retic Hgb Equivalent Haptoglobin PT 16.8 H INR 1.4 H APTT PTT (Heparin Protocol) Fibrinogen Sodium 129 L Potassium 4.2 Chloride 98 Carbon Dioxide 22 Anion Gap 13 BUN 26 H Creatinine 0.99 Estim Creat Clear Calc 69.0 Estimated GFR > 60 POC Glucose Random Glucose 171 H Estimat Average Glucose Hemoglobin A1c % Osmolality Uric Acid Calcium 7.4 L Magnesium Iron TIBC % Saturation Unsat Iron Binding Ferritin Total Bilirubin 1.1 H Direct Bilirubin 0.6 H GGT AST 59 H ALT 79 H Alkaline Phosphatase 93 Ammonia Lactate Dehydrogenase Total Creatine Kinase Troponin I High Sens B-Natriuretic Peptide Total Protein 5.7 L Albumin 2.6 L Prealbumin [id number] Ceruloplasmin Triglycerides Cholesterol LDL Cholesterol, Calc HDL Cholesterol Vitamin B12 Folate Procalcitonin TSH Cortisol Urine Color Urine Appearance Urine pH Ur Specific [place] Urine Protein Urine Glucose (UA) Urine Ketones Urine Blood Urine Nitrite Ur Leukocyte Esterase Urine RBC Urine WBC Ur Squamous Epith Cells Ur Renal Epithelial Cell Urine Bacteria Granular Casts Other Casts Urine Osmolality Ur Random Sodium Ur Random Uric Acid Urine Creatinine Stool Collect Date Stool Occult Blood Stool 2 Collect Date Stool Occult Blood #2 Stool 3 Collect Date Stool Occult Blood #3 IgG Total IgA Total IgM SIRIA Interpretation Cryoglobulin Cryoglobulin Cryocrit Rheumatoid Factor GABBY Screen GABBY Titer GABBY Titer 2 GABBY Titer 3 GABBY Pattern GABBY Pattern 2 GABBY Pattern 3 Tiss Transglutamin IgG Tiss Transglutamin IgA Free [place] LC, Quant Free Lambda LC, Quant Free [place]/Lambda Ratio Respiratory Panel [place] Adenovirus (Rapid PCR) B.pert (TEM-PCR) B.parapertussis DNA PCR C. pneumoniae DNA (PCR) Coronavirus OC43 (PCR) Coronavirus HKU1 (PCR) Coronavirus 229E (PCR) COVID-19 (EARL) COVID-19 Clin Com Coronavirus NL63 (PCR) Hepatitis A IgG Ab Hep Bs Antigen Hep Bs Antibody Hep B Core Total Ab Hepatitis C Ab (EIA) Hep C Viral Load Hep C Viral Load Log HIV 1&2 Ab/P24 Ag 4thGn Human Metapneumovir PCR Influenza A (RT-PCR) Influenza B (RT-PCR) M. pneumoniae (PCR) Parainfluenza 1 (PCR) Parainfluenza 2 (PCR) Parainfluenza 3 (PCR) Parainfluenza 4 (PCR) RSV (PCR) Entero/Rhino (PCR) SARS-CoV-2 RNA (RT-PCR) Ur Strep pneumoniae Ag Blood Type Antibody Screen Crossmatch Clerical Work Check Hemolysis Bld Bag Check Icterus Blood Bag Check Post-Trans Blood Type Post-Trans MARY IgG Post-Trans MARY Poly 04/17/20 04/17/20 04/17/20 16:49 18:32 20:15 WBC RBC Hgb Hct MCV MCH MCHC RDW Plt Count MPV Immature Gran % (Auto) Neut % (Auto) Lymph % (Auto) [place] % (Auto) Eos % (Auto) Baso % (Auto) Lymph # (Auto) [place] # (Auto) Eos # (Auto) Baso # (Auto) Abs Immat Gran (auto) Absolute Neuts (auto) Absolute Nucleated RBC Nucleated RBC % (auto) Smear Tech's Comments Smear Path Review Absolute Retic Percent Retic Immature Retic Fraction Retic Hgb Equivalent Haptoglobin PT INR APTT PTT (Heparin Protocol) Fibrinogen Sodium Potassium Chloride Carbon Dioxide Anion Gap BUN Creatinine Estim Creat Clear Calc Estimated GFR POC Glucose Random Glucose Estimat Average Glucose Hemoglobin A1c % Osmolality Uric Acid Calcium Magnesium Iron TIBC % Saturation Unsat Iron Binding Ferritin Total Bilirubin Direct Bilirubin GGT AST ALT Alkaline Phosphatase Ammonia Lactate Dehydrogenase Total Creatine Kinase Troponin I High Sens 227.8 H B-Natriuretic Peptide 457 H Total Protein Albumin Prealbumin Sbziy-1-Weklqmuveab Ceruloplasmin Triglycerides Cholesterol LDL Cholesterol, Calc HDL Cholesterol Vitamin B12 Folate Procalcitonin TSH Cortisol Urine Color Urine Appearance Urine pH Ur Specific [place] Urine Protein Urine Glucose (UA) Urine Ketones Urine Blood Urine Nitrite Ur Leukocyte Esterase Urine RBC Urine WBC Ur Squamous Epith Cells Ur Renal Epithelial Cell Urine Bacteria Granular Casts Other Casts Urine Osmolality Ur Random Sodium Ur Random Uric Acid Urine Creatinine Stool Collect Date Stool Occult Blood NEG Stool 2 Collect Date Stool Occult Blood #2 Stool 3 Collect Date Stool Occult Blood #3 IgG Total IgA Total IgM SIRIA Interpretation Cryoglobulin Cryoglobulin Cryocrit Rheumatoid Factor GABBY Screen GABBY Titer GABBY Titer 2 GABBY Titer 3 GABBY Pattern GABBY Pattern 2 GABBY Pattern 3 Tiss Transglutamin IgG Tiss Transglutamin IgA Free [place] LC, Quant Free Lambda LC, Quant Free [place]/Lambda Ratio Respiratory Panel [place] Adenovirus (Rapid PCR) B.pert (TEM-PCR) B.parapertussis DNA PCR C. pneumoniae DNA (PCR) Coronavirus OC43 (PCR) Coronavirus HKU1 (PCR) Coronavirus 229E (PCR) COVID-19 (EARL) Negative COVID-19 Clin Com See Note Coronavirus NL63 (PCR) Hepatitis A IgG Ab Hep Bs Antigen Hep Bs Antibody Hep B Core Total Ab Hepatitis C Ab (EIA) Hep C Viral Load Hep C Viral Load Log HIV 1&2 Ab/P24 Ag 4thGn Human Metapneumovir PCR Influenza A (RT-PCR) Influenza B (RT-PCR) M. pneumoniae (PCR) Parainfluenza 1 (PCR) Parainfluenza 2 (PCR) Parainfluenza 3 (PCR) Parainfluenza 4 (PCR) RSV (PCR) Entero/Rhino (PCR) SARS-CoV-2 RNA (RT-PCR) Ur Strep pneumoniae Ag Blood Type Antibody Screen Crossmatch Clerical Work Check Hemolysis Bld Bag Check Icterus Blood Bag Check Post-Trans Blood Type Post-Trans MARY IgG Post-Trans MARY Poly 04/17/20 04/18/20 04/18/20 21:02 01:35 01:35 WBC RBC Hgb Hct MCV MCH MCHC RDW Plt Count MPV Immature Gran % (Auto) Neut % (Auto) Lymph % (Auto) [place] % (Auto) Eos % (Auto) Baso % (Auto) Lymph # (Auto) [place] # (Auto) Eos # (Auto) Baso # (Auto) Abs Immat Gran (auto) Absolute Neuts (auto) Absolute Nucleated RBC Nucleated RBC % (auto) Smear Tech's Comments Smear Path Review Absolute Retic Percent Retic Immature Retic Fraction Retic Hgb Equivalent Haptoglobin PT INR APTT PTT (Heparin Protocol) Fibrinogen Sodium Potassium Chloride Carbon Dioxide Anion Gap BUN Creatinine Estim Creat Clear Calc Estimated GFR POC Glucose Random Glucose Estimat Average Glucose Hemoglobin A1c % Osmolality Uric Acid Calcium Magnesium Iron TIBC % Saturation Unsat Iron Binding Ferritin 254 H Total Bilirubin Direct Bilirubin GGT AST ALT Alkaline Phosphatase Ammonia Lactate Dehydrogenase Total Creatine Kinase Troponin I High Sens 220.7 H B-Natriuretic Peptide Total Protein Albumin Prealbumin Xzlhd-[id number] Ceruloplasmin Triglycerides Cholesterol LDL Cholesterol, Calc HDL Cholesterol Vitamin B12 499 Folate 5.5 Procalcitonin TSH Cortisol Urine Color Urine Appearance Urine pH Ur Specific [place] Urine Protein Urine Glucose (UA) Urine Ketones Urine Blood Urine Nitrite Ur Leukocyte Esterase Urine RBC Urine WBC Ur Squamous Epith Cells Ur Renal Epithelial Cell Urine Bacteria Granular Casts Other Casts Urine Osmolality Ur Random Sodium Ur Random Uric Acid Urine Creatinine Stool Collect Date Stool Occult Blood Stool 2 Collect Date Stool Occult Blood #2 Stool 3 Collect Date Stool Occult Blood #3 IgG Total IgA Total IgM SIRIA Interpretation Cryoglobulin Cryoglobulin Cryocrit Rheumatoid Factor GABBY Screen GABBY Titer GABBY Titer 2 GABBY Titer 3 GABBY Pattern GABBY Pattern 2 GABBY Pattern 3 Tiss Transglutamin IgG Tiss Transglutamin IgA Free [place] LC, Quant Free Lambda LC, Quant Free [place]/Lambda Ratio Respiratory Panel [place] Adenovirus (Rapid PCR) B.pert (TEM-PCR) B.parapertussis DNA PCR C. pneumoniae DNA (PCR) Coronavirus OC43 (PCR) Coronavirus HKU1 (PCR) Coronavirus 229E (PCR) COVID-19 (EARL) COVID-19 Clin Com Coronavirus NL63 (PCR) Hepatitis A IgG Ab Hep Bs Antigen Hep Bs Antibody Hep B Core Total Ab Hepatitis C Ab (EIA) Hep C Viral Load Hep C Viral Load Log HIV 1&2 Ab/P24 Ag 4thGn Human Metapneumovir PCR Influenza A (RT-PCR) Influenza B (RT-PCR) M. pneumoniae (PCR) Parainfluenza 1 (PCR) Parainfluenza 2 (PCR) Parainfluenza 3 (PCR) Parainfluenza 4 (PCR) RSV (PCR) Entero/Rhino (PCR) SARS-CoV-2 RNA (RT-PCR) Ur Strep pneumoniae Ag Blood Type Antibody Screen Crossmatch Clerical Work Check Hemolysis Bld Bag Check Icterus Blood Bag Check Post-Trans Blood Type Post-Trans MARY IgG Post-Trans MARY Poly 04/18/20 04/18/20 04/18/20 01:35 01:35 05:52 WBC 10.3 RBC 2.86 L Hgb 7.9 L Hct 24.1 L MCV 84.3 MCH 27.6 MCHC 32.8 RDW 14.9 Plt Count 97 L MPV 9.2 L Immature Gran % (Auto) 0.8 H Neut % (Auto) 83.3 H Lymph % (Auto) 8.8 L [place] % (Auto) 7.0 Eos % (Auto) 0.0 Baso % (Auto) 0.1 Lymph # (Auto) 0.9 L [place] # (Auto) 0.7 Eos # (Auto) 0.0 Baso # (Auto) 0.0 Abs Immat Gran (auto) 0.08 H Absolute Neuts (auto) 8.6 H Absolute Nucleated RBC 0.000 Nucleated RBC % (auto) 0.0 Smear Tech's Comments Smear Path Review Absolute Retic Percent Retic Immature Retic Fraction Retic Hgb Equivalent Haptoglobin PT INR APTT PTT (Heparin Protocol) Fibrinogen Sodium 130 L Potassium 4.4 Chloride 100 Carbon Dioxide 24 Anion Gap 10 L BUN 26 H Creatinine 0.92 Estim Creat Clear Calc 74.2 Estimated GFR > 60 POC Glucose Random Glucose 162 H Estimat Average Glucose Hemoglobin A1c % Osmolality 278 L Uric Acid Calcium 7.1 L Magnesium Iron TIBC % Saturation Unsat Iron Binding Ferritin Total Bilirubin Direct Bilirubin GGT AST ALT Alkaline Phosphatase Ammonia Lactate Dehydrogenase Total Creatine Kinase Troponin I High Sens B-Natriuretic Peptide Total Protein Albumin Prealbumin [id number] Ceruloplasmin Triglycerides Cholesterol LDL Cholesterol, Calc HDL Cholesterol Vitamin B12 Folate Procalcitonin TSH Cortisol Urine Color Urine Appearance Urine pH Ur Specific [place] Urine Protein Urine Glucose (UA) Urine Ketones Urine Blood Urine Nitrite Ur Leukocyte Esterase Urine RBC Urine WBC Ur Squamous Epith Cells Ur Renal Epithelial Cell Urine Bacteria Granular Casts Other Casts Urine Osmolality Ur Random Sodium Ur Random Uric Acid Urine Creatinine Stool Collect Date Stool Occult Blood Stool 2 Collect Date Stool Occult Blood #2 Stool 3 Collect Date Stool Occult Blood #3 IgG Total IgA Total IgM SIRIA Interpretation Cryoglobulin Cryoglobulin Cryocrit Rheumatoid Factor GABBY Screen GABBY Titer GABBY Titer 2 GABBY Titer 3 GABBY Pattern GABBY Pattern 2 GABBY Pattern 3 Tiss Transglutamin IgG Tiss Transglutamin IgA Free [place] LC, Quant Free Lambda LC, Quant Free [place]/Lambda Ratio Respiratory Panel [place] Adenovirus (Rapid PCR) B.pert (TEM-PCR) B.parapertussis DNA PCR C. pneumoniae DNA (PCR) Coronavirus OC43 (PCR) Coronavirus HKU1 (PCR) Coronavirus 229E (PCR) COVID-19 (EARL) COVID-19 Clin Com Coronavirus NL63 (PCR) Hepatitis A IgG Ab Hep Bs Antigen Hep Bs Antibody Hep B Core Total Ab Hepatitis C Ab (EIA) Hep C Viral Load Hep C Viral Load Log HIV 1&2 Ab/P24 Ag 4thGn Human Metapneumovir PCR Influenza A (RT-PCR) Influenza B (RT-PCR) M. pneumoniae (PCR) Parainfluenza 1 (PCR) Parainfluenza 2 (PCR) Parainfluenza 3 (PCR) Parainfluenza 4 (PCR) RSV (PCR) Entero/Rhino (PCR) SARS-CoV-2 RNA (RT-PCR) Ur Strep pneumoniae Ag Blood Type Antibody Screen Crossmatch Clerical Work Check Hemolysis Bld Bag Check Icterus Blood Bag Check Post-Trans Blood Type Post-Trans MARY IgG Post-Trans MARY Poly 04/18/20 04/18/20 04/18/20 11:09 11:09 11:09 WBC RBC Hgb Hct MCV MCH MCHC RDW Plt Count MPV Immature Gran % (Auto) Neut % (Auto) Lymph % (Auto) [place] % (Auto) Eos % (Auto) Baso % (Auto) Lymph # (Auto) [place] # (Auto) Eos # (Auto) Baso # (Auto) Abs Immat Gran (auto) Absolute Neuts (auto) Absolute Nucleated RBC Nucleated RBC % (auto) Smear Tech's Comments Smear Path Review Absolute Retic Percent Retic Immature Retic Fraction Retic Hgb Equivalent Haptoglobin PT INR APTT PTT (Heparin Protocol) Fibrinogen Sodium Potassium Chloride Carbon Dioxide Anion Gap BUN Creatinine Estim Creat Clear Calc Estimated GFR POC Glucose Random Glucose Estimat Average Glucose Hemoglobin A1c % Osmolality Uric Acid 6.3 Calcium Magnesium Iron TIBC % Saturation Unsat Iron Binding Ferritin Total Bilirubin Direct Bilirubin GGT AST ALT Alkaline Phosphatase Ammonia Lactate Dehydrogenase Total Creatine Kinase Troponin I High Sens B-Natriuretic Peptide Total Protein Albumin Prealbumin Ourlx-[id number] Ceruloplasmin Triglycerides Cholesterol LDL Cholesterol, Calc HDL Cholesterol Vitamin B12 Folate Procalcitonin TSH 0.94 Cortisol Urine Color Urine Appearance Urine pH Ur Specific [place] Urine Protein Urine Glucose (UA) Urine Ketones Urine Blood Urine Nitrite Ur Leukocyte Esterase Urine RBC Urine WBC Ur Squamous Epith Cells Ur Renal Epithelial Cell Urine Bacteria Granular Casts Other Casts Urine Osmolality Ur Random Sodium Ur Random Uric Acid Urine Creatinine Stool Collect Date Stool Occult Blood Stool 2 Collect Date Stool Occult Blood #2 Stool 3 Collect Date Stool Occult Blood #3 IgG Total 1239 IgA Total 290 IgM 167 SIRIA Interpretation SEE NOTE Cryoglobulin Cryoglobulin Cryocrit Rheumatoid Factor GABBY Screen GABBY Titer GABBY Titer 2 GABBY Titer 3 GABBY Pattern GABBY Pattern 2 GABBY Pattern 3 Tiss Transglutamin IgG Tiss Transglutamin IgA Free [place] LC, Quant 87.5 H Free Lambda LC, Quant 77.6 H Free [place]/Lambda Ratio 1.13 Respiratory Panel [place] Adenovirus (Rapid PCR) B.pert (TEM-PCR) B.parapertussis DNA PCR C. pneumoniae DNA (PCR) Coronavirus OC43 (PCR) Coronavirus HKU1 (PCR) Coronavirus 229E (PCR) COVID-19 ([facility]AR[facility]) COVID-19 Clin Com Coronavirus NL63 (PCR) Hepatitis A IgG Ab Hep Bs Antigen Hep Bs Antibody Hep B Core Total Ab Hepatitis C Ab (EIA) Hep C Viral Load Hep C Viral Load Log HIV 1&2 Ab/P24 Ag 4thGn Human Metapneumovir PCR Influenza A (RT-PCR) Influenza B (RT-PCR) M. pneumoniae (PCR) Parainfluenza 1 (PCR) Parainfluenza 2 (PCR) Parainfluenza 3 (PCR) Parainfluenza 4 (PCR) RSV (PCR) Entero/Rhino (PCR) SARS-CoV-2 RNA (RT-PCR) Ur Strep pneumoniae Ag Blood Type Antibody Screen Crossmatch Clerical Work Check Hemolysis Bld Bag Check Icterus Blood Bag Check Post-Trans Blood Type Post-Trans MARY IgG Post-Trans MARY Poly 04/18/20 04/18/20 04/18/20 14:15 14:15 14:15 WBC RBC Hgb Hct MCV MCH MCHC RDW Plt Count MPV Immature Gran % (Auto) Neut % (Auto) Lymph % (Auto) [place] % (Auto) Eos % (Auto) Baso % (Auto) Lymph # (Auto) [place] # (Auto) Eos # (Auto) Baso # (Auto) Abs Immat Gran (auto) Absolute Neuts (auto) Absolute Nucleated RBC Nucleated RBC % (auto) Smear Tech's Comments Smear Path Review Absolute Retic Percent Retic Immature Retic Fraction Retic Hgb Equivalent Haptoglobin PT INR APTT PTT (Heparin Protocol) Fibrinogen Sodium Potassium Chloride Carbon Dioxide Anion Gap BUN Creatinine Estim Creat Clear Calc Estimated GFR POC Glucose Random Glucose Estimat Average Glucose Hemoglobin A1c % Osmolality Uric Acid Calcium Magnesium Iron TIBC % Saturation Unsat Iron Binding Ferritin Total Bilirubin Direct Bilirubin GGT AST ALT Alkaline Phosphatase Ammonia Lactate Dehydrogenase Total Creatine Kinase Troponin I High Sens B-Natriuretic Peptide Total Protein Albumin Prealbumin Mgxwa-[id number] Ceruloplasmin Triglycerides Cholesterol LDL Cholesterol, Calc HDL Cholesterol Vitamin B12 Folate Procalcitonin TSH Cortisol Urine Color Urine Appearance Urine pH Ur Specific [place] Urine Protein Urine Glucose (UA) Urine Ketones Urine Blood Urine Nitrite Ur Leukocyte Esterase Urine RBC Urine WBC Ur Squamous Epith Cells Ur Renal Epithelial Cell Urine Bacteria Granular Casts Other Casts Urine Osmolality 465 Ur Random Sodium 84.0 Ur Random Uric Acid 31.5 Urine Creatinine 68.42 Stool Collect Date Stool Occult Blood Stool 2 Collect Date Stool Occult Blood #2 Stool 3 Collect Date Stool Occult Blood #3 IgG Total IgA Total IgM SIRIA Interpretation Cryoglobulin Cryoglobulin Cryocrit Rheumatoid Factor GABBY Screen GABBY Titer GABBY Titer 2 GABBY Titer 3 GABBY Pattern GABBY Pattern 2 GABBY Pattern 3 Tiss Transglutamin IgG Tiss Transglutamin IgA Free [place] LC, Quant Free Lambda LC, Quant Free [place]/Lambda Ratio Respiratory Panel [place] Adenovirus (Rapid PCR) B.pert (TEM-PCR) B.parapertussis DNA PCR C. pneumoniae DNA (PCR) Coronavirus OC43 (PCR) Coronavirus HKU1 (PCR) Coronavirus 229E (PCR) COVID-19 (EARL) COVID-19 Clin Com Coronavirus NL63 (PCR) Hepatitis A IgG Ab Hep Bs Antigen Hep Bs Antibody Hep B Core Total Ab Hepatitis C Ab (EIA) Hep C Viral Load Hep C Viral Load Log HIV 1&2 Ab/P24 Ag 4thGn Human Metapneumovir PCR Influenza A (RT-PCR) Influenza B (RT-PCR) M. pneumoniae (PCR) Parainfluenza 1 (PCR) Parainfluenza 2 (PCR) Parainfluenza 3 (PCR) Parainfluenza 4 (PCR) RSV (PCR) Entero/Rhino (PCR) SARS-CoV-2 RNA (RT-PCR) Ur Strep pneumoniae Ag Blood Type Antibody Screen Crossmatch Clerical Work Check Hemolysis Bld Bag Check Icterus Blood Bag Check Post-Trans Blood Type Post-Trans MARY IgG Post-Trans MARY Poly 04/18/20 04/18/20 04/18/20 18:52 18:52 22:23 WBC 7.9 RBC 3.11 L Hgb 8.4 L Hct 26.6 L MCV 85.5 MCH 27.0 MCHC 31.6 RDW 14.9 Plt Count 100 L MPV 10.0 Immature Gran % (Auto) Neut % (Auto) Lymph % (Auto) [place] % (Auto) Eos % (Auto) Baso % (Auto) Lymph # (Auto) [place] # (Auto) Eos # (Auto) Baso # (Auto) Abs Immat Gran (auto) Absolute Neuts (auto) Absolute Nucleated RBC 0.000 Nucleated RBC % (auto) 0.0 Smear Tech's Comments Smear Path Review Absolute Retic Percent Retic Immature Retic Fraction Retic Hgb Equivalent Haptoglobin PT INR APTT PTT (Heparin Protocol) Fibrinogen Sodium 129 L 127 L Potassium 4.9 4.5 Chloride 98 97 Carbon Dioxide 24 23 Anion Gap 12 12 BUN 28 H Creatinine 1.15 Estim Creat Clear Calc 59.7 Estimated GFR > 60 POC Glucose Random Glucose 243 H D Estimat Average Glucose Hemoglobin A1c % Osmolality Uric Acid Calcium 7.2 L Magnesium Iron TIBC % Saturation Unsat Iron Binding Ferritin Total Bilirubin Direct Bilirubin GGT AST ALT Alkaline Phosphatase Ammonia Lactate Dehydrogenase Total Creatine Kinase Troponin I High Sens B-Natriuretic Peptide Total Protein Albumin Prealbumin Vncgd-2-Jutyvlzqzrw Ceruloplasmin Triglycerides Cholesterol LDL Cholesterol, Calc HDL Cholesterol Vitamin B12 Folate Procalcitonin TSH Cortisol Urine Color Urine Appearance Urine pH Ur Specific [place] Urine Protein Urine Glucose (UA) Urine Ketones Urine Blood Urine Nitrite Ur Leukocyte Esterase Urine RBC Urine WBC Ur Squamous Epith Cells Ur Renal Epithelial Cell Urine Bacteria Granular Casts Other Casts Urine Osmolality Ur Random Sodium Ur Random Uric Acid Urine Creatinine Stool Collect Date Stool Occult Blood Stool 2 Collect Date Stool Occult Blood #2 Stool 3 Collect Date Stool Occult Blood #3 IgG Total IgA Total IgM SIRIA Interpretation Cryoglobulin Cryoglobulin Cryocrit Rheumatoid Factor GABBY Screen GABBY Titer GABBY Titer 2 GABBY Titer 3 GABBY Pattern GABBY Pattern 2 GABBY Pattern 3 Tiss Transglutamin IgG Tiss Transglutamin IgA Free [place] LC, Quant Free Lambda LC, Quant Free [place]/Lambda Ratio Respiratory Panel [place] Adenovirus (Rapid PCR) B.pert (TEM-PCR) B.parapertussis DNA PCR C. pneumoniae DNA (PCR) Coronavirus OC43 (PCR) Coronavirus HKU1 (PCR) Coronavirus 229E (PCR) COVID-19 (EARL) COVID-19 Clin Com Coronavirus NL63 (PCR) Hepatitis A IgG Ab Hep Bs Antigen Hep Bs Antibody Hep B Core Total Ab Hepatitis C Ab (EIA) Hep C Viral Load Hep C Viral Load Log HIV 1&2 Ab/P24 Ag 4thGn Human Metapneumovir PCR Influenza A (RT-PCR) Influenza B (RT-PCR) M. pneumoniae (PCR) Parainfluenza 1 (PCR) Parainfluenza 2 (PCR) Parainfluenza 3 (PCR) Parainfluenza 4 (PCR) RSV (PCR) Entero/Rhino (PCR) SARS-CoV-2 RNA (RT-PCR) Ur Strep pneumoniae Ag Blood Type Antibody Screen Crossmatch Clerical Work Check Hemolysis Bld Bag Check Icterus Blood Bag Check Post-Trans Blood Type Post-Trans MARY IgG Post-Trans MARY Poly 04/19/20 04/19/20 04/19/20 08:41 20:50 20:50 WBC 10.0 RBC 2.97 L Hgb 8.0 L Hct 25.1 L MCV 84.5 MCH 26.9 L MCHC 31.9 RDW 15.1 Plt Count 113 L MPV 9.7 Immature Gran % (Auto) 0.7 H Neut % (Auto) 86.9 H Lymph % (Auto) 5.8 L [place] % (Auto) 6.6 Eos % (Auto) 0.0 Baso % (Auto) 0.0 Lymph # (Auto) 0.6 L [place] # (Auto) 0.7 Eos # (Auto) 0.0 Baso # (Auto) 0.0 Abs Immat Gran (auto) 0.07 H Absolute Neuts (auto) 8.7 H Absolute Nucleated RBC 0.000 Nucleated RBC % (auto) 0.0 Smear Tech's Comments VERIFIED Smear Path Review Absolute Retic Percent Retic Immature Retic Fraction Retic Hgb Equivalent Haptoglobin PT 17.7 H INR 1.5 H APTT PTT (Heparin Protocol) Fibrinogen Sodium Potassium Chloride Carbon Dioxide Anion Gap BUN Creatinine Estim Creat Clear Calc Estimated GFR POC Glucose Random Glucose Estimat Average Glucose Hemoglobin A1c % Osmolality Uric Acid Calcium Magnesium Iron TIBC % Saturation Unsat Iron Binding Ferritin Total Bilirubin Direct Bilirubin GGT AST ALT Alkaline Phosphatase Ammonia Lactate Dehydrogenase Total Creatine Kinase Troponin I High Sens B-Natriuretic Peptide Total Protein Albumin Prealbumin Detim-6-[id number] Ceruloplasmin Triglycerides Cholesterol LDL Cholesterol, Calc HDL Cholesterol Vitamin B12 Folate Procalcitonin TSH Cortisol 24.3 H Urine Color Urine Appearance Urine pH Ur Specific [place] Urine Protein Urine Glucose (UA) Urine Ketones Urine Blood Urine Nitrite Ur Leukocyte Esterase Urine RBC Urine WBC Ur Squamous Epith Cells Ur Renal Epithelial Cell Urine Bacteria Granular Casts Other Casts Urine Osmolality Ur Random Sodium Ur Random Uric Acid Urine Creatinine Stool Collect Date Stool Occult Blood Stool 2 Collect Date Stool Occult Blood #2 Stool 3 Collect Date Stool Occult Blood #3 IgG Total IgA Total IgM SIRIA Interpretation Cryoglobulin Cryoglobulin Cryocrit Rheumatoid Factor GABBY Screen GABBY Titer GABBY Titer 2 GABBY Titer 3 GABBY Pattern GABBY Pattern 2 GABBY Pattern 3 Tiss Transglutamin IgG Tiss Transglutamin IgA Free [place] LC, Quant Free Lambda LC, Quant Free [place]/Lambda Ratio Respiratory Panel [place] Adenovirus (Rapid PCR) B.pert (TEM-PCR) B.parapertussis DNA PCR C. pneumoniae DNA (PCR) Coronavirus OC43 (PCR) Coronavirus HKU1 (PCR) Coronavirus 229E (PCR) COVID-19 ([facility]) COVID-19 Clin Com Coronavirus NL63 (PCR) Hepatitis A IgG Ab Hep Bs Antigen Hep Bs Antibody Hep B Core Total Ab Hepatitis C Ab (EIA) Hep C Viral Load Hep C Viral Load Log HIV 1&2 Ab/P24 Ag 4thGn Human Metapneumovir PCR Influenza A (RT-PCR) Influenza B (RT-PCR) M. pneumoniae (PCR) Parainfluenza 1 (PCR) Parainfluenza 2 (PCR) Parainfluenza 3 (PCR) Parainfluenza 4 (PCR) RSV (PCR) Entero/Rhino (PCR) SARS-CoV-2 RNA (RT-PCR) Ur Strep pneumoniae Ag Blood Type Antibody Screen Crossmatch Clerical Work Check Hemolysis Bld Bag Check Icterus Blood Bag Check Post-Trans Blood Type Post-Trans MARY IgG Post-Trans MARY Poly 04/20/20 04/20/20 04/20/20 06:57 06:57 06:57 WBC 6.8 RBC 2.76 L Hgb 7.5 L Hct 23.4 L MCV 84.8 MCH 27.2 MCHC 32.1 RDW 15.0 Plt Count 82 L D MPV 9.7 Immature Gran % (Auto) 0.7 H Neut % (Auto) 75.6 H Lymph % (Auto) 11.7 L [place] % (Auto) 11.9 H Eos % (Auto) 0.1 Baso % (Auto) 0.0 Lymph # (Auto) 0.8 L [place] # (Auto) 0.8 Eos # (Auto) 0.0 Baso # (Auto) 0.0 Abs Immat Gran (auto) 0.05 H Absolute Neuts (auto) 5.2 Absolute Nucleated RBC 0.000 Nucleated RBC % (auto) 0.0 Smear Tech's Comments Smear Path Review Absolute Retic Percent Retic Immature Retic Fraction Retic Hgb Equivalent Haptoglobin PT INR APTT PTT (Heparin Protocol) Fibrinogen Sodium 133 L Potassium 4.5 Chloride 100 Carbon Dioxide 27 Anion Gap 11 L BUN 31 H Creatinine 1.21 Estim Creat Clear Calc 56.8 Estimated GFR 59 POC Glucose Random Glucose 189 H Estimat Average Glucose Hemoglobin A1c % Osmolality Uric Acid Calcium 7.3 L Magnesium 2.2 Iron 11 L TIBC 166 L % Saturation 7 L Unsat Iron Binding 155 Ferritin 322 H Total Bilirubin 1.2 H Direct Bilirubin 0.6 H GGT AST 77 H ALT 106 H Alkaline Phosphatase 89 Ammonia Lactate Dehydrogenase 189 Total Creatine Kinase Troponin I High Sens B-Natriuretic Peptide 457 H Total Protein 4.9 L Albumin 2.1 L Prealbumin Hcfsn-0-Flmdktyljep Ceruloplasmin Triglycerides Cholesterol LDL Cholesterol, Calc HDL Cholesterol Vitamin B12 Folate Procalcitonin TSH Cortisol Urine Color Urine Appearance Urine pH Ur Specific [place] Urine Protein Urine Glucose (UA) Urine Ketones Urine Blood Urine Nitrite Ur Leukocyte Esterase Urine RBC Urine WBC Ur Squamous Epith Cells Ur Renal Epithelial Cell Urine Bacteria Granular Casts Other Casts Urine Osmolality Ur Random Sodium Ur Random Uric Acid Urine Creatinine Stool Collect Date Stool Occult Blood Stool 2 Collect Date Stool Occult Blood #2 Stool 3 Collect Date Stool Occult Blood #3 IgG Total IgA Total IgM SIRIA Interpretation Cryoglobulin Cryoglobulin Cryocrit Rheumatoid Factor GABBY Screen GABBY Titer GABBY Titer 2 GABBY Titer 3 GABBY Pattern GABBY Pattern 2 GABBY Screen GABBY Titer GABBY Titer 2 GABBY Titer 3 GABBY Pattern GABBY Pattern 2 GABBY Pattern 3 Tiss Transglutamin IgG Tiss Transglutamin IgA Free [place] LC, Quant Free Lambda LC, Quant Free [place]/Lambda Ratio Respiratory Panel [place] Adenovirus (Rapid PCR) B.pert (TEM-PCR) B.parapertussis DNA PCR C. pneumoniae DNA (PCR) Coronavirus OC43 (PCR) Coronavirus HKU1 (PCR) Coronavirus 229E (PCR) COVID-19 ([facility]) COVID-19 Clin Com Coronavirus NL63 (PCR) Hepatitis A IgG Ab Hep Bs Antigen Hep Bs Antibody Hep B Core Total Ab Hepatitis C Ab (EIA) Hep C Viral Load Hep C Viral Load Log HIV 1&2 Ab/P24 Ag 4thGn Human Metapneumovir PCR Influenza A (RT-PCR) Influenza B (RT-PCR) M. pneumoniae (PCR) Parainfluenza 1 (PCR) Parainfluenza 2 (PCR) Parainfluenza 3 (PCR) Parainfluenza 4 (PCR) RSV (PCR) Entero/Rhino (PCR) SARS-CoV-2 RNA (RT-PCR) Ur Strep pneumoniae Ag Blood Type Antibody Screen Crossmatch Clerical Work Check Hemolysis Bld Bag Check Icterus Blood Bag Check Post-Trans Blood Type Post-Trans MARY IgG Post-Trans MARY Poly Airway Mallampati Class: III TM Dist: >3cm Neck ROM: Full Loose/Missing/Broken Teeth: No Heart: RRR Lungs: NL Other: rifaximinpowder in orharynx from AM administration Assessment and Plan Assessment Anesthesia Assessment: Anesthesia Plan Discussed and Chart Reviewed Final Anesthetic Review NPO: Yes ASA Class: IV Final Preanesthetic Review: No Changes in Pt Med Stat, Meds/Allgs Chart Reviewed, Consent Obtained/Reviewed and Anes Risks/Benef Reviewed Patient Risk: High Procedure Risk: Low Anesthetic Plan Anesthetic Plan: MAC: Disposition: Standard PACU GABBY Pattern 3 Tiss Transglutamin IgG Tiss Transglutamin IgA Free [place] LC, Quant Free Lambda LC, Quant Free [place]/Lambda Ratio Respiratory Panel [place] Adenovirus (Rapid PCR) B.pert (TEM-PCR) B.parapertussis DNA PCR C. pneumoniae DNA (PCR) Coronavirus OC43 (PCR) Coronavirus HKU1 (PCR) Coronavirus 229E (PCR) COVID-19 ([facility]) COVID-19 Clin Com Coronavirus NL63 (PCR) Hepatitis A IgG Ab Hep Bs Antigen Hep Bs Antibody Hep B Core Total Ab Hepatitis C Ab (EIA) Hep C Viral Load Hep C Viral Load Log HIV 1&2 Ab/P24 Ag 4thGn Human Metapneumovir PCR Influenza A (RT-PCR) Influenza B (RT-PCR) M. pneumoniae (PCR) Parainfluenza 1 (PCR) Parainfluenza 2 (PCR) Parainfluenza 3 (PCR) Parainfluenza 4 (PCR) RSV (PCR) Entero/Rhino (PCR) SARS-CoV-2 RNA (RT-PCR) Ur Strep pneumoniae Ag Blood Type Antibody Screen Crossmatch Clerical Work Check Hemolysis Bld Bag Check Icterus Blood Bag Check Post-Trans Blood Type Post-Trans MARY IgG Post-Trans MARY Poly 04/20/20 04/20/20 04/20/20 06:57 06:57 06:57 WBC RBC Hgb Hct MCV MCH MCHC RDW Plt Count MPV Immature Gran % (Auto) Neut % (Auto) Lymph % (Auto) [place] % (Auto) Eos % (Auto) Baso % (Auto) Lymph # (Auto) [place] # (Auto) Eos # (Auto) Baso # (Auto) Abs Immat Gran (auto) Absolute Neuts (auto) Absolute Nucleated RBC Nucleated RBC % (auto) Smear Tech's Comments Smear Path Review Absolute Retic Percent Retic Immature Retic Fraction Retic Hgb Equivalent Haptoglobin PT INR APTT PTT (Heparin Protocol) Fibrinogen Sodium Potassium Chloride Carbon Dioxide Anion Gap BUN Creatinine Estim Creat Clear Calc Estimated GFR POC Glucose Random Glucose Estimat Average Glucose 157 Hemoglobin A1c % 7.1 Osmolality Uric Acid Calcium Magnesium Iron TIBC % Saturation Unsat Iron Binding Ferritin Total Bilirubin Direct Bilirubin GGT AST ALT Alkaline Phosphatase Ammonia 22 Lactate Dehydrogenase Total Creatine Kinase Troponin I High Sens B-Natriuretic Peptide Total Protein Albumin Prealbumin Zjhyi-[id number] Ceruloplasmin Triglycerides Cholesterol LDL Cholesterol, Calc HDL Cholesterol Vitamin B12 Folate Procalcitonin TSH Cortisol Urine Color Urine Appearance Urine pH Ur Specific [place] Urine Protein Urine Glucose (UA) Urine Ketones Urine Blood Urine Nitrite Ur Leukocyte Esterase Urine RBC Urine WBC Ur Squamous Epith Cells Ur Renal Epithelial Cell Urine Bacteria Granular Casts Other Casts Urine Osmolality Ur Random Sodium Ur Random Uric Acid Urine Creatinine Stool Collect Date Stool Occult Blood Stool 2 Collect Date Stool Occult Blood #2 Stool 3 Collect Date Stool Occult Blood #3 IgG Total IgA Total IgM SIRIA Interpretation Cryoglobulin Cryoglobulin Cryocrit Rheumatoid Factor GABBY Screen GABBY Titer GABBY Titer 2 GABBY Titer 3 GABBY Pattern GABBY Pattern 2 GABBY Pattern 3 Tiss Transglutamin IgG Tiss Transglutamin IgA Free [place] LC, Quant Free Lambda LC, Quant Free [place]/Lambda Ratio Respiratory Panel [place] Adenovirus (Rapid PCR) B.pert (TEM-PCR) B.parapertussis DNA PCR C. pneumoniae DNA (PCR) Coronavirus OC43 (PCR) Coronavirus HKU1 (PCR) Coronavirus 229E (PCR) COVID-19 ([facility]) COVID-19 Clin Com Coronavirus NL63 (PCR) Hepatitis A IgG Ab Hep Bs Antigen Negative Hep Bs Antibody NONREACTIVE Hep B Core Total Ab Nonreactive Hepatitis C Ab (EIA) Reactive H Hep C Viral Load Hep C Viral Load Log HIV 1&2 Ab/P24 Ag 4thGn Nonreactive Human Metapneumovir PCR Influenza A (RT-PCR) Influenza B (RT-PCR) M. pneumoniae (PCR) Parainfluenza 1 (PCR) Parainfluenza 2 (PCR) Parainfluenza 3 (PCR) Parainfluenza 4 (PCR) RSV (PCR) Entero/Rhino (PCR) SARS-CoV-2 RNA (RT-PCR) Ur Strep pneumoniae Ag Blood Type Antibody Screen Crossmatch Clerical Work Check Hemolysis Bld Bag Check Icterus Blood Bag Check Post-Trans Blood Type Post-Trans MARY IgG Post-Trans MARY Poly 04/20/20 04/20/20 04/20/20 06:57 06:57 06:57 WBC RBC Hgb Hct MCV MCH MCHC RDW Plt Count MPV Immature Gran % (Auto) Neut % (Auto) Lymph % (Auto) [place] % (Auto) Eos % (Auto) Baso % (Auto) Lymph # (Auto) [place] # (Auto) Eos # (Auto) Baso # (Auto) Abs Immat Gran (auto) Absolute Neuts (auto) Absolute Nucleated RBC Nucleated RBC % (auto) Smear Tech's Comments Smear Path Review Absolute Retic Percent Retic Immature Retic Fraction Retic Hgb Equivalent Haptoglobin 167 PT INR APTT PTT (Heparin Protocol) Fibrinogen Sodium Potassium Chloride Carbon Dioxide Anion Gap BUN Creatinine Estim Creat Clear Calc Estimated GFR POC Glucose Random Glucose Estimat Average Glucose Hemoglobin A1c % Osmolality Uric Acid Calcium Magnesium Iron TIBC % Saturation Unsat Iron Binding Ferritin Total Bilirubin Direct Bilirubin GGT AST ALT Alkaline Phosphatase Ammonia Lactate Dehydrogenase Total Creatine Kinase Troponin I High Sens B-Natriuretic Peptide Total Protein Albumin Prealbumin Ewtun-[id number] Ceruloplasmin Triglycerides Cholesterol LDL Cholesterol, Calc HDL Cholesterol Vitamin B12 625 Folate 5.5 Procalcitonin TSH Cortisol Urine Color Urine Appearance Urine pH Ur Specific [place] Urine Protein Urine Glucose (UA) Urine Ketones Urine Blood Urine Nitrite Ur Leukocyte Esterase Urine RBC Urine WBC Ur Squamous Epith Cells Ur Renal Epithelial Cell Urine Bacteria Granular Casts Other Casts Urine Osmolality Ur Random Sodium Ur Random Uric Acid Urine Creatinine Stool Collect Date Stool Occult Blood Stool 2 Collect Date Stool Occult Blood #2 Stool 3 Collect Date Stool Occult Blood #3 IgG Total 1269 IgA Total 296 IgM 187 SIRIA Interpretation SEE NOTE Cryoglobulin Cryoglobulin Cryocrit Rheumatoid Factor GABBY Screen GABBY Titer GABBY Titer 2 GABBY Titer 3 GABBY Pattern GABBY Pattern 2 GABBY Pattern 3 Tiss Transglutamin IgG Tiss Transglutamin IgA Free [place] LC, Quant Free Lambda LC, Quant Free [place]/Lambda Ratio Respiratory Panel [place] Adenovirus (Rapid PCR) B.pert (TEM-PCR) B.parapertussis DNA PCR C. pneumoniae DNA (PCR) Coronavirus OC43 (PCR) Coronavirus HKU1 (PCR) Coronavirus 229E (PCR) COVID-19 ([facility]) COVID-19 Clin Com Coronavirus NL63 (PCR) Hepatitis A IgG Ab Hep Bs Antigen Hep Bs Antibody Hep B Core Total Ab Hepatitis C Ab (EIA) Hep C Viral Load Hep C Viral Load Log HIV 1&2 Ab/P24 Ag 4thGn Human Metapneumovir PCR Influenza A (RT-PCR) Influenza B (RT-PCR) M. pneumoniae (PCR) Parainfluenza 1 (PCR) Parainfluenza 2 (PCR) Parainfluenza 3 (PCR) Parainfluenza 4 (PCR) RSV (PCR) Entero/Rhino (PCR) SARS-CoV-2 RNA (RT-PCR) Ur Strep pneumoniae Ag Blood Type Antibody Screen Crossmatch Clerical Work Check Hemolysis Bld Bag Check Icterus Blood Bag Check Post-Trans Blood Type Post-Trans MARY IgG Post-Trans MARY Poly 04/20/20 04/20/20 04/20/20 08:07 08:07 16:13 WBC RBC Hgb Hct MCV MCH MCHC RDW Plt Count MPV Immature Gran % (Auto) Neut % (Auto) Lymph % (Auto) [place] % (Auto) Eos % (Auto) Baso % (Auto) Lymph # (Auto) [place] # (Auto) Eos # (Auto) Baso # (Auto) Abs Immat Gran (auto) Absolute Neuts (auto) Absolute Nucleated RBC Nucleated RBC % (auto) Smear Tech's Comments Smear Path Review Absolute Retic 0.015 L Percent Retic 0.5 Immature Retic Fraction 8.6 Retic Hgb Equivalent 25.2 L Haptoglobin PT INR APTT PTT (Heparin Protocol) Fibrinogen Sodium Potassium Chloride Carbon Dioxide Anion Gap BUN Creatinine Estim Creat Clear Calc Estimated GFR POC Glucose 222 H Random Glucose Estimat Average Glucose Hemoglobin A1c % Osmolality Uric Acid Calcium Magnesium Iron TIBC % Saturation Unsat Iron Binding Ferritin Total Bilirubin Direct Bilirubin GGT AST ALT Alkaline Phosphatase Ammonia Lactate Dehydrogenase Total Creatine Kinase Troponin I High Sens B-Natriuretic Peptide Total Protein Albumin Prealbumin Qzxsn-3-Sltblsmscrx Ceruloplasmin Triglycerides Cholesterol LDL Cholesterol, Calc HDL Cholesterol Vitamin B12 Folate Procalcitonin TSH Cortisol Urine Color Urine Appearance Urine pH Ur Specific [place] Urine Protein Urine Glucose (UA) Urine Ketones Urine Blood Urine Nitrite Ur Leukocyte Esterase Urine RBC Urine WBC Ur Squamous Epith Cells Ur Renal Epithelial Cell Urine Bacteria Granular Casts Other Casts Urine Osmolality Ur Random Sodium Ur Random Uric Acid Urine Creatinine Stool Collect Date Stool Occult Blood Stool 2 Collect Date Stool Occult Blood #2 Stool 3 Collect Date Stool Occult Blood #3 IgG Total IgA Total IgM SIRIA Interpretation Cryoglobulin Cryoglobulin Cryocrit Rheumatoid Factor GABBY Screen GABBY Titer GABBY Titer 2 GABBY Titer 3 GABBY Pattern GABBY Pattern 2 GABBY Pattern 3 Tiss Transglutamin IgG Tiss Transglutamin IgA Free [place] LC, Quant Free Lambda LC, Quant Free [place]/Lambda Ratio Respiratory Panel [place] Adenovirus (Rapid PCR) B.pert (TEM-PCR) B.parapertussis DNA PCR C. pneumoniae DNA (PCR) Coronavirus OC43 (PCR) Coronavirus HKU1 (PCR) Coronavirus 229E (PCR) COVID-19 ([facility]) COVID-19 Clin Com Coronavirus NL63 (PCR) Hepatitis A IgG Ab Hep Bs Antigen Hep Bs Antibody Hep B Core Total Ab Hepatitis C Ab (EIA) Hep C Viral Load Hep C Viral Load Log HIV 1&2 Ab/P24 Ag 4thGn Human Metapneumovir PCR Influenza A (RT-PCR) Influenza B (RT-PCR) M. pneumoniae (PCR) Parainfluenza 1 (PCR) Parainfluenza 2 (PCR) Parainfluenza 3 (PCR) Parainfluenza 4 (PCR) RSV (PCR) Entero/Rhino (PCR) SARS-CoV-2 RNA (RT-PCR) Ur Strep pneumoniae Ag Blood Type B Positive Antibody Screen NEGATIVE Crossmatch See Detail Clerical Work Check Hemolysis Bld Bag Check Icterus Blood Bag Check Post-Trans Blood Type Post-Trans MARY IgG Post-Trans MARY Poly 04/20/20 04/21/20 04/21/20 21:01 06:02 06:03 WBC 7.5 RBC 2.62 L Hgb 7.0 L* Hct 22.2 L MCV 84.7 MCH 26.7 L MCHC 31.5 RDW 15.3 Plt Count 80 L MPV 10.0 Immature Gran % (Auto) 0.7 H Neut % (Auto) 79.5 H Lymph % (Auto) 10.7 L [place] % (Auto) 8.9 Eos % (Auto) 0.1 Baso % (Auto) 0.1 Lymph # (Auto) 0.8 L [place] # (Auto) 0.7 Eos # (Auto) 0.0 Baso # (Auto) 0.0 Abs Immat Gran (auto) 0.05 H Absolute Neuts (auto) 6.0 Absolute Nucleated RBC 0.000 Nucleated RBC % (auto) 0.0 Smear Tech's Comments Smear Path Review SEE NOTE Absolute Retic Percent Retic Immature Retic Fraction Retic Hgb Equivalent Haptoglobin PT INR APTT PTT (Heparin Protocol) Fibrinogen Sodium Potassium Chloride Carbon Dioxide Anion Gap BUN Creatinine Estim Creat Clear Calc Estimated GFR POC Glucose 183 H Random Glucose Estimat Average Glucose Hemoglobin A1c % Osmolality Uric Acid Calcium Magnesium Iron TIBC % Saturation Unsat Iron Binding Ferritin Total Bilirubin Direct Bilirubin GGT AST ALT Alkaline Phosphatase Ammonia Lactate Dehydrogenase Total Creatine Kinase Troponin I High Sens B-Natriuretic Peptide Total Protein Albumin Prealbumin Gnljd-[id number] Ceruloplasmin Triglycerides Cholesterol LDL Cholesterol, Calc HDL Cholesterol Vitamin B12 Folate Procalcitonin TSH Cortisol Urine Color Urine Appearance Urine pH Ur Specific [place] Urine Protein Urine Glucose (UA) Urine Ketones Urine Blood Urine Nitrite Ur Leukocyte Esterase Urine RBC Urine WBC Ur Squamous Epith Cells Ur Renal Epithelial Cell Urine Bacteria Granular Casts Other Casts Urine Osmolality Ur Random Sodium Ur Random Uric Acid Urine Creatinine Stool Collect Date Stool Occult Blood Stool 2 Collect Date Stool Occult Blood #2 Stool 3 Collect Date Stool Occult Blood #3 IgG Total IgA Total IgM SIRIA Interpretation Cryoglobulin Cryoglobulin Cryocrit Rheumatoid Factor GABBY Screen GABBY Titer GABBY Titer 2 GABBY Titer 3 GABBY Pattern GABBY Pattern 2 GABBY Pattern 3 Tiss Transglutamin IgG 1 Tiss Transglutamin IgA 1 Free [place] LC, Quant Free Lambda LC, Quant Free [place]/Lambda Ratio Respiratory Panel [place] Adenovirus (Rapid PCR) B.pert (TEM-PCR) B.parapertussis DNA PCR C. pneumoniae DNA (PCR) Coronavirus OC43 (PCR) Coronavirus HKU1 (PCR) Coronavirus 229E (PCR) COVID-19 ([facility]) COVID-19 Clin Com Coronavirus NL63 (PCR) Hepatitis A IgG Ab Hep Bs Antigen Hep Bs Antibody Hep B Core Total Ab Hepatitis C Ab (EIA) Hep C Viral Load Hep C Viral Load Log HIV 1&2 Ab/P24 Ag 4thGn Human Metapneumovir PCR Influenza A (RT-PCR) Influenza B (RT-PCR) M. pneumoniae (PCR) Parainfluenza 1 (PCR) Parainfluenza 2 (PCR) Parainfluenza 3 (PCR) Parainfluenza 4 (PCR) RSV (PCR) Entero/Rhino (PCR) SARS-CoV-2 RNA (RT-PCR) Ur Strep pneumoniae Ag Blood Type Antibody Screen Crossmatch Clerical Work Check Hemolysis Bld Bag Check Icterus Blood Bag Check Post-Trans Blood Type Post-Trans MARY IgG Post-Trans MARY Poly 04/21/20 04/21/20 04/21/20 06:03 06:03 06:03 WBC RBC Hgb Hct MCV MCH MCHC RDW Plt Count MPV Immature Gran % (Auto) Neut % (Auto) Lymph % (Auto) [place] % (Auto) Eos % (Auto) Baso % (Auto) Lymph # (Auto) [place] # (Auto) Eos # (Auto) Baso # (Auto) Abs Immat Gran (auto) Absolute Neuts (auto) Absolute Nucleated RBC Nucleated RBC % (auto) Smear Tech's Comments Smear Path Review Absolute Retic Percent Retic Immature Retic Fraction Retic Hgb Equivalent Haptoglobin PT INR APTT PTT (Heparin Protocol) Fibrinogen Sodium 133 L Potassium 4.4 Chloride 100 Carbon Dioxide 27 Anion Gap 10 L BUN 38 H Creatinine 1.48 H Estim Creat Clear Calc 46.4 Estimated GFR 47 POC Glucose Random Glucose 188 H Estimat Average Glucose Hemoglobin A1c % Osmolality Uric Acid Calcium 7.1 L Magnesium Iron TIBC % Saturation Unsat Iron Binding Ferritin Total Bilirubin 1.2 H Direct Bilirubin GGT AST 92 H ALT 122 H Alkaline Phosphatase 95 Ammonia Lactate Dehydrogenase Total Creatine Kinase Troponin I High Sens B-Natriuretic Peptide Total Protein 4.6 L Albumin 2.0 L Prealbumin Glvud-[id number] 249 H Ceruloplasmin 32 Triglycerides Cholesterol LDL Cholesterol, Calc HDL Cholesterol Vitamin B12 Folate Procalcitonin TSH Cortisol Urine Color Urine Appearance Urine pH Ur Specific [place] Urine Protein Urine Glucose (UA) Urine Ketones Urine Blood Urine Nitrite Ur Leukocyte Esterase Urine RBC Urine WBC Ur Squamous Epith Cells Ur Renal Epithelial Cell Urine Bacteria Granular Casts Other Casts Urine Osmolality Ur Random Sodium Ur Random Uric Acid Urine Creatinine Stool Collect Date Stool Occult Blood Stool 2 Collect Date Stool Occult Blood #2 Stool 3 Collect Date Stool Occult Blood #3 IgG Total IgA Total IgM SIRIA Interpretation Cryoglobulin Cryoglobulin Cryocrit Rheumatoid Factor GABBY Screen NEGATIVE GABBY Titer TNP GABBY Titer 2 TNP GABBY Titer 3 TNP GABBY Pattern TNP GABBY Pattern 2 TNP GABBY Pattern 3 TNP Tiss Transglutamin IgG Tiss Transglutamin IgA Free [place] LC, Quant Free Lambda LC, Quant Free [place]/Lambda Ratio Respiratory Panel [place] Adenovirus (Rapid PCR) B.pert (TEM-PCR) B.parapertussis DNA PCR C. pneumoniae DNA (PCR) Coronavirus OC43 (PCR) Coronavirus HKU1 (PCR) Coronavirus 229E (PCR) COVID-19 ([facility]) COVID-19 Clin Com Coronavirus NL63 (PCR) Hepatitis A IgG Ab Hep Bs Antigen Hep Bs Antibody Hep B Core Total Ab Hepatitis C Ab (EIA) Hep C Viral Load Hep C Viral Load Log HIV 1&2 Ab/P24 Ag 4thGn Human Metapneumovir PCR Influenza A (RT-PCR) Influenza B (RT-PCR) M. pneumoniae (PCR) Parainfluenza 1 (PCR) Parainfluenza 2 (PCR) Parainfluenza 3 (PCR) Parainfluenza 4 (PCR) RSV (PCR) Entero/Rhino (PCR) SARS-CoV-2 RNA (RT-PCR) Ur Strep pneumoniae Ag Blood Type Antibody Screen Crossmatch Clerical Work Check Hemolysis Bld Bag Check Icterus Blood Bag Check Post-Trans Blood Type Post-Trans MARY IgG Post-Trans MARY Poly 04/21/20 04/21/20 04/21/20 06:03 11:33 18:02 WBC RBC Hgb Hct MCV MCH MCHC RDW Plt Count MPV Immature Gran % (Auto) Neut % (Auto) Lymph % (Auto) [place] % (Auto) Eos % (Auto) Baso % (Auto) Lymph # (Auto) [place] # (Auto) Eos # (Auto) Baso # (Auto) Abs Immat Gran (auto) Absolute Neuts (auto) Absolute Nucleated RBC Nucleated RBC % (auto) Smear Tech's Comments Smear Path Review Absolute Retic Percent Retic Immature Retic Fraction Retic Hgb Equivalent Haptoglobin PT 17.5 H INR 1.5 H APTT PTT (Heparin Protocol) Fibrinogen Sodium Potassium Chloride Carbon Dioxide Anion Gap BUN Creatinine Estim Creat Clear Calc Estimated GFR POC Glucose 282 H 173 H Random Glucose Estimat Average Glucose Hemoglobin A1c % Osmolality Uric Acid Calcium Magnesium Iron TIBC % Saturation Unsat Iron Binding Ferritin Total Bilirubin Direct Bilirubin GGT AST ALT Alkaline Phosphatase Ammonia Lactate Dehydrogenase Total Creatine Kinase Troponin I High Sens B-Natriuretic Peptide Total Protein Albumin Prealbumin Zdrnv-[id number] Ceruloplasmin Triglycerides Cholesterol LDL Cholesterol, Calc HDL Cholesterol Vitamin B12 Folate Procalcitonin TSH Cortisol Urine Color Urine Appearance Urine pH Ur Specific [place] Urine Protein Urine Glucose (UA) Urine Ketones Urine Blood Urine Nitrite Ur Leukocyte Esterase Urine RBC Urine WBC Ur Squamous Epith Cells Ur Renal Epithelial Cell Urine Bacteria Granular Casts Other Casts Urine Osmolality Ur Random Sodium Ur Random Uric Acid Urine Creatinine Stool Collect Date Stool Occult Blood Stool 2 Collect Date Stool Occult Blood #2 Stool 3 Collect Date Stool Occult Blood #3 IgG Total IgA Total IgM SIRIA Interpretation Cryoglobulin Cryoglobulin Cryocrit Rheumatoid Factor GABBY Screen GABBY Titer GABBY Titer 2 GABBY Titer 3 GABBY Pattern GABBY Pattern 2 GABBY Pattern 3 Tiss Transglutamin IgG Tiss Transglutamin IgA Free [place] LC, Quant Free Lambda LC, Quant Free [place]/Lambda Ratio Respiratory Panel [place] Adenovirus (Rapid PCR) B.pert (TEM-PCR) B.parapertussis DNA PCR C. pneumoniae DNA (PCR) Coronavirus OC43 (PCR) Coronavirus HKU1 (PCR) Coronavirus 229E (PCR) COVID-19 ([facility]) COVID-19 Clin Com Coronavirus NL63 (PCR) Hepatitis A IgG Ab Hep Bs Antigen Hep Bs Antibody Hep B Core Total Ab Hepatitis C Ab (EIA) Hep C Viral Load Hep C Viral Load Log HIV 1&2 Ab/P24 Ag 4thGn Human Metapneumovir PCR Influenza A (RT-PCR) Influenza B (RT-PCR) M. pneumoniae (PCR) Parainfluenza 1 (PCR) Parainfluenza 2 (PCR) Parainfluenza 3 (PCR) Parainfluenza 4 (PCR) RSV (PCR) Entero/Rhino (PCR) SARS-CoV-2 RNA (RT-PCR) Ur Strep pneumoniae Ag Blood Type Antibody Screen Crossmatch Clerical Work Check Hemolysis Bld Bag Check Icterus Blood Bag Check Post-Trans Blood Type Post-Trans MARY IgG Post-Trans MARY Poly 04/21/20 04/21/20 04/21/20 19:39 19:41 20:12 WBC RBC Hgb Hct MCV MCH MCHC RDW Plt Count MPV Immature Gran % (Auto) Neut % (Auto) Lymph % (Auto) [place] % (Auto) Eos % (Auto) Baso % (Auto) Lymph # (Auto) [place] # (Auto) Eos # (Auto) Baso # (Auto) Abs Immat Gran (auto) Absolute Neuts (auto) Absolute Nucleated RBC Nucleated RBC % (auto) Smear Tech's Comments Smear Path Review Absolute Retic Percent Retic Immature Retic Fraction Retic Hgb Equivalent Haptoglobin PT INR APTT PTT (Heparin Protocol) Fibrinogen Sodium Potassium Chloride Carbon Dioxide Anion Gap BUN Creatinine Estim Creat Clear Calc Estimated GFR POC Glucose 200 H 208 H Random Glucose Estimat Average Glucose Hemoglobin A1c % Osmolality Uric Acid Calcium Magnesium Iron TIBC % Saturation Unsat Iron Binding Ferritin Total Bilirubin Direct Bilirubin GGT AST ALT Alkaline Phosphatase Ammonia Lactate Dehydrogenase Total Creatine Kinase Troponin I High Sens B-Natriuretic Peptide Total Protein Albumin Prealbumin [id number] Ceruloplasmin Triglycerides Cholesterol LDL Cholesterol, Calc HDL Cholesterol Vitamin B12 Folate Procalcitonin TSH Cortisol Urine Color Urine Appearance Urine pH Ur Specific [place] Urine Protein Urine Glucose (UA) Urine Ketones Urine Blood Urine Nitrite Ur Leukocyte Esterase Urine RBC Urine WBC Ur Squamous Epith Cells Ur Renal Epithelial Cell Urine Bacteria Granular Casts Other Casts Urine Osmolality Ur Random Sodium Ur Random Uric Acid Urine Creatinine Stool Collect Date Stool Occult Blood Stool 2 Collect Date Stool Occult Blood #2 Stool 3 Collect Date Stool Occult Blood #3 IgG Total IgA Total IgM SIRIA Interpretation Cryoglobulin Cryoglobulin Cryocrit Rheumatoid Factor GABBY Screen GABBY Titer GABBY Titer 2 GABBY Titer 3 GABBY Pattern GABBY Pattern 2 GABBY Pattern 3 Tiss Transglutamin IgG Tiss Transglutamin IgA Free [place] LC, Quant Free Lambda LC, Quant Free [place]/Lambda Ratio Respiratory Panel [place] Adenovirus (Rapid PCR) B.pert (TEM-PCR) B.parapertussis DNA PCR C. pneumoniae DNA (PCR) Coronavirus OC43 (PCR) Coronavirus HKU1 (PCR) Coronavirus 229E (PCR) COVID-19 ([facility]) COVID-19 Clin Com Coronavirus NL63 (PCR) Hepatitis A IgG Ab Hep Bs Antigen Hep Bs Antibody Hep B Core Total Ab Hepatitis C Ab (EIA) Hep C Viral Load Hep C Viral Load Log HIV 1&2 Ab/P24 Ag 4thGn Human Metapneumovir PCR Influenza A (RT-PCR) Influenza B (RT-PCR) M. pneumoniae (PCR) Parainfluenza 1 (PCR) Parainfluenza 2 (PCR) Parainfluenza 3 (PCR) Parainfluenza 4 (PCR) RSV (PCR) Entero/Rhino (PCR) SARS-CoV-2 RNA (RT-PCR) Ur Strep pneumoniae Ag Blood Type Antibody Screen Crossmatch Clerical Work Check No Error Found Hemolysis Bld Bag Check None in Pre and Post Icterus Blood Bag Check None in Pre and Post Post-Trans Blood Type B Positive Post-Trans MARY IgG TNP Post-Trans MARY Poly NEGATIVE 04/21/20 04/21/20 04/22/20 21:18 22:49 05:27 WBC 14.9 H 14.5 H 8.0 RBC 2.88 L 2.89 L 2.93 L Hgb 7.8 L 7.7 L 7.8 L Hct 23.8 L 23.9 L 24.7 L MCV 82.6 82.7 84.3 MCH 27.1 26.6 L 26.6 L MCHC 32.8 32.2 31.6 RDW 14.9 14.9 15.1 Plt Count 84 L 79 L 83 L MPV 9.7 9.3 L 10.2 Immature Gran % (Auto) 1.1 H 0.8 H 0.4 Neut % (Auto) 85.3 H 82.6 H 76.4 H Lymph % (Auto) 5.1 L 8.0 L 14.1 L [place] % (Auto) 8.4 8.5 9.0 Eos % (Auto) 0.0 0.0 0.1 Baso % (Auto) 0.1 0.1 0.0 Lymph # (Auto) 0.8 L 1.2 1.1 L [place] # (Auto) 1.3 H 1.2 0.7 Eos # (Auto) 0.0 0.0 0.0 Baso # (Auto) 0.0 0.0 0.0 Abs Immat Gran (auto) 0.16 H 0.12 H 0.03 Absolute Neuts (auto) 12.7 H 12.0 H 6.1 Absolute Nucleated RBC 0.000 0.000 0.000 Nucleated RBC % (auto) 0.0 0.0 0.0 Smear Tech's Comments Smear Path Review Absolute Retic Percent Retic Immature Retic Fraction Retic Hgb Equivalent Haptoglobin PT INR APTT PTT (Heparin Protocol) Fibrinogen Sodium Potassium Chloride Carbon Dioxide Anion Gap BUN Creatinine Estim Creat Clear Calc Estimated GFR POC Glucose Random Glucose Estimat Average Glucose Hemoglobin A1c % Osmolality Uric Acid Calcium Magnesium Iron TIBC % Saturation Unsat Iron Binding Ferritin Total Bilirubin Direct Bilirubin GGT AST ALT Alkaline Phosphatase Ammonia Lactate Dehydrogenase Total Creatine Kinase Troponin I High Sens B-Natriuretic Peptide Total Protein Albumin Prealbumin Grfvy-[id number] Ceruloplasmin Triglycerides Cholesterol LDL Cholesterol, Calc HDL Cholesterol Vitamin B12 Folate Procalcitonin TSH Cortisol Urine Color Urine Appearance Urine pH Ur Specific [place] Urine Protein Urine Glucose (UA) Urine Ketones Urine Blood Urine Nitrite Ur Leukocyte Esterase Urine RBC Urine WBC Ur Squamous Epith Cells Ur Renal Epithelial Cell Urine Bacteria Granular Casts Other Casts Urine Osmolality Ur Random Sodium Ur Random Uric Acid Urine Creatinine Stool Collect Date Stool Occult Blood Stool 2 Collect Date Stool Occult Blood #2 Stool 3 Collect Date Stool Occult Blood #3 IgG Total IgA Total IgM SIRIA Interpretation Cryoglobulin Cryoglobulin Cryocrit Rheumatoid Factor GABBY Screen GABBY Titer GABBY Titer 2 GABBY Titer 3 GABBY Pattern GABBY Pattern 2 GABBY Pattern 3 Tiss Transglutamin IgG Tiss Transglutamin IgA Free [place] LC, Quant Free Lambda LC, Quant Free [place]/Lambda Ratio Respiratory Panel [place] Adenovirus (Rapid PCR) B.pert (TEM-PCR) B.parapertussis DNA PCR C. pneumoniae DNA (PCR) Coronavirus OC43 (PCR) Coronavirus HKU1 (PCR) Coronavirus 229E (PCR) COVID-19 ([facility]) COVID-19 Clin Com Coronavirus NL63 (PCR) Hepatitis A IgG Ab Hep Bs Antigen Hep Bs Antibody Hep B Core Total Ab Hepatitis C Ab (EIA) Hep C Viral Load Hep C Viral Load Log HIV 1&2 Ab/P24 Ag 4thGn Human Metapneumovir PCR Influenza A (RT-PCR) Influenza B (RT-PCR) M. pneumoniae (PCR) Parainfluenza 1 (PCR) Parainfluenza 2 (PCR) Parainfluenza 3 (PCR) Parainfluenza 4 (PCR) RSV (PCR) Entero/Rhino (PCR) SARS-CoV-2 RNA (RT-PCR) Ur Strep pneumoniae Ag Blood Type Antibody Screen Crossmatch Clerical Work Check Hemolysis Bld Bag Check Icterus Blood Bag Check Post-Trans Blood Type Post-Trans MARY IgG Post-Trans MARY Poly 04/22/20 04/22/20 04/22/20 05:27 05:27 05:27 WBC RBC Hgb Hct MCV MCH MCHC RDW Plt Count MPV Immature Gran % (Auto) Neut % (Auto) Lymph % (Auto) [place] % (Auto) Eos % (Auto) Baso % (Auto) Lymph # (Auto) [place] # (Auto) Eos # (Auto) Baso # (Auto) Abs Immat Gran (auto) Absolute Neuts (auto) Absolute Nucleated RBC Nucleated RBC % (auto) Smear Tech's Comments Smear Path Review Absolute Retic Percent Retic Immature Retic Fraction Retic Hgb Equivalent Haptoglobin PT 17.2 H INR 1.4 H APTT PTT (Heparin Protocol) Fibrinogen Sodium 134 L Potassium 4.3 Chloride 101 Carbon Dioxide 25 Anion Gap 12 BUN 49 H Creatinine 1.65 H Estim Creat Clear Calc 41.6 Estimated GFR 41 POC Glucose Random Glucose 167 H Estimat Average Glucose Hemoglobin A1c % Osmolality Uric Acid Calcium 6.9 L Magnesium 2.5 Iron TIBC % Saturation Unsat Iron Binding Ferritin Total Bilirubin 1.2 H Direct Bilirubin GGT AST 95 H ALT 134 H Alkaline Phosphatase 104 Ammonia Lactate Dehydrogenase 215 Total Creatine Kinase Troponin I High Sens B-Natriuretic Peptide Total Protein 4.7 L Albumin 1.9 L Prealbumin Ioooq-[id number]-Tvetdunfobv Ceruloplasmin Triglycerides Cholesterol LDL Cholesterol, Calc HDL Cholesterol Vitamin B12 Folate Procalcitonin 2.93 TSH Cortisol Urine Color Urine Appearance Urine pH Ur Specific [place] Urine Protein Urine Glucose (UA) Urine Ketones Urine Blood Urine Nitrite Ur Leukocyte Esterase Urine RBC Urine WBC Ur Squamous Epith Cells Ur Renal Epithelial Cell Urine Bacteria Granular Casts Other Casts Urine Osmolality Ur Random Sodium Ur Random Uric Acid Urine Creatinine Stool Collect Date Stool Occult Blood Stool 2 Collect Date Stool Occult Blood #2 Stool 3 Collect Date Stool Occult Blood #3 IgG Total IgA Total IgM SIRIA Interpretation Cryoglobulin Cryoglobulin Cryocrit Rheumatoid Factor GABBY Screen GABYB Titer GABBY Titer 2 GABBY Titer 3 GABBY Pattern GABBY Pattern 2 GABBY Pattern 3 Tiss Transglutamin IgG Tiss Transglutamin IgA Free [place] LC, Quant Free Lambda LC, Quant Free [place]/Lambda Ratio Respiratory Panel [place] Adenovirus (Rapid PCR) B.pert (TEM-PCR) B.parapertussis DNA PCR C. pneumoniae DNA (PCR) Coronavirus OC43 (PCR) Coronavirus HKU1 (PCR) Coronavirus 229E (PCR) COVID-19 ([facility]) COVID-19 Clin Com Coronavirus NL63 (PCR) Hepatitis A IgG Ab Hep Bs Antigen Hep Bs Antibody Hep B Core Total Ab Hepatitis C Ab (EIA) Hep C Viral Load Hep C Viral Load Log HIV 1&2 Ab/P24 Ag 4thGn Human Metapneumovir PCR Influenza A (RT-PCR) Influenza B (RT-PCR) M. pneumoniae (PCR) Parainfluenza 1 (PCR) Parainfluenza 2 (PCR) Parainfluenza 3 (PCR) Parainfluenza 4 (PCR) RSV (PCR) Entero/Rhino (PCR) SARS-CoV-2 RNA (RT-PCR) Ur Strep pneumoniae Ag Blood Type Antibody Screen Crossmatch Clerical Work Check Hemolysis Bld Bag Check Icterus Blood Bag Check Post-Trans Blood Type Post-Trans MARY IgG Post-Trans MARY Poly 04/22/20 04/22/20 04/22/20 05:45 05:45 07:57 WBC RBC Hgb Hct MCV MCH MCHC RDW Plt Count MPV Immature Gran % (Auto) Neut % (Auto) Lymph % (Auto) [place] % (Auto) Eos % (Auto) Baso % (Auto) Lymph # (Auto) [place] # (Auto) Eos # (Auto) Baso # (Auto) Abs Immat Gran (auto) Absolute Neuts (auto) Absolute Nucleated RBC Nucleated RBC % (auto) Smear Tech's Comments Smear Path Review Absolute Retic Percent Retic Immature Retic Fraction Retic Hgb Equivalent Haptoglobin PT INR APTT PTT (Heparin Protocol) Fibrinogen Sodium Potassium Chloride Carbon Dioxide Anion Gap BUN Creatinine Estim Creat Clear Calc Estimated GFR POC Glucose 143 H Random Glucose Estimat Average Glucose Hemoglobin A1c % Osmolality Uric Acid Calcium Magnesium Iron TIBC % Saturation Unsat Iron Binding Ferritin Total Bilirubin Direct Bilirubin GGT AST ALT Alkaline Phosphatase Ammonia Lactate Dehydrogenase Total Creatine Kinase Troponin I High Sens B-Natriuretic Peptide Total Protein Albumin Prealbumin [id number] Ceruloplasmin Triglycerides Cholesterol LDL Cholesterol, Calc HDL Cholesterol Vitamin B12 Folate Procalcitonin TSH Cortisol Urine Color Urine Appearance Urine pH Ur Specific [place] Urine Protein Urine Glucose (UA) Urine Ketones Urine Blood Urine Nitrite Ur Leukocyte Esterase Urine RBC Urine WBC Ur Squamous Epith Cells Ur Renal Epithelial Cell Urine Bacteria Granular Casts Other Casts Urine Osmolality Ur Random Sodium Ur Random Uric Acid Urine Creatinine Stool Collect Date Stool Occult Blood Stool 2 Collect Date Stool Occult Blood #2 Stool 3 Collect Date Stool Occult Blood #3 IgG Total IgA Total IgM SIRIA Interpretation Cryoglobulin Cryoglobulin Cryocrit Rheumatoid Factor GABBY Screen GABBY Titer GABBY Titer 2 GABBY Titer 3 GABBY Pattern GABBY Pattern 2 GABBY Pattern 3 Tiss Transglutamin IgG Tiss Transglutamin IgA Free [place] LC, Quant Free Lambda LC, Quant Free [place]/Lambda Ratio Respiratory Panel [place] Adenovirus (Rapid PCR) B.pert (TEM-PCR) B.parapertussis DNA PCR C. pneumoniae DNA (PCR) Coronavirus OC43 (PCR) Coronavirus HKU1 (PCR) Coronavirus 229E (PCR) COVID-19 ([facility]) COVID-19 Clin Com Coronavirus NL63 (PCR) Hepatitis A IgG Ab REACTIVE Hep Bs Antigen Hep Bs Antibody Hep B Core Total Ab Hepatitis C Ab (EIA) Hep C Viral Load <15 NOT DETECTED Hep C Viral Load Log <1.18 NOT DETECTED HIV 1&2 Ab/P24 Ag 4thGn Human Metapneumovir PCR Influenza A (RT-PCR) Influenza B (RT-PCR) M. pneumoniae (PCR) Parainfluenza 1 (PCR) Parainfluenza 2 (PCR) Parainfluenza 3 (PCR) Parainfluenza 4 (PCR) RSV (PCR) Entero/Rhino (PCR) SARS-CoV-2 RNA (RT-PCR) Ur Strep pneumoniae Ag Blood Type Antibody Screen Crossmatch Clerical Work Check Hemolysis Bld Bag Check Icterus Blood Bag Check Post-Trans Blood Type Post-Trans MARY IgG Post-Trans MARY Poly 04/22/20 04/22/20 04/22/20 12:14 14:17 14:17 WBC RBC Hgb Hct MCV MCH MCHC RDW Plt Count MPV Immature Gran % (Auto) Neut % (Auto) Lymph % (Auto) [place] % (Auto) Eos % (Auto) Baso % (Auto) Lymph # (Auto) [place] # (Auto) Eos # (Auto) Baso # (Auto) Abs Immat Gran (auto) Absolute Neuts (auto) Absolute Nucleated RBC Nucleated RBC % (auto) Smear Tech's Comments Smear Path Review Absolute Retic Percent Retic Immature Retic Fraction Retic Hgb Equivalent Haptoglobin PT INR APTT PTT (Heparin Protocol) Fibrinogen Sodium Potassium Chloride Carbon Dioxide Anion Gap BUN Creatinine Estim Creat Clear Calc Estimated GFR POC Glucose 217 H Random Glucose Estimat Average Glucose Hemoglobin A1c % Osmolality Uric Acid Calcium Magnesium Iron TIBC % Saturation Unsat Iron Binding Ferritin Total Bilirubin Direct Bilirubin GGT AST ALT Alkaline Phosphatase Ammonia Lactate Dehydrogenase Total Creatine Kinase Troponin I High Sens B-Natriuretic Peptide Total Protein Albumin Prealbumin Levae-4-Iuxgkdhagsf Ceruloplasmin Triglycerides Cholesterol LDL Cholesterol, Calc HDL Cholesterol Vitamin B12 Folate Procalcitonin TSH Cortisol Urine Color YELLOW Urine Appearance CLOUDY Urine pH 5.0 Ur Specific [place] 1.025 Urine Protein 1+ H Urine Glucose (UA) NEG Urine Ketones NEG Urine Blood 3+ H Urine Nitrite NEG Ur Leukocyte Esterase TRACE H Urine RBC TNTC H Urine WBC 5-9 H Ur Squamous Epith Cells TRACE Ur Renal Epithelial Cell TRACE Urine Bacteria 2+ Granular Casts 1-4 Other Casts 1-4 Urine Osmolality Ur Random Sodium Ur Random Uric Acid Urine Creatinine Stool Collect Date Stool Occult Blood Stool 2 Collect Date Stool Occult Blood #2 Stool 3 Collect Date Stool Occult Blood #3 IgG Total IgA Total IgM SIRIA Interpretation Cryoglobulin Cryoglobulin Cryocrit Rheumatoid Factor GABBY Screen GABBY Titer GABBY Titer 2 GABBY Titer 3 GABBY Pattern GABBY Pattern 2 GABBY Pattern 3 Tiss Transglutamin IgG Tiss Transglutamin IgA Free [place] LC, Quant Free Lambda LC, Quant Free [place]/Lambda Ratio Respiratory Panel [place] Adenovirus (Rapid PCR) B.pert (TEM-PCR) B.parapertussis DNA PCR C. pneumoniae DNA (PCR) Coronavirus OC43 (PCR) Coronavirus HKU1 (PCR) Coronavirus 229E (PCR) COVID-19 ([facility]) COVID-19 Clin Com Coronavirus NL63 (PCR) Hepatitis A IgG Ab Hep Bs Antigen Hep Bs Antibody Hep B Core Total Ab Hepatitis C Ab (EIA) Hep C Viral Load Hep C Viral Load Log HIV 1&2 Ab/P24 Ag 4thGn Human Metapneumovir PCR Influenza A (RT-PCR) Influenza B (RT-PCR) M. pneumoniae (PCR) Parainfluenza 1 (PCR) Parainfluenza 2 (PCR) Parainfluenza 3 (PCR) Parainfluenza 4 (PCR) RSV (PCR) Entero/Rhino (PCR) SARS-CoV-2 RNA (RT-PCR) Ur Strep pneumoniae Ag Not Detected Blood Type Antibody Screen Crossmatch Clerical Work Check Hemolysis Bld Bag Check Icterus Blood Bag Check Post-Trans Blood Type Post-Trans MARY IgG Post-Trans MARY Poly 04/22/20 04/22/20 04/22/20 14:17 17:01 20:28 WBC RBC Hgb Hct MCV MCH MCHC RDW Plt Count MPV Immature Gran % (Auto) Neut % (Auto) Lymph % (Auto) [place] % (Auto) Eos % (Auto) Baso % (Auto) Lymph # (Auto) [place] # (Auto) Eos # (Auto) Baso # (Auto) Abs Immat Gran (auto) Absolute Neuts (auto) Absolute Nucleated RBC Nucleated RBC % (auto) Smear Tech's Comments Smear Path Review Absolute Retic Percent Retic Immature Retic Fraction Retic Hgb Equivalent Haptoglobin PT INR APTT PTT (Heparin Protocol) Fibrinogen Sodium Potassium Chloride Carbon Dioxide Anion Gap BUN Creatinine Estim Creat Clear Calc Estimated GFR POC Glucose 253 H 184 H Random Glucose Estimat Average Glucose Hemoglobin A1c % Osmolality Uric Acid Calcium Magnesium Iron TIBC % Saturation Unsat Iron Binding Ferritin Total Bilirubin Direct Bilirubin GGT AST ALT Alkaline Phosphatase Ammonia Lactate Dehydrogenase Total Creatine Kinase Troponin I High Sens B-Natriuretic Peptide Total Protein Albumin Prealbumin Nirkx-0-Yuhgeqxoruw Ceruloplasmin Triglycerides Cholesterol LDL Cholesterol, Calc HDL Cholesterol Vitamin B12 Folate Procalcitonin TSH Cortisol Urine Color Urine Appearance Urine pH Ur Specific [place] Urine Protein Urine Glucose (UA) Urine Ketones Urine Blood Urine Nitrite Ur Leukocyte Esterase Urine RBC Urine WBC Ur Squamous Epith Cells Ur Renal Epithelial Cell Urine Bacteria Granular Casts Other Casts Urine Osmolality Ur Random Sodium < 20.0 Ur Random Uric Acid Urine Creatinine 130.51 Stool Collect Date Stool Occult Blood Stool 2 Collect Date Stool Occult Blood #2 Stool 3 Collect Date Stool Occult Blood #3 IgG Total IgA Total IgM SIRIA Interpretation Cryoglobulin Cryoglobulin Cryocrit Rheumatoid Factor GABBY Screen GABBY Titer GABBY Titer 2 GABBY Titer 3 GABBY Pattern GABBY Pattern 2 GABBY Pattern 3 Tiss Transglutamin IgG Tiss Transglutamin IgA Free [place] LC, Quant Free Lambda LC, Quant Free [place]/Lambda Ratio Respiratory Panel [place] Adenovirus (Rapid PCR) B.pert (TEM-PCR) B.parapertussis DNA PCR C. pneumoniae DNA (PCR) Coronavirus OC43 (PCR) Coronavirus HKU1 (PCR) Coronavirus 229E (PCR) COVID-19 ([facility]) COVID-19 Clin Com Coronavirus NL63 (PCR) Hepatitis A IgG Ab Hep Bs Antigen Hep Bs Antibody Hep B Core Total Ab Hepatitis C Ab (EIA) Hep C Viral Load Hep C Viral Load Log HIV 1&2 Ab/P24 Ag 4thGn Human Metapneumovir PCR Influenza A (RT-PCR) Influenza B (RT-PCR) M. pneumoniae (PCR) Parainfluenza 1 (PCR) Parainfluenza 2 (PCR) Parainfluenza 3 (PCR) Parainfluenza 4 (PCR) RSV (PCR) Entero/Rhino (PCR) SARS-CoV-2 RNA (RT-PCR) Ur Strep pneumoniae Ag Blood Type Antibody Screen Crossmatch Clerical Work Check Hemolysis Bld Bag Check Icterus Blood Bag Check Post-Trans Blood Type Post-Trans MARY IgG Post-Trans MARY Poly 04/23/20 04/23/20 04/23/20 05:10 05:43 05:43 WBC 11.6 H RBC 2.93 L Hgb 7.7 L Hct 24.5 L MCV 83.6 MCH 26.3 L MCHC 31.4 RDW 15.3 Plt Count 70 L MPV 11.1 Immature Gran % (Auto) 0.8 H Neut % (Auto) 80.3 H Lymph % (Auto) 10.2 L [place] % (Auto) 8.5 Eos % (Auto) 0.0 Baso % (Auto) 0.2 Lymph # (Auto) 1.2 [place] # (Auto) 1.0 Eos # (Auto) 0.0 Baso # (Auto) 0.0 Abs Immat Gran (auto) 0.09 H Absolute Neuts (auto) 9.3 H Absolute Nucleated RBC 0.000 Nucleated RBC % (auto) 0.0 Smear Tech's Comments Smear Path Review Absolute Retic Percent Retic Immature Retic Fraction Retic Hgb Equivalent Haptoglobin PT INR APTT PTT (Heparin Protocol) Fibrinogen Sodium 130 L Potassium 4.9 Chloride 99 Carbon Dioxide 21 L Anion Gap 15 BUN 58 H Creatinine 1.92 H Estim Creat Clear Calc 35.8 Estimated GFR 35 POC Glucose Random Glucose 249 H D Estimat Average Glucose Hemoglobin A1c % Osmolality Uric Acid Calcium 7.1 L Magnesium 2.2 Iron TIBC % Saturation Unsat Iron Binding Ferritin Total Bilirubin 1.3 H Direct Bilirubin GGT AST 77 H ALT 88 H Alkaline Phosphatase 89 Ammonia Lactate Dehydrogenase Total Creatine Kinase Troponin I High Sens B-Natriuretic Peptide Total Protein 5.0 L Albumin 2.6 L D Prealbumin Wopfw-5-Rqkrnkywjco Ceruloplasmin Triglycerides Cholesterol LDL Cholesterol, Calc HDL Cholesterol Vitamin B12 Folate Procalcitonin TSH Cortisol Urine Color Urine Appearance Urine pH Ur Specific [place] Urine Protein Urine Glucose (UA) Urine Ketones Urine Blood Urine Nitrite Ur Leukocyte Esterase Urine RBC Urine WBC Ur Squamous Epith Cells Ur Renal Epithelial Cell Urine Bacteria Granular Casts Other Casts Urine Osmolality Ur Random Sodium Ur Random Uric Acid Urine Creatinine Stool Collect Date Stool Occult Blood Stool 2 Collect Date Stool Occult Blood #2 Stool 3 Collect Date Stool Occult Blood #3 IgG Total IgA Total IgM SIRIA Interpretation Cryoglobulin Cryoglobulin Cryocrit Rheumatoid Factor GABBY Screen GABBY Titer GABBY Titer 2 GABBY Titer 3 GABBY Pattern GABBY Pattern 2 GABBY Pattern 3 Tiss Transglutamin IgG Tiss Transglutamin IgA Free [place] LC, Quant Free Lambda LC, Quant Free [place]/Lambda Ratio Respiratory Panel [place] See Note Adenovirus (Rapid PCR) Not Detected B.pert (TEM-PCR) Not Detected B.parapertussis DNA PCR Not Detected C. pneumoniae DNA (PCR) Not Detected Coronavirus OC43 (PCR) Not Detected Coronavirus HKU1 (PCR) Not Detected Coronavirus 229E (PCR) Not Detected COVID-19 ([facility]) COVID-19 Clin Com Coronavirus NL63 (PCR) Not Detected Hepatitis A IgG Ab Hep Bs Antigen Hep Bs Antibody Hep B Core Total Ab Hepatitis C Ab (EIA) Hep C Viral Load Hep C Viral Load Log HIV 1&2 Ab/P24 Ag 4thGn Human Metapneumovir PCR Not Detected Influenza A (RT-PCR) Not Detected Influenza B (RT-PCR) Not Detected M. pneumoniae (PCR) Not Detected Parainfluenza 1 (PCR) Not Detected Parainfluenza 2 (PCR) Not Detected Parainfluenza 3 (PCR) Not Detected Parainfluenza 4 (PCR) Not Detected RSV (PCR) Not Detected Entero/Rhino (PCR) Not Detected SARS-CoV-2 RNA (RT-PCR) Not Detected Ur Strep pneumoniae Ag Blood Type Antibody Screen Crossmatch Clerical Work Check Hemolysis Bld Bag Check Icterus Blood Bag Check Post-Trans Blood Type Post-Trans MARY IgG Post-Trans MARY Poly 04/23/20 04/23/20 04/23/20 05:43 05:43 05:43 WBC RBC Hgb Hct MCV MCH MCHC RDW Plt Count MPV Immature Gran % (Auto) Neut % (Auto) Lymph % (Auto) [place] % (Auto) Eos % (Auto) Baso % (Auto) Lymph # (Auto) [place] # (Auto) Eos # (Auto) Baso # (Auto) Abs Immat Gran (auto) Absolute Neuts (auto) Absolute Nucleated RBC Nucleated RBC % (auto) Smear Tech's Comments Smear Path Review Absolute Retic Percent Retic Immature Retic Fraction Retic Hgb Equivalent Haptoglobin PT 17.5 H INR 1.5 H APTT 36.4 PTT (Heparin Protocol) Fibrinogen 398 Sodium Potassium Chloride Carbon Dioxide Anion Gap BUN Creatinine Estim Creat Clear Calc Estimated GFR POC Glucose Random Glucose Estimat Average Glucose Hemoglobin A1c % Osmolality Uric Acid Calcium Magnesium Iron TIBC % Saturation Unsat Iron Binding Ferritin Total Bilirubin Direct Bilirubin GGT 31 AST ALT Alkaline Phosphatase Ammonia 40 Lactate Dehydrogenase Total Creatine Kinase Troponin I High Sens B-Natriuretic Peptide Total Protein Albumin Prealbumin Gcver-3-Otpzlxcfeso Ceruloplasmin Triglycerides Cholesterol LDL Cholesterol, Calc HDL Cholesterol Vitamin B12 Folate Procalcitonin TSH Cortisol Urine Color Urine Appearance Urine pH Ur Specific [place] Urine Protein Urine Glucose (UA) Urine Ketones Urine Blood Urine Nitrite Ur Leukocyte Esterase Urine RBC Urine WBC Ur Squamous Epith Cells Ur Renal Epithelial Cell Urine Bacteria Granular Casts Other Casts Urine Osmolality Ur Random Sodium Ur Random Uric Acid Urine Creatinine Stool Collect Date Stool Occult Blood Stool 2 Collect Date Stool Occult Blood #2 Stool 3 Collect Date Stool Occult Blood #3 IgG Total IgA Total IgM SIRIA Interpretation Cryoglobulin Cryoglobulin Cryocrit Rheumatoid Factor GABBY Screen GABBY Titer GABBY Titer 2 GABBY Titer 3 GABBY Pattern GABBY Pattern 2 GABBY Pattern 3 Tiss Transglutamin IgG Tiss Transglutamin IgA Free [place] LC, Quant Free Lambda LC, Quant Free [place]/Lambda Ratio Respiratory Panel [place] Adenovirus (Rapid PCR) B.pert (TEM-PCR) B.parapertussis DNA PCR C. pneumoniae DNA (PCR) Coronavirus OC43 (PCR) Coronavirus HKU1 (PCR) Coronavirus 229E (PCR) COVID-19 ([facility]) COVID-19 Clin Com Coronavirus NL63 (PCR) Hepatitis A IgG Ab Hep Bs Antigen Hep Bs Antibody Hep B Core Total Ab Hepatitis C Ab (EIA) Hep C Viral Load Hep C Viral Load Log HIV 1&2 Ab/P24 Ag 4thGn Human Metapneumovir PCR Influenza A (RT-PCR) Influenza B (RT-PCR) M. pneumoniae (PCR) Parainfluenza 1 (PCR) Parainfluenza 2 (PCR) Parainfluenza 3 (PCR) Parainfluenza 4 (PCR) RSV (PCR) Entero/Rhino (PCR) SARS-CoV-2 RNA (RT-PCR) Ur Strep pneumoniae Ag Blood Type Antibody Screen Crossmatch Clerical Work Check Hemolysis Bld Bag Check Icterus Blood Bag Check Post-Trans Blood Type Post-Trans MARY IgG Post-Trans MARY Poly 04/23/20 04/23/20 04/23/20 05:43 05:43 07:38 WBC RBC Hgb Hct MCV MCH MCHC RDW Plt Count MPV Immature Gran % (Auto) Neut % (Auto) Lymph % (Auto) [place] % (Auto) Eos % (Auto) Baso % (Auto) Lymph # (Auto) [place] # (Auto) Eos # (Auto) Baso # (Auto) Abs Immat Gran (auto) Absolute Neuts (auto) Absolute Nucleated RBC Nucleated RBC % (auto) Smear Tech's Comments Smear Path Review Absolute Retic Percent Retic Immature Retic Fraction Retic Hgb Equivalent Haptoglobin PT INR APTT PTT (Heparin Protocol) Fibrinogen Sodium Potassium Chloride Carbon Dioxide Anion Gap BUN Creatinine Estim Creat Clear Calc Estimated GFR POC Glucose 247 H Random Glucose Estimat Average Glucose Hemoglobin A1c % Osmolality Uric Acid Calcium Magnesium Iron TIBC % Saturation Unsat Iron Binding Ferritin Total Bilirubin Direct Bilirubin GGT AST ALT Alkaline Phosphatase Ammonia Lactate Dehydrogenase 291 H Total Creatine Kinase 385 H Troponin I High Sens B-Natriuretic Peptide Total Protein Albumin Prealbumin 4.0 L Ivazp-[id number] Ceruloplasmin Triglycerides Cholesterol LDL Cholesterol, Calc HDL Cholesterol Vitamin B12 Folate Procalcitonin TSH Cortisol Urine Color Urine Appearance Urine pH Ur Specific [place] Urine Protein Urine Glucose (UA) Urine Ketones Urine Blood Urine Nitrite Ur Leukocyte Esterase Urine RBC Urine WBC Ur Squamous Epith Cells Ur Renal Epithelial Cell Urine Bacteria Granular Casts Other Casts Urine Osmolality Ur Random Sodium Ur Random Uric Acid Urine Creatinine Stool Collect Date Stool Occult Blood Stool 2 Collect Date Stool Occult Blood #2 Stool 3 Collect Date Stool Occult Blood #3 IgG Total IgA Total IgM SIRIA Interpretation Cryoglobulin Cryoglobulin Cryocrit Rheumatoid Factor GABBY Screen GABBY Titer GABBY Titer 2 GABBY Titer 3 GABBY Pattern GABBY Pattern 2 GABBY Pattern 3 Tiss Transglutamin IgG Tiss Transglutamin IgA Free [place] LC, Quant Free Lambda LC, Quant Free [place]/Lambda Ratio Respiratory Panel [place] Adenovirus (Rapid PCR) B.pert (TEM-PCR) B.parapertussis DNA PCR C. pneumoniae DNA (PCR) Coronavirus OC43 (PCR) Coronavirus HKU1 (PCR) Coronavirus 229E (PCR) COVID-19 ([facility]) COVID-19 Clin Com Coronavirus NL63 (PCR) Hepatitis A IgG Ab Hep Bs Antigen Hep Bs Antibody Hep B Core Total Ab Hepatitis C Ab (EIA) Hep C Viral Load Hep C Viral Load Log HIV 1&2 Ab/P24 Ag 4thGn Human Metapneumovir PCR Influenza A (RT-PCR) Influenza B (RT-PCR) M. pneumoniae (PCR) Parainfluenza 1 (PCR) Parainfluenza 2 (PCR) Parainfluenza 3 (PCR) Parainfluenza 4 (PCR) RSV (PCR) Entero/Rhino (PCR) SARS-CoV-2 RNA (RT-PCR) Ur Strep pneumoniae Ag Blood Type Antibody Screen Crossmatch Clerical Work Check Hemolysis Bld Bag Check Icterus Blood Bag Check Post-Trans Blood Type Post-Trans MARY IgG Post-Trans MARY Poly 04/23/20 04/23/20 04/23/20 11:25 16:14 19:42 WBC RBC Hgb Hct MCV MCH MCHC RDW Plt Count MPV Immature Gran % (Auto) Neut % (Auto) Lymph % (Auto) [place] % (Auto) Eos % (Auto) Baso % (Auto) Lymph # (Auto) [place] # (Auto) Eos # (Auto) Baso # (Auto) Abs Immat Gran (auto) Absolute Neuts (auto) Absolute Nucleated RBC Nucleated RBC % (auto) Smear Tech's Comments Smear Path Review Absolute Retic Percent Retic Immature Retic Fraction Retic Hgb Equivalent Haptoglobin PT INR APTT PTT (Heparin Protocol) Fibrinogen Sodium Potassium Chloride Carbon Dioxide Anion Gap BUN Creatinine Estim Creat Clear Calc Estimated GFR POC Glucose 246 H 193 H 239 H Random Glucose Estimat Average Glucose Hemoglobin A1c % Osmolality Uric Acid Calcium Magnesium Iron TIBC % Saturation Unsat Iron Binding Ferritin Total Bilirubin Direct Bilirubin GGT AST ALT Alkaline Phosphatase Ammonia Lactate Dehydrogenase Total Creatine Kinase Troponin I High Sens B-Natriuretic Peptide Total Protein Albumin Prealbumin Ovrbl-[id number] Ceruloplasmin Triglycerides Cholesterol LDL Cholesterol, Calc HDL Cholesterol Vitamin B12 Folate Procalcitonin TSH Cortisol Urine Color Urine Appearance Urine pH Ur Specific [place] Urine Protein Urine Glucose (UA) Urine Ketones Urine Blood Urine Nitrite Ur Leukocyte Esterase Urine RBC Urine WBC Ur Squamous Epith Cells Ur Renal Epithelial Cell Urine Bacteria Granular Casts Other Casts Urine Osmolality Ur Random Sodium Ur Random Uric Acid Urine Creatinine Stool Collect Date Stool Occult Blood Stool 2 Collect Date Stool Occult Blood #2 Stool 3 Collect Date Stool Occult Blood #3 IgG Total IgA Total IgM SIRIA Interpretation Cryoglobulin Cryoglobulin Cryocrit Rheumatoid Factor GABBY Screen GABBY Titer GABBY Titer 2 GABBY Titer 3 GABBY Pattern GABBY Pattern 2 GABBY Pattern 3 Tiss Transglutamin IgG Tiss Transglutamin IgA Free [place] LC, Quant Free Lambda LC, Quant Free [place]/Lambda Ratio Respiratory Panel [place] Adenovirus (Rapid PCR) B.pert (TEM-PCR) B.parapertussis DNA PCR C. pneumoniae DNA (PCR) Coronavirus OC43 (PCR) Coronavirus HKU1 (PCR) Coronavirus 229E (PCR) COVID-19 ([facility]) COVID-19 Clin Com Coronavirus NL63 (PCR) Hepatitis A IgG Ab Hep Bs Antigen Hep Bs Antibody Hep B Core Total Ab Hepatitis C Ab (EIA) Hep C Viral Load Hep C Viral Load Log HIV 1&2 Ab/P24 Ag 4thGn Human Metapneumovir PCR Influenza A (RT-PCR) Influenza B (RT-PCR) M. pneumoniae (PCR) Parainfluenza 1 (PCR) Parainfluenza 2 (PCR) Parainfluenza 3 (PCR) Parainfluenza 4 (PCR) RSV (PCR) Entero/Rhino (PCR) SARS-CoV-2 RNA (RT-PCR) Ur Strep pneumoniae Ag Blood Type Antibody Screen Crossmatch Clerical Work Check Hemolysis Bld Bag Check Icterus Blood Bag Check Post-Trans Blood Type Post-Trans MARY IgG Post-Trans MARY Poly 04/24/20 04/24/20 04/24/20 06:31 06:31 06:31 WBC 15.4 H RBC 3.22 L Hgb 8.6 L Hct 27.1 L MCV 84.2 MCH 26.7 L MCHC 31.7 RDW 15.2 Plt Count 117 L D MPV 10.7 Immature Gran % (Auto) 0.7 H Neut % (Auto) 82.2 H Lymph % (Auto) 10.0 L [place] % (Auto) 6.9 Eos % (Auto) 0.1 Baso % (Auto) 0.1 Lymph # (Auto) 1.5 [place] # (Auto) 1.1 Eos # (Auto) 0.0 Baso # (Auto) 0.0 Abs Immat Gran (auto) 0.10 H Absolute Neuts (auto) 12.7 H Absolute Nucleated RBC 0.000 Nucleated RBC % (auto) 0.0 Smear Tech's Comments Smear Path Review Absolute Retic Percent Retic Immature Retic Fraction Retic Hgb Equivalent Haptoglobin PT INR APTT PTT (Heparin Protocol) Fibrinogen Sodium Potassium Chloride Carbon Dioxide Anion Gap BUN Creatinine Estim Creat Clear Calc Estimated GFR POC Glucose Random Glucose Estimat Average Glucose Hemoglobin A1c % Osmolality Uric Acid Calcium Magnesium Iron TIBC % Saturation Unsat Iron Binding Ferritin Total Bilirubin Direct Bilirubin GGT AST ALT Alkaline Phosphatase Ammonia Lactate Dehydrogenase Total Creatine Kinase Troponin I High Sens B-Natriuretic Peptide Total Protein Albumin Prealbumin Kilzd-4-Ucnryzqowob Ceruloplasmin Triglycerides Cholesterol LDL Cholesterol, Calc HDL Cholesterol Vitamin B12 Folate Procalcitonin TSH Cortisol Urine Color Urine Appearance Urine pH Ur Specific [place] Urine Protein Urine Glucose (UA) Urine Ketones Urine Blood Urine Nitrite Ur Leukocyte Esterase Urine RBC Urine WBC Ur Squamous Epith Cells Ur Renal Epithelial Cell Urine Bacteria Granular Casts Other Casts Urine Osmolality Ur Random Sodium Ur Random Uric Acid Urine Creatinine Stool Collect Date Stool Occult Blood Stool 2 Collect Date Stool Occult Blood #2 Stool 3 Collect Date Stool Occult Blood #3 IgG Total IgA Total IgM SIRIA Interpretation Cryoglobulin Cancelled Cryoglobulin Cryocrit Cancelled Rheumatoid Factor 18.4 H GABBY Screen GABBY Titer GABBY Titer 2 GABBY Titer 3 GABBY Pattern GABBY Pattern 2 GABBY Pattern 3 Tiss Transglutamin IgG Tiss Transglutamin IgA Free [place] LC, Quant Free Lambda LC, Quant Free [place]/Lambda Ratio Respiratory Panel [place] Adenovirus (Rapid PCR) B.pert (TEM-PCR) B.parapertussis DNA PCR C. pneumoniae DNA (PCR) Coronavirus OC43 (PCR) Coronavirus HKU1 (PCR) Coronavirus 229E (PCR) COVID-19 ([facility]) COVID-19 Clin Com Coronavirus NL63 (PCR) Hepatitis A IgG Ab Hep Bs Antigen Hep Bs Antibody Hep B Core Total Ab Hepatitis C Ab (EIA) Hep C Viral Load Hep C Viral Load Log HIV 1&2 Ab/P24 Ag 4thGn Human Metapneumovir PCR Influenza A (RT-PCR) Influenza B (RT-PCR) M. pneumoniae (PCR) Parainfluenza 1 (PCR) Parainfluenza 2 (PCR) Parainfluenza 3 (PCR) Parainfluenza 4 (PCR) RSV (PCR) Entero/Rhino (PCR) SARS-CoV-2 RNA (RT-PCR) Ur Strep pneumoniae Ag Blood Type Antibody Screen Crossmatch Clerical Work Check Hemolysis Bld Bag Check Icterus Blood Bag Check Post-Trans Blood Type Post-Trans MARY IgG Post-Trans MARY Poly 04/24/20 04/24/20 04/24/20 06:31 06:31 06:31 WBC RBC Hgb Hct MCV MCH MCHC RDW Plt Count MPV Immature Gran % (Auto) Neut % (Auto) Lymph % (Auto) [place] % (Auto) Eos % (Auto) Baso % (Auto) Lymph # (Auto) [place] # (Auto) Eos # (Auto) Baso # (Auto) Abs Immat Gran (auto) Absolute Neuts (auto) Absolute Nucleated RBC Nucleated RBC % (auto) Smear Tech's Comments Smear Path Review Absolute Retic Percent Retic Immature Retic Fraction Retic Hgb Equivalent Haptoglobin PT INR APTT PTT (Heparin Protocol) Fibrinogen Sodium 132 L Potassium 4.9 Chloride 102 Carbon Dioxide 22 Anion Gap 13 BUN 56 H Creatinine 1.92 H Estim Creat Clear Calc 35.8 Estimated GFR 35 POC Glucose Random Glucose 215 H Estimat Average Glucose Hemoglobin A1c % Osmolality Uric Acid Calcium 7.6 L D Magnesium 2.4 Iron TIBC % Saturation Unsat Iron Binding Ferritin Total Bilirubin 1.2 H Direct Bilirubin GGT AST 32 D ALT 59 H Alkaline Phosphatase 83 Ammonia 31 Lactate Dehydrogenase Total Creatine Kinase Troponin I High Sens B-Natriuretic Peptide 2905 H Total Protein 5.4 L Albumin 3.0 L Prealbumin Npvpa-0-Ezomxlzincr Ceruloplasmin Triglycerides Cholesterol LDL Cholesterol, Calc HDL Cholesterol Vitamin B12 Folate Procalcitonin TSH Cortisol Urine Color Urine Appearance Urine pH Ur Specific [place] Urine Protein Urine Glucose (UA) Urine Ketones Urine Blood Urine Nitrite Ur Leukocyte Esterase Urine RBC Urine WBC Ur Squamous Epith Cells Ur Renal Epithelial Cell Urine Bacteria Granular Casts Other Casts Urine Osmolality Ur Random Sodium Ur Random Uric Acid Urine Creatinine Stool Collect Date Stool Occult Blood Stool 2 Collect Date Stool Occult Blood #2 Stool 3 Collect Date Stool Occult Blood #3 IgG Total IgA Total IgM SIRIA Interpretation Cryoglobulin Cryoglobulin Cryocrit Rheumatoid Factor GABBY Screen GABBY Titer GABBY Titer 2 GABBY Titer 3 GABBY Pattern GABBY Pattern 2 GABBY Pattern 3 Tiss Transglutamin IgG Tiss Transglutamin IgA Free [place] LC, Quant Free Lambda LC, Quant Free [place]/Lambda Ratio Respiratory Panel [place] Adenovirus (Rapid PCR) B.pert (TEM-PCR) B.parapertussis DNA PCR C. pneumoniae DNA (PCR) Coronavirus OC43 (PCR) Coronavirus HKU1 (PCR) Coronavirus 229E (PCR) COVID-19 ([facility]) COVID-19 Clin Com Coronavirus NL63 (PCR) Hepatitis A IgG Ab Hep Bs Antigen Hep Bs Antibody Hep B Core Total Ab Hepatitis C Ab (EIA) Hep C Viral Load Hep C Viral Load Log HIV 1&2 Ab/P24 Ag 4thGn Human Metapneumovir PCR Influenza A (RT-PCR) Influenza B (RT-PCR) M. pneumoniae (PCR) Parainfluenza 1 (PCR) Parainfluenza 2 (PCR) Parainfluenza 3 (PCR) Parainfluenza 4 (PCR) RSV (PCR) Entero/Rhino (PCR) SARS-CoV-2 RNA (RT-PCR) Ur Strep pneumoniae Ag Blood Type Antibody Screen Crossmatch Clerical Work Check Hemolysis Bld Bag Check Icterus Blood Bag Check Post-Trans Blood Type Post-Trans MARY IgG Post-Trans MARY Poly 04/24/20 04/24/20 04/24/20 06:31 06:31 07:11 WBC RBC Hgb Hct MCV MCH MCHC RDW Plt Count MPV Immature Gran % (Auto) Neut % (Auto) Lymph % (Auto) [place] % (Auto) Eos % (Auto) Baso % (Auto) Lymph # (Auto) [place] # (Auto) Eos # (Auto) Baso # (Auto) Abs Immat Gran (auto) Absolute Neuts (auto) Absolute Nucleated RBC Nucleated RBC % (auto) Smear Tech's Comments Smear Path Review Absolute Retic Percent Retic Immature Retic Fraction Retic Hgb Equivalent Haptoglobin PT 16.4 H INR 1.4 H APTT PTT (Heparin Protocol) Fibrinogen Sodium Potassium Chloride Carbon Dioxide Anion Gap BUN Creatinine Estim Creat Clear Calc Estimated GFR POC Glucose 204 H Random Glucose Estimat Average Glucose Hemoglobin A1c % Osmolality Uric Acid Calcium Magnesium Iron TIBC % Saturation Unsat Iron Binding Ferritin Total Bilirubin Direct Bilirubin GGT AST ALT Alkaline Phosphatase Ammonia Lactate Dehydrogenase Total Creatine Kinase Troponin I High Sens B-Natriuretic Peptide Total Protein Albumin Prealbumin Zegai-8-Dtsejezuuuc Ceruloplasmin Triglycerides Cholesterol LDL Cholesterol, Calc HDL Cholesterol Vitamin B12 Folate Procalcitonin 11.14 TSH Cortisol Urine Color Urine Appearance Urine pH Ur Specific [place] Urine Protein Urine Glucose (UA) Urine Ketones Urine Blood Urine Nitrite Ur Leukocyte Esterase Urine RBC Urine WBC Ur Squamous Epith Cells Ur Renal Epithelial Cell Urine Bacteria Granular Casts Other Casts Urine Osmolality Ur Random Sodium Ur Random Uric Acid Urine Creatinine Stool Collect Date Stool Occult Blood Stool 2 Collect Date Stool Occult Blood #2 Stool 3 Collect Date Stool Occult Blood #3 IgG Total IgA Total IgM SIRIA Interpretation Cryoglobulin Cryoglobulin Cryocrit Rheumatoid Factor GABBY Screen GABBY Titer GABBY Titer 2 GABBY Titer 3 GABBY Pattern GABBY Pattern 2 GABBY Pattern 3 Tiss Transglutamin IgG Tiss Transglutamin IgA Free [place] LC, Quant Free Lambda LC, Quant Free [place]/Lambda Ratio Respiratory Panel [place] Adenovirus (Rapid PCR) B.pert (TEM-PCR) B.parapertussis DNA PCR C. pneumoniae DNA (PCR) Coronavirus OC43 (PCR) Coronavirus HKU1 (PCR) Coronavirus 229E (PCR) COVID-19 ([facility]) COVID-19 Clin Com Coronavirus NL63 (PCR) Hepatitis A IgG Ab Hep Bs Antigen Hep Bs Antibody Hep B Core Total Ab Hepatitis C Ab (EIA) Hep C Viral Load Hep C Viral Load Log HIV 1&2 Ab/P24 Ag 4thGn Human Metapneumovir PCR Influenza A (RT-PCR) Influenza B (RT-PCR) M. pneumoniae (PCR) Parainfluenza 1 (PCR) Parainfluenza 2 (PCR) Parainfluenza 3 (PCR) Parainfluenza 4 (PCR) RSV (PCR) Entero/Rhino (PCR) SARS-CoV-2 RNA (RT-PCR) Ur Strep pneumoniae Ag Blood Type Antibody Screen Crossmatch Clerical Work Check Hemolysis Bld Bag Check Icterus Blood Bag Check Post-Trans Blood Type Post-Trans MARY IgG Post-Trans MARY Poly 04/24/20 04/24/20 04/24/20 11:12 14:29 15:25 WBC RBC Hgb Hct MCV MCH MCHC RDW Plt Count MPV Immature Gran % (Auto) Neut % (Auto) Lymph % (Auto) [place] % (Auto) Eos % (Auto) Baso % (Auto) Lymph # (Auto) [place] # (Auto) Eos # (Auto) Baso # (Auto) Abs Immat Gran (auto) Absolute Neuts (auto) Absolute Nucleated RBC Nucleated RBC % (auto) Smear Tech's Comments Smear Path Review Absolute Retic Percent Retic Immature Retic Fraction Retic Hgb Equivalent Haptoglobin PT INR APTT PTT (Heparin Protocol) 34.7 L Fibrinogen Sodium Potassium Chloride Carbon Dioxide Anion Gap BUN Creatinine Estim Creat Clear Calc Estimated GFR POC Glucose 210 H 197 H Random Glucose Estimat Average Glucose Hemoglobin A1c % Osmolality Uric Acid Calcium Magnesium Iron TIBC % Saturation Unsat Iron Binding Ferritin Total Bilirubin Direct Bilirubin GGT AST ALT Alkaline Phosphatase Ammonia Lactate Dehydrogenase Total Creatine Kinase Troponin I High Sens B-Natriuretic Peptide Total Protein Albumin Prealbumin Djiyn-7-Noulfrylldx Ceruloplasmin Triglycerides Cholesterol LDL Cholesterol, Calc HDL Cholesterol Vitamin B12 Folate Procalcitonin TSH Cortisol Urine Color Urine Appearance Urine pH Ur Specific [place] Urine Protein Urine Glucose (UA) Urine Ketones Urine Blood Urine Nitrite Ur Leukocyte Esterase Urine RBC Urine WBC Ur Squamous Epith Cells Ur Renal Epithelial Cell Urine Bacteria Granular Casts Other Casts Urine Osmolality Ur Random Sodium Ur Random Uric Acid Urine Creatinine Stool Collect Date Stool Occult Blood Stool 2 Collect Date Stool Occult Blood #2 Stool 3 Collect Date Stool Occult Blood #3 IgG Total IgA Total IgM SIRIA Interpretation Cryoglobulin Cryoglobulin Cryocrit Rheumatoid Factor GABBY Screen GABBY Titer GABBY Titer 2 GABBY Titer 3 GABBY Pattern GABBY Pattern 2 GABBY Pattern 3 Tiss Transglutamin IgG Tiss Transglutamin IgA Free [place] LC, Quant Free Lambda LC, Quant Free [place]/Lambda Ratio Respiratory Panel [place] Adenovirus (Rapid PCR) B.pert (TEM-PCR) B.parapertussis DNA PCR C. pneumoniae DNA (PCR) Coronavirus OC43 (PCR) Coronavirus HKU1 (PCR) Coronavirus 229E (PCR) COVID-19 ([facility]) COVID-19 Clin Com Coronavirus NL63 (PCR) Hepatitis A IgG Ab Hep Bs Antigen Hep Bs Antibody Hep B Core Total Ab Hepatitis C Ab (EIA) Hep C Viral Load Hep C Viral Load Log HIV 1&2 Ab/P24 Ag 4thGn Human Metapneumovir PCR Influenza A (RT-PCR) Influenza B (RT-PCR) M. pneumoniae (PCR) Parainfluenza 1 (PCR) Parainfluenza 2 (PCR) Parainfluenza 3 (PCR) Parainfluenza 4 (PCR) RSV (PCR) Entero/Rhino (PCR) SARS-CoV-2 RNA (RT-PCR) Ur Strep pneumoniae Ag Blood Type Antibody Screen Crossmatch Clerical Work Check Hemolysis Bld Bag Check Icterus Blood Bag Check Post-Trans Blood Type Post-Trans MARY IgG Post-Trans MARY Poly 04/24/20 04/24/20 04/24/20 16:28 20:37 23:11 WBC RBC Hgb Hct MCV MCH MCHC RDW Plt Count MPV Immature Gran % (Auto) Neut % (Auto) Lymph % (Auto) [place] % (Auto) Eos % (Auto) Baso % (Auto) Lymph # (Auto) [place] # (Auto) Eos # (Auto) Baso # (Auto) Abs Immat Gran (auto) Absolute Neuts (auto) Absolute Nucleated RBC Nucleated RBC % (auto) Smear Tech's Comments Smear Path Review Absolute Retic Percent Retic Immature Retic Fraction Retic Hgb Equivalent Haptoglobin PT INR APTT PTT (Heparin Protocol) 42.2 L D Fibrinogen Sodium Potassium Chloride Carbon Dioxide Anion Gap BUN Creatinine Estim Creat Clear Calc Estimated GFR POC Glucose 199 H 267 H Random Glucose Estimat Average Glucose Hemoglobin A1c % Osmolality Uric Acid Calcium Magnesium Iron TIBC % Saturation Unsat Iron Binding Ferritin Total Bilirubin Direct Bilirubin GGT AST ALT Alkaline Phosphatase Ammonia Lactate Dehydrogenase Total Creatine Kinase Troponin I High Sens B-Natriuretic Peptide Total Protein Albumin Prealbumin Icpeo-8-Izvavqpgzqw Ceruloplasmin Triglycerides Cholesterol LDL Cholesterol, Calc HDL Cholesterol Vitamin B12 Folate Procalcitonin TSH Cortisol Urine Color Urine Appearance Urine pH Ur Specific [place] Urine Protein Urine Glucose (UA) Urine Ketones Urine Blood Urine Nitrite Ur Leukocyte Esterase Urine RBC Urine WBC Ur Squamous Epith Cells Ur Renal Epithelial Cell Urine Bacteria Granular Casts Other Casts Urine Osmolality Ur Random Sodium Ur Random Uric Acid Urine Creatinine Stool Collect Date Stool Occult Blood Stool 2 Collect Date Stool Occult Blood #2 Stool 3 Collect Date Stool Occult Blood #3 IgG Total IgA Total IgM SIRIA Interpretation Cryoglobulin Cryoglobulin Cryocrit Rheumatoid Factor GABBY Screen GABBY Titer GABBY Titer 2 GABBY Titer 3 GABBY Pattern GABBY Pattern 2 GABBY Pattern 3 Tiss Transglutamin IgG Tiss Transglutamin IgA Free [place] LC, Quant Free Lambda LC, Quant Free [place]/Lambda Ratio Respiratory Panel [place] Adenovirus (Rapid PCR) B.pert (TEM-PCR) B.parapertussis DNA PCR C. pneumoniae DNA (PCR) Coronavirus OC43 (PCR) Coronavirus HKU1 (PCR) Coronavirus 229E (PCR) COVID-19 ([facility]) COVID-19 Clin Com Coronavirus NL63 (PCR) Hepatitis A IgG Ab Hep Bs Antigen Hep Bs Antibody Hep B Core Total Ab Hepatitis C Ab (EIA) Hep C Viral Load Hep C Viral Load Log HIV 1&2 Ab/P24 Ag 4thGn Human Metapneumovir PCR Influenza A (RT-PCR) Influenza B (RT-PCR) M. pneumoniae (PCR) Parainfluenza 1 (PCR) Parainfluenza 2 (PCR) Parainfluenza 3 (PCR) Parainfluenza 4 (PCR) RSV (PCR) Entero/Rhino (PCR) SARS-CoV-2 RNA (RT-PCR) Ur Strep pneumoniae Ag Blood Type Antibody Screen Crossmatch Clerical Work Check Hemolysis Bld Bag Check Icterus Blood Bag Check Post-Trans Blood Type Post-Trans MARY IgG Post-Trans MARY Poly 04/25/20 04/25/20 04/25/20 02:16 02:16 02:50 WBC 16.8 H RBC 3.24 L Hgb 8.7 L Hct 27.0 L MCV 83.3 MCH 26.9 L MCHC 32.2 RDW 15.3 Plt Count 90 L MPV 9.9 Immature Gran % (Auto) 0.8 H Neut % (Auto) 81.5 H Lymph % (Auto) 9.8 L [place] % (Auto) 7.7 Eos % (Auto) 0.1 Baso % (Auto) 0.1 Lymph # (Auto) 1.7 [place] # (Auto) 1.3 H Eos # (Auto) 0.0 Baso # (Auto) 0.0 Abs Immat Gran (auto) 0.13 H Absolute Neuts (auto) 13.7 H Absolute Nucleated RBC 0.000 Nucleated RBC % (auto) 0.0 Smear Tech's Comments VERIFIED Smear Path Review Absolute Retic Percent Retic Immature Retic Fraction Retic Hgb Equivalent Haptoglobin PT INR APTT PTT (Heparin Protocol) Fibrinogen Sodium Potassium Chloride Carbon Dioxide Anion Gap BUN Creatinine Estim Creat Clear Calc Estimated GFR POC Glucose Random Glucose Estimat Average Glucose Hemoglobin A1c % Osmolality Uric Acid Calcium Magnesium Iron TIBC % Saturation Unsat Iron Binding Ferritin Total Bilirubin Direct Bilirubin GGT AST ALT Alkaline Phosphatase Ammonia Lactate Dehydrogenase Total Creatine Kinase Troponin I High Sens B-Natriuretic Peptide Total Protein Albumin Prealbumin Xdenr-5-Pbdvpwgtjuw Ceruloplasmin Triglycerides Cholesterol LDL Cholesterol, Calc HDL Cholesterol Vitamin B12 Folate Procalcitonin TSH Cortisol Urine Color Urine Appearance Urine pH Ur Specific [place] Urine Protein Urine Glucose (UA) Urine Ketones Urine Blood Urine Nitrite Ur Leukocyte Esterase Urine RBC Urine WBC Ur Squamous Epith Cells Ur Renal Epithelial Cell Urine Bacteria Granular Casts Other Casts Urine Osmolality Ur Random Sodium Ur Random Uric Acid Urine Creatinine Stool Collect Date Cancelled Stool Occult Blood Cancelled POSITIVE Stool 2 Collect Date Cancelled Stool Occult Blood #2 Cancelled Stool 3 Collect Date Cancelled Stool Occult Blood #3 Cancelled IgG Total IgA Total IgM SIRIA Interpretation Cryoglobulin Cryoglobulin Cryocrit Rheumatoid Factor GABBY Screen GABBY Titer GABBY Titer 2 GABBY Titer 3 GABBY Pattern GABBY Pattern 2 GABBY Pattern 3 Tiss Transglutamin IgG Tiss Transglutamin IgA Free [place] LC, Quant Free Lambda LC, Quant Free [place]/Lambda Ratio Respiratory Panel [place] Adenovirus (Rapid PCR) B.pert (TEM-PCR) B.parapertussis DNA PCR C. pneumoniae DNA (PCR) Coronavirus OC43 (PCR) Coronavirus HKU1 (PCR) Coronavirus 229E (PCR) COVID-19 ([facility]) COVID-19 Clin Com Coronavirus NL63 (PCR) Hepatitis A IgG Ab Hep Bs Antigen Hep Bs Antibody Hep B Core Total Ab Hepatitis C Ab (EIA) Hep C Viral Load Hep C Viral Load Log HIV 1&2 Ab/P24 Ag 4thGn Human Metapneumovir PCR Influenza A (RT-PCR) Influenza B (RT-PCR) M. pneumoniae (PCR) Parainfluenza 1 (PCR) Parainfluenza 2 (PCR) Parainfluenza 3 (PCR) Parainfluenza 4 (PCR) RSV (PCR) Entero/Rhino (PCR) SARS-CoV-2 RNA (RT-PCR) Ur Strep pneumoniae Ag Blood Type Antibody Screen Crossmatch Clerical Work Check Hemolysis Bld Bag Check Icterus Blood Bag Check Post-Trans Blood Type Post-Trans MARY IgG Post-Trans MARY Poly 04/25/20 04/25/20 04/25/20 05:09 05:09 05:09 WBC 16.7 H RBC 2.99 L Hgb 8.0 L Hct 24.6 L MCV 82.3 MCH 26.8 L MCHC 32.5 RDW 15.3 Plt Count 116 L D MPV 10.8 Immature Gran % (Auto) 0.6 H Neut % (Auto) 83.7 H Lymph % (Auto) 8.5 L [place] % (Auto) 7.0 Eos % (Auto) 0.1 Baso % (Auto) 0.1 Lymph # (Auto) 1.4 [place] # (Auto) 1.2 Eos # (Auto) 0.0 Baso # (Auto) 0.0 Abs Immat Gran (auto) 0.10 H Absolute Neuts (auto) 14.0 H Absolute Nucleated RBC 0.000 Nucleated RBC % (auto) 0.0 Smear Tech's Comments Smear Path Review Absolute Retic Percent Retic Immature Retic Fraction Retic Hgb Equivalent Haptoglobin PT 15.6 H INR 1.3 H APTT PTT (Heparin Protocol) Fibrinogen Sodium 134 L Potassium 4.8 Chloride 104 Carbon Dioxide 19 L Anion Gap 16 BUN 61 H Creatinine 2.04 H Estim Creat Clear Calc 33.6 Estimated GFR 32 POC Glucose Random Glucose 217 H Estimat Average Glucose Hemoglobin A1c % Osmolality Uric Acid Calcium 7.4 L Magnesium 2.4 Iron TIBC % Saturation Unsat Iron Binding Ferritin Total Bilirubin 1.2 H Direct Bilirubin GGT AST 20 ALT 41 H Alkaline Phosphatase 79 Ammonia Lactate Dehydrogenase Total Creatine Kinase Troponin I High Sens B-Natriuretic Peptide Total Protein 5.2 L Albumin 2.7 L Prealbumin Lzgqj-5-Mqhdgrteizh Ceruloplasmin Triglycerides 144 Cholesterol 65 LDL Cholesterol, Calc 32 HDL Cholesterol 5 Vitamin B12 Folate Procalcitonin TSH Cortisol Urine Color Urine Appearance Urine pH Ur Specific [place] Urine Protein Urine Glucose (UA) Urine Ketones Urine Blood Urine Nitrite Ur Leukocyte Esterase Urine RBC Urine WBC Ur Squamous Epith Cells Ur Renal Epithelial Cell Urine Bacteria Granular Casts Other Casts Urine Osmolality Ur Random Sodium Ur Random Uric Acid Urine Creatinine Stool Collect Date Stool Occult Blood Stool 2 Collect Date Stool Occult Blood #2 Stool 3 Collect Date Stool Occult Blood #3 IgG Total IgA Total IgM SIRIA Interpretation Cryoglobulin Cryoglobulin Cryocrit Rheumatoid Factor GABBY Screen GABBY Titer GABBY Titer 2 GABBY Titer 3 GABBY Pattern GABBY Pattern 2 GABBY Pattern 3 Tiss Transglutamin IgG Tiss Transglutamin IgA Free [place] LC, Quant Free Lambda LC, Quant Free [place]/Lambda Ratio Respiratory Panel [place] Adenovirus (Rapid PCR) B.pert (TEM-PCR) B.parapertussis DNA PCR C. pneumoniae DNA (PCR) Coronavirus OC43 (PCR) Coronavirus HKU1 (PCR) Coronavirus 229E (PCR) COVID-19 ([facility]) COVID-19 Clin Com Coronavirus NL63 (PCR) Hepatitis A IgG Ab Hep Bs Antigen Hep Bs Antibody Hep B Core Total Ab Hepatitis C Ab (EIA) Hep C Viral Load Hep C Viral Load Log HIV 1&2 Ab/P24 Ag 4thGn Human Metapneumovir PCR Influenza A (RT-PCR) Influenza B (RT-PCR) M. pneumoniae (PCR) Parainfluenza 1 (PCR) Parainfluenza 2 (PCR) Parainfluenza 3 (PCR) Parainfluenza 4 (PCR) RSV (PCR) Entero/Rhino (PCR) SARS-CoV-2 RNA (RT-PCR) Ur Strep pneumoniae Ag Blood Type Antibody Screen Crossmatch Clerical Work Check Hemolysis Bld Bag Check Icterus Blood Bag Check Post-Trans Blood Type Post-Trans MARY IgG Post-Trans MARY Poly 04/25/20 04/25/20 04/25/20 05:09 05:09 07:26 WBC RBC Hgb Hct MCV MCH MCHC RDW Plt Count MPV Immature Gran % (Auto) Neut % (Auto) Lymph % (Auto) Beck[place] % (Auto) Eos % (Auto) Baso % (Auto) Lymph # (Auto) Beckham # (Auto) Eos # (Auto) Baso # (Auto) Abs Immat Gran (auto) Absolute Neuts (auto) Absolute Nucleated RBC Nucleated RBC % (auto) Smear Tech's Comments Smear Path Review Absolute Retic Percent Retic Immature Retic Fraction Retic Hgb Equivalent Haptoglobin PT INR APTT PTT (Heparin Protocol) Fibrinogen Sodium Potassium Chloride Carbon Dioxide Anion Gap BUN Creatinine Estim Creat Clear Calc Estimated GFR POC Glucose 214 H Random Glucose Estimat Average Glucose Hemoglobin A1c % Osmolality Uric Acid Calcium Magnesium Iron TIBC % Saturation Unsat Iron Binding Ferritin Total Bilirubin Direct Bilirubin GGT AST ALT Alkaline Phosphatase Ammonia Lactate Dehydrogenase Total Creatine Kinase Troponin I High Sens B-Natriuretic Peptide 2782 H Total Protein Albumin Prealbumin [id number] Ceruloplasmin Triglycerides Cholesterol LDL Cholesterol, Calc HDL Cholesterol Vitamin B12 Folate Procalcitonin 7.83 TSH Cortisol Urine Color Urine Appearance Urine pH Ur Specific [place] Urine Protein Urine Glucose (UA) Urine Ketones Urine Blood Urine Nitrite Ur Leukocyte Esterase Urine RBC Urine WBC Ur Squamous Epith Cells Ur Renal Epithelial Cell Urine Bacteria Granular Casts Other Casts Urine Osmolality Ur Random Sodium Ur Random Uric Acid Urine Creatinine Stool Collect Date Stool Occult Blood Stool 2 Collect Date Stool Occult Blood #2 Stool 3 Collect Date Stool Occult Blood #3 IgG Total IgA Total IgM SIRIA Interpretation Cryoglobulin Cryoglobulin Cryocrit Rheumatoid Factor GABBY Screen GABBY Titer GABBY Titer 2 GABBY Titer 3 GABBY Pattern GABBY Pattern 2 GABBY Pattern 3 Tiss Transglutamin IgG Tiss Transglutamin IgA Free [place] LC, Quant Free Lambda LC, Quant Free [place]/Lambda Ratio Respiratory Panel [place] Adenovirus (Rapid PCR) B.pert (TEM-PCR) B.parapertussis DNA PCR C. pneumoniae DNA (PCR) Coronavirus OC43 (PCR) Coronavirus HKU1 (PCR) Coronavirus 229E (PCR) COVID-19 (EARL) COVID-19 Clin Com Coronavirus NL63 (PCR) Hepatitis A IgG Ab Hep Bs Antigen Hep Bs Antibody Hep B Core Total Ab Hepatitis C Ab (EIA) Hep C Viral Load Hep C Viral Load Log HIV 1&2 Ab/P24 Ag 4thGn Human Metapneumovir PCR Influenza A (RT-PCR) Influenza B (RT-PCR) M. pneumoniae (PCR) Parainfluenza 1 (PCR) Parainfluenza 2 (PCR) Parainfluenza 3 (PCR) Parainfluenza 4 (PCR) RSV (PCR) Entero/Rhino (PCR) SARS-CoV-2 RNA (RT-PCR) Ur Strep pneumoniae Ag Blood Type Antibody Screen Crossmatch Clerical Work Check Hemolysis Bld Bag Check Icterus Blood Bag Check Post-Trans Blood Type Post-Trans MARY IgG Post-Trans MARY Poly 04/25/20 04/25/20 04/25/20 11:29 16:27 20:13 WBC RBC Hgb Hct MCV MCH MCHC RDW Plt Count MPV Immature Gran % (Auto) Neut % (Auto) Lymph % (Auto) [place] % (Auto) Eos % (Auto) Baso % (Auto) Lymph # (Auto) [place] # (Auto) Eos # (Auto) Baso # (Auto) Abs Immat Gran (auto) Absolute Neuts (auto) Absolute Nucleated RBC Nucleated RBC % (auto) Smear Tech's Comments Smear Path Review Absolute Retic Percent Retic Immature Retic Fraction Retic Hgb Equivalent Haptoglobin PT INR APTT PTT (Heparin Protocol) Fibrinogen Sodium Potassium Chloride Carbon Dioxide Anion Gap BUN Creatinine Estim Creat Clear Calc Estimated GFR POC Glucose 234 H 236 H 205 H Random Glucose Estimat Average Glucose Hemoglobin A1c % Osmolality Uric Acid Calcium Magnesium Iron TIBC % Saturation Unsat Iron Binding Ferritin Total Bilirubin Direct Bilirubin GGT AST ALT Alkaline Phosphatase Ammonia Lactate Dehydrogenase Total Creatine Kinase Troponin I High Sens B-Natriuretic Peptide Total Protein Albumin Prealbumin [id number]-[id number] Ceruloplasmin Triglycerides Cholesterol LDL Cholesterol, Calc HDL Cholesterol Vitamin B12 Folate Procalcitonin TSH Cortisol Urine Color Urine Appearance Urine pH Ur Specific [place] Urine Protein Urine Glucose (UA) Urine Ketones Urine Blood Urine Nitrite Ur Leukocyte Esterase Urine RBC Urine WBC Ur Squamous Epith Cells Ur Renal Epithelial Cell Urine Bacteria Granular Casts Other Casts Urine Osmolality Ur Random Sodium Ur Random Uric Acid Urine Creatinine Stool Collect Date Stool Occult Blood Stool 2 Collect Date Stool Occult Blood #2 Stool 3 Collect Date Stool Occult Blood #3 IgG Total IgA Total IgM SIRIA Interpretation Cryoglobulin Cryoglobulin Cryocrit Rheumatoid Factor GABBY Screen GABBY Titer GABBY Titer 2 GABBY Titer 3 GABBY Pattern GABBY Pattern 2 GABBY Pattern 3 Tiss Transglutamin IgG Tiss Transglutamin IgA Free [place] LC, Quant Free Lambda LC, Quant Free [place]/Lambda Ratio Respiratory Panel [place] Adenovirus (Rapid PCR) B.pert (TEM-PCR) B.parapertussis DNA PCR C. pneumoniae DNA (PCR) Coronavirus OC43 (PCR) Coronavirus HKU1 (PCR) Coronavirus 229E (PCR) COVID-19 (EARL) COVID-19 Clin Com Coronavirus NL63 (PCR) Hepatitis A IgG Ab Hep Bs Antigen Hep Bs Antibody Hep B Core Total Ab Hepatitis C Ab (EIA) Hep C Viral Load Hep C Viral Load Log HIV 1&2 Ab/P24 Ag 4thGn Human Metapneumovir PCR Influenza A (RT-PCR) Influenza B (RT-PCR) M. pneumoniae (PCR) Parainfluenza 1 (PCR) Parainfluenza 2 (PCR) Parainfluenza 3 (PCR) Parainfluenza 4 (PCR) RSV (PCR) Entero/Rhino (PCR) SARS-CoV-2 RNA (RT-PCR) Ur Strep pneumoniae Ag Blood Type Antibody Screen Crossmatch Clerical Work Check Hemolysis Bld Bag Check Icterus Blood Bag Check Post-Trans Blood Type Post-Trans MARY IgG Post-Trans MARY Poly 04/25/20 04/26/20 04/26/20 20:30 05:28 05:28 WBC 15.7 H RBC 3.13 L Hgb 8.2 L Hct 26.2 L MCV 83.7 MCH 26.2 L MCHC 31.3 RDW 15.4 Plt Count 123 L MPV 10.5 Immature Gran % (Auto) 0.9 H Neut % (Auto) 83.9 H Lymph % (Auto) 8.3 L [place] % (Auto) 6.7 Eos % (Auto) 0.1 Baso % (Auto) 0.1 Lymph # (Auto) 1.3 Beckham # (Auto) 1.1 Eos # (Auto) 0.0 Baso # (Auto) 0.0 Abs Immat Gran (auto) 0.14 H Absolute Neuts (auto) 13.2 H Absolute Nucleated RBC 0.000 Nucleated RBC % (auto) 0.0 Smear Tech's Comments Smear Path Review Absolute Retic Percent Retic Immature Retic Fraction Retic Hgb Equivalent Haptoglobin PT INR APTT PTT (Heparin Protocol) Fibrinogen Sodium 134 L Potassium 5.3 H Chloride 104 Carbon Dioxide 21 L Anion Gap 14 BUN 63 H Creatinine 2.25 H Estim Creat Clear Calc 30.5 Estimated GFR 29 POC Glucose Random Glucose 180 H Estimat Average Glucose Hemoglobin A1c % Osmolality Uric Acid Calcium 7.8 L Magnesium 2.6 Iron TIBC % Saturation Unsat Iron Binding Ferritin Total Bilirubin 1.3 H Direct Bilirubin 0.7 H GGT AST 22 ALT 35 Alkaline Phosphatase 83 Ammonia Lactate Dehydrogenase Total Creatine Kinase Troponin I High Sens B-Natriuretic Peptide Total Protein 5.6 L Albumin 2.9 L Prealbumin [id number]-6-Hqpvbdrjawr Ceruloplasmin Triglycerides Cholesterol LDL Cholesterol, Calc HDL Cholesterol Vitamin B12 Folate Procalcitonin TSH Cortisol Urine Color Urine Appearance Urine pH Ur Specific [place] Urine Protein Urine Glucose (UA) Urine Ketones Urine Blood Urine Nitrite Ur Leukocyte Esterase Urine RBC Urine WBC Ur Squamous Epith Cells Ur Renal Epithelial Cell Urine Bacteria Granular Casts Other Casts Urine Osmolality Ur Random Sodium Ur Random Uric Acid Urine Creatinine Stool Collect Date Stool Occult Blood POSITIVE Stool 2 Collect Date Stool Occult Blood #2 Stool 3 Collect Date Stool Occult Blood #3 IgG Total IgA Total IgM SIRIA Interpretation Cryoglobulin Cryoglobulin Cryocrit Rheumatoid Factor GABBY Screen GABBY Titer GABBY Titer 2 GABBY Titer 3 GABBY Pattern GABBY Pattern 2 GABBY Pattern 3 Tiss Transglutamin IgG Tiss Transglutamin IgA Free [place] LC, Quant Free Lambda LC, Quant Free [place]/Lambda Ratio Respiratory Panel [place] Adenovirus (Rapid PCR) B.pert (TEM-PCR) B.parapertussis DNA PCR C. pneumoniae DNA (PCR) Coronavirus OC43 (PCR) Coronavirus HKU1 (PCR) Coronavirus 229E (PCR) COVID-19 (EARL) COVID-19 Clin Com Coronavirus NL63 (PCR) Hepatitis A IgG Ab Hep Bs Antigen Hep Bs Antibody Hep B Core Total Ab Hepatitis C Ab (EIA) Hep C Viral Load Hep C Viral Load Log HIV 1&2 Ab/P24 Ag 4thGn Human Metapneumovir PCR Influenza A (RT-PCR) Influenza B (RT-PCR) M. pneumoniae (PCR) Parainfluenza 1 (PCR) Parainfluenza 2 (PCR) Parainfluenza 3 (PCR) Parainfluenza 4 (PCR) RSV (PCR) Entero/Rhino (PCR) SARS-CoV-2 RNA (RT-PCR) Ur Strep pneumoniae Ag Blood Type Antibody Screen Crossmatch Clerical Work Check Hemolysis Bld Bag Check Icterus Blood Bag Check Post-Trans Blood Type Post-Trans MARY IgG Post-Trans MARY Poly 04/26/20 04/26/20 04/26/20 05:28 05:28 05:28 WBC RBC Hgb Hct MCV MCH MCHC RDW Plt Count MPV Immature Gran % (Auto) Neut % (Auto) Lymph % (Auto) [place] % (Auto) Eos % (Auto) Baso % (Auto) Lymph # (Auto) [place] # (Auto) Eos # (Auto) Baso # (Auto) Abs Immat Gran (auto) Absolute Neuts (auto) Absolute Nucleated RBC Nucleated RBC % (auto) Smear Tech's Comments Smear Path Review Absolute Retic Percent Retic Immature Retic Fraction Retic Hgb Equivalent Haptoglobin PT 15.4 H INR 1.3 H APTT PTT (Heparin Protocol) Fibrinogen Sodium Potassium Chloride Carbon Dioxide Anion Gap BUN Creatinine Estim Creat Clear Calc Estimated GFR POC Glucose Random Glucose Estimat Average Glucose Hemoglobin A1c % Osmolality Uric Acid Calcium Magnesium Iron TIBC % Saturation Unsat Iron Binding Ferritin Total Bilirubin Direct Bilirubin GGT AST ALT Alkaline Phosphatase Ammonia 27 Lactate Dehydrogenase Total Creatine Kinase Troponin I High Sens B-Natriuretic Peptide 4167 H Total Protein Albumin Prealbumin [id number]-[id number] Ceruloplasmin Triglycerides Cholesterol LDL Cholesterol, Calc HDL Cholesterol Vitamin B12 Folate Procalcitonin TSH Cortisol Urine Color Urine Appearance Urine pH Ur Specific [place] Urine Protein Urine Glucose (UA) Urine Ketones Urine Blood Urine Nitrite Ur Leukocyte Esterase Urine RBC Urine WBC Ur Squamous Epith Cells Ur Renal Epithelial Cell Urine Bacteria Granular Casts Other Casts Urine Osmolality Ur Random Sodium Ur Random Uric Acid Urine Creatinine Stool Collect Date Stool Occult Blood Stool 2 Collect Date Stool Occult Blood #2 Stool 3 Collect Date Stool Occult Blood #3 IgG Total IgA Total IgM SIRIA Interpretation Cryoglobulin Cryoglobulin Cryocrit Rheumatoid Factor GABBY Screen GABBY Titer GABBY Titer 2 GABBY Titer 3 GABBY Pattern GABBY Pattern 2 GABBY Pattern 3 Tiss Transglutamin IgG Tiss Transglutamin IgA Free [place] LC, Quant Free Lambda LC, Quant Free [place]/Lambda Ratio Respiratory Panel [place] Adenovirus (Rapid PCR) B.pert (TEM-PCR) B.parapertussis DNA PCR C. pneumoniae DNA (PCR) Coronavirus OC43 (PCR) Coronavirus HKU1 (PCR) Coronavirus 229E (PCR) COVID-19 (EARL) COVID-19 Clin Com Coronavirus NL63 (PCR) Hepatitis A IgG Ab Hep Bs Antigen Hep Bs Antibody Hep B Core Total Ab Hepatitis C Ab (EIA) Hep C Viral Load Hep C Viral Load Log HIV 1&2 Ab/P24 Ag 4thGn Human Metapneumovir PCR Influenza A (RT-PCR) Influenza B (RT-PCR) M. pneumoniae (PCR) Parainfluenza 1 (PCR) Parainfluenza 2 (PCR) Parainfluenza 3 (PCR) Parainfluenza 4 (PCR) RSV (PCR) Entero/Rhino (PCR) SARS-CoV-2 RNA (RT-PCR) Ur Strep pneumoniae Ag Blood Type Antibody Screen Crossmatch Clerical Work Check Hemolysis Bld Bag Check Icterus Blood Bag Check Post-Trans Blood Type Post-Trans MARY IgG Post-Trans MARY Poly 04/26/20 04/26/20 04/26/20 07:28 11:06 12:24 WBC RBC Hgb Hct MCV MCH MCHC RDW Plt Count MPV Immature Gran % (Auto) Neut % (Auto) Lymph % (Auto) [place] % (Auto) Eos % (Auto) Baso % (Auto) Lymph # (Auto) [place] # (Auto) Eos # (Auto) Baso # (Auto) Abs Immat Gran (auto) Absolute Neuts (auto) Absolute Nucleated RBC Nucleated RBC % (auto) Smear Tech's Comments Smear Path Review Absolute Retic Percent Retic Immature Retic Fraction Retic Hgb Equivalent Haptoglobin PT INR APTT PTT (Heparin Protocol) Fibrinogen Sodium Potassium Chloride Carbon Dioxide Anion Gap BUN Creatinine Estim Creat Clear Calc Estimated GFR POC Glucose 171 H 160 H 151 H Random Glucose Estimat Average Glucose Hemoglobin A1c % Osmolality Uric Acid Calcium Magnesium Iron TIBC % Saturation Unsat Iron Binding Ferritin Total Bilirubin Direct Bilirubin GGT AST ALT Alkaline Phosphatase Ammonia Lactate Dehydrogenase Total Creatine Kinase Troponin I High Sens B-Natriuretic Peptide Total Protein Albumin Prealbumin Gfpxa-[id number] Ceruloplasmin Triglycerides Cholesterol LDL Cholesterol, Calc HDL Cholesterol Vitamin B12 Folate Procalcitonin TSH Cortisol Urine Color Urine Appearance Urine pH Ur Specific [place] Urine Protein Urine Glucose (UA) Urine Ketones Urine Blood Urine Nitrite Ur Leukocyte Esterase Urine RBC Urine WBC Ur Squamous Epith Cells Ur Renal Epithelial Cell Urine Bacteria Granular Casts Other Casts Urine Osmolality Ur Random Sodium Ur Random Uric Acid Urine Creatinine Stool Collect Date Stool Occult Blood Stool 2 Collect Date Stool Occult Blood #2 Stool 3 Collect Date Stool Occult Blood #3 IgG Total IgA Total IgM SIRIA Interpretation Cryoglobulin Cryoglobulin Cryocrit Rheumatoid Factor
--- NOTE | 2020-04-26 13:07 | W.PM.OPN ---
Operative Note Operative Note Date of Service: 04/26/20 Narrative: Pre-op diagnosis: anemia, cirrhosis screen for varices Post-op diagnosis: other (esophagitis, esophageal nodule, Gastric ulcers, gastritis, duodenal nodule) Procedure: FLEXIBLE TRANSORAL UPPER GASTROINTESTINAL ENDOSCOPY WITH BIOPSIES Consent: Indications for the procedure and potential complications of bleeding, perforation, reaction to medications and missed diagnosis were discussed with the patient and informed consent was obtained. Instrument: Olympus GIF H 190 mid size upper endoscope Monitoring: Vital signs and clinical assessment, continuous EKG monitoring, Pulse oximetry, Carbon Dioxide monitoring and blood pressure monitoring were done throughout the procedure. Procedure: The patient was placed in the left lateral decubitis position and pre-procedure medications were administered and a bite block was placed. The endoscope was inserted into the mouth and advanced under direct vision to the third part of duodenum. A careful inspection was made as the upper endoscope was withdrawn including a retroflexed examination of the proximal stomach; Findings and interventions are described below. Findings: Larynx: Normal Esophagus: GE junction at 42 cms. Erosive esophagitis from 35 to 42 cms. A 1 - 1.5 cms nodule at GE junction - biopsied. No esophageal varices noted. Stomach: Mild portal gastropathy without bleeding. Biopsies were obtained from the antrum. Multiple linear 1-2 cms ulcers covered with white exudate in the fundus - biopsies were obtained. Grade 2 flap valve on retroflexed examination of the cardia. Duodenum: Nodular appearing mucosa in the apex of the bulb - biopsied. Normal descending duodenum. Intervention: Biopsies as noted above Impression and Post Procedure Diagnosis: Endoscopy Findings: ESOPHAGUS: Severe erosive esophagitis from 35 to 42 cms. A 1 - 1.5 cms nodule at GE junction - biopsied. No esophageal varices noted. STOMACH: Mild portal gastropathy without bleeding. Biopsies were obtained from the antrum. Multiple linear 1-2 cms ulcers covered with white exudate in the fundus - biopsies were obtained. No gastric varices noted. DUODENUM: Nodular appearing mucosa in the apex of the bulb - biopsied. Plan: Await pathology results. Continue PO PPI for gastric ulcers. OK to resume anticoagulation on 04/27/20 Patient to schedule a FU appt in GI with Dr John. Above findings were reviewed with the patient. Surgeon: Nelly Blank MD Anesthesia: MAC (Ronna Saul) Regulator Inspector: Arline Roberto Estimated blood loss (mL): 0 Pathology: other (A. GASTRIC ANTRUM B. DUODENAL NODULE C. GASTRIC ULCER D. EG JUNCTION) Condition: stable Disposition: PACU
--- NOTE | 2020-04-26 13:07 | MHC.SHP ---
Pre-Procedural Eval Section A The patient is an INPATIENT: Yes Changes since office visit: Yes New Medical Problems, Yes Changes in Medication and Yes Patient answered all questions; No Cold of Flu in the past 2 weeks The History & Physical has been completed within 30 days and I have reviewed it.: Yes Section B Chief Complaint: CHF Allergies: Allergies Allergy/AdvReac Type Severity Reaction Status Date / Time No Known Allergies Allergy Verified 04/17/20 16:51 Plan I have reviewed the history and physical and performed a pertinent physical examination on my patient. No changes have occurred unless specified.
[2020-04-26 13:48] LABS: Complement C3 23 mg/dL (82-185)
--- NOTE | 2020-04-26 15:25 | P.PNIM_ITS ---
Subjective Subjective Date of Service: 04/26/20 Interval History: the patient was seen and evaluated this morning Laying in bed, feels comfortable, does not have full understanding of what is going on during this hospital stay Denies any fever, chills or shortness of breath Noted to decreased urine output overnight No reported other overnight events. Systemic review: No fever, chills but reports generalized weakness No chest pain, palpitation No shortness of breath or coughing No abdominal pain, nausea or vomiting No urinary symptoms No any rash or wounds Physical Exam Vital Signs: Vital Signs: Last Vital Signs Temp 98.2 F 04/26/20 13:54 Pulse 87 04/26/20 14:09 Resp 20 04/26/20 14:09 BP 101/62 04/26/20 14:09 Pulse Ox 95 04/26/20 14:09 Body Mass Index 25.4 Const: Other: Constitutional : Alert, oriented, not in distress Neck : Normal inspection, Supple Cardiovascular : RRR, S1 S2, no lower extremity edema, 3/6 holosystolic apical murmur Respiratory : Decrease bilateral air entry, no crackles, wheezes or rhonchi Gastrointestinal: soft, lax, mildly distended, Normal bowel sounds, Non tender Skin : Warm/Dry, No rash Neurological : Alert & oriented x3, No other focal deficit Objective Data Current Medications Generic Name Dose Route Start Last Admin Trade Name Freq PRN Reason Stop Dose Admin Acetaminophen 650 mg 04/22/20 17:29 Acetaminophen 325 Mg Tablet PO Q6H PRN fever Docusate Sodium 100 mg 04/18/20 01:17 Docusate Sodium 100 Mg Capsule PO DAILY PRN Constipation Furosemide 20 mg 04/25/20 11:45 04/26/20 08:32 Furosemide 20 Mg/2 Ml Vial IVPUSH 20 mg BID@0900,1800 [facility]ALON Administration Protocol Guaifenesin/Dextromethorphan 5 ml 04/22/20 14:51 04/24/20 03:18 Guaifenesin Dm 100/10/5 Ml 5 Ml Syrup PO 5 ml Q4H PRN Administration cough Ceftriaxone Sodium 1 gm/ 50 mls @ 100 mls/hr 04/22/20 12:00 04/26/20 12:19 Sodium Chloride IV Infused Q24H [facility]ALON Infusion Albumin Human 100 mls @ 100 mls/hr 04/26/20 11:00 04/26/20 12:54 Kedbumin 25 % IV 04/29/20 05:59 Infused Q6H [facility] Infusion Insulin Human Lispro 0 unit 04/20/20 11:30 04/26/20 11:44 Insulin Lispro 100 Unit/Ml 3 Ml Vial SUBCUT 2 unit QIDACHS [facility] Administration Protocol Lactulose 30 gm 04/22/20 21:00 04/26/20 10:16 Lactulose 20 Gm/30 Ml Solution PO Not Given TID [facility] Metoprolol Tartrate 25 mg 04/26/20 15:00 Metoprolol Tartrate 25 Mg Tablet PO TID [facility] Protocol Midodrine 10 mg 04/22/20 21:00 04/26/20 08:32 Midodrine Hcl 5 Mg Tablet PO 10 mg TID [facility] Administration Octreotide Acetate 200 mcg 04/24/20 16:00 04/26/20 07:50 Octreotide Acetate 100 Mcg/Ml Ampul SUBCUT 200 mcg Q8H [facility] Administration Omeprazole 20 mg 04/25/20 16:30 04/26/20 06:13 Omeprazole 20 Mg Capsule.Dr PO Not Given BID@0630,1630 [facility] Ondansetron HCl 4 mg 04/18/20 01:17 Ondansetron Hcl 4 Mg/2 Ml Vial IVPUSH Q8H PRN Nausea and Vomiting Rifaximin 550 mg 04/22/20 21:00 04/26/20 08:32 Rifaximin 550 Mg Tablet PO 550 mg BID [facility] Administration Sodium Chloride 3 ml 04/18/20 01:17 04/26/20 07:50 0.9 % Sodium Chloride Flush 3 Ml Syringe IVFLUSH 3 ml QSHIFT [facility] Administration Labs CBC & Chem 7: 04/26/20 05:28 04/26/20 05:28 Microbiology Microbiology Results: Microbiology 04/22/20 18:22 Blood - Venous Blood Culture - Preliminary No growth after 48 hours. 04/22/20 18:22 Blood - Venous Blood Culture - Preliminary No growth after 48 hours. Assessment and Plan (1) Atrial fibrillation: Status: Acute (2) Pneumonia: Status: Acute (3) SCTOT (acute kidney injury): Status: Acute (4) Transient ischemic attack: Status: Acute (5) Heme + stool: Status: Acute (6) Cirrhosis: Status: Acute (7) PAF (paroxysmal atrial fibrillation): Status: Acute (8) Elevated brain natriuretic peptide (BNP) level: Status: Acute Assessment and Plan: hospital d#10 69yo M with CAD s/p CABG + AoV replacement admitted with concern of CHF exacerbation with edema and dyspnea in setting of recent malaise and weakness after COVID-19 vaccination new diagnoses of cirrhosis + DM2 went into new-onset AF 3 then had mild ischemic TIA converted after amiodarone load worsening renal failure # SCOTT; possible HRS Cr worsening with oligourea Cr. 2.2, BUN 65 prerenal vs hepatorenal vs cardiorenal. very low Blas favors hepatorenal continue midodrine + octreotide. Nephrology input appreciated; start Albumin DC Lasix Consider further evaluation at a tertiary center # normocytic hypoproliferative anemia # positive occult stool I that was my improved after 1u pRBCs. Blood loss for Gastritis\? EGD showed severe gastritis with polyp that was biopsy, to continue with omeprazole # TIA NIHSS 2 not a good candidate for peripheral or intra-arterial tPA and symptoms were mild. 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 [id number], very high stroke risk (10%/yr), to start anticoagulation after G I evaluation with [facility] Cardiology input appreciated # acute/chronic HFpEF interstitial edema noted BNP elevated likely result of worsening kidney function DC Lasix # pneumonia ceftriaxone + doxycycline d#5. BCx negative, pneumococcal UAg negative, Legionella UAg pending. trend PCT. 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 improving. # hyponatremia improved. likely due to cirrhosis. TSH normal, cortisol normal. # chronic MR, eccentric, moderate TTE done. appreciate Cardiology recommendation- to consider outpt [facility]; pt will transfer care from [place], [place] to [place] # troponin elevation flat, per Cardiology not ACS, likely related to underlying HF/MR # CAD metoprolol held due to low BP # DM2, A1c 7.1 correction dose lispro, home on MTF DVT PPx Eliquis
[2020-04-26] MEDS: Lactulose 20 GM/30 ML SOLUTION 30 GM PO ×2 (15:36→21:25)
[2020-04-26] MEDS: Omeprazole 20 MG CAPSULE.DR PO (15:36)
[2020-04-26] MEDS: Metoprolol Tartrate 25 MG TABLET PO ×2 (15:40→21:26)
[2020-04-26 16:38] LABS: Glucose, Whole Blood 157 mg/dL (60-115)
--- NOTE | 2020-04-26 16:47 | P.PNNP_ITS ---
Subjective Subjective Date of Service: 04/26/20 Principal diagnosis: Atrial fibrillation Interval history: Events noted. Seen AM. All recent data reviewed Systemic review: No fever, chills but reports generalized weakness No chest pain, palpitation No shortness of breath or coughing No abdominal pain, nausea or vomiting No urinary symptoms No any rash or wounds Physical Exam Vital Signs: Vital Signs: Last Vital Signs Temp 98.2 F 04/26/20 13:54 Pulse 82 04/26/20 15:41 Resp 20 04/26/20 14:09 BP 118/77 04/26/20 15:41 Pulse Ox 95 04/26/20 14:09 Body Mass Index 25.4 Const: General: no acute distress Neck: Neck: Yes no JVD Resp: Auscultation: diminished lung sounds Cardio: Heart sounds: no rubs GI: Palpation (GI): Soft to palpation Neuro: General: moves all extremities Objective Data Labs CBC & Chem 7: 04/26/20 05:28 04/26/20 05:28 Labs: Laboratory Results - last 24 hr 04/21/20 04/24/20 04/25/20 06:02 06:31 20:13 WBC RBC Hgb Hct MCV MCH MCHC RDW Plt Count MPV Immature Gran % (Auto) Neut % (Auto) Lymph % (Auto) [place] % (Auto) Eos % (Auto) Baso % (Auto) Lymph # (Auto) [place] # (Auto) Eos # (Auto) Baso # (Auto) Abs Immat Gran (auto) Absolute Neuts (auto) Absolute Nucleated RBC Nucleated RBC % (auto) PT INR Sodium Potassium Chloride Carbon Dioxide Anion Gap BUN Creatinine Estim Creat Clear Calc Estimated GFR POC Glucose 205 H Random Glucose Calcium Magnesium Total Bilirubin Direct Bilirubin AST ALT Alkaline Phosphatase Ammonia B-Natriuretic Peptide Total Protein Albumin Stool Occult Blood Tiss Transglutamin IgG 1 Tiss Transglutamin IgA 1 Complement C3 23 L Complement C4 <3 L 04/25/20 04/26/20 04/26/20 20:30 05:28 05:28 WBC 15.7 H RBC 3.13 L Hgb 8.2 L Hct 26.2 L MCV 83.7 MCH 26.2 L MCHC 31.3 RDW 15.4 Plt Count 123 L MPV 10.5 Immature Gran % (Auto) 0.9 H Neut % (Auto) 83.9 H Lymph % (Auto) 8.3 L [place] % (Auto) 6.7 Eos % (Auto) 0.1 Baso % (Auto) 0.1 Lymph # (Auto) 1.3 [place] # (Auto) 1.1 Eos # (Auto) 0.0 Baso # (Auto) 0.0 Abs Immat Gran (auto) 0.14 H Absolute Neuts (auto) 13.2 H Absolute Nucleated RBC 0.000 Nucleated RBC % (auto) 0.0 PT INR Sodium 134 L Potassium 5.3 H Chloride 104 Carbon Dioxide 21 L Anion Gap 14 BUN 63 H Creatinine 2.25 H Estim Creat Clear Calc 30.5 Estimated GFR 29 POC Glucose Random Glucose 180 H Calcium 7.8 L Magnesium 2.6 Total Bilirubin 1.3 H Direct Bilirubin 0.7 H AST 22 ALT 35 Alkaline Phosphatase 83 Ammonia B-Natriuretic Peptide Total Protein 5.6 L Albumin 2.9 L Stool Occult Blood POSITIVE Tiss Transglutamin IgG Tiss Transglutamin IgA Complement C3 Complement C4 04/26/20 04/26/20 04/26/20 05:28 05:28 05:28 WBC RBC Hgb Hct MCV MCH MCHC RDW Plt Count MPV Immature Gran % (Auto) Neut % (Auto) Lymph % (Auto) [place] % (Auto) Eos % (Auto) Baso % (Auto) Lymph # (Auto) [place] # (Auto) Eos # (Auto) Baso # (Auto) Abs Immat Gran (auto) Absolute Neuts (auto) Absolute Nucleated RBC Nucleated RBC % (auto) PT 15.4 H INR 1.3 H Sodium Potassium Chloride Carbon Dioxide Anion Gap BUN Creatinine Estim Creat Clear Calc Estimated GFR POC Glucose Random Glucose Calcium Magnesium Total Bilirubin Direct Bilirubin AST ALT Alkaline Phosphatase Ammonia 27 B-Natriuretic Peptide 4167 H Total Protein Albumin Stool Occult Blood Tiss Transglutamin IgG Tiss Transglutamin IgA Complement C3 Complement C4 04/26/20 04/26/20 04/26/20 07:28 11:06 12:24 WBC RBC Hgb Hct MCV MCH MCHC RDW Plt Count MPV Immature Gran % (Auto) Neut % (Auto) Lymph % (Auto) [place] % (Auto) Eos % (Auto) Baso % (Auto) Lymph # (Auto) [place] # (Auto) Eos # (Auto) Baso # (Auto) Abs Immat Gran (auto) Absolute Neuts (auto) Absolute Nucleated RBC Nucleated RBC % (auto) PT INR Sodium Potassium Chloride Carbon Dioxide Anion Gap BUN Creatinine Estim Creat Clear Calc Estimated GFR POC Glucose 171 H 160 H 151 H Random Glucose Calcium Magnesium Total Bilirubin Direct Bilirubin AST ALT Alkaline Phosphatase Ammonia B-Natriuretic Peptide Total Protein Albumin Stool Occult Blood Tiss Transglutamin IgG Tiss Transglutamin IgA Complement C3 Complement C4 04/26/20 16:34 WBC RBC Hgb Hct MCV MCH MCHC RDW Plt Count MPV Immature Gran % (Auto) Neut % (Auto) Lymph % (Auto) [place] % (Auto) Eos % (Auto) Baso % (Auto) Lymph # (Auto) [place] # (Auto) Eos # (Auto) Baso # (Auto) Abs Immat Gran (auto) Absolute Neuts (auto) Absolute Nucleated RBC Nucleated RBC % (auto) PT INR Sodium Potassium Chloride Carbon Dioxide Anion Gap BUN Creatinine Estim Creat Clear Calc Estimated GFR POC Glucose 157 H Random Glucose Calcium Magnesium Total Bilirubin Direct Bilirubin AST ALT Alkaline Phosphatase Ammonia B-Natriuretic Peptide Total Protein Albumin Stool Occult Blood Tiss Transglutamin IgG Tiss Transglutamin IgA Complement C3 Complement C4 Microbiology Microbiology Results: Microbiology 04/22/20 18:22 Blood - Venous Blood Culture - Preliminary No growth after 48 hours. 04/22/20 18:22 Blood - Venous Blood Culture - Preliminary No growth after 48 hours. Assessment & Plan Assessment and plan (1) SCOTT (acute kidney injury): Problem details: SCOTT (acute kidney injury suspect renal hypo perfusion given low BPs, low albumin and now appears c/w HRS physiology Shall give IV Albumin x 3 days GI following; if continue to get worse may need to consider xfer to liver xplant program Status: Acute Time Spent With Patient Time: Total time spent is greater than 50% in coordination of care (as documented) at patient's floor/unit and/or counseling patient:
[2020-04-26 20:25] LABS: Glucose, Whole Blood 251 mg/dL (60-115)
[2020-04-26] MEDS: guaiFENesin DM 100/10/5 ML 5 ML SYRUP PO (22:52)
[2020-04-26] MEDS: traZODone HCL 25 MG HALFTAB PO (22:52)
[2020-04-27] VITALS (10 sets, daily range): BP systolic 106–140; BP diastolic 64–81; PULSE 68–78; RESP 18–20; TEMP 36.2–36.6; O2SAT 98–100
[2020-04-27] MEDS: Omeprazole 20 MG CAPSULE.DR PO ×2 (05:24→14:53)
[2020-04-27] MEDS: Albumin Human 25 % 100 ML IV ×3 (05:38→17:13)
[2020-04-27 06:36] LABS: INTERNATIONAL NORM RATIO 1.3 (0.9-1.1); Prothrombin Time 15.7 SEC (10.8-13.0)
[2020-04-27 06:48] LABS: Hematocrit 22.9 % (42-52); Hemoglobin 7.1 g/dl (14.0-18.0); Mean Corpuscular Hemoglobin 26.6 pg (27.0-33.0); Mean Corpuscular Volume 85.8 fL (80-98); Mean Platelet Volume 10.9 fL (9.4-12.4); Platelet Count 109 X10*3/uL (160-400); Red Blood Count 2.67 X10*6/uL (4.60-5.80); Red Cell Distribution Width 15.7 % (11.0-16.0); White Blood Count 10.8 X10*3/uL (4.8-10.8)
[2020-04-27 06:58] LABS: B Type Natriuretic Peptide 4515 pg/mL (<100)
[2020-04-27 07:11] LABS: Alanine Aminotransferase 27 U/L (0-40); Albumin Level 3.4 g/dL (3.5-5.0); Alkaline Phosphatase 70 U/L (39-117); Anion Gap 16 (12-20); Aspartate Amino Transferase 16 U/L (5-37); Bilirubin Direct 0.7 mg/dL (0.0-0.5); Bilirubin Total 1.2 mg/dL (0.0-1.0); Blood Urea Nitrogen 64 mg/dL (9-16); Calcium 8.2 mg/dL (8.4-10.2); Carbon Dioxide 21 mmol/L (22-29); Chloride 104 mmol/L (96-108); Creatinine Clr Calc Pharmacy 29.2; Estimated Glomerular Filt Rate 28; Glucose Random 247 mg/dL (60-115); Sodium 136 mmol/L (135-145); Total Protein 5.9 g/dL (6.5-8.0)
[2020-04-27 07:18] LABS: Glucose, Whole Blood 239 mg/dL (60-115)
[2020-04-27] MEDS: Insulin Lispro 100 UNIT/ML 3 ML VIAL SUBCUT ×3 (07:30→17:12)
[2020-04-27] MEDS: Octreotide Acetate 100 MCG/ML AMPUL 200 MCG SUBCUT ×2 (08:41→14:52)
[2020-04-27] MEDS: Lactulose 20 GM/30 ML SOLUTION 30 GM PO ×2 (08:41→14:53)
[2020-04-27] MEDS: rifAXIMin 550 MG TABLET PO (08:42)
[2020-04-27] MEDS: Apixaban 5 MG TABLET PO (08:42)
[2020-04-27] MEDS: Midodrine HCl 5 MG TABLET 10 MG PO ×2 (08:42→14:52)
[2020-04-27] MEDS: Metoprolol Tartrate 25 MG TABLET PO ×2 (08:42→14:52)
[2020-04-27] MEDS: 0.9 % Sodium Chloride Flush 3 ML SYRINGE IVFLUSH ×2 (08:43→14:54)
--- NOTE | 2020-04-27 10:27 | P.PNCA_ITS ---
Subjective Subjective Date of Service: 04/27/20 Principal diagnosis: Atrial fibrillation Interval history: Denies any cardiac symptoms at this time. Review of Systems Review of Systems Yes all other systems are reviewed and are negative Cardiovascular: Reports as per HPI, Reports no additional cardiovascular complaints, Denies acrocyanosis, Denies cool extremities, Denies painful fingertips, Denies chest pain, Denies chest pain at rest, Denies diaphoresis, Denies syncope, Denies irregular heart rhythm, Denies claudication, Denies leg edema, Denies lightheadedness, Denies palpitations and Denies dyspnea Respiratory: Denies dyspnea Denies syncope Endocrine: Denies palpitations Physical Exam Vital Signs: Last Vital Signs Temp 98 F 04/27/20 07:13 Pulse 71 04/27/20 08:42 Resp 18 04/27/20 07:13 BP 106/66 04/27/20 08:42 Pulse Ox 100 04/27/20 07:13 Body Mass Index 25.4 Const General: cooperative, comfortable and no acute distress Orientation/consciousness: patient oriented x3 HENMT Other: Unremarkable Neck Neck: Yes normal visual inspection Chest Chest palpation & inspection: normal inspection of the chest Resp Auscultation: clear to auscultation bilaterally, no crackles and no wheezes Cardio Jugular venous distension: no JVD Palpation: normal PMI Heart sounds: S1 normal heart sound present, S2 normal heart sound present, no gallops, Murmur heart sound present systolic holo, at the apex and at the right sternal border and no rubs GI Inspection: Yes distended Palpation (GI): Soft to palpation Back/Spine/Pelvis Other: unremarkable Skin General skin exam: no rashes or lesions noted Neuro General: patient oriented x3 Extrem General: Yes no clubbing, cyanosis or edema Psych Mental Status: mental status grossly normal Results Labs and Meds Result diagrams: 04/27/20 05:21 04/27/20 05:21 Lab results: Laboratory Results - last 24 hr 04/21/20 04/24/20 04/26/20 19:41 06:31 11:06 WBC RBC Hgb Hct MCV MCH MCHC RDW Plt Count MPV Absolute Nucleated RBC Nucleated RBC % (auto) PT INR Sodium Potassium Chloride Carbon Dioxide Anion Gap BUN Creatinine Estim Creat Clear Calc Estimated GFR POC Glucose 160 H Random Glucose Calcium Total Bilirubin Direct Bilirubin AST ALT Alkaline Phosphatase B-Natriuretic Peptide Total Protein Albumin Complement C3 L Complement C4 <3 L Blood Type Antibody Screen Crossmatch Pathologist Comment ANDREZ [place] 04/26/20 04/26/20 04/26/20 12:24 16:34 20:21 WBC RBC Hgb Hct MCV MCH MCHC RDW Plt Count MPV Absolute Nucleated RBC Nucleated RBC % (auto) PT INR Sodium Potassium Chloride Carbon Dioxide Anion Gap BUN Creatinine Estim Creat Clear Calc Estimated GFR POC Glucose 151 H 157 H 251 H Random Glucose Calcium Total Bilirubin Direct Bilirubin AST ALT Alkaline Phosphatase B-Natriuretic Peptide Total Protein Albumin Complement C3 Complement C4 Blood Type Antibody Screen Crossmatch Pathologist Comment ANDREZ 04/27/20 04/27/20 04/27/20 05:21 05:21 05:21 WBC 10.8 RBC 2.67 L Hgb 7.1 L Hct 22.9 L MCV 85.8 MCH 26.6 L MCHC 31.0 RDW 15.7 Plt Count 109 L MPV 10.9 Absolute Nucleated RBC 0.000 Nucleated RBC % (auto) 0.0 PT 15.7 H INR 1.3 H Sodium 136 Potassium 5.0 Chloride 104 Carbon Dioxide 21 L Anion Gap 16 BUN 64 H Creatinine 2.35 H Estim Creat Clear Calc 29.2 Estimated GFR 28 POC Glucose Random Glucose 247 H D Calcium 8.2 L Total Bilirubin 1.2 H Direct Bilirubin 0.7 H AST 16 ALT 27 Alkaline Phosphatase 70 B-Natriuretic Peptide Total Protein 5.9 L Albumin 3.4 L Complement C3 Complement C4 Blood Type Antibody Screen Crossmatch Pathologist Comment ANDREZ 04/27/20 04/27/20 04/27/20 05:21 07:13 08:57 WBC RBC Hgb Hct MCV MCH MCHC RDW Plt Count MPV Absolute Nucleated RBC Nucleated RBC % (auto) PT INR Sodium Potassium Chloride Carbon Dioxide Anion Gap BUN Creatinine Estim Creat Clear Calc Estimated GFR POC Glucose 239 H Random Glucose Calcium Total Bilirubin Direct Bilirubin AST ALT Alkaline Phosphatase B-Natriuretic Peptide 4515 H Total Protein Albumin Complement C3 Complement C4 Blood Type B Positive Antibody Screen NEGATIVE Crossmatch See Detail Pathologist Comment ANDREZ Progress Note: A&P Assessment and plan (1) Elevated brain natriuretic peptide (BNP) level: Status: Acute (2) PAF (paroxysmal atrial fibrillation): Status: Acute (3) Atherosclerotic cardiovascular disease: Status: Acute (4) Status post aortic valve replacement with bioprosthetic valve: Status: Acute (5) Status post coronary artery bypass graft: Status: Acute (6) SCOTT (acute kidney injury): Status: Acute (7) Cirrhosis: Status: Acute Assessment and Plan: He remains in sinus rhythm. Overall, complex picture but doubt if cardiac status plays a major role in his volume overload. Could be predominantly from cirrhosis rather. Elevated cardiac BNP could be related to worsening renal function. Can hold off on amiodarone and use rather beta-blockers for concern of any hepatic injury. Now on Metoprolol 25mg tid. Plans noted regarding tx to [facility] for further care from liver/renal standpoint. Fall Risk Details Current Medications: Current Medications Generic Name Dose Route Start Last Admin Trade Name Freq PRN Reason Stop Dose Admin Acetaminophen 650 mg 04/22/20 17:29 Acetaminophen 325 Mg Tablet PO Q6H PRN fever Apixaban 5 mg 04/27/20 09:00 04/27/20 08:42 Apixaban 5 Mg Tablet PO 5 mg BID TALON Administration Docusate Sodium 100 mg 04/18/20 01:17 Docusate Sodium 100 Mg Capsule PO DAILY PRN Constipation Guaifenesin/Dextromethorphan 5 ml 04/22/20 14:51 04/26/20 22:52 Guaifenesin Dm 100/10/5 Ml 5 Ml Syrup PO 5 ml Q4H PRN Administration cough Ceftriaxone Sodium 1 gm/ 50 mls @ 100 mls/hr 04/22/20 12:00 04/26/20 12:19 Sodium Chloride IV Infused Q24H TALON Infusion Albumin Human 100 mls @ 100 mls/hr 04/26/20 11:00 04/27/20 06:38 Kedbumin 25 % IV 04/29/20 05:59 Infused Q6H TALON Infusion Insulin Human Lispro 0 unit 04/20/20 11:30 04/27/20 07:30 Insulin Lispro 100 Unit/Ml 3 Ml Vial SUBCUT 4 unit QIDACHS TALON Administration Protocol Lactulose 30 gm 04/22/20 21:00 04/27/20 08:41 Lactulose 20 Gm/30 Ml Solution PO 30 gm TID TALON Administration Metoprolol Tartrate 25 mg 04/26/20 15:00 04/27/20 08:42 Metoprolol Tartrate 25 Mg Tablet PO 25 mg TID TALON Administration Protocol Midodrine 10 mg 04/22/20 21:00 04/27/20 08:42 Midodrine Hcl 5 Mg Tablet PO 10 mg TID TALON Administration Octreotide Acetate 200 mcg 04/24/20 16:00 04/27/20 08:41 Octreotide Acetate 100 Mcg/Ml Ampul SUBCUT 200 mcg Q8H TALON Administration Omeprazole 20 mg 04/25/20 16:30 04/27/20 05:24 Omeprazole 20 Mg Capsule.Dr PO 20 mg BID@0630,1630 TALON Administration Ondansetron HCl 4 mg 04/18/20 01:17 Ondansetron Hcl 4 Mg/2 Ml Vial IVPUSH Q8H PRN Nausea and Vomiting Rifaximin 550 mg 04/22/20 21:00 04/27/20 08:42 Rifaximin 550 Mg Tablet PO 550 mg BID TALON Administration Sodium Chloride 3 ml 04/18/20 01:17 04/27/20 08:43 0.9 % Sodium Chloride Flush 3 Ml Syringe IVFLUSH 3 ml QSHIFT TALON Administration Time Spent With Patient Time: Total time spent is greater than 50% in coordination of care (as documented) at patient's floor/unit and/or counseling patient: Time with patient: less than 15 minutes
--- NOTE | 2020-04-27 10:39 | PM.PNNEP ---
Subjective Subjective Date of Service: 04/27/20 Principal diagnosis: Atrial fibrillation Interval history: Events noted. Seen AM. All recent data reviewed Physical Exam Vital Signs: Vital Signs: Last Vital Signs Temp 98 F 04/27/20 07:13 Pulse 71 04/27/20 08:42 Resp 18 04/27/20 07:13 BP 106/66 04/27/20 08:42 Pulse Ox 100 04/27/20 07:13 Body Mass Index 25.4 Const: General: No acute distress Neck: Neck: Yes supple Resp: Auscultation: diminished lung sounds Cardio: Rate: regular rate GI: Palpation (GI): Soft to palpation Neuro: General: moves all extremities Objective Data Labs CBC & Chem 7: 04/27/20 05:21 04/27/20 05:21 Labs: Laboratory Results - last 24 hr 04/21/20 04/24/20 04/26/20 19:41 06:31 11:06 WBC RBC Hgb Hct MCV MCH MCHC RDW Plt Count MPV Absolute Nucleated RBC Nucleated RBC % (auto) PT INR Sodium Potassium Chloride Carbon Dioxide Anion Gap BUN Creatinine Estim Creat Clear Calc Estimated GFR POC Glucose 160 H Random Glucose Calcium Total Bilirubin Direct Bilirubin AST ALT Alkaline Phosphatase B-Natriuretic Peptide Total Protein Albumin Complement C3 23 L Complement C4 <3 L Blood Type Antibody Screen Crossmatch Pathologist Comment ANDREZ SN 04/26/20 04/26/20 04/26/20 12:24 16:34 20:21 WBC RBC Hgb Hct MCV MCH MCHC RDW Plt Count MPV Absolute Nucleated RBC Nucleated RBC % (auto) PT INR Sodium Potassium Chloride Carbon Dioxide Anion Gap BUN Creatinine Estim Creat Clear Calc Estimated GFR POC Glucose 151 H 157 H 251 H Random Glucose Calcium Total Bilirubin Direct Bilirubin AST ALT Alkaline Phosphatase B-Natriuretic Peptide Total Protein Albumin Complement C3 Complement C4 Blood Type Antibody Screen Crossmatch Pathologist Comment ANDREZ 04/27/20 04/27/20 04/27/20 05:21 05:21 05:21 WBC 10.8 RBC 2.67 L Hgb 7.1 L Hct 22.9 L MCV 85.8 MCH 26.6 L MCHC 31.0 RDW 15.7 Plt Count 109 L MPV 10.9 Absolute Nucleated RBC 0.000 Nucleated RBC % (auto) 0.0 PT 15.7 H INR 1.3 H Sodium 136 Potassium 5.0 Chloride 104 Carbon Dioxide 21 L Anion Gap 16 BUN 64 H Creatinine 2.35 H Estim Creat Clear Calc 29.2 Estimated GFR 28 POC Glucose Random Glucose 247 H D Calcium 8.2 L Total Bilirubin 1.2 H Direct Bilirubin 0.7 H AST 16 ALT 27 Alkaline Phosphatase 70 B-Natriuretic Peptide Total Protein 5.9 L Albumin 3.4 L Complement C3 Complement C4 Blood Type Antibody Screen Crossmatch Pathologist Comment ANDREZ 04/27/20 04/27/20 04/27/20 05:21 07:13 08:57 WBC RBC Hgb Hct MCV MCH MCHC RDW Plt Count MPV Absolute Nucleated RBC Nucleated RBC % (auto) PT INR Sodium Potassium Chloride Carbon Dioxide Anion Gap BUN Creatinine Estim Creat Clear Calc Estimated GFR POC Glucose 239 H Random Glucose Calcium Total Bilirubin Direct Bilirubin AST ALT Alkaline Phosphatase B-Natriuretic Peptide 4515 H Total Protein Albumin Complement C3 Complement C4 Blood Type B Positive Antibody Screen NEGATIVE Crossmatch See Detail Pathologist Comment CINDY Microbiology Microbiology Results: Microbiology 04/22/20 18:22 Blood - Venous Blood Culture - Preliminary No growth after 48 hours. 04/22/20 18:22 Blood - Venous Blood Culture - Preliminary No growth after 48 hours. Assessment & Plan Assessment and plan (1) SCOTT (acute kidney injury): Problem details: SCOTT (acute kidney injury suspect renal hypo perfusion given low BPs, low albumin and now appears c/w HRS physiology Shall give IV Albumin x 3 days- started yesterday; May need renal replacement; No indication today GI following; if continue to get worse may need to consider xfer to liver transplant program Status: Acute Time Spent With Patient Time: Total time spent is greater than 50% in coordination of care (as documented) at patient's floor/unit and/or counseling patient:
[2020-04-27 11:04] LABS: Glucose, Whole Blood 302 mg/dL (60-115)
[2020-04-27] MEDS: cefTRIAXone sodium 1 GM in 0.9 % Sodium Chloride 50 ML IV (11:32)
--- NOTE | 2020-04-27 13:25 | PM.DS ---
DS: Providers Provider Date of Service: 04/27/20 Date of admission: 04/17/20 21:06 Primary care physician: Nonstaff Physician Consults: 04/18/20 01:17 Consult to Cardiology Routine Consulting Provider: Manuel Steinberg Reason for consultation: heart failure Has provider been notified: No 04/18/20 05:42 Consult to Nephrology Routine Consulting Provider: [facility] Reason for consultation: Hyponatremia Has provider been notified: No 04/19/20 17:38 Consult to Hematology / Oncology Routine Consulting Provider: [facility] [place]ology Reason for consultation: anemia, thrombocytopenia, HSM 04/19/20 20:29 Consult to Urology Stat Consulting Provider: Yossi Sorto Reason for consultation: Gross hematuria 04/20/20 14:54 Consult to Care Team Routine Comment: Reason for consultation: adjustment depression? 04/22/20 16:00 Consult to Infectious Diseases Routine Consulting Provider: Karol Izaguirre Reason for consultation: pneumonia, new dx cirrhosis 04/22/20 20:54 Consult to Urology Routine Consulting Provider: Yossi Sorto Reason for consultation: urinary retension 04/24/20 13:36 Consult to Neurology Stat Consulting Provider: [facility] Reason for consultation: 11:00 onset- dysarthria, L facial droop noted. AF, cirrhosis, HF, SCOTT 04/25/20 02:40 Consult to Gastroenterology Routine Consulting Provider: Rick Rivas Reason for consultation: guaiac positive stool DS: Diagnosis Discharge Diagnosis (1) SCOTT (acute kidney injury): Status: Acute (2) Hepatorenal syndrome: Status: Acute (3) Transient ischemic attack: Status: Acute (4) Heme + stool: Status: Acute (5) Cirrhosis: Status: Acute (6) PAF (paroxysmal atrial fibrillation): Status: Acute (7) Acute hyponatremia: Status: Acute (8) Anemia: Status: Acute (9) CHF (congestive heart failure): Status: Acute (10) Elevated brain natriuretic peptide (BNP) level: Status: Acute (11) Anemia: Status: Acute (12) Pneumonia: Status: Acute DS: Medications Discharge Medications Home Medications: Home Medications Medication Instructions Recorded Confirmed aspirin 81 mg PO DAILY 04/17/20 04/17/20 atorvastatin 1 tab PO DAILY 04/17/20 04/17/20 metoprolol tartrate 1 tab PO BID 04/17/20 04/17/20 Previous Rx's Medication Instructions Recorded apixaban [Eliquis] 5 mg PO BID 1 Days #2 tab 04/27/20 ceftriaxone 1 g IV Q24H 1 Days ea 04/27/20 lactulose 30 g PO TID 1 Days #135 ml 04/27/20 midodrine 10 mg PO TID 1 Days #6 tab 04/27/20 octreotide acetate 200 mcg SUBCUT Q8H 1 Days #6 ml 04/27/20 omeprazole 20 mg PO BID@0630,1630 1 Days #2 04/27/20 cap rifaximin [Xifaxan] 550 mg PO BID 1 Days #2 tab 04/27/20 DS: Summary Hospital Course Hospital Course: Admission note HPI This is a 69-year-old male with past medical history of CAD status post CABG, HTN, HLD who presents to the hospital with multiple complaints including generalized weakness, episode of fall, low appetite, and cough. Patient reports that he started having a cough about 3 weeks ago and wound with dyspnea on exertion and lower extremity edema. He had 1 episode of fall last Sunday, he does not remember the events surrounding the fall, he just remembers being on the floor, does not remember if he had any dizziness, palpitations or chest pain at that time. Currently denies any chest pain, no headache, no change in vision, no abdominal pain nausea or vomiting, no diarrhea constipation, and no urinary symptoms. he reports low appetite for solids for the past 1 week but has been drinking about 4 to 5 cups of water and Gatorade daily. Patient had 1st dose of COVID vaccine in the beginning of April and did present herself to [facility] and he was told that these are side effects from the COVID vaccine and was sent home. Patient denies any melena, no bright red blood per rectum, no hematemesis, hematochezia, hemoptysis. On arrival to the ED patient is hemodynamically stable with blood pressure of 107/51 otherwise satting 99% on room air. Afebrile Labs are significant for WBC count of 10.3, hemoglobin of 9.4( 9.7 on 3/5 at [place]) , PT of 16.8, INR 1.4, sodium of 128 (135 3/5), BUN of 26, creatinine 0.9, total bili of 1.1, AST of 59, ALT of 79, high sensitivity troponin of 227, on repeat to 20, BNP of 457, albumin of 2.6. Stool occult blood negative. COVID-19 negative, EKG reviewed shows sinus rhythm with PACs, some nonspecific ST T wave changes Chest x-ray revealed mild prominence of the pulmonary vasculature and interstitium which may represent edema versus atelectasis Hospital course admitted with concern of CHF exacerbation with edema and dyspnea in setting of recent malaise and weakness after COVID-19 vaccination Found to have new diagnoses of cirrhosis + DM2 went into new-onset AF 04/24/20 then had mild ischemic TIA completely resolved converted after amiodarone load which was stopped for concern of cirrhosis and hepatorenal syndrome worsening renal failure during the hospital stay until became anuric for the last 24 hours # SCOTT; possible HRS Cr worsening with oligourea during the hospital stay until creatinine of 2.35, BUN 65 and anurea Urine studies showed very low Blas favors hepatorenal Evaluated by Nephrology who recommended treatment with midodrine, octreotide Patient was started on albumin Lasix was discontinued # normocytic hypoproliferative anemia # positive occult stool Received total of 2 units of packed RBCs during the hospital stay. Last on 04/27/2020 for hemoglobin of 7.1 No clear source of bleeding. EGD showed severe gastritis with polyp that was biopsy, to continue with omeprazole. Colonoscopy was postpone at this point. #New diagnosis of DM2 HbA1c 7.1 this admission more correction dose lispro The # TIA Developed an episode of left-sided facial droop and slurred speech, NIHSS 2 Was not a good candidate for peripheral or intra-arterial tPA and symptoms were mild. But partially resolved during the hospital stay as head CT and brain MRI both were negative for any acute findings Evaluated by PT/OT RN TESTING recommended modified diet with NDD 1 cure rate and thin liquids Neurology input appreciated, will need anticoagulation # new-onset AF Developed symptoms on 04/24/2020 . Started on amiodarone and Back to sinus rhythm Discontinue amiodarone for concerns about cirrhosis and hepatorenal syndrome Continue home dose metoprolol of 50 mg b.i.d. [id number], very high stroke risk (10%/yr), started on anticoagulation [facility] during hospital stay # acute/chronic HFpEF interstitial edema noted at time of presentation treated with IV Lasix with fair response. BNP continue to increase to almost 4000 today but the patient is not in fluid overload which is likely result of worsening kidney function Lasix discontinued for acute kidney injury # pneumonia Chest x-ray was concerning for possible pneumonia and infiltrate On ceftriaxone + doxycycline d#6 BCx negative, pneumococcal UAg negative, Legionella UAg pending Id evaluated the patient and recommended treatment for total of 10 days # cirrhosis, new diagnosis # hypoalbuminemia, transaminasemia, coagulopathy, anemia, thrombocytopenia, splenomegaly Gastroenterology suspect TORRES cirrhosis HCV Ab positive but RNA viral load negative; HBV negative; GABBY negative; # hepatic encephalopathy Developed during hospital stay and improved after lactulose + rifaximin started as ammonia level was not significantly high in 20s. Recommendation from GI to treat as hepatic encephalopathy with patient mentation improved back to almost baseline with having bowel movement twice daily as a target. 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 Mildly improved to 100 during the hospital stay # hyponatremia At time of presentation. likely due to cirrhosis. TSH normal, cortisol normal. # chronic MR, eccentric, moderate TTE done. appreciate Cardiology recommendation- to consider outpt WAGNER the # troponin elevation flat, per Cardiology not ACS, likely related to underlying HF/MR Plan to transferred to [facility] for further evaluation of hepatorenal syndrome or any other causes of acute renal failure. Time Spent with Patient Time attestation: Total time spent providing and/or coordinating discharge services: Discharge coordination time: Greater than 30 minutes Physical Exam Vital Signs: Vital Signs: Last Vital Signs Temp 97.1 F 04/27/20 11:43 Pulse 68 04/27/20 11:43 Resp 20 04/27/20 11:43 BP 109/64 04/27/20 11:43 Pulse Ox 98 04/27/20 10:52 Body Mass Index 25.4 Const: Other: Constitutional : Alert, oriented, not in distress Neck : Normal inspection, Supple Cardiovascular : RRR, S1 S2, no lower extremity edema, 3/6 holosystolic apical murmur Respiratory : Decrease bilateral air entry, no crackles, wheezes or rhonchi Gastrointestinal: soft, lax, mildly distended with minimal ascites, Normal bowel sounds, Non tender Skin : Warm/Dry, No rash Neurological : Alert & oriented x3, No other focal deficit DS: Data Data Completed and Pending Pending studies at discharge: Pending at discharge 04/26/20 13:33 Surgical [PTH] Routine Labs on day of discharge: Laboratory Results - last 24 hr 04/21/20 04/24/20 04/26/20 19:41 06:31 16:34 WBC RBC Hgb Hct MCV MCH MCHC RDW Plt Count MPV Absolute Nucleated RBC Nucleated RBC % (auto) PT INR Sodium Potassium Chloride Carbon Dioxide Anion Gap BUN Creatinine Estim Creat Clear Calc Estimated GFR POC Glucose 157 H Random Glucose Calcium Total Bilirubin Direct Bilirubin AST ALT Alkaline Phosphatase B-Natriuretic Peptide Total Protein Albumin Complement C3 23 L Complement C4 <3 L Blood Type Antibody Screen Crossmatch Pathologist Comment [facility] 04/26/20 04/27/20 04/27/20 20:21 05:21 05:21 WBC 10.8 RBC 2.67 L Hgb 7.1 L Hct 22.9 L MCV 85.8 MCH 26.6 L MCHC 31.0 RDW 15.7 Plt Count 109 L MPV 10.9 Absolute Nucleated RBC 0.000 Nucleated RBC % (auto) 0.0 PT 15.7 H INR 1.3 H Sodium Potassium Chloride Carbon Dioxide Anion Gap BUN Creatinine Estim Creat Clear Calc Estimated GFR POC Glucose 251 H Random Glucose Calcium Total Bilirubin Direct Bilirubin AST ALT Alkaline Phosphatase B-Natriuretic Peptide Total Protein Albumin Complement C3 Complement C4 Blood Type Antibody Screen Crossmatch Pathologist Comment [facility] 04/27/20 04/27/20 04/27/20 05:21 05:21 07:13 WBC RBC Hgb Hct MCV MCH MCHC RDW Plt Count MPV Absolute Nucleated RBC Nucleated RBC % (auto) PT INR Sodium 136 Potassium 5.0 Chloride 104 Carbon Dioxide 21 L Anion Gap 16 BUN 64 H Creatinine 2.35 H Estim Creat Clear Calc 29.2 Estimated GFR 28 POC Glucose 239 H Random Glucose 247 H D Calcium 8.2 L Total Bilirubin 1.2 H Direct Bilirubin 0.7 H AST 16 ALT 27 Alkaline Phosphatase 70 B-Natriuretic Peptide 4515 H Total Protein 5.9 L Albumin 3.4 L Complement C3 Complement C4 Blood Type Antibody Screen Crossmatch Pathologist Comment [facility] 04/27/20 04/27/20 08:57 10:54 WBC RBC Hgb Hct MCV MCH MCHC RDW Plt Count MPV Absolute Nucleated RBC Nucleated RBC % (auto) PT INR Sodium Potassium Chloride Carbon Dioxide Anion Gap BUN Creatinine Estim Creat Clear Calc Estimated GFR POC Glucose 302 H Random Glucose Calcium Total Bilirubin Direct Bilirubin AST ALT Alkaline Phosphatase B-Natriuretic Peptide Total Protein Albumin Complement C3 Complement C4 Blood Type B Positive Antibody Screen NEGATIVE Crossmatch See Detail Pathologist Comment [facility] Preliminary micro results at discharge 04/22/20 18:22 Blood Culture - Preliminary Blood - Venous No growth after 48 hours. 04/22/20 18:22 Blood Culture - Preliminary Blood - Venous No growth after 48 hours. Discharge Plan Discharge Patient Disposition: [facility] Referrals: [facility] [Outside] Kris Gibson MD [Physician] - 1 Week (05/03/2020 2) Discharge Medications: New ceftriaxone 1 gram Recon Soln 1 g IV Q24H 1 Days RF: 0 midodrine 5 mg Tablet 10 mg PO TID 1 Days Qty: 6 RF: 0 Xifaxan 550 mg Tablet 550 mg PO BID 1 Days Qty: 2 RF: 0 octreotide acetate 100 mcg/mL Solution 200 mcg subcut Q8H 1 Days Qty: 6 RF: 0 omeprazole 20 mg Capsule,Delayed Release(Dr/Ec) 20 mg PO BID@0630,1630 1 Days Qty: 2 RF: 0 lactulose 20 gram/30 mL Solution 30 g PO TID 1 Days Qty: 135 RF: 0 Eliquis 5 mg Tablet 5 mg PO BID 1 Days Qty: 2 RF: 0 Continued metoprolol tartrate 50 mg tablet 1 tab PO BID RF: 0 aspirin 81 mg Tablet 81 mg PO DAILY RF: 0 Held atorvastatin 40 mg tablet 1 tab PO DAILY RF: 0 Hold Instructions: Until liver eval. done Discharge Orders: Discharge Order (Routine); Ordered 04/27/20 Ordered By: Emily Bautista Diet: other Activity on Discharge: As tolerated Stand Alone Forms: Patient Portal Discharge page Care Plan Goals: Read below Health Concerns: Read below Plan of Treatment: You were admitted to the hospital for evaluation of fluid overload and difficulty breathing. Found to have abnormal liver image suggestive of cirrhosis and developed acute kidney injury during this hospital stay which is worsening and needs further evaluation. Treated mainly with IV and oral medications with no response as your not making urine any more all the plan to transfer you to [facility] for further evaluation and treatment You developed new onset atrial fibrillation which is irregular rhythm and started on oral medications to control the rate. You were also started on blood thinners to prevent strokes. You were noticed to have blood in the stool and did endoscopy by self pay representative which showed inflammation of your stomach. Continue current treatment at time of transfer
--- NOTE | 2020-04-27 13:37 | MHC.CM.PN ---
Patient is being transferred out acute to [facility].
--- NOTE | 2020-04-27 13:47 | HO.POSTANES ---
Post Anesthesia Evaluation Post Anesthesia Evaluation Vital Signs: Vital Signs Temp Pulse Resp BP Pulse Ox 04/27/20 11:43 97.1 F 68 20 109/64 04/27/20 11:26 97.1 F 78 20 112/71 04/27/20 10:52 98 F 72 18 140/81 H 98 04/27/20 08:42 71 106/66 04/27/20 07:13 98 F 71 18 106/66 100 04/27/20 03:19 97.9 F 75 18 128/77 98 Anesthesia: Monitored Mental Status: Awake Pain Control: Satisfactory Nausea/Vomiting: None Hydration: Adequate Anesthesia-Related Issues: No Anes. Related Issues
[2020-04-27 16:16] LABS: Glucose, Whole Blood 215 mg/dL (60-115)
[2020-04-29 17:47] LABS: Legionella Ag Urine Not Detected (Not Detected)
[2020-05-01 10:31] LABS: Smooth Muscle Antibody 39 U (<20)
[2020-05-02 06:41] LABS: Cryoglobulin, Qual Negative (Negative)
[2020-05-05 00:21] LABS: Liver Kidney Microsomal Ab <=20.0 U (<=20.0)
== END 2020-04-27 19:37 | disposition short-term general hospital (02) | DRG 291 ==
LOC: HO.ED 20:17 → HO.IMC 23:08
PROVIDERS: Family Medicine; Hospitalist; Internal Medicine; Internal Medicine Gastroenterology; Internal Medicine Medical Oncology; Internal Medicine Nephrology; Admitting Provider Internal Medicine; Emergency Provider Internal Medicine; PCP Family Medicine; Visit Provider Student in an Organized Health Care Education/Training Program
PROC: 0DJ08ZZ Inspection of Upper Intestinal Tract, Via Natural or Artificial Opening Endoscopic (ICD-10-PCS; CPT 43235; principal; 2020-04-26 13:20)
DX: I11.0 Hypertensive heart disease with heart failure (principal); J18.9 Pneumonia, unspecified organism; K22.11 Ulcer of esophagus with bleeding; K25.4 Chronic or unspecified gastric ulcer with hemorrhage; K76.7 Hepatorenal syndrome; E87.1 Hypo-osmolality and hyponatremia; N17.9 Acute kidney failure, unspecified; G45.9 Transient cerebral ischemic attack, unspecified; D61.9 Aplastic anemia, unspecified; D68.9 Coagulation defect, unspecified; I25.10 Atherosclerotic heart disease of native coronary artery without angina pectoris; I50.33 Acute on chronic diastolic (congestive) heart failure; I34.0 Nonrheumatic mitral (valve) insufficiency; K72.90 Hepatic failure, unspecified without coma; K75.81 Nonalcoholic steatohepatitis (NASH); E78.5 Hyperlipidemia, unspecified; D69.6 Thrombocytopenia, unspecified; E11.9 Type 2 diabetes mellitus without complications; R31.0 Gross hematuria; K31.9 Disease of stomach and duodenum, unspecified; K74.69 Other cirrhosis of liver; I48.0 Paroxysmal atrial fibrillation; Z20.822 Contact with and (suspected) exposure to COVID-19; Z95.1 Presence of aortocoronary bypass graft; Z95.2 Presence of prosthetic heart valve; Z79.01 Long term (current) use of anticoagulants; Z79.82 Long term (current) use of aspirin; Z79.899 Other long term (current) drug therapy
CPT/HCPCS: 36415; 70450; 70551; 71045; 71250; 74177; 76700; 76857; 80048; 80051; 80053; 80061; 80076; 81001; 81256; 82103; 82140; 82272; 82390; 82533; 82550; 82595; 82607; 82728; 82746; 82784; 82947; 82977; 83010; 83036; 83516; 83520; 83540; 83615; 83735; 83880; 83930; 83935; 84134; 84145; 84300; 84443; 84484; 84550; 84560; 85025; 85027; 85045; 85060; 85384; 85610; 85730; 86038; 86039; 86078; 86160; 86255; 86334; 86376; 86431; 86704; 86706; 86708; 86803; 86850; 86900; 86923; 87040; 87340; 87389; 87449; 87522; 87633; 87635; 87899; 88305; 88342; 92610; 93005; 93306; 93880; 93975; 97110; 97116; 97162; 97166; 97535; 99285; C1758; J0282; J0696; J1940; J2354; P9016; P9047; Q0163; Q9967

== ENCOUNTER 2021-03-10 08:03 | Outpatient (REF) | payer MEDICARE, BC, SELFPAY ==
[2021-03-10 11:01] LABS: MANUAL DIFF FLAG NO
[2021-03-10 11:05] LABS: Basophils Percent Auto 0.3 % (0-2); Eosinophils Percent Auto 0.6 % (0-4); Hemoglobin 10.9 g/dl (14.0-18.0); Imm Gran Abs Auto 0.01 X10*3/uL (0.00-0.03); Imm Gran Pct Auto 0.3 % (0.0-0.4); Lymphocytes Absolute Auto 0.9 X10*3/uL (1.2-4.9); Lymphocytes Percent Auto 26.2 % (20-40); Mean Corpuscular HGB Conc 32.1 g/dl (31.0-36.0); Mean Corpuscular Hemoglobin 30.7 pg (27.0-33.0); Mean Corpuscular Volume 95.8 fL (80.0-98.0); Mean Platelet Volume 9.6 fL (9.4-12.4); Monocytes Absolute Auto 0.3 X10*3/uL (0.1-1.2); Monocytes Percent Auto 8.2 % (2-11); Neutrophils Absolute Auto 2.1 x10*3/uL (2.0-8.3); Neutrophils Percent Auto 64.4 % (45-73); Platelet Count 128 X10*3/uL (160-400); Red Blood Count 3.55 X10*6/uL (4.60-5.80); White Blood Count 3.3 X10*3/uL (4.8-10.8)
[2021-03-10 11:16] LABS: Appearance Urine CLEAR; Color Urine STRAW; Glucose Urine UA NEG (NEG); Leukocyte Esterase Urine NEG (NEG); Nitrite Urine NEG (NEG); Specific Gravity - Urine 1.015 (1.005-1.025); Urine Blood 3+ (NEG); Urine Ketones NEG (NEG); Urine Protein 1+ MG/DL (NEG-TRACE)
[2021-03-10 11:20] LABS: Alanine Aminotransferase 9 U/L (0-40); Albumin Level 4.6 g/dL (3.5-5.0); Alkaline Phosphatase 56 U/L (39-117); Anion Gap 13 (12-20); Aspartate Amino Transferase 18 U/L (5-37); Bilirubin Total 0.6 mg/dL (0.0-1.0); Blood Urea Nitrogen 66 mg/dL (9-16); Calcium 9.5 mg/dL (8.4-10.2); Carbon Dioxide 25 mmol/L (22-29); Chloride 108 mmol/L (96-108); Cholesterol 122 mg/dL; Estimated Glomerular Filt Rate 19; Glucose Fasting 119 mg/dL (60-99); HDL Cholesterol 44 mg/dL; Iron 66 mcg/dL (45-160); LDL Cholesterol Calculated 67 mg/dl; Percent Iron Saturation 22 % (15-50); Potassium 5.2 mmol/L (3.3-5.1); Sodium 141 mmol/L (135-145); Total Iron Binding Capacity 295 mcg/dL (228-428); Total Protein 7.3 g/dL (6.5-8.0); Triglycerides 59 mg/dL; Unsaturated Iron Binding 229 ug/dL
[2021-03-10 11:40] LABS: Prostate Specific Antigen Scr 0.71 ng/mL (<0.05-4.0); TSH reflex Free T4 1.83 uIU/mL (0.32-4.0)
[2021-03-10 11:47] LABS: B Type Natriuretic Peptide 340 pg/mL (<100)
[2021-03-10 11:56] LABS: WBC Urine 0 /HPF (0-4)
[2021-03-10 12:10] LABS: Folate 16.8 ng/mL (> or = 4.0); Vitamin B12 924 pg/mL (200-900)
== END 2021-03-10 08:04 | disposition home or self-care (01) ==
LOC: HO.WFDLDS 08:03
PROVIDERS: Visit Provider Family Medicine
DX: Z00.00 Encounter for general adult medical examination without abnormal findings (principal); Z12.5 Encounter for screening for malignant neoplasm of prostate; I50.9 Heart failure, unspecified; D64.9 Anemia, unspecified; E53.8 Deficiency of other specified B group vitamins
CPT/HCPCS: 36415; 80053; 80061; 81001; 81003; 82607; 82746; 83540; 83880; 84153; 84443; 85025

== ENCOUNTER 2022-01-18 11:32 | Outpatient (REF) | payer MEDICARE, BC, SELFPAY ==
[2022-01-18 14:18] LABS: MANUAL DIFF FLAG NO
[2022-01-18 14:32] LABS: Basophils Percent Auto 0.3 % (0-2); Hematocrit 27.8 % (42.0-52.0); Hemoglobin 8.6 g/dl (14.0-18.0); Imm Gran Abs Auto 0.02 X10*3/uL (0.00-0.03); Imm Gran Pct Auto 0.3 % (0.0-0.4); Lymphocytes Absolute Auto 0.8 X10*3/uL (1.2-4.9); Lymphocytes Percent Auto 12.9 % (20-40); Mean Corpuscular HGB Conc 30.9 g/dl (31.0-36.0); Mean Corpuscular Hemoglobin 30.1 pg (27.0-33.0); Mean Corpuscular Volume 97.2 fL (80.0-98.0); Mean Platelet Volume 9.8 fL (9.4-12.4); Monocytes Absolute Auto 0.5 X10*3/uL (0.1-1.2); Monocytes Percent Auto 8.6 % (2-11); Neutrophils Absolute Auto 4.9 x10*3/uL (2.0-8.3); Neutrophils Percent Auto 77.9 % (45-73); Platelet Count 146 X10*3/uL (160-400); Red Blood Count 2.86 X10*6/uL (4.60-5.80); Red Cell Distribution Width 13.7 % (11.0-16.0); White Blood Count 6.3 X10*3/uL (4.8-10.8)
[2022-01-18 14:46] LABS: Alanine Aminotransferase 18 U/L (0-40); Albumin Level 3.7 g/dL (3.5-5.0); Alkaline Phosphatase 71 U/L (39-117); Anion Gap 12 (12-20); Aspartate Amino Transferase 23 U/L (5-37); Bilirubin Total 0.4 mg/dL (0.0-1.0); Blood Urea Nitrogen 50 mg/dL (9-16); Calcium 8.9 mg/dL (8.4-10.2); Carbon Dioxide 22 mmol/L (22-29); Chloride 113 mmol/L (96-108); Estimated Glomerular Filt Rate 26; Glucose Random 94 mg/dL (60-115); Potassium 5.3 mmol/L (3.3-5.1); Sodium 142 mmol/L (135-145); Total Protein 6.7 g/dL (6.5-8.0)
== END 2022-01-18 11:33 | disposition home or self-care (01) ==
LOC: HO.WFDLDS 11:32
PROVIDERS: Visit Provider Family Medicine
DX: Z00.00 Encounter for general adult medical examination without abnormal findings (principal); N18.9 Chronic kidney disease, unspecified
CPT/HCPCS: 36415; 80053; 85025

== ENCOUNTER 2022-03-09 08:33 | Outpatient (REF) | payer MEDICARE, BC, SELFPAY ==
[2022-03-09 11:19] LABS: MANUAL DIFF FLAG NO
[2022-03-09 11:26] LABS: Appearance Urine Clear; Color Urine Yellow; Glucose Urine UA Negative (Negative); Leukocyte Esterase Urine Negative (Negative); Nitrite Urine Negative (Negative); UMIC TRIGGER UA YES; Urine Blood Small (1+) (Negative); Urine Ketones Negative (Negative); Urine Protein 100 (2+) mg/dL (Neg-Trace)
[2022-03-09 11:32] LABS: Basophils Percent Auto 0.2 % (0-2); Eosinophils Percent Auto 0.6 % (0-4); Hematocrit 34.3 % (42.0-52.0); Hemoglobin 10.7 g/dl (14.0-18.0); Imm Gran Abs Auto 0.02 X10*3/uL (0.00-0.03); Imm Gran Pct Auto 0.4 % (0.0-0.4); Lymphocytes Absolute Auto 0.9 X10*3/uL (1.2-4.9); Lymphocytes Percent Auto 18.7 % (20-40); Mean Corpuscular HGB Conc 31.2 g/dl (31.0-36.0); Mean Corpuscular Hemoglobin 30.1 pg (27.0-33.0); Mean Corpuscular Volume 96.3 fL (80.0-98.0); Mean Platelet Volume 10.1 fL (9.4-12.4); Monocytes Absolute Auto 0.3 X10*3/uL (0.1-1.2); Monocytes Percent Auto 6.9 % (2-11); Neutrophils Absolute Auto 3.5 x10*3/uL (2.0-8.3); Neutrophils Percent Auto 73.2 % (45-73); Platelet Count 158 X10*3/uL (160-400); Red Blood Count 3.56 X10*6/uL (4.60-5.80); Red Cell Distribution Width 13.4 % (11.0-16.0); White Blood Count 4.8 X10*3/uL (4.8-10.8)
[2022-03-09 11:42] LABS: Bacteria Urine None Seen (None Seen); Hyaline Casts Urine 0-2 /LPF (0-2); RBC Urine 0-2 /HPF (0-2); Squamous Epithelial Cell Urine 0-2 /HPF (0-2); WBC Urine 0-5 /HPF (0-5)
[2022-03-09 11:54] LABS: Alanine Aminotransferase 19 U/L (0-40); Albumin Level 4.3 g/dL (3.5-5.0); Alkaline Phosphatase 56 U/L (39-117); Anion Gap 13 (12-20); Aspartate Amino Transferase 18 U/L (5-37); Bilirubin Total 0.7 mg/dL (0.0-1.0); Blood Urea Nitrogen 48 mg/dL (9-16); Calcium 9.4 mg/dL (8.4-10.2); Carbon Dioxide 22 mmol/L (22-29); Chloride 108 mmol/L (96-108); Cholesterol 112 mg/dL; Estimated Glomerular Filt Rate 25; Glucose Fasting 105 mg/dL (60-99); HDL Cholesterol 43 mg/dL; LDL Cholesterol Calculated 58 mg/dl; Potassium 5.4 mmol/L (3.3-5.1); Sodium 138 mmol/L (135-145); Total Protein 6.8 g/dL (6.5-8.0); Triglycerides 57 mg/dL
[2022-03-09 12:03] LABS: B Type Natriuretic Peptide 1497 pg/mL (<100)
[2022-03-09 12:12] LABS: Prostate Specific Antigen Scr 0.69 ng/mL (<0.05-4.0); TSH reflex Free T4 3.04 uIU/mL (0.32-4.0)
[2022-03-09 12:28] LABS: Creatinine Urine 45.29 mg/dL
== END 2022-03-09 08:34 | disposition home or self-care (01) ==
LOC: HO.WFDLDS 08:33
PROVIDERS: Visit Provider Family Medicine
DX: Z00.00 Encounter for general adult medical examination without abnormal findings (principal); Z12.5 Encounter for screening for malignant neoplasm of prostate; I11.0 Hypertensive heart disease with heart failure; I50.9 Heart failure, unspecified
CPT/HCPCS: 36415; 80053; 80061; 81001; 82043; 83880; 84153; 84443; 85025

== ENCOUNTER → 2022-05-09 14:13 | Outpatient (BNVA) | payer MEDICARE, BC, SELFPAY | PROVIDERS: PCP Family Medicine; Visit Provider Physician Assistant | DX: R19.5 Other fecal abnormalities (principal); I44.2 Atrioventricular block, complete; I48.0 Paroxysmal atrial fibrillation; Z95.0 Presence of cardiac pacemaker | CPT/HCPCS: 99202 ==